=== PATIENT | male | born 1970 | race Caucasian/White ===

== ENCOUNTER → 2019-11-29 13:35 | Outpatient (BNVA) | payer OTHER, SELFPAY | PROVIDERS: Visit Provider Physician Assistant | DX: Z47.1 Aftercare following joint replacement surgery (principal); Z48.02 Encounter for removal of sutures; Z96.651 Presence of right artificial knee joint | CPT/HCPCS: 99024 ==

== ENCOUNTER → 2019-12-10 10:18 | Outpatient (BNVA) | payer OTHER, SELFPAY | PROVIDERS: PCP Internal Medicine; Referring Provider Internal Medicine; Visit Provider Physician Assistant | DX: T81.41XA Infection following a procedure, superficial incisional surgical site, initial encounter (principal); Z96.651 Presence of right artificial knee joint; Z96.641 Presence of right artificial hip joint ==

== ENCOUNTER → 2019-12-13 09:09 | Outpatient (BNVA) | payer OTHER, SELFPAY | PROVIDERS: PCP Internal Medicine; Referring Provider Internal Medicine; Visit Provider Physician Assistant | DX: Z96.651 Presence of right artificial knee joint (principal) | CPT/HCPCS: 11042 ==

== ENCOUNTER → 2019-12-20 08:15 | Outpatient (BNVA) | payer OTHER, SELFPAY | PROVIDERS: PCP Internal Medicine; Referring Provider Internal Medicine; Visit Provider Orthopaedic Surgery | DX: Z76.89 Persons encountering health services in other specified circumstances (principal) ==

== ENCOUNTER 2019-12-20 13:00 | Outpatient (RCR) | payer OTHER, SELFPAY | END 2020-01-15 16:30 | disposition home or self-care (01) | LOC: HO.WCC 13:00 | PROVIDERS: PCP Internal Medicine; Visit Provider Surgery | DX: T81.31XD Disruption of external operation (surgical) wound, not elsewhere classified, subsequent encounter (principal); Z96.651 Presence of right artificial knee joint; Z79.899 Other long term (current) drug therapy | CPT/HCPCS: 99212; 99213 ==

== ENCOUNTER → 2019-12-24 08:32 | Outpatient (BNVA) | payer OTHER, SELFPAY | PROVIDERS: PCP Internal Medicine; Visit Provider Orthopaedic Surgery | DX: Z76.89 Persons encountering health services in other specified circumstances (principal) ==

== ENCOUNTER → 2019-12-25 08:48 | Outpatient (BNVA) | payer OTHER, SELFPAY | PROVIDERS: PCP Internal Medicine; Referring Provider Internal Medicine; Visit Provider Internal Medicine Gastroenterology | DX: Z76.89 Persons encountering health services in other specified circumstances (principal) ==

== ENCOUNTER → 2019-12-27 08:48 | Outpatient (BNVA) | payer OTHER, SELFPAY | PROVIDERS: PCP Internal Medicine; Visit Provider Orthopaedic Surgery | DX: Z76.89 Persons encountering health services in other specified circumstances (principal) ==

== ENCOUNTER 2020-01-03 08:02 | Outpatient (REF) | payer OTHER, SELFPAY ==
--- NOTE | 2020-01-03 08:10 | US_ITS ---
EXAMINATION: US ABDOMEN COMPLETE CLINICAL INFORMATION: Right upper quadrant pain. COMPARISON: None. TECHNIQUE: Real-time imaging of the abdominal viscera. FINDINGS: PANCREAS: Tail obscured by bowel gas. Head and body normal ABDOMINAL AORTA: The proximal, mid, and distal segments are normal in caliber. INFERIOR VENA CAVA: Visualized portions are normal. LIVER: The liver is normal in size. The liver contour is normal. No focal hepatic lesion. There is no intrahepatic biliary duct dilatation seen. GALLBLADDER: Normal. The gallbladder is physiologically distended without evidence of stones, sludge, polyps, wall thickening or pericholecystic fluid. COMMON BILE DUCT: Normal in caliber measuring 0.4 cm in diameter. RIGHT KIDNEY: Normal. No hydronephrosis. No renal calculi or focal parenchymal lesions. The kidney measures 11.9 cm in maximum dimension. LEFT KIDNEY: No hydronephrosis. No renal calculi or focal parenchymal lesions. The kidney measures 14.2 cm in maximum dimension. SPLEEN: Normal. The spleen measures 9.9 cm in maximum dimension. FREE FLUID: None. US/US abdomen complete IMPRESSION: Normal exam
[2020-01-03 09:33] LABS: MANUAL DIFF FLAG NO
[2020-01-03 09:34] LABS: Basophils Percent Auto 0.5 % (0-2); Eosinophils Absolute Auto 0.4 X10*3/uL (0.0-0.4); Eosinophils Percent Auto 6.6 % (0-4); Hematocrit 40.7 % (42-52); Hemoglobin 13.6 g/dl (14.0-18.0); Imm Gran Abs Auto 0.01 X10*3/uL (0.00-0.03); Imm Gran Pct Auto 0.2 % (0.0-0.4); Lymphocytes Absolute Auto 2.3 X10*3/uL (1.2-4.9); Mean Corpuscular HGB Conc 33.4 g/dl (31.0-36.0); Mean Corpuscular Hemoglobin 31.6 pg (27.0-33.0); Mean Corpuscular Volume 94.7 fL (80-98); Mean Platelet Volume 9.4 fL (9.4-12.4); Monocytes Absolute Auto 0.6 X10*3/uL (0.1-1.2); Monocytes Percent Auto 10.6 % (2-11); Neutrophils Absolute Auto 2.6 X10*3/uL (2.0-8.3); Neutrophils Percent Auto 44.1 % (45-73); Platelet Count 276 X10*3/uL (160-400)
[2020-01-03 10:40] LABS: Alanine Aminotransferase 22 U/L (0-40); Albumin Level 4.6 g/dL (3.5-5.0); Alkaline Phosphatase 58 U/L (39-117); Anion Gap 13 (12-20); Aspartate Amino Transferase 18 U/L (5-37); Bilirubin Total 0.6 mg/dL (0.0-1.0); Blood Urea Nitrogen 6 mg/dL (9-16); Calcium 9.5 mg/dL (8.4-10.2); Carbon Dioxide 29 mmol/L (22-29); Chloride 101 mmol/L (96-108); Estimated Glomerular Filt Rate > 60; Glucose Random 101 mg/dL (60-115); Potassium 4.5 mmol/l (3.3-5.1); Sodium 138 mmol/L (135-145); Total Protein 7.4 g/dL (6.5-8.0)
== END 2020-01-03 08:03 | disposition home or self-care (01) ==
LOC: HO.US 08:02
PROVIDERS: PCP Internal Medicine; Visit Provider Internal Medicine Gastroenterology
DX: R10.11 Right upper quadrant pain (principal)
CPT/HCPCS: 36415; 76700; 80053; 85025

== ENCOUNTER → 2020-02-04 11:06 | Outpatient (BNVA) | payer OTHER, SELFPAY | PROVIDERS: PCP Internal Medicine; Visit Provider Orthopaedic Surgery | DX: Z76.89 Persons encountering health services in other specified circumstances (principal) ==

== ENCOUNTER → 2020-02-05 08:09 | Outpatient (BNVA) | payer OTHER, SELFPAY | PROVIDERS: PCP Internal Medicine; Referring Provider Internal Medicine; Visit Provider Internal Medicine Gastroenterology | DX: Z76.89 Persons encountering health services in other specified circumstances (principal) ==

== ENCOUNTER 2020-02-05 09:00 | Outpatient (RCR) | payer OTHER, SELFPAY ==
--- NOTE | 2020-01-01 11:10 | MHC.PT.EP ---
[facility] [place] Office [place] Office [place] Office [address] Sandra Marinelli [address] [phone] F: [phone] F: [phone] F: [phone] F: [phone] Physical Therapy Plan of Care Date of Evaluation: 01/01/20 Date of Surgery: 11/13/2019 Diagnosis: R TKA Assessment: 49 y/o male s/p R TKA 11/13/2019 after failed conservative management and previous trauma (borken femur, meniscal repairs). Following TKA, he had home PT 3x/week for 2 weeks which ended due to wound abcess of suture. He has been following with wound care and Dr. Tang 2x/week for wound management. He just finished Bactrim for the wound. He stopped most of his PT exercises while under wound care. Currently has pain and difficulty with walking < 1mile, ascending/descending stairs, kneeling, and sleeping. He is not able to drive yet. Examination shows decreased R knee AROM (0-8-108), decreased R LE strength, increased swelling R tibiofemoral joint, decreased HS/gastroc length, and impaired gait pattern. Recommend PT 2x/week for 4 weeks to address impairments, implement HEP, and optimize functional mobility. Frequency and Duration: The patient will be seen 2x/week for 4 weeks Short Term Goals: 2 weeks: 1. Initiate HEP 2. Demonstrate R HS length 10 degrees 3. Demonstrate R knee AROM 0-2-115 Last Scourer Goals: 3 weeks: 1. I with HEP and self management of sx 2. Pt will ascend/descend stairs in step through pattern with one rail 3. Demonstrate normal knee AROM Treatment Plan: Modalities to reduce pain, spasms and effusion. Manual therapy to restore motion and function. Therapeutic exercise to improve strength and flexibility. Neuromuscular re-education for posture and balance. Therapeutic activities to return to functional activities of daily living. Please sign and return to therapist. Thank you for your referral.
--- NOTE | 2020-01-10 09:38 | MHC.PT.PR ---
[facility] [place] Office [place] Office [place] Office [address] Sandra Marinelli [address] [phone] F: [phone] F: [phone] F: [phone] F: [phone] Physical Therapy Progress Note Diagnosis: R TKA Date of Surgery: 11/13/2019 Date of Evaluation: 01/01/20 Treatments to Date: 4 Cancellations to Date: 0 No Shows to Date: 0 Subjective: 8 weeks post-op. Reports nurse at wound care is happy with his progress and removed the dressing. He overdid it yesterday with walking and errands Pain Score and Location: 5 R knee Objective Measures: Knee AROM: 0-3-110 Assessment: Progressed quad strengthening today and cues to maintain knee extension with eccentric lowering. Knee extension ROM is improving however knee flexion has not significantly changed. His incision is now closed with small scabbing noted proximally. Will progress flexino ROM as tolerated. Frequency and Duration: The patient will be seen 2x/week for 4 weeks Treatment Plan: R TKA protocol, BE GENTLE WITH FLEXION ROM as pt has open wound superior incision Thank you once again for your referral.
--- NOTE | 2020-03-18 14:30 | MHC.PT.DC ---
[facility] [place] Office [place] Office [place] Office [address] Sandra Marinelli 140 [facility] [phone] F: [phone] F: [phone] F: [phone] F: [phone] Physical Therapy Discharge Report Diagnosis: R TKA Date of Surgery: 11/13/2019 Date of Evaluation: 01/01/20 Date of Discharge: 03/18/20 Treatments to Date: 7 Cancellations to Date: 2 No Shows to Date: 0 Discharge Status: Improved Function Discharge Summary: Pt I with HEP and d/c from PT. Knee AROM 0-118. Electronically signed by: Delmy Lyn PT Please sign and return to therapist. Thank you for your referral.
== END 2020-03-18 14:30 | disposition other institution (70) ==
LOC: HO.PT 09:00
PROVIDERS: Visit Provider Physician Assistant
DX: Z47.1 Aftercare following joint replacement surgery (principal); Z96.651 Presence of right artificial knee joint
CPT/HCPCS: 97110; 97161; 97530

== ENCOUNTER 2020-04-09 10:40 | Outpatient (REF) | payer OTHER, SELFPAY ==
--- NOTE | ~2020-04-09 | XR_ITS ---
EXAMINATION: XR LUMBOSACRAL SPINE CLINICAL INFORMATION: Left sciatica COMPARISON: Previous lumbar spine x-ray March 2010 TECHNIQUE: Three views of the lumbosacral spine. FINDINGS: There is mild anterior subluxation of L4 with respect L5. This is probably secondary to facet arthritis. Bone alignment is otherwise normal. No fracture or dislocation is seen. There is degenerative disc disease at L1-L2 , L2-L3 and L5-S1. There is lower lumbar spine facet arthritis. XR/XR lumbar spine 2-3V IMPRESSION: Degenerative changes.
== END 2020-04-09 10:41 | disposition home or self-care (01) ==
LOC: HO.XRAY 10:40
PROVIDERS: PCP Internal Medicine; Visit Provider Internal Medicine
DX: M54.32 Sciatica, left side (principal)
CPT/HCPCS: 72100

== ENCOUNTER 2020-04-09 11:01 | Day surgery (SDC) | payer OTHER, SELFPAY ==
[2020-04-03 15:26] VITALS: BMI 30.5
--- NOTE | 2020-04-08 09:39 | P.CONAN_ITS ---
Documented by User: Corrie Lea 04/08/20 09:41 HPI - Anesthesia Eval Consult details Narrative: 50yo M for Upper Endoscopy with Balloon Dilitation PMFSH Active Problems Active Problems: All Active Problems (Updated 04/03/20 @ 15:25 by Shani Henry) Abscess involving suture (Acute) Status post right knee replacement (Acute) RUQ abdominal pain (Acute) Dysphagia (Acute) Bloating symptom (Acute) Past Medical History Medical History ADHD (attention deficit hyperactivity disorder) GERD (gastroesophageal reflux disease) Hemorrhoids HTN (hypertension) Family History Family History Father Alive and well Mother Alive and well Surgical History Surgical History History of colonoscopy Hx of endoscopy Status post total right knee replacement Social History Social History Alcohol intake: current Alcohol intake frequency: a few times a week Alcohol type: beer, wine, hard liquor and other Smoking Status: Former smoker Use of substances other than those prescribed or required for medical reasons: No Substance Use Type: Marijuana Substance Use Frequency: Occasionally Have you been hit, kicked, punched, or otherwise hurt by someone within the past year? If so, by whom?: No Advance Directives: No Advance Directives Information Provided: No Advance Directives on File: No Meds Allergies Allergy/AdvReac Type Severity Reaction Status Date / Time No Known Allergies Allergy Verified 04/09/20 12:16 [No Known Allergies*] seasonal Allergy Unknown Unknown Uncoded 04/09/20 12:16 Home Medications Medication Instructions Recorded Confirmed Last Taken Type acetaminophen 325 mg tablet 650 mg PO Q6H PRN 11/21/19 04/03/20 Unknown History celecoxib 200 mg capsule 200 mg PO BID 11/21/19 04/09/20 04/09/20 07:00 History dextroamphetamine-amphetamine 10 1 tab PO DAILY PRN 11/21/19 04/03/20 Unknown History mg tablet lisinopril 20 mg tablet 20 mg PO DAILY 11/21/19 04/09/20 04/09/20 07:00 History sennosides 8.6 mg-docusate sodium 1 tab PO BEDTIME PRN 11/21/19 02/05/20 Unknown History 50 mg tablet omeprazole 1 cap PO BID 04/03/20 04/09/20 04/09/20 07:00 History Exam Exam Date and Time: April 08, 2020 0939 Height,Weight and Vital Signs: Height 5 ft 7 in Weight 88.451 kg Pertinent Lab Results Pertinent Lab Results: Laboratory Tests 01/03/20 01/03/20 08:53 08:53 WBC 6.0 Hgb 13.6 L Hct 40.7 L Plt Count 276 Sodium 138 Potassium 4.5 Chloride 101 Carbon Dioxide 29 BUN 6 L Creatinine 0.71 Assessment and Plan Assessment Anesthesia Assessment: Chart Reviewed Documented by User: Mary Kate Virgen 04/09/20 13:59 [facility] Past Medical History Medical History ADHD (attention deficit hyperactivity disorder) GERD (gastroesophageal reflux disease) Hemorrhoids HTN (hypertension) Family History Family History Father Alive and well Mother Alive and well Surgical History Surgical History History of colonoscopy Hx of endoscopy Status post total right knee replacement Social History Social History Alcohol intake: current Alcohol intake frequency: a few times a week Alcohol type: beer, wine, hard liquor and other Smoking Status: Former smoker Use of substances other than those prescribed or required for medical reasons: No Substance Use Type: Marijuana Substance Use Frequency: Occasionally Have you been hit, kicked, punched, or otherwise hurt by someone within the past year? If so, by whom?: No Advance Directives: No Advance Directives Information Provided: No Advance Directives on File: No Meds Allergies Allergy/AdvReac Type Severity Reaction Status Date / Time No Known Allergies Allergy Verified 04/09/20 12:16 [No Known Allergies*] seasonal Allergy Unknown Unknown Uncoded 04/09/20 12:16 Home Medications Medication Instructions Recorded Confirmed Last Taken Type acetaminophen 325 mg tablet 650 mg PO Q6H PRN 11/21/19 04/03/20 Unknown History celecoxib 200 mg capsule 200 mg PO BID 11/21/19 04/09/20 04/09/20 07:00 History dextroamphetamine-amphetamine 10 1 tab PO DAILY PRN 11/21/19 04/03/20 Unknown History mg tablet lisinopril 20 mg tablet 20 mg PO DAILY 11/21/19 04/09/20 04/09/20 07:00 History sennosides 8.6 mg-docusate sodium 1 tab PO BEDTIME PRN 11/21/19 02/05/20 Unknown History 50 mg tablet omeprazole 1 cap PO BID 04/03/20 04/09/20 04/09/20 07:00 History Exam Airway Mallampati Class: II TM Dist: >3cm Neck ROM: Full Heart: RRR Lungs: CTA
[2020-04-09 11:37] VITALS: BP 126/81; PULSE 83; RESP 18; TEMP 36.1; O2SAT 98
[2020-04-09] MEDS: Lactated Ringers 1,000 ML 100 ML IVCONT (12:05)
--- NOTE | 2020-04-09 12:10 | MHC.SHP ---
Pre-Procedural Eval Section B Chief Complaint: abdominal distension Details of Present Illness: dysphagia Relevant Family History (Specify if Yes): No Relevant Social History: Other (specify) (THC) Present Medications: see Short Stay Collaborative assessment Medical History: Significant History (ADHD (attention deficit hyperactivity disorder) GERD (gastroesophageal reflux disease) Hemorrhoids HTN (hypertension)) History of Previous Operations: Relevant previous surgery/procedure and date(s) (knee replacement) Allergies: Allergies Allergy/AdvReac Type Severity Reaction Status Date / Time No Known Allergies Allergy Verified 02/04/20 12:42 [No Known Allergies*] seasonal Allergy Unknown Unknown Uncoded 02/04/20 12:42 Review of Systems Sugical H&P ROS: Negative: Constitution, Cardiovascular, Respiratory, Neurological, Psychiatric, Hem-Onc, Allergic/Immunologic, Gastrointestinal, Genitourinary, Musculoskeletal, Integumentary, Endocrine and Eyes/Ears/Nose/Throat Exam Surgical H&P Exam: Normal: HEENT, Normal: Heart, Normal: Lungs, Normal: Extremities, Normal: Abdomen, Normal: Skin and Normal: Neurological Plan Diagnosis/Plan: Unchanged I have reviewed the history and physical and performed a pertinent physical examination on my patient. No changes have occurred unless specified.
--- NOTE | 2020-04-09 13:48 | PM.OP ---
Brief Operative Note Date of Service: 04/09/20 Pre-op diagnosis: dysphagia Post-op diagnosis: same Procedure: see op note Surgeon: Fabián Parrish MD Anesthesia: MAC Estimated blood loss (mL): 0 Condition: stable Disposition: PACU
--- NOTE | 2020-04-09 13:48 | W.PM.OPN ---
Operative Note Operative Note Date of Service: 04/09/20 Narrative: Procedure Description: EGD FLEXIBLE TRANSORAL UPPER GASTROINTESTINAL ENDOSCOPY UPPER ENDOSCOPY Consent: Indications for the procedure and potential complications of bleeding, perforation, reaction to medications and missed diagnosis were discussed with the patient and informed consent was obtained. Instrument: Olympus GIF H 190 J mid size upper endoscope Monitoring: Vital signs and clinical assessment, continuous EKG monitoring, Pulse oximetry, Carbon Dioxide monitoring and blood pressure monitoring were done throughout the procedure. Procedure: The patient was placed in the left lateral decubitis position and pre-procedure medications were administered and a bite block was placed. The endoscope was inserted into the mouth and advanced under direct vision to the third part of duodenum. A careful inspection was made as the upper endoscope was withdrawn including a retroflexed examination of the proximal stomach; Findings and interventions are described below. Findings: Larynx:normal Esophagus: GE junction at 40 cm, diaphragm hiatus at 40 cm, possible short segment barretts, bx taken, dilation with 15 then 17 mm bougie over a savary wire, bx taken from GEJ and random esophagus Stomach: Patchy gastric erythema. Biopsies were obtained. Grade 2 flap valve on retroflexed examination of the cardia. Duodenum: Normal bulb and descending duodenum, bx taken for Disaccharidase testing Intervention: Biopsies as noted above, dilation Impression/Findings: gastritis PLAN: confirm PPI hx if sx persist then consider changing PPI, possible referral for manometry to r/o esophageal dysmotility disorder
[2020-04-09 14:42] VITALS: BP 104/70; PULSE 88; RESP 16; TEMP 36.9
[2020-04-09 15:04] VITALS: BP 125/84; PULSE 77; RESP 16; TEMP 36.9; O2SAT 99
[2020-04-15 19:27] LABS: Lactase 20.7 (15.0-45.5); Maltase 235.6 (100.0-224.4); Palatinase 19.9 (5.0-26.3); Sucrase 73.1 (25.0-69.9)
== END 2020-04-09 15:50 | disposition home or self-care (01) ==
PROVIDERS: PCP Internal Medicine; Visit Provider Internal Medicine Gastroenterology
PROC: (CPT 43248; principal; 2020-04-09 14:10)
DX: K29.70 Gastritis, unspecified, without bleeding (principal); R13.10 Dysphagia, unspecified; K21.00 Gastro-esophageal reflux disease with esophagitis, without bleeding; I10 Essential (primary) hypertension; Z79.899 Other long term (current) drug therapy
CPT/HCPCS: 43248; 43239; 36415; 82657; 88300; 88305; 88342; C1769

== ENCOUNTER → 2020-04-21 12:49 | Outpatient (BNVA) | payer OTHER, SELFPAY | PROVIDERS: PCP Internal Medicine; Visit Provider Internal Medicine Gastroenterology ==

== ENCOUNTER 2020-05-29 14:05 | Outpatient (REF) | payer OTHER, SELFPAY ==
--- NOTE | ~2020-05-29 | XR_ITS ---
EXAMINATION:XR knee RT 2V, XR knee standing BI CLINICAL INFORMATION: Pain COMPARISON: October 2019 TECHNIQUE: Bilateral frontal standing, right lateral patella sunrise view. FINDINGS: BONES: No fracture or dislocation is present. JOINTS: There is total knee replacement prosthesis device, both femoral and tibial component of which is properly positioned maintaining normal alignment's. No radiologic evidence of device loosening. Patella properly positioned. SOFT TISSUE: There is soft tissue swelling prepatellar and small knee joint effusion. XR/XR knee standing BI IMPRESSION: Prepatellar soft tissue swelling and small right knee joint effusion. Status post right total knee replacement, the prosthesis in place properly positioned. Bone alignments maintained. No radiographic evidence of device failure.
--- NOTE | ~2020-05-29 | XR_ITS ---
EXAMINATION:XR knee RT 2V, XR knee standing BI CLINICAL INFORMATION: Pain COMPARISON: October 2019 TECHNIQUE: Bilateral frontal standing, right lateral patella sunrise view. FINDINGS: BONES: No fracture or dislocation is present. JOINTS: There is total knee replacement prosthesis device, both femoral and tibial component of which is properly positioned maintaining normal alignment's. No radiologic evidence of device loosening. Patella properly positioned. SOFT TISSUE: There is soft tissue swelling prepatellar and small knee joint effusion. XR/XR knee RT 2V IMPRESSION: Prepatellar soft tissue swelling and small right knee joint effusion. Status post right total knee replacement, the prosthesis in place properly positioned. Bone alignments maintained. No radiographic evidence of device failure.
== END 2020-05-29 14:06 | disposition home or self-care (01) ==
LOC: HO.HOSX 14:05
PROVIDERS: PCP Internal Medicine; Visit Provider Orthopaedic Surgery
DX: Z96.651 Presence of right artificial knee joint (principal); T84.84XA Pain due to internal orthopedic prosthetic devices, implants and grafts, initial encounter
CPT/HCPCS: 73560; 73565

== ENCOUNTER 2020-12-11 10:32 | Outpatient (REF) | payer OTHER, SELFPAY ==
[2020-12-11 10:53] LABS: MANUAL DIFF FLAG NO
[2020-12-11 11:53] LABS: Basophils Percent Auto 0.5 % (0-2); Eosinophils Absolute Auto 0.2 X10*3/uL (0.0-0.4); Eosinophils Percent Auto 2.9 % (0-4); Hematocrit 40.9 % (42-52); Imm Gran Abs Auto 0.02 X10*3/uL (0.00-0.03); Imm Gran Pct Auto 0.3 % (0.0-0.4); Lymphocytes Absolute Auto 1.8 X10*3/uL (1.2-4.9); Lymphocytes Percent Auto 29.4 % (20-40); Mean Corpuscular HGB Conc 34.2 g/dl (31.0-36.0); Mean Corpuscular Hemoglobin 31.6 pg (27.0-33.0); Mean Corpuscular Volume 92.3 fL (80-98); Mean Platelet Volume 10.1 fL (9.4-12.4); Monocytes Absolute Auto 0.7 X10*3/uL (0.1-1.2); Monocytes Percent Auto 11.6 % (2-11); Neutrophils Absolute Auto 3.4 X10*3/uL (2.0-8.3); Neutrophils Percent Auto 55.3 % (45-73); Platelet Count 239 X10*3/uL (160-400); Red Blood Count 4.43 X10*6/uL (4.60-5.80); Red Cell Distribution Width 12.1 % (11.0-16.0); White Blood Count 6.2 X10*3/uL (4.8-10.8)
[2020-12-11 12:13] LABS: Alanine Aminotransferase 25 U/L (0-40); Albumin Level 4.7 g/dL (3.5-5.0); Alkaline Phosphatase 57 U/L (39-117); Anion Gap 11 (12-20); Aspartate Amino Transferase 24 U/L (5-37); Bilirubin Direct 0.3 mg/dL (0.0-0.5); Bilirubin Total 0.9 mg/dL (0.0-1.0); Blood Urea Nitrogen 12 mg/dL (9-16); Carbon Dioxide 29 mmol/L (22-29); Chloride 104 mmol/L (96-108); Cholesterol 213 mg/dL; Estimated Glomerular Filt Rate > 60; Glucose Fasting 111 mg/dL (60-99); HDL Cholesterol 64 mg/dL; LDL Cholesterol Calculated 125 mg/dl; Potassium 4.7 mmol/L (3.3-5.1); Sodium 139 mmol/L (135-145); Total Protein 7.5 g/dL (6.5-8.0); Triglycerides 123 mg/dL
[2020-12-11 12:36] LABS: Prostate Specific Antigen 0.88 ng/mL (<0.05-4.0)
== END 2020-12-11 10:33 | disposition home or self-care (01) ==
LOC: HO.LAB 10:32
PROVIDERS: PCP Internal Medicine; Visit Provider Internal Medicine
DX: Z00.00 Encounter for general adult medical examination without abnormal findings (principal); E78.00 Pure hypercholesterolemia, unspecified; Z12.5 Encounter for screening for malignant neoplasm of prostate
CPT/HCPCS: 36415; 80051; 80061; 80076; 82565; 82947; 84153; 84520; 85025

== ENCOUNTER 2021-01-08 08:23 | Outpatient (REF) | payer OTHER, SELFPAY ==
--- NOTE | ~2021-01-08 | CT_ITS ---
EXAMINATION: CT HEAD WITHOUT CONTRAST CLINICAL INFORMATION: TIA. Cerebral ischemic attacks. COMPARISON: None TECHNIQUE: Contiguous axial imaging was performed from the skull base to vertex without intravenous administration of contrast. This CT examination was performed using dose optimization techniques as appropriate, variously including the following: *Automated exposure control *Adjustment of mA and/or kV according to patient size (this includes techniques or standardized protocols for targeted exams where dose is matched to indication/reason for exam; i.e. extremities or head) *Use of iterative reconstruction technique DLP: 729 mGy-cm FINDINGS: There is no evidence of acute intracranial hemorrhage or territorial infarction. No abnormal mass effect or midline shift is seen. Cook to white matter differentiation is well preserved. No extra-axial fluid collections are identified. The ventricles are normal in size. There is no abnormal attenuation within the brain parenchyma. The osseous structures and soft tissues are normal. The mastoid air cells and visualized portions of the paranasal sinuses are well aerated. CT/CT head/brain wo con IMPRESSION: No acute intracranial process seen.
== END 2021-01-08 08:24 | disposition home or self-care (01) ==
LOC: HO.CT 08:23
PROVIDERS: Visit Provider Internal Medicine
DX: G45.8 Other transient cerebral ischemic attacks and related syndromes (principal)
CPT/HCPCS: 70450

== ENCOUNTER → 2021-07-07 13:20 | Outpatient (BNVA) | payer OTHER, SELFPAY | PROVIDERS: PCP Internal Medicine; Referring Provider Internal Medicine; Visit Provider Surgery | DX: K42.9 Umbilical hernia without obstruction or gangrene (principal) ==

== ENCOUNTER 2021-07-22 07:01 | Day surgery (SDC) | payer OTHER, SELFPAY ==
[2021-07-15 17:39] VITALS: BMI 31.0
--- NOTE | 2021-07-21 09:24 | P.CONAN_ITS ---
Documented by User: Corrie Lea NP 07/21/21 09:25 HPI - Anesthesia Eval Consult details Narrative: 51yo M for Hernia Repair Umbilical with mesh PMFSH Active Problems Active Problems: All Active Problems (Updated 07/07/21 @ 17:18 by Arthur Gonzalez MD) Umbilical hernia (Acute) Abscess involving suture (Acute) Status post right knee replacement (Acute) RUQ abdominal pain (Acute) Dysphagia (Acute) Bloating symptom (Acute) Past Medical History Medical History ADHD (attention deficit hyperactivity disorder) Anxiety GERD (gastroesophageal reflux disease) Hemorrhoids HTN (hypertension) Family History Family History Father Alive and well Mother Alive and well Surgical History Surgical History History of colonoscopy Hx of endoscopy Status post total right knee replacement Social History Social History Household Members: Spouse Alcohol intake: current Alcohol intake frequency: a few times a week Alcohol type: beer Patient Tobacco Use Status: Never used Tobacco Use of substances other than those prescribed or required for medical reasons: Yes Substance Use Type: Marijuana Substance Use Frequency: Occasionally Are you DNR?: No Advance Directives: No Advance Directives Information Provided: Yes Meds Allergies Allergy/AdvReac Type Severity Reaction Status Date / Time seasonal Allergy Unknown Unknown Uncoded 07/22/21 07:22 Home Medications Medication Instructions Recorded Confirmed Last Taken Type acetaminophen 325 mg tablet 650 mg PO Q6H PRN 11/21/19 07/22/21 Unknown History dextroamphetamine-amphetamine 10 1 tab PO DAILY PRN 11/21/19 07/22/21 Unknown History mg tablet lisinopril 20 mg tablet 20 mg PO DAILY 11/21/19 07/22/21 07/22/21 06:00 History sennosides 8.6 mg-docusate sodium 1 tab PO BEDTIME PRN 11/21/19 07/07/21 Unknown History 50 mg tablet fluoxetine 20 mg capsule 1 cap PO DAILY 07/22/21 07/22/21 07/22/21 06:00 History Exam Exam Date and Time: July 21, [id number] Height,Weight and Vital Signs: Height 5 ft 7 in Weight 89.811 kg Pertinent Lab Results Pertinent Lab Results: Laboratory Tests 12/11/20 12/11/20 10:51 10:51 WBC 6.2 Hgb 14.0 Hct 40.9 L Plt Count 239 Sodium 139 Potassium 4.7 Chloride 104 Carbon Dioxide 29 BUN 12 D Creatinine 0.73 Assessment and Plan Assessment Anesthesia Assessment: Chart Reviewed Documented by User: Rhea Boggs MD 07/22/21 08:53 [facility] Past Medical History Medical History ADHD (attention deficit hyperactivity disorder) Anxiety GERD (gastroesophageal reflux disease) Hemorrhoids HTN (hypertension) Family History Family History Father Alive and well Mother Alive and well Surgical History Surgical History History of colonoscopy Hx of endoscopy Status post total right knee replacement History of Problems with Anesthesia: No Social History Social History Household Members: Spouse Alcohol intake: current Alcohol intake frequency: a few times a week Alcohol type: beer Patient Tobacco Use Status: Never used Tobacco Use of substances other than those prescribed or required for medical reasons: Yes Substance Use Type: Marijuana Substance Use Frequency: Occasionally Are you DNR?: No Advance Directives: No Advance Directives Information Provided: Yes Meds Allergies Allergy/AdvReac Type Severity Reaction Status Date / Time seasonal Allergy Unknown Unknown Uncoded 07/22/21 07:22 Home Medications Medication Instructions Recorded Confirmed Last Taken Type acetaminophen 325 mg tablet 650 mg PO Q6H PRN 11/21/19 07/22/21 Unknown History dextroamphetamine-amphetamine 10 1 tab PO DAILY PRN 11/21/19 07/22/21 Unknown History mg tablet lisinopril 20 mg tablet 20 mg PO DAILY 11/21/19 07/22/21 07/22/21 06:00 History sennosides 8.6 mg-docusate sodium 1 tab PO BEDTIME PRN 11/21/19 07/07/21 Unknown History 50 mg tablet fluoxetine 20 mg capsule 1 cap PO DAILY 07/22/21 07/22/21 07/22/21 06:00 History Exam Airway Mallampati Class: II TM Dist: >3cm Neck ROM: Full Partial: Upper Loose/Missing/Broken Teeth: Yes and Upper Heart: RRR Lungs: CTA Assessment and Plan Assessment Anesthesia Assessment: Anesthesia Plan Discussed Final Anesthetic Review History of Problems with Anesthesia: No NPO: Yes ASA Class: II Final Preanesthetic Review: Meds/Allgs Chart Reviewed, Consent Obtained/Reviewed and Anes Risks/Benef Reviewed Patient Risk: Low Procedure Risk: Low Anesthetic Plan Anesthetic Plan: GA Disposition: Standard PACU
[2021-07-22] VITALS (7 sets, daily range): BP systolic 137–174; BP diastolic 74–101; PULSE 69–81; RESP 15–18; TEMP 36.1–37.2; O2SAT 98–99
[2021-07-22] MEDS: Lactated Ringers 1,000 ML 100 ML IVCONT (07:44)
--- NOTE | 2021-07-22 08:38 | MHC.SHP ---
Pre-Procedural Eval Section A Date of Service: 07/22/21 The patient is an INPATIENT: No Changes since office visit: Yes Patient answered all questions; No Cold of Flu in the past 2 weeks, No New Medical Problems and No Changes in Medication The History & Physical has been completed within 30 days and I have reviewed it.: Yes Section B Chief Complaint: umbilical hernia Allergies: Allergies Allergy/AdvReac Type Severity Reaction Status Date / Time seasonal Allergy Unknown Unknown Uncoded 07/22/21 07:22 Plan Diagnosis/Plan: Unchanged I have reviewed the history and physical and performed a pertinent physical examination on my patient. No changes have occurred unless specified.
--- NOTE | 2021-07-22 09:49 | W.PM.OPN ---
Operative Note Operative Note Date of Service: 07/22/21 Narrative: Preoperative diagnosis: Umbilical hernia Postoperative diagnosis: Same Procedure: Repair of umbilical hernia with mesh Surgeon: Arthur Gonzalez MD Film Touch Up Inspector: No physician Anesthesia: General LMA Indications for procedure: 51-year-old male patient presenting with a painful umbilical hernia. The patient noted the hernia to increase in size with lifting and straining but reduces with light pressure. On examination patient has a small umbilical hernia which reduces with light pressure. Operative findings: 1.5 cm umbilical hernia containing preperitoneal fat Specimen: None Estimated blood loss: 2 mL Complications: None Procedure details: Patient was brought to the OR placed in a supine position. After administering general anesthesia the patient's abdomen was prepped with ChloraPrep and draped in a sterile fashion. A surgical time-out was called the consent confirmed. Patient received preoperative antibiotics and Venodyne boots were in place. Local anesthesia consisting of 0.25% Sensorcaine with whole trait around the umbilicus. A curvilinear incision was then made with a scalpel and the upper surface of the the umbilicus. This was then carried out through subcutaneous tissue down to the hernia sac. Umbilical skin was then excised off the fascia. A defect measuring approximately 1.5 cm was identified. This was freed up circumferentially and reduced into the preperitoneal space. A preperitoneal space was further defined using electrocautery and blunt dissection. The 4.3 cm round Ventralex mesh was then obtained. This was placed in the preperitoneal space 4 mL of Zenrelef was then infiltrated around the mesh. Fascia was then closed over the mesh including the mesh in the closure using [id number] 1 Tycron sutures. Umbilical skin was then fixed to the fascial tissue. Dermis was then closed using interrupted 3-0 Polysorb sutures. Skin was closed using a running subcuticular 4-0 Polysorb suture. Patient tolerated the procedure well. Sponge, instrument, and needle counts reported as correct. Patient was transferred to PACU in stable condition.
[2021-07-22] MEDS: fentaNYL citrate/PF 100 MCG/2 ML VIAL 50 MCG IVPUSH (10:04)
[2021-07-22] MEDS: oxyCODONE HCl Immed Release 5 MG TABLET PO (10:08)
[2021-07-22] MEDS: Acetaminophen 325 MG TABLET 650 MG PO (10:09)
== END 2021-07-22 10:56 | disposition home or self-care (01) ==
PROVIDERS: PCP Internal Medicine; Visit Provider Surgery
PROC: (CPT 49585; principal; 2021-07-22 08:40)
DX: K42.9 Umbilical hernia without obstruction or gangrene (principal); K21.9 Gastro-esophageal reflux disease without esophagitis; I10 Essential (primary) hypertension; F90.9 Attention-deficit hyperactivity disorder, unspecified type; Z79.899 Other long term (current) drug therapy; Z96.651 Presence of right artificial knee joint; F12.90 Cannabis use, unspecified, uncomplicated
CPT/HCPCS: 49585; C1781; C9088; J0690; J1100; J1885; J2250; J2405; J3010

== ENCOUNTER 2021-07-22 13:06 | Emergency (ER) | payer OTHER, SELFPAY ==
[2021-07-22 13:09] VITALS: BP 147/95; PULSE 92; RESP 18; TEMP 36.9; O2SAT 99; BMI 30.5
--- NOTE | 2021-07-22 14:29 | ED.GENADULT ---
HPI - General Adult General Chief complaint: Wound/Laceration Stated complaint: wound check Time Seen by Provider: 07/22/21 13:49 Related Data Home Medications Medication Instructions Recorded Confirmed acetaminophen 325 mg tablet 650 mg PO Q6H PRN Pain 11/21/19 07/22/21 dextroamphetamine-amphetamine 10 1 tab PO DAILY PRN attention 11/21/19 07/22/21 mg tablet deficit hyperactivity disorder lisinopril 20 mg tablet 20 mg PO DAILY 11/21/19 07/22/21 sennosides 8.6 mg-docusate sodium 1 tab PO BEDTIME PRN constipation 11/21/19 07/07/21 50 mg tablet fluoxetine 20 mg capsule 1 cap PO DAILY 07/22/21 07/22/21 Previous Rx's Medication Instructions Recorded celecoxib 200 mg capsule 200 mg PO BID #60 caps 05/29/20 omeprazole 40 mg capsule,delayed 40 mg PO BID #60 caps 07/16/20 release oxycodone 5 mg tablet 5 mg PO Q6H PRN pain (scale score 07/22/21 7-10) #20 tabs Allergies Allergy/AdvReac Type Severity Reaction Status Date / Time seasonal Allergy Unknown Unknown Uncoded 07/22/21 07:22 [facility] Past Medical History Medical History (Updated 07/29/21 @ 06:37 by Ac Raya MD) ADHD (attention deficit hyperactivity disorder) Anxiety GERD (gastroesophageal reflux disease) Hemorrhoids HTN (hypertension) Surgical History (Updated 07/28/21 @ 14:06 by Maxine Singh Bruce) History of colonoscopy Hx of endoscopy Hx of umbilical hernia repair (07/22/21) Status post total right knee replacement Family History Family History Father Alive and well Mother Alive and well Social History Social History Household Members: Spouse Alcohol intake: current Alcohol intake frequency: a few times a week Alcohol type: beer Patient Tobacco Use Status: Never used Tobacco Substance Use Type: Marijuana Advance Directives: No Advance Directives Information Provided: No Physical Exam ED Vital Signs: Vital Signs - 24 hr 07/22/21 13:09 Temperature 98.4 F Pulse Rate 92 Respiratory Rate 18 Blood Pressure 147/95 H Pulse Oximetry 99 BMI result Body Mass Index 30.5 Course Course Course Narrative: Patient was seen by his private surgeon and left prior to my evaluation. Discharge Plan Discharge Clinical Impression: Laceration Patient Disposition: Left Without Being Seen Interventions: LWBS Worksheet Last Done: 07/22/21 14:28 Discharge Date/Time: 07/22/21 14:29
== END 2021-07-22 14:29 | disposition left against medical advice (07) ==
PROVIDERS: Emergency Provider Emergency Medicine; PCP Internal Medicine
DX: T14.8XXA Other injury of unspecified body region, initial encounter (principal); I10 Essential (primary) hypertension; X58.XXXA Exposure to other specified factors, initial encounter; Y93.9 Activity, unspecified; Y92.9 Unspecified place or not applicable; Y99.9 Unspecified external cause status
CPT/HCPCS: 99281

== ENCOUNTER 2021-12-22 13:39 | Outpatient (REF) | payer OTHER, SELFPAY ==
--- NOTE | ~2021-12-22 | MR_ITS ---
EXAMINATION: MR LUMBAR SPINE WITHOUT CONTRAST CLINICAL INFORMATION: Bilateral leg pain and low back pain. COMPARISON: X-ray lumbar spine dated 04/09/2020. Lumbar spine MRI from 04/22/2010. TECHNIQUE: Multiplanar, multisequence imaging was obtained. Limited study with motion artifacts. FINDINGS: VERTEBRAL BODIES AND PARASPINAL STRUCTURES: There is severe disc space narrowing with moderate edematous endplate changes lateralized more so to the right side at the L1-L2 level, progressed since previous imaging. Reduced intradiscal signal noted at multiple levels from spondylosis. There is moderate disc space narrowing with minimal disc bulges at the lower thoracic levels. Mild posterior subluxation evident at the L2-L3 level with chronic degenerative endplate changes. Mild anterolisthesis noted at the L4-L5 level with mild edema in the left superior articular process. Minimal anterior subluxation also evident at the L5-S1 level. The paraspinal soft tissues are normal. Moderate degenerative changes of the left SI joint. CONUS MEDULLARIS AND CAUDA EQUINE: The distal cord, conus tip, and cauda equina nerve roots appear normal. SPINAL LEVELS: L1-L2: Severe disc space narrowing and advanced degenerative endplate changes with significant endplate edema. Mild facet arthropathy. Moderate central canal stenosis. Bulging disc and osseous spurring impinge upon the right L2 nerve root in the subarticular zone. Moderate to severe right foraminal narrowing with endplate spurring and bulging disc impressing upon the extraforaminal right L1 nerve root. L2-L3: Retrosubluxation and diffuse disc bulge with hypertrophic facet arthropathy resulting in mild central canal stenosis. Patent foramina. Chronic degenerative endplate changes. L3-L4: Right posterolateral disc protrusion compresses the exiting extraforaminal right L3 nerve root with moderate right foraminal encroachment. Moderate facet arthropathy and very mild narrowing of the central canal. Mild left foraminal narrowing as well. L4-L5: Anterolisthesis and diffuse disc bulge with exuberant facet arthropathy and a small central disc protrusion. Mild central canal stenosis. Moderate right foraminal narrowing. Facet spurring and bulging disc compress the exiting left L4 nerve root with severe left foraminal encroachment. L5-S1: Mild anterolisthesis and broad-based disc bulge with mild facet arthropathy. No central canal stenosis. Mild left foraminal narrowing. [id number] right foraminal encroachment. Small right subarticular zone disc extrusion which mildly impresses upon the right S1 nerve root. MR/MR lumbar spine wo con IMPRESSION: 1. Progressed severe degenerative disc disease at the L1-L2 level with significant endplate edema. Moderate central canal stenosis with bulging disc and osseous spurring impinging upon the right L2 nerve root. [id number] right foraminal narrowing with bulging disc and endplate spurring impressing upon the extraforaminal right L1 nerve root. 2. Right posterolateral disc protrusion at the L3-L4 level compressing the extraforaminal right L3 nerve root with moderate right foraminal encroachment. Moderate facet arthropathy and mild narrowing of the central canal. 3. Mild anterolisthesis and disc bulge at the L4-L5 level with exuberant facet arthropathy and a small central disc protrusion. Mild central canal stenosis. Moderate right foraminal narrowing. Facet spurring and bulging disc compresses the exiting left L4 nerve root with severe left foraminal encroachment. 4. Mild anterior subluxation and disc bulge at the L5-S1 level with a small right subarticular zone disc extrusion mildly impressing upon the right S1 nerve root.
== END 2021-12-22 13:40 | disposition home or self-care (01) ==
LOC: HO.MRI 13:39
PROVIDERS: PCP Internal Medicine; Visit Provider Internal Medicine
DX: M54.16 Radiculopathy, lumbar region (principal)
CPT/HCPCS: 72148

== ENCOUNTER 2022-04-30 06:24 | Emergency (ER) | payer OTHER, SELFPAY ==
[2022-04-30 06:35] VITALS: BP 139/89; PULSE 89; RESP 16; TEMP 36.6; O2SAT 94; BMI 30.5
[2022-04-30 07:04] VITALS: BP 120/84; PULSE 92; RESP 18; TEMP 36.7; O2SAT 97
--- NOTE | 2022-04-30 07:29 | ED_ITS ---
HPI - Back Pain/Injury General Chief Complaint: Back Pain/Injury Stated Complaint: Back pain Time Seen by Provider: 04/30/22 06:37 Source: patient Mode of arrival: ambulatory Limitations: no limitations History of Present Illness HPI Narrative: 52-year-old male with history of chronic back pain presents with acute on chronic back pain. Current symptoms are rated 9/10. The pain is mostly on the right side with radiation to the right lateral leg. The pain is sharp and achy. Prior treatment includes ibuprofen without a significant improvement. He has had an MRI within the last 4-5 months showing significant disc related disease. He is scheduled to see a neurosurgeon for possible surgical approach in the future. His symptoms he reports are being worse by position and movement. However, at rest he is much better. Denies any loss of bowel or bladder control. Denies any saddle paresthesias. Denies any focal weakness. Patient denies any urinary complaints such as frequency, urgency or dysuria. Related Data Home Medications Medication Instructions Recorded Confirmed acetaminophen 325 mg tablet 650 mg PO Q6H PRN Pain 11/21/19 08/27/21 dextroamphetamine-amphetamine 10 1 tab PO DAILY PRN attention 11/21/19 08/27/21 mg tablet deficit hyperactivity disorder lisinopril 20 mg tablet 20 mg PO DAILY 11/21/19 08/27/21 fluoxetine 20 mg capsule 1 cap PO DAILY 07/22/21 08/27/21 Previous Rx's Medication Instructions Recorded celecoxib 200 mg capsule 200 mg PO BID #60 caps 05/29/20 omeprazole 40 mg capsule,delayed 40 mg PO BID #60 caps 07/16/20 release celecoxib 200 mg capsule (Celebrex) 200 mg PO DAILY #10 caps 04/30/22 cyclobenzaprine 10 mg tablet 10 mg PO TID PRN muscle spasm #14 04/30/22 tabs gabapentin 300 mg capsule 300 mg PO TID #30 caps 04/30/22 methylprednisolone 4 mg tablets in 4 mg PO DAILY #21 ea 04/30/22 a dose pack (Medrol (Luis Armando)) oxycodone 5 mg tablet 5 mg PO Q8H PRN pain #10 tabs 04/30/22 Allergies Allergy/AdvReac Type Severity Reaction Status Date / Time seasonal Allergy Unknown Unknown Uncoded 08/27/21 14:14 Review of Systems Review of Systems: CONSTITUTIONAL: Denies weight loss, fever and chills. HEENT: Denies changes in vision and hearing. RESPIRATORY: Denies SOB and cough. CV: Denies palpitations no CP. GI: Denies abdominal pain, nausea, vomiting and diarrhea. : Denies dysuria and urinary frequency. MSK: Denies myalgia and joint pain. Positive back pain SKIN: Denies rash and pruritus. NEUROLOGICAL: Denies headache and syncope. PSYCHIATRIC: Denies recent changes in mood. Denies anxiety and depression. All other ROS are negative unless in HPI PMFSH Past Medical History Medical History ADHD (attention deficit hyperactivity disorder) Anxiety GERD (gastroesophageal reflux disease) Hemorrhoids HTN (hypertension) Surgical History History of colonoscopy Hx of endoscopy Hx of umbilical hernia repair (07/22/21) Status post total right knee replacement Family History Family History Father Alive and well Mother Alive and well Social History Social History Household Members: Spouse Alcohol intake: current Alcohol intake frequency: a few times a week Alcohol type: beer Patient Tobacco Use Status: Never used Tobacco Smoked in Last 30 Days: No Use of substances other than those prescribed or required for medical reasons: No Substance Use Type: Marijuana Advance Directives: No Advance Directives Information Provided: Yes Physical Exam Vital Signs: Vital Signs: Last Vital Signs Temp 97.9 F 04/30/22 08:36 Pulse 80 04/30/22 08:36 Resp 16 04/30/22 08:36 BP 120/74 04/30/22 08:36 Pulse Ox 98 04/30/22 08:36 O2 Del Method 04/30/22 08:36 BMI result Body Mass Index 30.5 GEN: Well developed, no acute distress, alert, oriented HEENT: Normocephalic, atraumatic, normal external ears, nose appears normal, no oropharyngeal edema or exudates Eyes: Normal to appearance Neck: Supple, no lymphadenopathy Respiratory: Talks in complete sentences, no respiratory distress, clear to auscultation bilaterally Cardiovascular: Regular rate and rhythm, no murmurs rubs or gallops Abdomen: Soft, nontender, nondistended, no guarding, no rebound Back: No CVA tenderness Extremities: No clubbing cyanosis or edema Neurologic: No focal neurologic deficits, cranial nerves 2-12 intact, strength is 5/5 bilaterally, gait normal Skin: No rash Back: right paraspinous tenderness, no midline tenderness or step off Course Course Course Narrative: 52-year-old male presents with low back pain and right-sided radiculopathy. I did review his imaging studies from December of last year. Scheduled for ne urosurgical evaluation. He denies any urinary symptoms. However, given the change in symptoms, will check urinalysis. There is no emergent indication for imaging studies at this time. There is no midline tenderness, fever, history of intravenous drug abuse to suggest epidural abscess. She denies any saddle paresthesias loss of bowel or bladder control to suggest acute cauda equina syndrome. There has been no new trauma to suggest compression fracture or other types of fractures. Will attempt to manage his pain moderate to a point where he is more comfortable. Will check urinalysis. Reevaluation(s) Reevaluation #1: Patient's pain is an 8/10. There is trace hematuria. Doubt this represents kidney stone given the nature of his symptoms and examination. Is scheduled to follow-up with Dr. Abreu. I discussed the results. Discussed discharge plan, had a take his medications and reasons to return to the emergency department Time: 08:44 Medications Administered Discontinued Medications Generic Name Dose Route Start Last Admin Trade Name Lawrenceq PRN Reason Stop Dose Admin Acetaminophen 975 mg 04/30/22 07:18 04/30/22 07:34 Acetaminophen 325 Mg Tablet PO 04/30/22 07:19 975 mg ONCE ONE Administration Cyclobenzaprine HCl 10 mg 04/30/22 07:22 04/30/22 07:34 Cyclobenzaprine Hcl 10 Mg Tablet PO 04/30/22 07:23 10 mg ONCE ONE Administration Dexamethasone 10 mg 04/30/22 07:18 04/30/22 07:35 Dexamethasone 2 Mg Tablet PO 04/30/22 07:19 10 mg ONCE ONE Administration Gabapentin 300 mg 04/30/22 07:18 04/30/22 07:34 Gabapentin 300 Mg Capsule PO 04/30/22 07:19 300 mg ONCE ONE Administration Oxycodone HCl 5 mg 04/30/22 07:18 04/30/22 07:33 Oxycodone Hcl Immed Release 5 Mg Tablet PO 04/30/22 07:19 5 mg ONCE ONE Administration Medical Decision Making Medical Decision Making [facility] Narrative: This patient presents with back pain most consistent with lumbar radiculopathy. Differential diagnoses includes lumbago versus musculoskeletal spasm / strain versus sciatica. No back pain red flags on history or physical. Presentation not consistent with malignancy (lack of history of malignancy, lack of B symptoms), fracture (no trauma, no bony tenderness to palpation), cauda equina (no bowel or urinary incontinence/retention, no saddle anesthesia, no distal weakness), AAA, viscus perforation , pulmonary embolism, renal colic, pyelonephritis (afebrile, no CVAT, no urinary symptoms). Given the clinical picture, no indication for imaging at this time. Plan: pain control, supportive care, reassess Differential Diagnosis Differential Diagnoses: The differential diagnosis associated with the presentation includes Lumbar radiculopathy Admission/Observation Consideration of admission/observation: Escalation of care including admission/observation considered Lab Data [facility] Lab Attestation statement: I reviewed the patient's lab results. Labs: Lab Results 04/30/22 Range/Units 07:25 Urine Color Yellow Urine Appearance Clear Urine pH 6.5 (5.0-9.0) Ur Specific Connelly 1.010 (1.005-1.025) Urine Protein Negative (Neg-Trace) mg/dL Urine Glucose (UA) Negative (Negative) mg/dL Urine Ketones Negative (Negative) mg/dL Urine Blood Trace H (Negative) Urine Nitrite Negative (Negative) Ur Leukocyte Esterase Negative (Negative) Urine RBC 0-2 (0-2) /HPF Urine WBC 0-5 (0-5) /HPF Ur Squamous Epith Cells 0-2 (0-2) /HPF Urine Bacteria None Seen (None Seen) Hyaline Casts 0-2 (0-2) /LPF External Record Review External record reviewed: Prior outpatient radiology (MRI Lumbar spine:IMPRESSION: 1. Progressed severe degenerative disc disease at the L1-L2 level with significant endplate edema. Moderate central canal stenosis with bulging disc and osseous spurring impinging upon the right L2 nerve root. [id number] right foraminal narrowing with bulging dis) Tests considered The following testing was considered but not selected: CT MRI lumbar back Prescription Management I considered prescription management with: Pain Medication Discharge Plan Discharge Clinical Impression: Lumbar radiculopathy Patient Disposition: Home, Self-Care Instructions: Acute Low Back Pain (ED), Lumbar Radiculopathy (ED) Additional Instructions: For your pain, this is the regimen I would recommend: Celebrex 200 mg daily Cyclobenzaprine 10 mg every 8 hours as needed for muscle spasm. This may cause drowsiness Gabapentin 300 mg 3 times a day. Additionally this may cause drowsiness Medrol Dosepak to be started tomorrow take as directed Tylenol 1000 mg every 6 hours as needed for pain Oxycodone 5 mg every 8 hours as needed for severe. This may cause drowsiness, constipation, has addictive potential Prescriptions: New celecoxib [Celebrex] 200 mg capsule 200 mg PO DAILY Qty: 10 0RF oxycodone 5 mg tablet 5 mg PO Q8H PRN (Reason: pain) Qty: 10 0RF Rx Instructions: Partial Fill upon patient request. gabapentin 300 mg capsule 300 mg PO TID Qty: 30 0RF methylprednisolone [Medrol (Luis Armando)] 4 mg tablets,dose pack 4 mg PO DAILY Qty: 21 0RF Rx Instructions: Take as directed cyclobenzaprine 10 mg tablet 10 mg PO TID PRN (Reason: muscle spasm) Qty: 14 0RF No Action omeprazole 40 mg capsule,delayed release(DR/EC) 40 mg PO BID Qty: 60 0RF fluoxetine 20 mg capsule 1 cap PO DAILY acetaminophen 325 mg tablet 650 mg PO Q6H PRN (Reason: Pain) lisinopril 20 mg tablet 20 mg PO DAILY dextroamphetamine-amphetamine 10 mg tablet 1 tab PO DAILY PRN (Reason: attention deficit hyperactivity disorder) celecoxib 200 mg capsule 200 mg PO BID Qty: 60 2RF Referrals: Luis Arellano MD [Primary Care Provider] - 5 days
[2022-04-30] MEDS: oxyCODONE HCl Immed Release 5 MG TABLET PO (07:33)
[2022-04-30] MEDS: Gabapentin 300 MG CAPSULE PO (07:34)
[2022-04-30] MEDS: Acetaminophen 325 MG TABLET 975 MG PO (07:34)
[2022-04-30] MEDS: Cyclobenzaprine HCl 10 MG TABLET PO (07:34)
[2022-04-30] MEDS: dexAMETHasone 2 MG TABLET 10 MG PO (07:35)
[2022-04-30 07:37] LABS: Appearance Urine Clear; Color Urine Yellow; Glucose Urine UA Negative (Negative); Leukocyte Esterase Urine Negative (Negative); Nitrite Urine Negative (Negative); PH 6.5 (5.0-9.0); UMIC TRIGGER UACC YES; Urine Blood Trace (Negative); Urine Ketones Negative (Negative); Urine Protein Negative (Neg-Trace)
[2022-04-30 07:39] LABS: Bacteria Urine None Seen (None Seen); Hyaline Casts Urine 0-2 /LPF (0-2); RBC Urine 0-2 /HPF (0-2); Squamous Epithelial Cell Urine 0-2 /HPF (0-2); WBC Urine 0-5 /HPF (0-5)
[2022-04-30 08:36] VITALS: BP 120/74; PULSE 80; RESP 16; TEMP 36.6; O2SAT 98
== END 2022-04-30 09:09 | disposition home or self-care (01) ==
PROVIDERS: Emergency Provider Emergency Medicine; PCP Internal Medicine
DX: M54.89 Other dorsalgia (principal); M54.16 Radiculopathy, lumbar region; K21.9 Gastro-esophageal reflux disease without esophagitis; I10 Essential (primary) hypertension
CPT/HCPCS: 81001; 99283; 99284; J8540

== ENCOUNTER 2022-05-04 14:32 | Outpatient (REF) | payer OTHER, SELFPAY ==
--- NOTE | ~2022-05-04 | XR_ITS ---
EXAMINATION: XR FOOT, RIGHT CLINICAL INFORMATION: Right foot. Swollen. Rule out fracture. COMPARISON: None available. TECHNIQUE: AP, lateral, and oblique views of the right foot. FINDINGS: There is no evidence of acute fracture or dislocation of the right foot. There is some joint space narrowing involving the first interphalangeal joint.. No radiopaque foreign body. XR/XR foot RT min 3V IMPRESSION: No significant bony abnormality of the right foot appreciated.
== END 2022-05-04 14:33 | disposition home or self-care (01) ==
LOC: HO.XRAY 14:32
PROVIDERS: PCP Internal Medicine; Visit Provider Internal Medicine
DX: R60.0 Localized edema (principal); Z91.81 History of falling
CPT/HCPCS: 73630

== ENCOUNTER 2022-06-19 15:02 | Emergency (ER) | payer OTHER, SELFPAY ==
--- NOTE | ~2022-06-19 | XR_ITS ---
EXAMINATION: XR chest 2V CLINICAL INFORMATION: Reason for Exam chest pain, weakness COMPARISON: No prior chest x-ray available in our system for comparison at the time of this dictation. TECHNIQUE: XR chest 2V Lungs and Linda: Both lungs are clear. Pleura: Normal. Costophrenic angles are sharp. No pneumothorax. Heart: The heart is normal in size. Mediastinum: The mediastinum is within normal limits.. Bones: Skeletal structures included are normal for patient's age. XR/XR chest 2V IMPRESSION: No radiographic evidence of acute cardiopulmonary disease.
--- NOTE | 2022-06-19 15:05 | ECG_ITS ---
Test Reason : ABNORMAL LABS Blood Pressure : / mmHG Vent. Rate : 090 BPM Atrial Rate : 090 BPM P-R Int : 158 ms QRS Dur : 080 ms QT Int : 372 ms P-R-T Axes : 039 -10 024 degrees QTc Int : 455 ms Normal sinus rhythm Minimal voltage criteria for LVH, may be normal variant ( R in aVL ) Borderline ECG When compared with ECG of 31-OCT-2019 15:23, No significant change was found Referred By: Nydia Ortiz Electronically Signed By:Jorge Brown
[2022-06-19 15:10] VITALS: BP 157/100; PULSE 95; RESP 20; TEMP 36.9; O2SAT 96; BMI 29.0
--- NOTE | 2022-06-19 15:11 | ED.GENADULT ---
HPI - General Adult General Chief complaint: Recheck/Abnormal Lab/Rx <EVERARDO Norton - Last Filed: 06/19/22 15:16> Stated complaint: high bp feels like passing out <EVERARDO Norton Last Filed: 06/19/22 15:16> Time Seen by Provider: 06/19/22 16:13 <EVERARDO Norton Last Filed: 06/19/22 15:16> Related Data Home medications: Home Medications Medication Instructions Recorded Confirmed acetaminophen 325 mg tablet 650 mg PO Q6H PRN Pain 11/21/19 08/27/21 dextroamphetamine-amphetamine 10 1 tab PO DAILY PRN attention 11/21/19 08/27/21 mg tablet deficit hyperactivity disorder lisinopril 20 mg tablet 20 mg PO DAILY 11/21/19 08/27/21 fluoxetine 20 mg capsule 1 cap PO DAILY 07/22/21 08/27/21 Previous Rx's Medication Instructions Recorded celecoxib 200 mg capsule 200 mg PO BID #60 caps 05/29/20 omeprazole 40 mg capsule,delayed 40 mg PO BID #60 caps 07/16/20 release celecoxib 200 mg capsule (Celebrex) 200 mg PO DAILY #10 caps 04/30/22 cyclobenzaprine 10 mg tablet 10 mg PO TID PRN muscle spasm #14 04/30/22 tabs gabapentin 300 mg capsule 300 mg PO TID #30 caps 04/30/22 methylprednisolone 4 mg tablets in 4 mg PO DAILY #21 ea 04/30/22 a dose pack (Medrol (Luis Armando)) oxycodone 5 mg tablet 5 mg PO Q8H PRN pain #10 tabs 04/30/22 <EVERARDO Norton Last Filed: 06/19/22 15:16> Allergies/adverse reactions: Allergies Allergy/AdvReac Type Severity Reaction Status Date / Time seasonal Allergy Unknown Unknown Uncoded 08/27/21 14:14 <EVERARDO Norton Last Filed: 06/19/22 15:16> Review of Systems Review of Systems: Constitutional : No Weight loss, No Fever, No Chills, No Night Sweats, No Fatigue, No Malaise ENT/Mouth : No Hearing loss, No Ear Pain, No Nasal Congestion, No Sinus Pain, No Hoarseness, No sore throat, No Rhinorrhea, No Swallowing Difficulty Eyes: No Eye Pain, No Swelling, No Redness, No Foreign Body, No Discharge, No Vision Changes Cardiovascular : No Chest Pain, No SOB, No Dyspnea on Exertion, No Orthopnea, No Edema, Palpitations Respiratory : No Cough, No Sputum, No Wheezing, No Smoke Exposure, No Dyspnea Gastrointestinal : No Nausea, No Vomiting, No Diarrhea, No Constipation, No abdominal Pain, No Hematochezia, No Melena Genitourinary : no irregular bleeding, No Dysuria, No Urinary Frequency, No Hematuria, No Urinary Incontinence, No Urgency, No Flank Pain, No Urinary Flow Changes, No Hesitancy Musculoskeletal : No joint pain, No Myalgias, No Joint Swelling Skin : No Skin Lesions, No rash Neuro : No Weakness, No Numbness, No Paresthesias, No Loss of Consciousness, No Dizziness, No Headache Psych : Anxiety/Panic, No Depression, No SI/HI/AH/VH, No Social Issues, <ADE Mcnally - Last Filed: 06/20/22 01:13> Yes all other systems are reviewed and are negative <ADE Mcnally - Last Filed: 06/20/22 01:13> PMF Past Medical History Medical History: Medical History ADHD (attention deficit hyperactivity disorder) Anxiety GERD (gastroesophageal reflux disease) Hemorrhoids HTN (hypertension) <EVERARDO Norton - Last Filed: 06/19/22 15:16> Surgical History: Surgical History History of colonoscopy Hx of endoscopy Hx of umbilical hernia repair (07/22/21) Status post total right knee replacement <EVERARDO Norton - Last Filed: 06/19/22 15:16> Family History Family History: Family History Father Alive and well Mother Alive and well <EVERARDO Norton - Last Filed: 06/19/22 15:16> Social History Social History: Social History Household Members: Spouse Alcohol intake: current Alcohol intake frequency: a few times a week Alcohol type: beer Patient Tobacco Use Status: Never used Tobacco Substance Use Type: Marijuana Advance Directives: Yes Advance Directives Information Provided: No Advance Directives on File: No <EVERARDO Norton - Last Filed: 06/19/22 15:16> Physical Exam ED Vital Signs: Vital Signs - 24 hr 06/19/22 15:10 06/19/22 15:55 06/19/22 16:15 Temperature 98.4 F Pulse Rate 95 86 83 Respiratory Rate 20 18 18 Blood Pressure 157/100 H 158/101 H 151/96 H Pulse Oximetry 96 100 99 Oxygen Delivery Method Room Air Room Air Room Air BMI result Body Mass Index 29.0 <EVERARDO Norton - Last Filed: 06/19/22 15:16> Vital Signs - 24 hr 06/19/22 15:10 06/19/22 15:55 06/19/22 16:15 Temperature 98.4 F Pulse Rate 95 86 83 Respiratory Rate 20 18 18 Blood Pressure 157/100 H 158/101 H 151/96 H Pulse Oximetry 96 100 99 Oxygen Delivery Method Room Air Room Air Room Air BMI result Body Mass Index 29.0 <LAZARO McnallyP-BC - Last Filed: 06/20/22 01:13> Const General: cooperative, no acute distress, well developed, alert and awake <ZORAN Mcnally-BC - Last Filed: 06/20/22 01:13> Nutritional Appearance: average body habitus <ZORAN Mcnally-BC - Last Filed: 06/20/22 01:13> Orientation/consciousness: patient oriented x3 <LAZARO McnallyP-BC - Last Filed: 06/20/22 01:13> Limitations: no limitations <ZORAN Mcnally-BC - Last Filed: 06/20/22 01:13> HENMT Head: Yes normal to inspection, Yes normocephalic and Yes atraumatic <ZORAN Mcnally-BC - Last Filed: 06/20/22 01:13> Neck Neck: Yes normal visual inspection, Yes full ROM, Yes trachea midline and Yes supple <ZORAN Mcnally-BC - Last Filed: 06/20/22 01:13> Resp Effort & Inspection: normal respiratory effort and able to speak in complete sentences <ZORAN Mcnally-BC - Last Filed: 06/20/22 01:13> Auscultation: clear to auscultation bilaterally <ADE McnallyBC - Last Filed: 06/20/22 01:13> Cardio Rate: regular rate <ZORAN Mcnally-BC - Last Filed: 06/20/22 01:13> Rhythm: regular rhythm <ZORAN Mcnally-BC - Last Filed: 06/20/22 01:13> Heart sounds: S1 normal heart sound present and S2 normal heart sound present <ZORAN Mcnally-BC - Last Filed: 06/20/22 01:13> GI Inspection: Yes normal to inspection and No distended <ZORAN Mcnally-BC - Last Filed: 06/20/22 01:13> Palpation (GI): Soft to palpation, not firm, nontender and no guarding <ZORAN Mcnally-BC - Last Filed: 06/20/22 01:13> Neuro General: patient oriented x3 <ZORAN Mcnally-BC - Last Filed: 06/20/22 01:13> Psych Appearance: grossly normal <NASIR Mcnally - Last Filed: 06/20/22 01:13> Mental Status: mental status grossly normal <ZORAN Mcnally-BC - Last Filed: 06/20/22 01:13> Speech and movement: Normal speech and movement present <ZORAN Mcnally-BC - Last Filed: 06/20/22 01:13> Affect: normal affect <ZORAN Mcnally-BC - Last Filed: 06/20/22 01:13> Attitude: cooperative <NASIR Mcnally - Last Filed: 06/20/22 01:13> Course Course Course Narrative: This is an RME: Additional HPI, ROS, PE not included below will be deferred to primary provider. [id number], with a hx of hypertension, with a complaint of ?high blood pressure, headache, chest pain, and weakness in BL arms for the last several days, worsening over the last few days. Denies any weakness, numbness or tingling in his legs. Two days ago while watching TV, the right side of his jaw dropped and thought he was having a stroke, states that these symptoms resolved after several hours. Pt presents with BP readings from today on piece of paper which were systolically 140-150s, and diastolically in 110s. Pt's BP today is 150/100. All other VSS. Pt stable to return to waiting room until treatment room becomes available. Plan: EKG, chest x-ray, labs, urine. <EVERARDO Norton - Last Filed: 06/19/22 15:16> Reevaluation(s) Reevaluation #1: All lab work reviewed and negative for any acute findings. Normal troponin, EKG and x-rays are both normal. Patient will be sent home to follow-up with his PCP as well as will send patient to see Cardiology. Patient also his GI provider for follow-up appointment. Patient was also encouraged to speak to his PCP about seeing a therapist. Patient states that he feels anxious after his son . However patient was encouraged to return to emergency department if he will have recurrence of symptoms or any other concerning symptoms <Letty Blair AGRICULTURE SCIENTIST-BC - Last Filed: 06/20/22 01:13> Medical Decision Making Medical Decision Making MDM Narrative: Triage note [id number], with a hx of hypertension, with a complaint of ?high blood pressure, headache, chest pain, and weakness in BL arms for the last several days, worsening over the last few days. Denies any weakness, numbness or tingling in his legs. Two days ago while watching TV, the right side of his jaw dropped and thought he was having a stroke, states that these symptoms resolved after several hours. Pt presents with BP readings from today on piece of paper which were systolically 140-150s, and diastolically in 110s. Pt's BP today is 150/100. All other VSS. Pt stable to return to waiting room until treatment room becomes available. Plan: EKG, chest x-ray, labs, urine. Patient initially seen in triage by PA. History of hypertension, ETOH and cocaine use. Patient reports that he drinks every day, used cocaine today. Patient reports that he last his son about a week ago was 23 years old. Patient is going to bury him next week. Patient states that he is very about this. Patient was seen by PCP last week and was placed on beta mahi labetalol 100 mg for increased heart rate, however patient states that he stopped because he had green diarrhea next day. Patient thought that that was from that medication. Patient sees GI for IBS. EKG, chest x-ray, labs reviewed patient admits to drinking alcohol today and his levels are 150. Patient also has urine positive for cocaine, admits to using cocaine today. Patient states that he does not use cocaine every day, however he states that he slipped today. Patient felt very anxious this morning palpitation and epigastric discomfort. <NASIR Mcnally - Last Filed: 06/20/22 01:13> Differential Diagnosis Differential Diagnoses: The differential diagnosis associated with the presentation includes <NASIR Mcnalyl - Last Filed: 06/20/22 01:13> Angina, GERD, gastritis, anxiety. <NASIR Mcnally - Last Filed: 06/20/22 01:13> Consult Healthcare Provider Management of the patient was discussed with: Primary Care Provider <NASIR Mcnally - Last Filed: 06/20/22 01:13> Lab Data MDM Lab Attestation statement: I reviewed the patient's lab results. <NASIR Mcnally - Last Filed: 06/20/22 01:13> Result Diagrams: 06/19/22 15:31 06/19/22 15:31 <EVERARDO Norton - Last Filed: 06/19/22 15:16> Labs: Lab Results 06/19/22 06/19/22 06/19/22 Range/Units 15:31 15:31 15:31 WBC 6.6 (4.8-10.8) X10*3/uL RBC 4.58 L (4.60-5.80) X10*6/uL Hgb 15.1 (14.0-18.0) g/dl Hct 42.2 (42.0-52.0) % MCV 92.1 (80.0-98.0) fL MCH 33.0 (27.0-33.0) pg MCHC 35.8 (31.0-36.0) g/dl RDW 12.1 (11.0-16.0) % Plt Count 257 (160-400) X10*3/uL MPV 9.2 L (9.4-12.4) fL Immature Gran % (Auto) 0.3 (0.0-0.4) % Neut % (Auto) 36.3 L (45-73) % Lymph % (Auto) 47.8 H (20-40) % [place] % (Auto) 12.1 H (2-11) % Eos % (Auto) 3.0 (0-4) % Baso % (Auto) 0.5 (0-2) % Lymph # (Auto) 3.2 (1.2-4.9) X10*3/uL [place] # (Auto) 0.8 (0.1-1.2) X10*3/uL Eos # (Auto) 0.2 (0.0-0.4) X10*3/uL Baso # (Auto) 0.0 (0.0-0.2) X10*3/uL Abs Immat Gran (auto) 0.02 (0.00-0.03) X10*3/uL Absolute Neuts (auto) 2.4 (2.0-8.3) x10*3/uL Absolute Nucleated RBC 0.000 (0.0-0.012) X10*3/uL Nucleated RBC % (auto) 0.0 (0.0-0.2) /100WBC PT 12.8 (10.0-13.1) SEC INR 1.1 (0.9-1.1) APTT 28.8 (26.0-36.4) SEC Sodium 138 (135-145) mmol/L Potassium 4.0 (3.3-5.1) mmol/L Chloride 104 (96-108) mmol/L Carbon Dioxide 26 (22-29) mmol/L Anion Gap 12 (12-20) BUN 10 (9-16) mg/dL Creatinine 0.73 (0.5-1.4) mg/dL Estim Creat Clear Calc 119.8 Estimated GFR > 60 Random Glucose 115 (60-115) mg/dL Calcium 9.3 (8.4-10.2) mg/dL Magnesium 2.0 (1.6-2.6) mg/dL Total Bilirubin 1.4 H (0.0-1.0) mg/dL Direct Bilirubin 0.3 (0.0-0.5) mg/dL AST 47 H (5-37) U/L ALT 34 (0-40) U/L Alkaline Phosphatase 61 (39-117) U/L Troponin I High Sens (<3.5-35.0) ng/L Total Protein 7.3 (6.5-8.0) g/dL Albumin 4.2 (3.5-5.0) g/dL Urine Color Urine Appearance Urine pH (5.0-9.0) Ur Specific [place] (1.005-1.025) Urine Protein (Neg-Trace) mg/dL Urine Glucose (UA) (Negative) mg/dL Urine Ketones (Negative) mg/dL Urine Blood (Negative) Urine Nitrite (Negative) Ur Leukocyte Esterase (Negative) Urine Opiates Screen (Not Detect) Urine Fentanyl Screen (Not Detect) Ur Barbiturates Screen (Not Detect) Ur Phencyclidine Scrn (Not Detect) Ur Amphetamines Screen (Not Detect) U Benzodiazepines Scrn (Not Detect) Urine Cocaine Screen (Not Detect) U Marijuana (THC) Screen (Not Detect) Ethyl Alcohol mg/dL 06/19/22 06/19/22 06/19/22 Range/Units 15:31 15:31 16:21 WBC (4.8-10.8) X10*3/uL RBC (4.60-5.80) X10*6/uL Hgb (14.0-18.0) g/dl Hct (42.0-52.0) % MCV (80.0-98.0) fL MCH (27.0-33.0) pg MCHC (31.0-36.0) g/dl RDW (11.0-16.0) % Plt Count (160-400) X10*3/uL MPV (9.4-12.4) fL Immature Gran % (Auto) (0.0-0.4) % Neut % (Auto) (45-73) % Lymph % (Auto) (20-40) % [place] % (Auto) (2-11) % Eos % (Auto) (0-4) % Baso % (Auto) (0-2) % Lymph # (Auto) (1.2-4.9) X10*3/uL [place] # (Auto) (0.1-1.2) X10*3/uL Eos # (Auto) (0.0-0.4) X10*3/uL Baso # (Auto) (0.0-0.2) X10*3/uL Abs Immat Gran (auto) (0.00-0.03) X10*3/uL Absolute Neuts (auto) (2.0-8.3) x10*3/uL Absolute Nucleated RBC (0.0-0.012) X10*3/uL Nucleated RBC % (auto) (0.0-0.2) /100WBC PT (10.0-13.1) SEC INR (0.9-1.1) APTT (26.0-36.4) SEC Sodium (135-145) mmol/L Potassium (3.3-5.1) mmol/L Chloride (96-108) mmol/L Carbon Dioxide (22-29) mmol/L Anion Gap (12-20) BUN (9-16) mg/dL Creatinine (0.5-1.4) mg/dL Estim Creat Clear Calc Estimated GFR Random Glucose (60-115) mg/dL Calcium (8.4-10.2) mg/dL Magnesium (1.6-2.6) mg/dL Total Bilirubin (0.0-1.0) mg/dL Direct Bilirubin (0.0-0.5) mg/dL AST (5-37) U/L ALT (0-40) U/L Alkaline Phosphatase (39-117) U/L Troponin I High Sens < 2.7 (<3.5-35.0) ng/L Total Protein (6.5-8.0) g/dL Albumin (3.5-5.0) g/dL Urine Color Yellow Urine Appearance Clear Urine pH 6.5 (5.0-9.0) Ur Specific [place] 1.015 (1.005-1.025) Urine Protein Negative (Neg-Trace) mg/dL Urine Glucose (UA) Negative (Negative) mg/dL Urine Ketones Negative (Negative) mg/dL Urine Blood Negative (Negative) Urine Nitrite Negative (Negative) Ur Leukocyte Esterase Negative (Negative) Urine Opiates Screen (Not Detect) Urine Fentanyl Screen (Not Detect) Ur Barbiturates Screen (Not Detect) Ur Phencyclidine Scrn (Not Detect) Ur Amphetamines Screen (Not Detect) U Benzodiazepines Scrn (Not Detect) Urine Cocaine Screen (Not Detect) U Marijuana (THC) Screen (Not Detect) Ethyl Alcohol 150 mg/dL 06/19/22 Range/Units 16:21 WBC (4.8-10.8) X10*3/uL RBC (4.60-5.80) X10*6/uL Hgb (14.0-18.0) g/dl Hct (42.0-52.0) % MCV (80.0-98.0) fL MCH (27.0-33.0) pg MCHC (31.0-36.0) g/dl RDW (11.0-16.0) % Plt Count (160-400) X10*3/uL MPV (9.4-12.4) fL Immature Gran % (Auto) (0.0-0.4) % Neut % (Auto) (45-73) % Lymph % (Auto) (20-40) % [place] % (Auto) (2-11) % Eos % (Auto) (0-4) % Baso % (Auto) (0-2) % Lymph # (Auto) (1.2-4.9) X10*3/uL [place] # (Auto) (0.1-1.2) X10*3/uL Eos # (Auto) (0.0-0.4) X10*3/uL Baso # (Auto) (0.0-0.2) X10*3/uL Abs Immat Gran (auto) (0.00-0.03) X10*3/uL Absolute Neuts (auto) (2.0-8.3) x10*3/uL Absolute Nucleated RBC (0.0-0.012) X10*3/uL Nucleated RBC % (auto) (0.0-0.2) /100WBC PT (10.0-13.1) SEC INR (0.9-1.1) APTT (26.0-36.4) SEC Sodium (135-145) mmol/L Potassium (3.3-5.1) mmol/L Chloride (96-108) mmol/L Carbon Dioxide (22-29) mmol/L Anion Gap (12-20) BUN (9-16) mg/dL Creatinine (0.5-1.4) mg/dL Estim Creat Clear Calc Estimated GFR Random Glucose (60-115) mg/dL Calcium (8.4-10.2) mg/dL Magnesium (1.6-2.6) mg/dL Total Bilirubin (0.0-1.0) mg/dL Direct Bilirubin (0.0-0.5) mg/dL AST (5-37) U/L ALT (0-40) U/L Alkaline Phosphatase (39-117) U/L Troponin I High Sens (<3.5-35.0) ng/L Total Protein (6.5-8.0) g/dL Albumin (3.5-5.0) g/dL Urine Color Urine Appearance Urine pH (5.0-9.0) Ur Specific [place] (1.005-1.025) Urine Protein (Neg-Trace) mg/dL Urine Glucose (UA) (Negative) mg/dL Urine Ketones (Negative) mg/dL Urine Blood (Negative) Urine Nitrite (Negative) Ur Leukocyte Esterase (Negative) Urine Opiates Screen Not Detected (Not Detect) Urine Fentanyl Screen Not Detected (Not Detect) Ur Barbiturates Screen Not Detected (Not Detect) Ur Phencyclidine Scrn Not Detected (Not Detect) Ur Amphetamines Screen Not Detected (Not Detect) U Benzodiazepines Scrn Not Detected (Not Detect) Urine Cocaine Screen POSITIVE H (Not Detect) U Marijuana (THC) Screen Not Detected (Not Detect) Ethyl Alcohol mg/dL <EVERARDO Norton - Last Filed: 06/19/22 15:16> Lab Results 06/19/22 06/19/22 06/19/22 Range/Units 15:31 15:31 15:31 WBC 6.6 (4.8-10.8) X10*3/uL RBC 4.58 L (4.60-5.80) X10*6/uL Hgb 15.1 (14.0-18.0) g/dl Hct 42.2 (42.0-52.0) % MCV 92.1 (80.0-98.0) fL MCH 33.0 (27.0-33.0) pg MCHC 35.8 (31.0-36.0) g/dl RDW 12.1 (11.0-16.0) % Plt Count 257 (160-400) X10*3/uL MPV 9.2 L (9.4-12.4) fL Immature Gran % (Auto) 0.3 (0.0-0.4) % Neut % (Auto) 36.3 L (45-73) % Lymph % (Auto) 47.8 H (20-40) % [place] % (Auto) 12.1 H (2-11) % Eos % (Auto) 3.0 (0-4) % Baso % (Auto) 0.5 (0-2) % Lymph # (Auto) 3.2 (1.2-4.9) X10*3/uL [place] # (Auto) 0.8 (0.1-1.2) X10*3/uL Eos # (Auto) 0.2 (0.0-0.4) X10*3/uL Baso # (Auto) 0.0 (0.0-0.2) X10*3/uL Abs Immat Gran (auto) 0.02 (0.00-0.03) X10*3/uL Absolute Neuts (auto) 2.4 (2.0-8.3) x10*3/uL Absolute Nucleated RBC 0.000 (0.0-0.012) X10*3/uL Nucleated RBC % (auto) 0.0 (0.0-0.2) /100WBC PT 12.8 (10.0-13.1) SEC INR 1.1 (0.9-1.1) APTT 28.8 (26.0-36.4) SEC Sodium 138 (135-145) mmol/L Potassium 4.0 (3.3-5.1) mmol/L Chloride 104 (96-108) mmol/L Carbon Dioxide 26 (22-29) mmol/L Anion Gap 12 (12-20) BUN 10 (9-16) mg/dL Creatinine 0.73 (0.5-1.4) mg/dL Estim Creat Clear Calc 119.8 Estimated GFR > 60 Random Glucose 115 (60-115) mg/dL Calcium 9.3 (8.4-10.2) mg/dL Magnesium 2.0 (1.6-2.6) mg/dL Total Bilirubin 1.4 H (0.0-1.0) mg/dL Direct Bilirubin 0.3 (0.0-0.5) mg/dL AST 47 H (5-37) U/L ALT 34 (0-40) U/L Alkaline Phosphatase 61 (39-117) U/L Troponin I High Sens (<3.5-35.0) ng/L Total Protein 7.3 (6.5-8.0) g/dL Albumin 4.2 (3.5-5.0) g/dL Urine Color Urine Appearance Urine pH (5.0-9.0) Ur Specific [place] (1.005-1.025) Urine Protein (Neg-Trace) mg/dL Urine Glucose (UA) (Negative) mg/dL Urine Ketones (Negative) mg/dL Urine Blood (Negative) Urine Nitrite (Negative) Ur Leukocyte Esterase (Negative) Urine Opiates Screen (Not Detect) Urine Fentanyl Screen (Not Detect) Ur Barbiturates Screen (Not Detect) Ur Phencyclidine Scrn (Not Detect) Ur Amphetamines Screen (Not Detect) U Benzodiazepines Scrn (Not Detect) Urine Cocaine Screen (Not Detect) U Marijuana (THC) Screen (Not Detect) Ethyl Alcohol mg/dL 06/19/22 06/19/22 06/19/22 Range/Units 15:31 15:31 16:21 WBC (4.8-10.8) X10*3/uL RBC (4.60-5.80) X10*6/uL Hgb (14.0-18.0) g/dl Hct (42.0-52.0) % MCV (80.0-98.0) fL MCH (27.0-33.0) pg MCHC (31.0-36.0) g/dl RDW (11.0-16.0) % Plt Count (160-400) X10*3/uL MPV (9.4-12.4) fL Immature Gran % (Auto) (0.0-0.4) % Neut % (Auto) (45-73) % Lymph % (Auto) (20-40) % [place] % (Auto) (2-11) % Eos % (Auto) (0-4) % Baso % (Auto) (0-2) % Lymph # (Auto) (1.2-4.9) X10*3/uL [place] # (Auto) (0.1-1.2) X10*3/uL Eos # (Auto) (0.0-0.4) X10*3/uL Baso # (Auto) (0.0-0.2) X10*3/uL Abs Immat Gran (auto) (0.00-0.03) X10*3/uL Absolute Neuts (auto) (2.0-8.3) x10*3/uL Absolute Nucleated RBC (0.0-0.012) X10*3/uL Nucleated RBC % (auto) (0.0-0.2) /100WBC PT (10.0-13.1) SEC INR (0.9-1.1) APTT (26.0-36.4) SEC Sodium (135-145) mmol/L Potassium (3.3-5.1) mmol/L Chloride (96-108) mmol/L Carbon Dioxide (22-29) mmol/L Anion Gap (12-20) BUN (9-16) mg/dL Creatinine (0.5-1.4) mg/dL Estim Creat Clear Calc Estimated GFR Random Glucose (60-115) mg/dL Calcium (8.4-10.2) mg/dL Magnesium (1.6-2.6) mg/dL Total Bilirubin (0.0-1.0) mg/dL Direct Bilirubin (0.0-0.5) mg/dL AST (5-37) U/L ALT (0-40) U/L Alkaline Phosphatase (39-117) U/L Troponin I High Sens < 2.7 (<3.5-35.0) ng/L Total Protein (6.5-8.0) g/dL Albumin (3.5-5.0) g/dL Urine Color Yellow Urine Appearance Clear Urine pH 6.5 (5.0-9.0) Ur Specific [place] 1.015 (1.005-1.025) Urine Protein Negative (Neg-Trace) mg/dL Urine Glucose (UA) Negative (Negative) mg/dL Urine Ketones Negative (Negative) mg/dL Urine Blood Negative (Negative) Urine Nitrite Negative (Negative) Ur Leukocyte Esterase Negative (Negative) Urine Opiates Screen (Not Detect) Urine Fentanyl Screen (Not Detect) Ur Barbiturates Screen (Not Detect) Ur Phencyclidine Scrn (Not Detect) Ur Amphetamines Screen (Not Detect) U Benzodiazepines Scrn (Not Detect) Urine Cocaine Screen (Not Detect) U Marijuana (THC) Screen (Not Detect) Ethyl Alcohol 150 mg/dL 06/19/22 Range/Units 16:21 WBC (4.8-10.8) X10*3/uL RBC (4.60-5.80) X10*6/uL Hgb (14.0-18.0) g/dl Hct (42.0-52.0) % MCV (80.0-98.0) fL MCH (27.0-33.0) pg MCHC (31.0-36.0) g/dl RDW (11.0-16.0) % Plt Count (160-400) X10*3/uL MPV (9.4-12.4) fL Immature Gran % (Auto) (0.0-0.4) % Neut % (Auto) (45-73) % Lymph % (Auto) (20-40) % [place] % (Auto) (2-11) % Eos % (Auto) (0-4) % Baso % (Auto) (0-2) % Lymph # (Auto) (1.2-4.9) X10*3/uL [place] # (Auto) (0.1-1.2) X10*3/uL Eos # (Auto) (0.0-0.4) X10*3/uL Baso # (Auto) (0.0-0.2) X10*3/uL Abs Immat Gran (auto) (0.00-0.03) X10*3/uL Absolute Neuts (auto) (2.0-8.3) x10*3/uL Absolute Nucleated RBC (0.0-0.012) X10*3/uL Nucleated RBC % (auto) (0.0-0.2) /100WBC PT (10.0-13.1) SEC INR (0.9-1.1) APTT (26.0-36.4) SEC Sodium (135-145) mmol/L Potassium (3.3-5.1) mmol/L Chloride (96-108) mmol/L Carbon Dioxide (22-29) mmol/L Anion Gap (12-20) BUN (9-16) mg/dL Creatinine (0.5-1.4) mg/dL Estim Creat Clear Calc Estimated GFR Random Glucose (60-115) mg/dL Calcium (8.4-10.2) mg/dL Magnesium (1.6-2.6) mg/dL Total Bilirubin (0.0-1.0) mg/dL Direct Bilirubin (0.0-0.5) mg/dL AST (5-37) U/L ALT (0-40) U/L Alkaline Phosphatase (39-117) U/L Troponin I High Sens (<3.5-35.0) ng/L Total Protein (6.5-8.0) g/dL Albumin (3.5-5.0) g/dL Urine Color Urine Appearance Urine pH (5.0-9.0) Ur Specific [place] (1.005-1.025) Urine Protein (Neg-Trace) mg/dL Urine Glucose (UA) (Negative) mg/dL Urine Ketones (Negative) mg/dL Urine Blood (Negative) Urine Nitrite (Negative) Ur Leukocyte Esterase (Negative) Urine Opiates Screen Not Detected (Not Detect) Urine Fentanyl Screen Not Detected (Not Detect) Ur Barbiturates Screen Not Detected (Not Detect) Ur Phencyclidine Scrn Not Detected (Not Detect) Ur Amphetamines Screen Not Detected (Not Detect) U Benzodiazepines Scrn Not Detected (Not Detect) Urine Cocaine Screen POSITIVE H (Not Detect) U Marijuana (THC) Screen Not Detected (Not Detect) Ethyl Alcohol mg/dL <NASIR Mcnally - Last Filed: 06/20/22 01:13> Independent Interpretation I performed an independent interpretation of an: EKG <NASIR Mcnally - Last Filed: 06/20/22 01:13> Radiology Impression Discussion of test interpretation with radiology: I have reviewed the radiologist's reading. <NASIR Mcnally - Last Filed: 06/20/22 01:13> Radiologist Impression: CLINICAL INFORMATION: Reason for Exam chest pain, weakness COMPARISON: No prior chest x-ray available in our system for comparison at the time of this dictation.? TECHNIQUE: XR chest 2V Lungs and Linda: Both lungs are clear. Pleura: Normal. Costophrenic angles are sharp. No pneumothorax. Heart: The heart is normal in size. Mediastinum: The mediastinum is within normal limits.. Bones: Skeletal structures included are normal for patient's age. XR/XR chest 2V IMPRESSION: No radiographic evidence of acute cardiopulmonary disease. <NASIR Mcnally - Last Filed: 06/20/22 01:13> Independent Historian Clinical information obtained from an independent historian. History obtained from or confirmed by: Friend <NASIR Mcnally - Last Filed: 06/20/22 01:13> External Record Review External record reviewed: Outpatient record and Outside ED record <NASIR Mcnally - Last Filed: 06/20/22 01:13> Discharge Plan Discharge Clinical Impression: Tachycardia, Chest pain <EVERARDO Norton - Last Filed: 06/19/22 15:16> Patient Disposition: Home, Self-Care <EVERARDO Norton - Last Filed: 06/19/22 15:16> Instructions: Chronic Hypertension (ED), Tachycardia (ED) <EVERARDO Norton - Last Filed: 06/19/22 15:16> Additional Instructions: You were seen here today for hypertension and high heart rate. Restart taking you labetalol as ordered by your primary care provider. Continue taking lisinopril. Follow-up with your primary care provider. I will be sending you to see Cardiology. Your blood work was negative for any acute findings. Stop drinking alcohol and using cocaine. Please return to emergency department if your symptoms will get worse or if you experience any additional concerning symptoms. Please follow-up with your GI specialist <EVERARDO Norton - Last Filed: 06/19/22 15:16> Prescriptions: No Action omeprazole 40 mg capsule,delayed release(DR/EC) 40 mg PO BID Qty: 60 0RF fluoxetine 20 mg capsule 1 cap PO DAILY celecoxib [Celebrex] 200 mg capsule 200 mg PO DAILY Qty: 10 0RF oxycodone 5 mg tablet 5 mg PO Q8H PRN (Reason: pain) Qty: 10 0RF Rx Instructions: Partial Fill upon patient request. gabapentin 300 mg capsule 300 mg PO TID Qty: 30 0RF methylprednisolone [Medrol (Luis Armando)] 4 mg tablets,dose pack 4 mg PO DAILY Qty: 21 0RF Rx Instructions: Take as directed cyclobenzaprine 10 mg tablet 10 mg PO TID PRN (Reason: muscle spasm) Qty: 14 0RF acetaminophen 325 mg tablet 650 mg PO Q6H PRN (Reason: Pain) lisinopril 20 mg tablet 20 mg PO DAILY dextroamphetamine-amphetamine 10 mg tablet 1 tab PO DAILY PRN (Reason: attention deficit hyperactivity disorder) celecoxib 200 mg capsule 200 mg PO BID Qty: 60 2RF <EVERARDO Norton - Last Filed: 06/19/22 15:16> Referrals: Jorge Brown MD [Physician] - (Tachycardia, hypertension, chest pain) Luis Arellano MD [Primary Care Provider] - <EVERARDO Norton - Last Filed: 06/19/22 15:16> Interventions: ED Discharge Assessment Last Done: 06/19/22 17:20 <EVERARDO Norton - Last Filed: 06/19/22 15:16> Discharge Date/Time: 06/19/22 17:20 <EVERARDO Norton - Last Filed: 06/19/22 15:16>
[2022-06-19 15:39] LABS: MANUAL DIFF FLAG NO
[2022-06-19 15:45] LABS: Basophils Percent Auto 0.5 % (0-2); Eosinophils Absolute Auto 0.2 X10*3/uL (0.0-0.4); Hematocrit 42.2 % (42.0-52.0); Hemoglobin 15.1 g/dl (14.0-18.0); Imm Gran Abs Auto 0.02 X10*3/uL (0.00-0.03); Imm Gran Pct Auto 0.3 % (0.0-0.4); Lymphocytes Absolute Auto 3.2 X10*3/uL (1.2-4.9); Lymphocytes Percent Auto 47.8 % (20-40); Mean Corpuscular HGB Conc 35.8 g/dl (31.0-36.0); Mean Corpuscular Volume 92.1 fL (80.0-98.0); Mean Platelet Volume 9.2 fL (9.4-12.4); Monocytes Absolute Auto 0.8 X10*3/uL (0.1-1.2); Monocytes Percent Auto 12.1 % (2-11); Neutrophils Absolute Auto 2.4 x10*3/uL (2.0-8.3); Neutrophils Percent Auto 36.3 % (45-73); Platelet Count 257 X10*3/uL (160-400); Red Blood Count 4.58 X10*6/uL (4.60-5.80); Red Cell Distribution Width 12.1 % (11.0-16.0); White Blood Count 6.6 X10*3/uL (4.8-10.8)
[2022-06-19 15:50] LABS: INTERNATIONAL NORM RATIO 1.1 (0.9-1.1); Prothrombin Time 12.8 SEC (10.0-13.1)
[2022-06-19 15:53] LABS: Partial Thromboplastin Time 28.8 SEC (26.0-36.4)
[2022-06-19 15:54] LABS: Ethanol 150 mg/dL
[2022-06-19 15:55] VITALS: BP 158/101; PULSE 86; RESP 18; O2SAT 100
[2022-06-19 15:56] LABS: Alanine Aminotransferase 34 U/L (0-40); Albumin Level 4.2 g/dL (3.5-5.0); Alkaline Phosphatase 61 U/L (39-117); Anion Gap 12 (12-20); Aspartate Amino Transferase 47 U/L (5-37); Bilirubin Direct 0.3 mg/dL (0.0-0.5); Bilirubin Total 1.4 mg/dL (0.0-1.0); Blood Urea Nitrogen 10 mg/dL (9-16); Calcium 9.3 mg/dL (8.4-10.2); Carbon Dioxide 26 mmol/L (22-29); Chloride 104 mmol/L (96-108); Creatinine Clr Calc Pharmacy 119.8; Estimated Glomerular Filt Rate > 60; Glucose Random 115 mg/dL (60-115); Sodium 138 mmol/L (135-145)
[2022-06-19 16:01] LABS: Total Protein 7.3 g/dL (6.5-8.0)
[2022-06-19 16:05] LABS: Troponin-I High Sensitivity < 2.7 ng/L (<3.5-35.0)
[2022-06-19 16:15] VITALS: BP 151/96; PULSE 83; RESP 18; O2SAT 99
[2022-06-19 16:28] LABS: Appearance Urine Clear; Color Urine Yellow; Glucose Urine UA Negative (Negative); Leukocyte Esterase Urine Negative (Negative); Nitrite Urine Negative (Negative); PH 6.5 (5.0-9.0); Specific Gravity - Urine 1.015 (1.005-1.025); Urine Blood Negative (Negative); Urine Ketones Negative (Negative); Urine Protein Negative (Neg-Trace)
[2022-06-19 16:37] LABS: Amphetamine Screen Urine Not Detected (Not Detect); Barbiturates, Urine Not Detected (Not Detect); Benzodiazepines Screen Urine Not Detected (Not Detect); Cannabinoid Screen Urine Not Detected (Not Detect); Cocaine Screen Urine POSITIVE (Not Detect); Fentanyl, urine Not Detected (Not Detect); Opiate Screen Urine Not Detected (Not Detect); Phencyclidine Screen Urine Not Detected (Not Detect)
== END 2022-06-19 17:20 | disposition home or self-care (01) ==
PROVIDERS: Physician Assistant Medical; Emergency Provider Internal Medicine; PCP Internal Medicine
DX: R07.9 Chest pain, unspecified (principal); R00.0 Tachycardia, unspecified; I10 Essential (primary) hypertension; Z79.899 Other long term (current) drug therapy
CPT/HCPCS: 36415; 71046; 80048; 80076; 80307; 81003; 82077; 83735; 84484; 85025; 85610; 85730; 93005; 99283; 99284

== ENCOUNTER 2022-07-05 19:20 | Inpatient (IN) | payer OTHER, SELFPAY ==
--- NOTE | ~2022-07-05 | CT_ITS ---
EXAMINATION: CT ABDOMEN AND PELVIS WITHOUT CONTRAST CLINICAL INFORMATION: Severe colitis COMPARISON: None available. TECHNIQUE: Multidetector volumetric imaging was performed from the superior aspect of the liver through the pubic symphysis. Sagittal and coronal reformatted images were obtained on the technologist's workstation. This CT examination was performed using dose optimization techniques as appropriate, variously including the following: *Automated exposure control *Adjustment of mA and/or kV according to patient size (this includes techniques or standardized protocols for targeted exams where dose is matched to indication/reason for exam; i.e. extremities or head) *Use of iterative reconstruction technique DLP: 604 mGy-cm FINDINGS: LUNG BASES: Coronary calcifications. Ascending aortic aneurysm measuring 4.2 cm. LIVER, GALLBLADDER, AND BILIARY TREE: The liver is normal in size, shape, and attenuation. No focal hepatic lesion or biliary ductal dilatation is present. The gallbladder is unremarkable with no evidence of radiopaque gallstones, gallbladder wall thickening, or obvious pericholecystic inflammatory changes. PANCREAS: Unremarkable. SPLEEN: Unremarkable. ADRENAL GLANDS: Unremarkable. KIDNEYS AND URETERS: The kidneys are normal in size, shape, and attenuation. No hydronephrosis, hydroureter, or calculi seen. No perinephric stranding. BLADDER: Unremarkable. GASTROINTESTINAL TRACT: Prominent pancolonic submucosal edema and accompanying pericolic fat stranding and edema reflective of a severe colitis. Stomach and small bowel unremarkable. Normal appendix. ABDOMINAL WALL: No significant hernia is appreciated. LYMPH NODES: Normal. VASCULAR: Aorta mildly atherosclerotic but normal caliber. PELVIC VISCERA: Unremarkable. OSSEOUS STRUCTURES: No acute or suspicious osseous abnormalities. CT/CT abdomen pelvis wo IV con IMPRESSION: * Severe pancolitis. * Ascending aortic aneurysm measuring 4.2 cm. * Coronary calcifications. .
--- NOTE | ~2022-07-05 | US_ITS ---
EXAMINATION: US SCROTUM CLINICAL INFORMATION: Pain. COMPARISON: None available. TECHNIQUE: A sonogram of the scrotum was performed assessing waters-scale appearance and color Doppler flow. Spectral Doppler analysis of the arterial and venous flow were performed in the testes bilaterally. FINDINGS: RIGHT: Right testicle measures 4.2 x 2.2 x 3.1 cm, volume 15 mL. No focal testicular parenchymal lesions are visualized. Spectral Doppler analysis of the arterial and venous flow is normal in the right testis. Right epididymal head is normal in size. There is an 8 mm simple cyst in the epididymal head. Small moderate hydrocele. No varicocele. Right epididymal Doppler flow is normal. LEFT: Left testicle measures 4.8 x 1.7 x 3.1 cm, volume 14 mL. No focal testicular parenchymal lesions are visualized. Spectral Doppler analysis of the arterial and venous flow is normal in the left testis. Left epididymal head is normal in size. Small hydrocele. No varicocele. Left epididymal Doppler flow is normal. US/US scrotum IMPRESSION: Bilateral hydroceles, larger on the right. Subcentimeter right epididymal cyst.
[2022-07-05 19:22] VITALS: BP 121/76; PULSE 127; RESP 18; TEMP 36.1; O2SAT 96; BMI 25.1
--- NOTE | 2022-07-05 19:22 | ED_ITS ---
HPI - Abdominal Pain General Chief Complaint: Abdominal Pain <Vandana Padilla NP - Last Filed: 07/05/22 19:26> Stated Complaint: Abdominal pain <Vandana Padilla NP - Last Filed: 07/05/22 19:26> Time Seen by Provider: 07/06/22 00:07 <Vandana Padilla NP - Last Filed: 07/05/22 19:26> Source: patient <Hebert Kenny MD - Last Filed: 07/06/22 06:08> Mode of arrival: ambulatory <Hebert Kenny MD - Last Filed: 07/06/22 06:08> Limitations: no limitations <Hebert Kenny MD - Last Filed: 07/06/22 06:08> History of Present Illness HPI narrative: Patient with chronic abdominal pain complaint of increased pain for last 4 days nausea vomiting and watery stool patient been having more than 10 times a day watery stool and the vomiting and able to hold down any fluids for last 4 days no recent use of antibiotics no fever but does have diaphoresis no chills complaining of diffuse abdominal pain no recent travel no recent seafood intake <Hebert Kenny MD - Last Filed: 07/06/22 06:08> Related Data Home Medications: Home Medications Medication Instructions Recorded Confirmed acetaminophen 325 mg tablet 650 mg PO Q6H PRN Pain 11/21/19 08/27/21 dextroamphetamine-amphetamine 10 1 tab PO DAILY PRN attention 11/21/19 08/27/21 mg tablet deficit hyperactivity disorder lisinopril 20 mg tablet 20 mg PO DAILY 11/21/19 08/27/21 fluoxetine 20 mg capsule 1 cap PO DAILY 07/22/21 08/27/21 Previous Rx's Medication Instructions Recorded celecoxib 200 mg capsule 200 mg PO BID #60 caps 05/29/20 omeprazole 40 mg capsule,delayed 40 mg PO BID #60 caps 07/16/20 release celecoxib 200 mg capsule (Celebrex) 200 mg PO DAILY #10 caps 04/30/22 cyclobenzaprine 10 mg tablet 10 mg PO TID PRN muscle spasm #14 04/30/22 tabs gabapentin 300 mg capsule 300 mg PO TID #30 caps 04/30/22 methylprednisolone 4 mg tablets in 4 mg PO DAILY #21 ea 04/30/22 a dose pack (Medrol (Luis Armando)) oxycodone 5 mg tablet 5 mg PO Q8H PRN pain #10 tabs 04/30/22 <Vandana Padilla NP - Last Filed: 07/05/22 19:26> Allergies/Adverse Reactions: Allergies Allergy/AdvReac Type Severity Reaction Status Date / Time seasonal Allergy Unknown Unknown Uncoded 08/27/21 14:14 <Vandana Padilla NP - Last Filed: 07/05/22 19:26> Review of Systems Review of Systems Yes all other systems are reviewed and are negative <Hebert Kenny MD - Last Filed: 07/06/22 06:08> [facility] Past Medical History Medical History: Medical History ADHD (attention deficit hyperactivity disorder) Anxiety GERD (gastroesophageal reflux disease) Hemorrhoids HTN (hypertension) <Vandana Padilla NP - Last Filed: 07/05/22 19:26> Surgical History: Surgical History History of colonoscopy Hx of endoscopy Hx of umbilical hernia repair (07/22/21) Status post total right knee replacement <Vandana Padilla NP - Last Filed: 07/05/22 19:26> Family History Family History: Family History Father Alive and well Mother Alive and well <Vandana Padilla NP - Last Filed: 07/05/22 19:26> Social History Social History: Social History Household Members: Friend(s) and None Household Members Other:: 2 Housing: House Do you presently have visiting nurse or other home services: No Alcohol intake: current Alcohol intake frequency: holidays/special occasions only Alcohol type: beer Patient Tobacco Use Status: Never used Tobacco Smoked in Last 30 Days: No Use of substances other than those prescribed or required for medical reasons: No Substance Use Type: Marijuana Currently Displaying Signs/Symptoms of Drug Intoxication Withdrawal: No Any prior treatment program specific to substance use: No Have you been hit, kicked, punched, or otherwise hurt by someone within the past year? If so, by whom?: No Do you feel safe in your current relationship?: No Current Relationship Is there a partner from a previous relationship who is making you feel unsafe now?: No Are you made to feel afraid or neglected: No Advance Directives: No Advance Directives Information Provided: No Do you have thoughts of harming others: None Do you have a plan to hurt others: No Plan Recently lost weight without trying: No Eating poorly because of decreased appetite: No Nutrition Risks: No Nutritional Risk Poor oral hygiene: No <Vandana Padilla NP - Last Filed: 07/05/22 19:26> Physical Exam ED Vital Signs: Vital Signs - 24 hr 07/05/22 19:22 07/05/22 22:31 07/05/22 23:39 Temperature 96.9 F 98.4 F 98.0 F Pulse Rate 127 H 106 H 110 H Respiratory Rate 18 18 16 Blood Pressure 121/76 124/81 108/74 Pulse Oximetry 96 98 98 Oxygen Delivery Method Room Air Room Air Room Air 07/06/22 01:53 Temperature 98.7 F Pulse Rate 93 Respiratory Rate 16 Blood Pressure 124/88 Pulse Oximetry 97 Oxygen Delivery Method Room Air BMI result Body Mass Index 25.1 <Vandana Padilla NP - Last Filed: 07/05/22 19:26> Vital Signs - 24 hr 07/05/22 19:22 07/05/22 22:31 07/05/22 23:39 Temperature 96.9 F 98.4 F 98.0 F Pulse Rate 127 H 106 H 110 H Respiratory Rate 18 18 16 Blood Pressure 121/76 124/81 108/74 Pulse Oximetry 96 98 98 Oxygen Delivery Method Room Air Room Air Room Air 07/06/22 01:53 Temperature 98.7 F Pulse Rate 93 Respiratory Rate 16 Blood Pressure 124/88 Pulse Oximetry 97 Oxygen Delivery Method Room Air BMI result Body Mass Index 25.1 <Hebert Kenny MD - Last Filed: 07/06/22 06:08> Appearance: Alert. Oriented X3. No acute distress. Eyes: No pallor or icterus ENT: Pharynx normal. Oral Mucosa moist Neck: Normal inspection. Neck supple. CVS: Normal heart rate and rhythm. Pulses normal. Respiratory: No respiratory distress. Equal air entry bilateral, no wheezing/rales/rhonchi Abdomen: Soft , diffuse abdominal tenderness no rebound tenderness or guarding, Bowel sounds are present, no mass palpable, no CVA tenderness Skin: Skin warm and dry. Normal skin color. Normal skin turgor. Extremities: No lower extremity edema. No calf tenderness Neuro: Oriented X 3. No motor deficit. <Hebert Kenny MD - Last Filed: 07/06/22 06:08> Course Course Course Narrative: This is a rapid medical exam. Defer additional HPI, ROS, PE to prior provider. 52 yo male HTN w/ abdominal cramping x 4 days, diarrhea, vomiting, tactile temps. Patient feels that his right testicle gets intermittently swollen. Will check labs, UA, COVID screen. VSS <Vandana Padilla NP - Last Filed: 07/05/22 19:26> Medical Decision Making Medical Decision Making [facility] Narrative: Patient with arambula colitis with vomiting and diarrhea etiology not very clear C diff negative will treat IV antibiotics admit for IV hydration <Hebert Kenny MD - Last Filed: 07/06/22 06:08> Consult Healthcare Provider Management of the patient was discussed with: Hospitalist <Hebert Kenny MD - Last Filed: 07/06/22 06:08> Lab Data [facility] Lab Attestation statement: I reviewed the patient's lab results. <Hebert Kenny MD - Last F iled: 07/06/22 06:08> Result Diagrams: 07/05/22 20:33 07/05/22 20:33 <Vandana Padilla NP - Last Filed: 07/05/22 19:26> Labs: Lab Results 07/05/22 07/05/22 07/05/22 Range/Units 20:33 20:33 20:33 WBC 17.3 H (4.8-10.8) X10*3/uL RBC 4.59 L (4.60-5.80) X10*6/uL Hgb 15.1 (14.0-18.0) g/dl Hct 42.6 (42.0-52.0) % MCV 92.8 (80.0-98.0) fL MCH 32.9 (27.0-33.0) pg MCHC 35.4 (31.0-36.0) g/dl RDW 12.9 (11.0-16.0) % Plt Count 314 (160-400) X10*3/uL MPV 9.0 L (9.4-12.4) fL Immature Gran % (Auto) 0.5 H (0.0-0.4) % Neut % (Auto) 70.1 (45-73) % Lymph % (Auto) 16.4 L (20-40) % Leake % (Auto) 12.4 H (2-11) % Eos % (Auto) 0.4 (0-4) % Baso % (Auto) 0.2 (0-2) % Lymph # (Auto) 2.8 (1.2-4.9) X10*3/uL [place]ake # (Auto) 2.1 H (0.1-1.2) X10*3/uL Eos # (Auto) 0.1 (0.0-0.4) X10*3/uL Baso # (Auto) 0.0 (0.0-0.2) X10*3/uL Abs Immat Gran (auto) 0.08 H (0.00-0.03) X10*3/uL Absolute Neuts (auto) 12.2 H (2.0-8.3) x10*3/uL Absolute Nucleated RBC 0.000 (0.0-0.012) X10*3/uL Nucleated RBC % (auto) 0.0 (0.0-0.2) /100WBC Sodium 133 L (135-145) mmol/L Potassium 3.1 L D (3.3-5.1) mmol/L Chloride 96 (96-108) mmol/L Carbon Dioxide 26 (22-29) mmol/L Anion Gap 14 (12-20) BUN 5 L (9-16) mg/dL Creatinine 0.76 (0.5-1.4) mg/dL Estim Creat Clear Calc 103.8 Estimated GFR > 60 Random Glucose 120 H (60-115) mg/dL Lactic Acid (0.5-2.0) mmol/L Calcium 9.1 (8.4-10.2) mg/dL Total Bilirubin 1.2 H (0.0-1.0) mg/dL Direct Bilirubin 0.3 (0.0-0.5) mg/dL AST 19 (5-37) U/L ALT 16 (0-40) U/L Alkaline Phosphatase 61 (39-117) U/L Total Protein 6.4 L (6.5-8.0) g/dL Albumin 3.9 (3.5-5.0) g/dL Lipase 45 (8-78) U/L Urine Color Urine Appearance Urine pH (5.0-9.0) Ur Specific [place] (1.005-1.025) Urine Protein (Neg-Trace) mg/dL Urine Glucose (UA) (Negative) mg/dL Urine Ketones (Negative) mg/dL Urine Blood (Negative) Urine Nitrite (Negative) Ur Leukocyte Esterase (Negative) COVID-19 ([facility]) Negative (Negative) COVID-19 Clin Com See Note 07/05/22 07/05/22 Range/Units 20:33 22:20 WBC (4.8-10.8) X10*3/uL RBC (4.60-5.80) X10*6/uL Hgb (14.0-18.0) g/dl Hct (42.0-52.0) % MCV (80.0-98.0) fL MCH (27.0-33.0) pg MCHC (31.0-36.0) g/dl RDW (11.0-16.0) % Plt Count (160-400) X10*3/uL MPV (9.4-12.4) fL Immature Gran % (Auto) (0.0-0.4) % Neut % (Auto) (45-73) % Lymph % (Auto) (20-40) % [place]ake % (Auto) (2-11) % Eos % (Auto) (0-4) % Baso % (Auto) (0-2) % Lymph # (Auto) (1.2-4.9) X10*3/uL [place] # (Auto) (0.1-1.2) X10*3/uL Eos # (Auto) (0.0-0.4) X10*3/uL Baso # (Auto) (0.0-0.2) X10*3/uL Abs Immat Gran (auto) (0.00-0.03) X10*3/uL Absolute Neuts (auto) (2.0-8.3) x10*3/uL Absolute Nucleated RBC (0.0-0.012) X10*3/uL Nucleated RBC % (auto) (0.0-0.2) /100WBC Sodium (135-145) mmol/L Potassium (3.3-5.1) mmol/L Chloride (96-108) mmol/L Carbon Dioxide (22-29) mmol/L Anion Gap (12-20) BUN (9-16) mg/dL Creatinine (0.5-1.4) mg/dL Estim Creat Clear Calc Estimated GFR Random Glucose (60-115) mg/dL Lactic Acid 1.4 (0.5-2.0) mmol/L Calcium (8.4-10.2) mg/dL Total Bilirubin (0.0-1.0) mg/dL Direct Bilirubin (0.0-0.5) mg/dL AST (5-37) U/L ALT (0-40) U/L Alkaline Phosphatase (39-117) U/L Total Protein (6.5-8.0) g/dL Albumin (3.5-5.0) g/dL Lipase (8-78) U/L Urine Color Yellow Urine Appearance Clear Urine pH 6.5 (5.0-9.0) Ur Specific [place] <= 1.005 (1.005-1.025) Urine Protein Negative (Neg-Trace) mg/dL Urine Glucose (UA) Negative (Negative) mg/dL Urine Ketones Negative (Negative) mg/dL Urine Blood Negative (Negative) Urine Nitrite Negative (Negative) Ur Leukocyte Esterase Negative (Negative) COVID-19 ([facility]) (Negative) COVID-19 Clin Com <Vandana Padilla, CURATORIAL ASSISTANT - Last Filed: 07/05/22 19:26> Lab Results 07/05/22 07/05/22 07/05/22 Range/Units 20:33 20:33 20:33 WBC 17.3 H (4.8-10.8) X10*3/uL RBC 4.59 L (4.60-5.80) X10*6/uL Hgb 15.1 (14.0-18.0) g/dl Hct 42.6 (42.0-52.0) % MCV 92.8 (80.0-98.0) fL MCH 32.9 (27.0-33.0) pg MCHC 35.4 (31.0-36.0) g/dl RDW 12.9 (11.0-16.0) % Plt Count 314 (160-400) X10*3/uL MPV 9.0 L (9.4-12.4) fL Immature Gran % (Auto) 0.5 H (0.0-0.4) % Neut % (Auto) 70.1 (45-73) % Lymph % (Auto) 16.4 L (20-40) % [place] % (Auto) 12.4 H (2-11) % Eos % (Auto) 0.4 (0-4) % Baso % (Auto) 0.2 (0-2) % Lymph # (Auto) 2.8 (1.2-4.9) X10*3/uL [place] # (Auto) 2.1 H (0.1-1.2) X10*3/uL Eos # (Auto) 0.1 (0.0-0.4) X10*3/uL Baso # (Auto) 0.0 (0.0-0.2) X10*3/uL Abs Immat Gran (auto) 0.08 H (0.00-0.03) X10*3/uL Absolute Neuts (auto) 12.2 H (2.0-8.3) x10*3/uL Absolute Nucleated RBC 0.000 (0.0-0.012) X10*3/uL Nucleated RBC % (auto) 0.0 (0.0-0.2) /100WBC Sodium 133 L (135-145) mmol/L Potassium 3.1 L D (3.3-5.1) mmol/L Chloride 96 (96-108) mmol/L Carbon Dioxide 26 (22-29) mmol/L Anion Gap 14 (12-20) BUN 5 L (9-16) mg/dL Creatinine 0.76 (0.5-1.4) mg/dL Estim Creat Clear Calc 103.8 Estimated GFR > 60 Random Glucose 120 H (60-115) mg/dL Lactic Acid (0.5-2.0) mmol/L Calcium 9.1 (8.4-10.2) mg/dL Total Bilirubin 1.2 H (0.0-1.0) mg/dL Direct Bilirubin 0.3 (0.0-0.5) mg/dL AST 19 (5-37) U/L ALT 16 (0-40) U/L Alkaline Phosphatase 61 (39-117) U/L Total Protein 6.4 L (6.5-8.0) g/dL Albumin 3.9 (3.5-5.0) g/dL Lipase 45 (8-78) U/L Urine Color Urine Appearance Urine pH (5.0-9.0) Ur Specific [place] (1.005-1.025) Urine Protein (Neg-Trace) mg/dL Urine Glucose (UA) (Negative) mg/dL Urine Ketones (Negative) mg/dL Urine Blood (Negative) Urine Nitrite (Negative) Ur Leukocyte Esterase (Negative) COVID-19 ([facility]) Negative (Negative) COVID-19 Clin Com See Note 07/05/22 07/05/22 Range/Units 20:33 22:20 WBC (4.8-10.8) X10*3/uL RBC (4.60-5.80) X10*6/uL Hgb (14.0-18.0) g/dl Hct (42.0-52.0) % MCV (80.0-98.0) fL MCH (27.0-33.0) pg MCHC (31.0-36.0) g/dl RDW (11.0-16.0) % Plt Count (160-400) X10*3/uL MPV (9.4-12.4) fL Immature Gran % (Auto) (0.0-0.4) % Neut % (Auto) (45-73) % Lymph % (Auto) (20-40) % [place] % (Auto) (2-11) % Eos % (Auto) (0-4) % Baso % (Auto) (0-2) % Lymph # (Auto) (1.2-4.9) X10*3/uL [place] # (Auto) (0.1-1.2) X10*3/uL Eos # (Auto) (0.0-0.4) X10*3/uL Baso # (Auto) (0.0-0.2) X10*3/uL Abs Immat Gran (auto) (0.00-0.03) X10*3/uL Absolute Neuts (auto) (2.0-8.3) x10*3/uL Absolute Nucleated RBC (0.0-0.012) X10*3/uL Nucleated RBC % (auto) (0.0-0.2) /100WBC Sodium (135-145) mmol/L Potassium (3.3-5.1) mmol/L Chloride (96-108) mmol/L Carbon Dioxide (22-29) mmol/L Anion Gap (12-20) BUN (9-16) mg/dL Creatinine (0.5-1.4) mg/dL Estim Creat Clear Calc Estimated GFR Random Glucose (60-115) mg/dL Lactic Acid 1.4 (0.5-2.0) mmol/L Calcium (8.4-10.2) mg/dL Total Bilirubin (0.0-1.0) mg/dL Direct Bilirubin (0.0-0.5) mg/dL AST (5-37) U/L ALT (0-40) U/L Alkaline Phosphatase (39-117) U/L Total Protein (6.5-8.0) g/dL Albumin (3.5-5.0) g/dL Lipase (8-78) U/L Urine Color Yellow Urine Appearance Clear Urine pH 6.5 (5.0-9.0) Ur Specific [place] <= 1.005 (1.005-1.025) Urine Protein Negative (Neg-Trace) mg/dL Urine Glucose (UA) Negative (Negative) mg/dL Urine Ketones Negative (Negative) mg/dL Urine Blood Negative (Negative) Urine Nitrite Negative (Negative) Ur Leukocyte Esterase Negative (Negative) COVID-19 ([facility]) (Negative) COVID-19 Clin Com <Hebert Kenny MD - Last Filed: 07/06/22 06:08> Medications Administered Generic Name Dose Route Start Last Admin Trade Name Freq PRN Reason Stop Dose Admin Hydromorphone HCl 0.5 mg 07/06/22 04:31 07/06/22 05:20 Hydromorphone Hcl 0.5 Mg/0.5 Ml Syringe IVPUSH 0.5 mg Q4H PRN Administration Pain, Severe (Pain Scale 7-10) Protocol Ceftriaxone Sodium 1 gm/ 50 mls @ 100 mls/hr 07/06/22 03:30 07/06/22 04:45 Sodium Chloride IV Infused DAILY REBECCA Infusion Sodium Chloride 3 ml 07/06/22 08:00 07/06/22 04:15 0.9 % Sodium Chloride Flush 3 Ml Syringe IVFLUSH 3 ml QSHIFT REBECCA Administration Discontinued Medications Generic Name Dose Route Start Last Admin Trade Name Freq PRN Reason Stop Dose Admin Hydromorphone HCl 1 mg 07/06/22 01:43 07/06/22 02:19 Hydromorphone Hcl 1 Mg/Ml Syringe IVPUSH 07/06/22 01:44 1 mg ONCE ONE Administration Protocol Sodium Chloride 1,000 mls @ 999 mls/hr 07/06/22 00:24 07/06/22 01:32 Ns IV 07/06/22 01:24 Infused .Q1H1M ONE Infusion Levofloxacin 500 mg in 100 mls @ 100 mls/hr 07/06/22 01:38 07/06/22 03:20 Levaquin IV 07/06/22 02:37 Infused ONCE ONE Infusion Metronidazole 500 mg in 100 mls @ 100 mls/hr 07/06/22 01:38 07/06/22 04:24 Flagyl IV 07/06/22 02:37 Infused ONCE ONE Infusion Sodium Chloride 1,000 mls @ 999 mls/hr 07/06/22 01:39 07/06/22 03:20 Ns IV 07/06/22 02:39 Infused .Q1H1M ONE Infusion Morphine Sulfate 4 mg 07/06/22 00:25 07/06/22 00:33 Morphine Sulfate 4 Mg/Ml Cartridge IVPUSH 07/06/22 00:26 4 mg ONCE ONE Administration Protocol Ondansetron HCl 4 mg 07/06/22 00:24 07/06/22 00:33 Ondansetron Hcl 4 Mg/2 Ml Vial IVPUSH 07/06/22 00:25 4 mg ONCE ONE Administration <Vandana Padilla NP - Last Filed: 07/05/22 19:26> Medications Administered Generic Name Dose Route Start Last Admin Trade Name Freq PRN Reason Stop Dose Admin Hydromorphone HCl 0.5 mg 07/06/22 04:31 07/06/22 05:20 Hydromorphone Hcl 0.5 Mg/0.5 Ml Syringe IVPUSH 0.5 mg Q4H PRN Administration Pain, Severe (Pain Scale 7-10) Protocol Ceftriaxone Sodium 1 gm/ 50 mls @ 100 mls/hr 07/06/22 03:30 07/06/22 04:45 Sodium Chloride IV Infused DAILY REBECCA Infusion Sodium Chloride 3 ml 07/06/22 08:00 07/06/22 04:15 0.9 % Sodium Chloride Flush 3 Ml Syringe IVFLUSH 3 ml QSHIFT REBECCA Administration Discontinued Medications Generic Name Dose Route Start Last Admin Trade Name Freq PRN Reason Stop Dose Admin Hydromorphone HCl 1 mg 07/06/22 01:43 07/06/22 02:19 Hydromorphone Hcl 1 Mg/Ml Syringe IVPUSH 07/06/22 01:44 1 mg ONCE ONE Administration Protocol Sodium Chloride 1,000 mls @ 999 mls/hr 07/06/22 00:24 07/06/22 01:32 Ns IV 07/06/22 01:24 Infused .Q1H1M ONE Infusion Levofloxacin 500 mg in 100 mls @ 100 mls/hr 07/06/22 01:38 07/06/22 03:20 Levaquin IV 07/06/22 02:37 Infused ONCE ONE Infusion Metronidazole 500 mg in 100 mls @ 100 mls/hr 07/06/22 01:38 07/06/22 04:24 Flagyl IV 07/06/22 02:37 Infused ONCE ONE Infusion Sodium Chloride 1,000 mls @ 999 mls/hr 07/06/22 01:39 07/06/22 03:20 Ns IV 07/06/22 02:39 Infused .Q1H1M ONE Infusion Morphine Sulfate 4 mg 07/06/22 00:25 07/06/22 00:33 Morphine Sulfate 4 Mg/Ml Cartridge IVPUSH 07/06/22 00:26 4 mg ONCE ONE Administration Protocol Ondansetron HCl 4 mg 07/06/22 00:24 07/06/22 00:33 Ondansetron Hcl 4 Mg/2 Ml Vial IVPUSH 07/06/22 00:25 4 mg ONCE ONE Administration <Hebert Kenny MD - Last Filed: 07/06/22 06:08> Discharge Plan Discharge Clinical Impression: Umbilical hernia <Vandana Padilla NP - Last Filed: 07/05/22 19:26> Patient Disposition: Admitted As Inpatient <Vandana Padilla NP - Last Filed: 07/05/22 19:26> Interventions: Admission Worksheet (ED) Last Done: 07/06/22 03:53 <Vandana Padilla NP - Last Filed: 07/05/22 19:26> Discharge Date/Time: 07/06/22 04:02 <Vandana Padilla NP - Last Filed: 07/05/22 19:26>
[2022-07-05 20:38] LABS: MANUAL DIFF FLAG NO
[2022-07-05 20:41] LABS: Basophils Percent Auto 0.2 % (0-2); Eosinophils Absolute Auto 0.1 X10*3/uL (0.0-0.4); Eosinophils Percent Auto 0.4 % (0-4); Hematocrit 42.6 % (42.0-52.0); Hemoglobin 15.1 g/dl (14.0-18.0); Imm Gran Abs Auto 0.08 X10*3/uL (0.00-0.03); Imm Gran Pct Auto 0.5 % (0.0-0.4); Lymphocytes Absolute Auto 2.8 X10*3/uL (1.2-4.9); Lymphocytes Percent Auto 16.4 % (20-40); Mean Corpuscular HGB Conc 35.4 g/dl (31.0-36.0); Mean Corpuscular Hemoglobin 32.9 pg (27.0-33.0); Mean Corpuscular Volume 92.8 fL (80.0-98.0); Monocytes Absolute Auto 2.1 X10*3/uL (0.1-1.2); Monocytes Percent Auto 12.4 % (2-11); Neutrophils Absolute Auto 12.2 x10*3/uL (2.0-8.3); Neutrophils Percent Auto 70.1 % (45-73); Platelet Count 314 X10*3/uL (160-400); Red Blood Count 4.59 X10*6/uL (4.60-5.80); Red Cell Distribution Width 12.9 % (11.0-16.0); SCAN SMEAR FLAG 1; White Blood Count 17.3 X10*3/uL (4.8-10.8)
[2022-07-05 20:44] LABS: Appearance Urine Clear; Color Urine Yellow; Glucose Urine UA Negative (Negative); Leukocyte Esterase Urine Negative (Negative); Nitrite Urine Negative (Negative); PH 6.5 (5.0-9.0); Specific Gravity - Urine <= 1.005 (1.005-1.025); Urine Blood Negative (Negative); Urine Ketones Negative (Negative); Urine Protein Negative (Neg-Trace)
[2022-07-05 20:51] LABS: COVID-19 Test Negative (Negative); IDNOW Serial# BCCEAD1C
[2022-07-05 21:03] LABS: Alanine Aminotransferase 16 U/L (0-40); Albumin Level 3.9 g/dL (3.5-5.0); Alkaline Phosphatase 61 U/L (39-117); Anion Gap 14 (12-20); Aspartate Amino Transferase 19 U/L (5-37); Bilirubin Direct 0.3 mg/dL (0.0-0.5); Bilirubin Total 1.2 mg/dL (0.0-1.0); Blood Urea Nitrogen 5 mg/dL (9-16); Calcium 9.1 mg/dL (8.4-10.2); Carbon Dioxide 26 mmol/L (22-29); Chloride 96 mmol/L (96-108); Creatinine Clr Calc Pharmacy 103.8; Estimated Glomerular Filt Rate > 60; Glucose Random 120 mg/dL (60-115); Lipase 45 U/L (8-78); Potassium 3.1 mmol/L (3.3-5.1); Sodium 133 mmol/L (135-145); Total Protein 6.4 g/dL (6.5-8.0)
[2022-07-05 22:31] VITALS: BP 124/81; PULSE 106; RESP 18; TEMP 36.9; O2SAT 98
[2022-07-05 22:35] LABS: Lactic Acid 1.4 mmol/L (0.5-2.0)
[2022-07-05 23:39] VITALS: BP 108/74; PULSE 110; RESP 16; TEMP 36.7; O2SAT 98
[2022-07-06] MEDS: ondansetron HCL 4 MG/2 ML VIAL IVPUSH (00:33)
[2022-07-06] MEDS: 0.9 % Sodium Chloride 1,000 ML 999 ML IV ×2 (00:33→02:19)
[2022-07-06] MEDS: Morphine Sulfate 4 MG/ML CARTRIDGE IVPUSH ×3 (00:33→14:37)
[2022-07-06 01:53] VITALS: BP 124/88; PULSE 93; RESP 16; TEMP 37.1; O2SAT 97
[2022-07-06] MEDS: levoFLOXacin/D5W 500 MG/100 ML PIGGYBACK 100 MG IV (02:19)
[2022-07-06] MEDS: HYDROmorphone HCl 1 MG/ML SYRINGE IVPUSH (02:19)
--- NOTE | 2022-07-06 02:42 | PM.IMHP ---
History of Present Illness Date of Service: 07/06/22 Chief Complaint: abd pain 52-year-old male with past medical history of GERD, hypertension, ADHD, anxiety and history of hemorrhoids presents to the hospital with complaints of abdominal pain. Patient reports his symptoms started a month ago, but worsened over the past few days, the pain is 8/10, generalized in the abdomen, nonradiating, constant, no relieving or exacerbating factors, reports nausea andvomiting,, poor oral intake, as well as multiple episodes of bile like bloody bowel movements. He is also complaining of urgency as well as right scrotum pain that is intermittent, he states that his scrotum sometimes swells up but then resolved spontaneously and he feels that is about to s swell up today. patient denies any fever, but feels that he gets chills, denies any chest pain, no shortness of breath, reports no urinary symptoms, including no frequency urgency or dysuria, no lower extremity edema, no weakness numbness or tingling. on Arrival to the ED patient tachycardic with a heart rate of 127, otherwise stable Labs are significant for WBC count of 17.3, sodium of 133, potassium of 3.0, total bili of 1.2, UA negative, C diff negative abdomen pelvic CT shows pancolitis with is sending aortic aneurysm of 4.2 cm scrotal ultrasound shows bilateral hydrocele, larger on the right as well as subcentimeter right epididymal cyst patient started on IV antibiotics, IV fluids and will be admitted for further management Review of Systems Review of Systems: Yes all other systems are reviewed and are negative [facility] Medical History ADHD (attention deficit hyperactivity disorder) Anxiety GERD (gastroesophageal reflux disease) Hemorrhoids HTN (hypertension) Family History Father Alive and well Mother Alive and well Surgical History History of colonoscopy Hx of endoscopy Hx of umbilical hernia repair (07/22/21) Status post total right knee replacement Social History Household Members: Friend(s) and None Household Members Other:: 2 Housing: House Do you presently have visiting nurse or other home services: No Alcohol intake: current Alcohol intake frequency: holidays/special occasions only Alcohol type: beer Patient Tobacco Use Status: Never used Tobacco Smoked in Last 30 Days: No Use of substances other than those prescribed or required for medical reasons: No Substance Use Type: Marijuana Currently Displaying Signs/Symptoms of Drug Intoxication Withdrawal: No Any prior treatment program specific to substance use: No Have you been hit, kicked, punched, or otherwise hurt by someone within the past year? If so, by whom?: No Do you feel safe in your current relationship?: No Current Relationship Is there a partner from a previous relationship who is making you feel unsafe now?: No Are you made to feel afraid or neglected: No Advance Directives: No Advance Directives Information Provided: No Do you have thoughts of harming others: None Do you have a plan to hurt others: No Plan Recently lost weight without trying: No Eating poorly because of decreased appetite: No Nutrition Risks: No Nutritional Risk Poor oral hygiene: No Meds Allergies Allergy/AdvReac Type Severity Reaction Status Date / Time seasonal Allergy Unknown Unknown Uncoded 08/27/21 14:14 Home Medications Medication Instructions Recorded Confirmed Last Taken Type acetaminophen 325 mg tablet 650 mg PO Q6H PRN Pain 11/21/19 08/27/21 Unknown History dextroamphetamine-amphetamine 10 1 tab PO DAILY PRN attention 11/21/19 08/27/21 Unknown History mg tablet deficit hyperactivity disorder lisinopril 20 mg tablet 20 mg PO DAILY 11/21/19 08/27/21 07/22/21 06:00 History fluoxetine 20 mg capsule 1 cap PO DAILY 07/22/21 08/27/21 07/22/21 06:00 History Physical Exam Vital Signs and Narrative: Vital Signs: Last Vital Signs Temp 98.7 F 07/06/22 01:53 Pulse 93 07/06/22 01:53 Resp 16 07/06/22 01:53 BP 124/88 07/06/22 01:53 Pulse Ox 97 07/06/22 01:53 O2 Del Method Room Air 07/06/22 01:53 BMI result Body Mass Index 25.1 Results Labs 07/05/22 20:33 07/05/22 20:33 Labs: Laboratory Results - last 24 hr 07/05/22 07/05/22 07/05/22 20:33 20:33 20:33 MCV 92.8 MCH 32.9 MCHC 35.4 RDW 12.9 Plt Count 314 MPV 9.0 L Immature Gran % (Auto) 0.5 H Neut % (Auto) 70.1 Lymph % (Auto) 16.4 L [place] % (Auto) 12.4 H Eos % (Auto) 0.4 Baso % (Auto) 0.2 Lymph # (Auto) 2.8 [place] # (Auto) 2.1 H Eos # (Auto) 0.1 Baso # (Auto) 0.0 Abs Immat Gran (auto) 0.08 H Absolute Neuts (auto) 12.2 H Absolute Nucleated RBC 0.000 Nucleated RBC % (auto) 0.0 Anion Gap 14 Estim Creat Clear Calc 103.8 Estimated GFR > 60 Random Glucose 120 H Lactic Acid Calcium 9.1 Total Bilirubin 1.2 H Direct Bilirubin 0.3 AST 19 ALT 16 Alkaline Phosphatase 61 Total Protein 6.4 L Albumin 3.9 Lipase 45 Urine Color Urine Appearance Urine pH Ur Specific [place] Urine Protein Urine Glucose (UA) Urine Ketones Urine Blood Urine Nitrite Ur Leukocyte Esterase COVID-19 ([facility]) Negative COVID-19 Clin Com See Note 07/05/22 07/05/22 20:33 22:20 MCV MCH MCHC RDW Plt Count MPV Immature Gran % (Auto) Neut % (Auto) Lymph % (Auto) [place] % (Auto) Eos % (Auto) Baso % (Auto) Lymph # (Auto) [place] # (Auto) Eos # (Auto) Baso # (Auto) Abs Immat Gran (auto) Absolute Neuts (auto) Absolute Nucleated RBC Nucleated RBC % (auto) Anion Gap Estim Creat Clear Calc Estimated GFR Random Glucose Lactic Acid 1.4 Calcium Total Bilirubin Direct Bilirubin AST ALT Alkaline Phosphatase Total Protein Albumin Lipase Urine Color Yellow Urine Appearance Clear Urine pH 6.5 Ur Specific [place] <= 1.005 Urine Protein Negative Urine Glucose (UA) Negative Urine Ketones Negative Urine Blood Negative Urine Nitrite Negative Ur Leukocyte Esterase Negative COVID-19 ([facility]) COVID-19 Clin Com Imaging Radiologist's Impressions: Impressions Abdomen/Pelvis CT 07/06/22 00:46 IMPRESSION: * Severe pancolitis. * Ascending aortic aneurysm measuring 4.2 cm. * Coronary calcifications. . Assessment and Plan (1) Acute colitis: Status: Acute (2) Hydrocele: Status: Acute (3) Epididymal cyst: Status: Acute (4) Hypokalemia: Status: Acute (5) Leukocytosis: Status: Acute Plan 52 male with a history of anxiety, GERD, ADHD presents to the hospital with complaints of abdominal pain found to have pancolitis # acute pancolitis - inflammatory versus infectious - given the bloody diarrhea, this is concerning for underlying inflammatory disease - denies history of inflammatory bowel disease - pending ESR and CRP, lactic acid normal, ischemic bowel less likely - started on broad-spectrum IV antibiotics, steroids, IV fluid - known to Dr. Parrish, will consult him for further evaluation - pain control # hydrocele worse on the right - unclear of chronicity - patient also has evidence of a epididymal cyst - will consult Urology # hypokalemia - repleted - follow potassium level # leukocytosis - likely secondary to acute colitis - started on IV antibiotics - follow CBC # anxiety - continue mood stabilizers # ADHD - continue Adderall # hypertension - stable - continue lisinopril DVT prophylaxis: Early ambulation/SCDs given pancolitis needing IV antibiotics, further evaluation by GI patient will require minimum 2 nights inpatient hospital stay for further management and monitoring Time Spent With Patient Time: Total time managing care of this patient today ____ minutes. Quality Stroke Does the patient have a stroke diagnosis?: No VTE Prior VTE?: No VTE Risk Level:: Medical - low VTE Device Contraindication: Treatment Not Indicated VTE Drug Contraindication: N/A - Med Ordered
--- NOTE | 2022-07-06 03:02 | PC.NURSE ---
Late entry: IV abx started, Flagyl late due to Levofloxacin running at this time. Pt states his pain has improved a slight bit with the administration of Dilaudid. Otherwise, pt is resting comfortably, respirations equal and unlabored, no apparent distress. Continue plan of care to admit to floor Report given to BRANDY James
[2022-07-06] MEDS: metroNIDAZOLE/NS 500 MG/100 ML PIGGYBACK 100 MG IV ×3 (03:24→20:30)
[2022-07-06 03:53] VITALS: BP 105/72; PULSE 103; RESP 18; TEMP 36.6; O2SAT 97
[2022-07-06 04:06] LABS: CDiff Gene PCR NEGATIVE (Negative)
[2022-07-06] MEDS: 0.9 % Sodium Chloride Flush 3 ML SYRINGE IVFLUSH ×2 (04:15→08:29)
[2022-07-06] MEDS: cefTRIAXone sodium 1 GM in 0.9 % Sodium Chloride 50 ML IV (04:15)
[2022-07-06 04:23] VITALS: BMI 31.0
[2022-07-06] MEDS: HYDROmorphone HCl 0.5 MG/0.5 ML SYRINGE IVPUSH ×3 (05:20→12:30)
[2022-07-06 06:54] LABS: Basophils Percent Auto 0.3 % (0-2); Eosinophils Absolute Auto 0.1 X10*3/uL (0.0-0.4); Eosinophils Percent Auto 1.2 % (0-4); Hematocrit 36.3 % (42.0-52.0); Hemoglobin 12.6 g/dl (14.0-18.0); Imm Gran Abs Auto 0.09 X10*3/uL (0.00-0.03); Imm Gran Pct Auto 0.8 % (0.0-0.4); Lymphocytes Absolute Auto 1.7 X10*3/uL (1.2-4.9); Lymphocytes Percent Auto 14.7 % (20-40); MANUAL DIFF FLAG SCAN; Mean Corpuscular HGB Conc 34.7 g/dl (31.0-36.0); Mean Corpuscular Hemoglobin 32.5 pg (27.0-33.0); Mean Corpuscular Volume 93.6 fL (80.0-98.0); Monocytes Absolute Auto 1.6 X10*3/uL (0.1-1.2); Monocytes Percent Auto 13.7 % (2-11); Neutrophils Absolute Auto 8.1 x10*3/uL (2.0-8.3); Neutrophils Percent Auto 69.3 % (45-73); Platelet Count 243 X10*3/uL (160-400); Red Blood Count 3.88 X10*6/uL (4.60-5.80); SCAN SMEAR FLAG 1; White Blood Count 11.7 X10*3/uL (4.8-10.8)
[2022-07-06 07:02] VITALS: BP 118/74; PULSE 82; RESP 20; TEMP 36.7; O2SAT 97
[2022-07-06 07:13] LABS: Anion Gap 10 (12-20); Blood Urea Nitrogen 5 mg/dL (9-16); C Reactive Protein 5.36 mg/dL (< or = 0.50); Calcium 8.2 mg/dL (8.4-10.2); Carbon Dioxide 26 mmol/L (22-29); Chloride 102 mmol/L (96-108); Creatinine Clr Calc Pharmacy 138.9; Estimated Glomerular Filt Rate > 60; Glucose Random 119 mg/dL (60-115); Potassium 3.1 mmol/L (3.3-5.1); Sodium 135 mmol/L (135-145)
[2022-07-06 07:25] LABS: SLIDE REVIEW VERIFIED
[2022-07-06 07:37] LABS: Erythrocyte Sedimentation Rate 12 MM/HR (0-15)
--- NOTE | 2022-07-06 07:42 | P.EN_ITS ---
Event Note Date of Service: 07/06/22 Event Note: Consult placed for ascending aortic aneurysm. Will need to follow-up with CT surgery at [facility] as outpatient Time Spent With Patient Time: Total time managing care of this patient today ____ minutes.
--- NOTE | 2022-07-06 08:25 | PHA.MEDREC ---
Pharmacy Consult ? Medication Reconciliation Pharmacy has completed the medication reconciliation. Spoke to patient and used claim history
[2022-07-06] MEDS: methylPREDNISolone Sod Succ 40 MG/ML VIAL 20 MG IVPUSH ×3 (08:28→21:46)
[2022-07-06] MEDS: Potassium Chloride/H20 10 MEQ/100 ML PIGGYBACK 100 MEQ IV ×4 (08:29→12:19)
--- NOTE | 2022-07-06 08:57 | HO.PM.IMPN ---
Subjective Subjective Date of Service: 07/06/22 Interval History: abd pain Physical Exam Vital Signs: Vital Signs: Last Vital Signs Temp 98.1 F 07/06/22 07:02 Pulse 82 07/06/22 07:02 Resp 20 07/06/22 07:02 BP 118/74 07/06/22 07:02 Pulse Ox 97 07/06/22 07:02 O2 Del Method Room Air 07/06/22 07:02 BMI result Body Mass Index 31.0 abd non distended, diffusely tender Objective Data Active Medications Acetaminophen (Acetaminophen 325 Mg Tablet) 650 mg PO Q6H PRN PRN Reason: Pain, Mild (Pain Scale 1-3) Fluoxetine HCl (Fluoxetine Hcl 20 Mg Capsule) 40 mg PO DAILY REBECCA Gabapentin (Gabapentin 300 Mg Capsule) 300 mg PO TID REBECCA Hydromorphone HCl (Hydromorphone Hcl 0.5 Mg/0.5 Ml Syringe) 0.5 mg IVPUSH Q3H PRN; Protocol PRN Reason: Pain, Severe (Pain Scale 7-10) Ceftriaxone Sodium 1 gm/ (Sodium Chloride) 50 mls @ 100 mls/hr IV DAILY [facility] Last Infusion: 07/06/22 04:45 Dose: 0 mls/hr Documented By: JELENA Metronidazole (Flagyl) 500 mg in 100 mls @ 100 mls/hr IV Q8H [facility] Potassium Chloride (Potassium Chloride/H20) 10 meq in 100 mls @ 100 mls/hr IV Q1H [facility] Stop: 07/06/22 10:29 Last Admin: 07/06/22 08:29 Dose: 100 mls/hr Documented By: SILVIA Lactated Ringer's (Lr) 1,000 mls @ 100 mls/hr IVCONT .Q10H [facility] Methylprednisolone Sodium Succinate (Methylprednisolone Sod Succ 40 Mg/Ml Vial) 20 mg IVPUSH Q8H [facility] Last Admin: 07/06/22 08:28 Dose: 20 mg Documented By: SILVIA Morphine Sulfate (Morphine Sulfate 4 Mg/Ml Cartridge) 4 mg IVPUSH Q4H PRN; Protocol PRN Reason: Pain, Severe (Pain Scale 7-10) Omeprazole (Omeprazole 40 Mg Capsule.Dr) 40 mg PO BID REBECCA Ondansetron HCl (Ondansetron Hcl 4 Mg/2 Ml Vial) 4 mg IVPUSH Q8H PRN PRN Reason: Nausea and Vomiting Pharmacy Consult (Consult Rx Perform Med Rec) 1 each MISCELLANE ONCE PRN PRN Reason: Consult order Sodium Chloride (0.9 % Sodium Chloride Flush 3 Ml Syringe) 3 ml IVFLUSH QSHIFT [facility] Last Admin: 07/06/22 08:29 Dose: 3 ml Documented By: SILVIA Labs 07/06/22 06:34 07/06/22 06:34 Labs: Laboratory Results - last 24 hr 07/05/22 07/05/22 07/05/22 20:33 20:33 20:33 MCV 92.8 MCH 32.9 MCHC 35.4 RDW 12.9 Plt Count 314 MPV 9.0 L Immature Gran % (Auto) 0.5 H Neut % (Auto) 70.1 Lymph % (Auto) 16.4 L [place] % (Auto) 12.4 H Eos % (Auto) 0.4 Baso % (Auto) 0.2 Lymph # (Auto) 2.8 [place] # (Auto) 2.1 H Eos # (Auto) 0.1 Baso # (Auto) 0.0 Abs Immat Gran (auto) 0.08 H Absolute Neuts (auto) 12.2 H Absolute Nucleated RBC 0.000 Nucleated RBC % (auto) 0.0 Smear Tech's Comments ESR Anion Gap 14 Estim Creat Clear Calc 103.8 Estimated GFR > 60 Random Glucose 120 H Lactic Acid Calcium 9.1 Total Bilirubin 1.2 H Direct Bilirubin 0.3 AST 19 ALT 16 Alkaline Phosphatase 61 C-Reactive Protein Total Protein 6.4 L Albumin 3.9 Lipase 45 Urine Color Urine Appearance Urine pH Ur Specific [place] Urine Protein Urine Glucose (UA) Urine Ketones Urine Blood Urine Nitrite Ur Leukocyte Esterase C. difficile Tox B Gene COVID-19 ([facility]) Negative COVID-19 Clin Com See Note 07/05/22 07/05/22 07/06/22 20:33 22:20 03:13 MCV MCH MCHC RDW Plt Count MPV Immature Gran % (Auto) Neut % (Auto) Lymph % (Auto) [place] % (Auto) Eos % (Auto) Baso % (Auto) Lymph # (Auto) [place] # (Auto) Eos # (Auto) Baso # (Auto) Abs Immat Gran (auto) Absolute Neuts (auto) Absolute Nucleated RBC Nucleated RBC % (auto) Smear Tech's Comments ESR Anion Gap Estim Creat Clear Calc Estimated GFR Random Glucose Lactic Acid 1.4 Calcium Total Bilirubin Direct Bilirubin AST ALT Alkaline Phosphatase C-Reactive Protein Total Protein Albumin Lipase Urine Color Yellow Urine Appearance Clear Urine pH 6.5 Ur Specific [place] <= 1.005 Urine Protein Negative Urine Glucose (UA) Negative Urine Ketones Negative Urine Blood Negative Urine Nitrite Negative Ur Leukocyte Esterase Negative C. difficile Tox B Gene NEGATIVE COVID-19 ([facility]) COVID-19 Clin Com 07/06/22 07/06/22 07/06/22 06:34 06:34 06:34 MCV 93.6 MCH 32.5 MCHC 34.7 RDW 13.0 Plt Count 243 MPV 9.0 L Immature Gran % (Auto) 0.8 H Neut % (Auto) 69.3 Lymph % (Auto) 14.7 L [place] % (Auto) 13.7 H Eos % (Auto) 1.2 Baso % (Auto) 0.3 Lymph # (Auto) 1.7 [place] # (Auto) 1.6 H Eos # (Auto) 0.1 Baso # (Auto) 0.0 Abs Immat Gran (auto) 0.09 H Absolute Neuts (auto) 8.1 Absolute Nucleated RBC 0.000 Nucleated RBC % (auto) 0.0 Smear Tech's Comments VERIFIED ESR 12 Anion Gap 10 L Estim Creat Clear Calc 138.9 Estimated GFR > 60 Random Glucose 119 H Lactic Acid Calcium 8.2 L D Total Bilirubin Direct Bilirubin AST ALT Alkaline Phosphatase C-Reactive Protein 5.36 H Total Protein Albumin Lipase Urine Color Urine Appearance Urine pH Ur Specific [place] Urine Protein Urine Glucose (UA) Urine Ketones Urine Blood Urine Nitrite Ur Leukocyte Esterase C. difficile Tox B Gene COVID-19 ([facility]) COVID-19 Clin Com Assessment and Plan (1) Leukocytosis: Status: Acute Plan 52M PMH of anxiety, GERD, ADHD presented to the hospital with complaints of abdominal pain found to have pancolitis persistent diarrhea due to pancolitis inflammatory versus infectious rocephin and flagyl started 07/06/22, steroids, IV fluid gi eval follow up stool pcr cdif negative hydrocele worse on the right unclear of chronicity patient also has? evidence of a epididymal cyst PUD ppi hypokalemia repleted follow potassium level anxiety fluoexitine ADHD holding Adderall hypertension low-normal bp, will hold lisinopril for now 4.2cm ascending aorta vascular appreciated, outpatient follow up at [facility] ?DVT prophylaxis:? lovenox full code reason for continued hospitalization:significant abd pain Time Spent With Patient Time: Total time managing care of this patient today ____ minutes. Quality Stroke Does the patient have a stroke diagnosis?: No VTE Prior VTE?: No VTE Risk Level:: Medical - low VTE Device Contraindication: Treatment Not Indicated VTE Drug Contraindication: N/A - Med Ordered
[2022-07-06] MEDS: Gabapentin 300 MG CAPSULE PO ×3 (09:57→20:28)
[2022-07-06] MEDS: FLUoxetine HCl 20 MG CAPSULE 40 MG PO (09:57)
[2022-07-06] MEDS: Enoxaparin Sodium 40 MG/0.4 ML SYRINGE SUBCUT (09:57)
--- NOTE | 2022-07-06 11:16 | P.CNGI_ITS ---
History of Present Illness Data of Consult Service Date: 07/06/22 Requesting physician: Lucas Self Primary Care Provider: Luis Arellano MD HPI Reason for consult: colitis 52-year-old male with past medical history of GERD, hypertension, ADHD, anxiety and history of hemorrhoids who i am seeing for assessment for colitis he presented initially with 8/10 generalized abdo pain, which was constant and non radiating with no relieving or exacerbating factors. Associated w/ nausea, poor appetite with loose bloody bowel motions. he denies any fever,? but feels that he gets chills, denies any chest pain, no shortness of breath, reports no urinary symptoms, including no frequency urgency or dysuria, no lower extremity edema, no weakness numbness or tingling. Denies sick contacts, recent abx or eating contaminated food/ He also noted right scrotal pain and swelling. LABS: WBC count of 17.3, sodium of 133, potassium of 3.0, total bili of 1.2, UA negative, C diff negative--u tox pos cocaine 06/19/22 Imaging: Abdomen pelvic CT: pancolitis, aortic aneurysm of 4.2 cm Scrotal ultrasound: bilateral hydrocele, larger on the right as well as subcentimeter right epididymal cyst Other data: EGD and colonoscopy done 2018--pos for H pylori and treated, erosive gasritis noted and moderate size hemorrhoids ? subsequent h pylori breath test was neg 08/2019 EGD with dialtion 03/2020- 15-17 mm bougie savary used, no tear, Bx with active esophagitis and moderate inflammation of GEj, changed PPi to lansoprazole 30 mg bid Review of Systems Review of Systems: Constitutional : + Chills ENT/Mouth : No sore throat, No Rhinorrhea Eyes: No Swelling, No Redness Cardiovascular : No Chest Pain, No SOB, No Edema Respiratory : No Cough, No Sputum, No Wheezing Gastrointestinal : see HPI Genitourinary : NO Dysuria, No Urinary Frequency, No Hematuria, No Urgency Musculoskeletal : No joint pain, No Myalgias, No Joint Swelling Skin : No Skin Lesions, No rash Neuro : No Weakness, No Numbness, No Dizziness, No Headache Psych : No Anxiety/Panic, No Depression Heme/Lymph: No Bruising, No Lymphadenopathy Endocrine : No Polyuria, No Polydipsia All other systems reviewed and are negative. [facility] Past Medical History Medical History ADHD (attention deficit hyperactivity disorder) Anxiety GERD (gastroesophageal reflux disease) Hemorrhoids HTN (hypertension) Family History Family History Father Alive and well Mother Alive and well Surgical History Surgical History History of colonoscopy Hx of endoscopy Hx of umbilical hernia repair (07/22/21) Status post total right knee replacement Social History Social History Household Members: Friend(s) and None Household Members Other:: 2 Housing: House Do you presently have visiting nurse or other home services: No Alcohol intake: current Alcohol intake frequency: holidays/special occasions only Alcohol type: beer Patient Tobacco Use Status: Never used Tobacco Smoked in Last 30 Days: No Use of substances other than those prescribed or required for medical reasons: No Substance Use Type: Marijuana Currently Displaying Signs/Symptoms of Drug Intoxication Withdrawal: No Any prior treatment program specific to substance use: No Have you been hit, kicked, punched, or otherwise hurt by someone within the past year? If so, by whom?: No Do you feel safe in your current relationship?: No Current Relationship Is there a partner from a previous relationship who is making you feel unsafe now?: No Are you made to feel afraid or neglected: No Advance Directives: No Advance Directives Information Provided: No Do you have thoughts of harming others: None Do you have a plan to hurt others: No Plan Recently lost weight without trying: No Eating poorly because of decreased appetite: No Nutrition Risks: No Nutritional Risk Poor oral hygiene: No service: No Meds Allergies Allergy/AdvReac Type Severity Reaction Status Date / Time seasonal Allergy Unknown Unknown Uncoded 08/27/21 14:14 Active Medications: Current Medications Acetaminophen (Acetaminophen 325 Mg Tablet) 650 mg PO Q6H PRN PRN Reason: Pain, Mild (Pain Scale 1-3) Enoxaparin Sodium (Enoxaparin Sodium 40 Mg/0.4 Ml Syringe) 40 mg SUBCUT Q24H [facility] Last Admin: 05/16/23 09:57 Dose: 40 mg Fluoxetine HCl (Fluoxetine Hcl 20 Mg Capsule) 40 mg PO DAILY [facility] Last Admin: 07/06/22 09:57 Dose: 40 mg Gabapentin (Gabapentin 300 Mg Capsule) 300 mg PO TID [facility] Last Admin: 07/06/22 09:57 Dose: 300 mg Hydromorphone HCl (Hydromorphone Hcl 0.5 Mg/0.5 Ml Syringe) 0.5 mg IVPUSH Q3H PRN; Protocol PRN Reason: Pain, Severe (Pain Scale 7-10) Ceftriaxone Sodium 1 gm/ (Sodium Chloride) 50 mls @ 100 mls/hr IV DAILY [facility] Last Infusion: 07/06/22 04:45 Dose: Infused Metronidazole (Flagyl) 500 mg in 100 mls @ 100 mls/hr IV Q8H [facility] Lactated Ringer's (Lr) 1,000 mls @ 100 mls/hr IVCONT .Q10H [facility] Methylprednisolone Sodium Succinate (Methylprednisolone Sod Succ 40 Mg/Ml Vial) 20 mg IVPUSH Q8H [facility] Last Admin: 07/06/22 08:28 Dose: 20 mg Morphine Sulfate (Morphine Sulfate 4 Mg/Ml Cartridge) 4 mg IVPUSH Q4H PRN; Protocol PRN Reason: Pain, Severe (Pain Scale 7-10) Last Admin: 07/06/22 10:21 Dose: 4 mg Omeprazole (Omeprazole 40 Mg Capsule.Dr) 40 mg PO BID@0630,1630 [facility] Ondansetron HCl (Ondansetron Hcl 4 Mg/2 Ml Vial) 4 mg IVPUSH Q8H PRN PRN Reason: Nausea and Vomiting Pharmacy Consult (Consult Rx Perform Med Rec) 1 each MISCELLANE ONCE PRN PRN Reason: Consult order Sodium Chloride (0.9 % Sodium Chloride Flush 3 Ml Syringe) 3 ml IVFLUSH QSHIFT [facility] Last Admin: 07/06/22 08:29 Dose: 3 ml Home Medications Medication Instructions Recorded Confirmed Last Taken Type acetaminophen 325 mg tablet 650 mg PO Q6H PRN Pain 11/21/19 07/06/22 07/04/22 History dextroamphetamine-amphetamine 10 1 tab PO DAILY PRN attention 11/21/19 07/06/22 07/04/22 History mg tablet deficit hyperactivity disorder lisinopril 20 mg tablet 20 mg PO DAILY 11/21/19 07/06/22 07/04/22 History fluoxetine 40 mg capsule 40 mg PO DAILY 07/06/22 07/06/22 07/04/22 History Physical Exam Vital Signs: Vital Signs: Last Vital Signs Temp 98.1 F 07/06/22 07:02 Pulse 82 07/06/22 07:02 Resp 20 07/06/22 07:02 BP 118/74 07/06/22 07:02 Pulse Ox 97 07/06/22 07:02 O2 Del Method Room Air 07/06/22 07:02 BMI result Body Mass Index 31.0 Results Labs 07/06/22 06:34 07/06/22 06:34 Labs: Short CBC 07/05/22 07/06/22 Range/Units 20:33 06:34 WBC 17.3 H 11.7 H (4.8-10.8) X10*3/uL Hgb 15.1 12.6 L (14.0-18.0) g/dl Hct 42.6 36.3 L (42.0-52.0) % Plt Count 314 243 (160-400) X10*3/uL BMP 07/05/22 07/06/22 20:33 06:34 Sodium 133 L 135 Potassium 3.1 L D 3.1 L Chloride 96 102 Carbon Dioxide 26 26 BUN 5 L 5 L Creatinine 0.76 0.65 Calcium 9.1 8.2 L D Liver Function 07/05/22 Range/Units 20:33 Total Bilirubin 1.2 H (0.0-1.0) mg/dL Direct Bilirubin 0.3 (0.0-0.5) mg/dL AST 19 (5-37) U/L ALT 16 (0-40) U/L Alkaline Phosphatase 61 (39-117) U/L Albumin 3.9 (3.5-5.0) g/dL Urine 07/05/22 Range/Units 20:33 Urine Color Yellow Urine Appearance Clear Urine pH 6.5 (5.0-9.0) Ur Specific [place] <= 1.005 (1.005-1.025) Urine Protein Negative (Neg-Trace) mg/dL Urine Glucose (UA) Negative (Negative) mg/dL Imaging CT scan - abdomen: Attestation: I personally reviewed and interpreted this imaging study as follows: My impression: pancolitis noted Assessment and Plan (1) Acute colitis: Status: Acute Plan 1/ Acute aramb[place] colitis, possibly due to cocaine use and ischemia, neg stool testing--less likely IBD, could still be infectious PLAN: 1/ cont with abx to prevent bacterial translocation, also anti inflammatory action 2/ stop steroids 3/ if ongoing sx then egd and colonoscopy , doppler scan of mesentry vessels 4/ avoid nsaids, ok to give PPi 5/ avoid hypotension and overly aggressive BP control Time Spent With Patient Time: Total time managing care of this patient today ____ minutes. Procedures Date of Service Date of Service: 07/06/22
--- NOTE | 2022-07-06 11:57 | P.CNUR_ITS ---
History of Present Illness Consult details Consult date: 07/06/22 Narrative: Luis is a 52 year old male admitted with complaint of abdominal pain. Urology call to evaluate due to scrotal swelling. I had a discussion with the patient he states he had pain in his right testicle that started about a week ago. He also complains of abdominal pain. He denies urinary symptoms. He states that since he has been started on antibiotics, his testicular pain is improved. On exam, there is no significant scrotal swelling no cellulitis. Left testis - normal, Right testis- tender to palpaton. Imaging: CTAP: KIDNEYS AND URETERS: The kidneys are normal in size, shape, and attenuation. No hydronephrosis, hydroureter, or calculi seen. No perinephric stranding. ?BLADDER: Unremarkable.? Scrotal US: Bilateral hydroceles, larger on the right. Subcentimeter right epididymal cyst. Review of Systems Review of Systems: 10 point ROS negative other than stated in HPI PENDING SALE TO [facility] Past Medical History Medical History ADHD (attention deficit hyperactivity disorder) Anxiety GERD (gastroesophageal reflux disease) Hemorrhoids HTN (hypertension) Family History Family History Father Alive and well Mother Alive and well Surgical History Surgical History History of colonoscopy Hx of endoscopy Hx of umbilical hernia repair (07/22/21) Status post total right knee replacement Social History Social History Household Members: Friend(s) and None Household Members Other:: 2 Housing: House Do you presently have visiting nurse or other home services: No Alcohol intake: current Alcohol intake frequency: holidays/special occasions only Alcohol type: beer Patient Tobacco Use Status: Never used Tobacco Smoked in Last 30 Days: No Use of substances other than those prescribed or required for medical reasons: No Substance Use Type: Marijuana Currently Displaying Signs/Symptoms of Drug Intoxication Withdrawal: No Any prior treatment program specific to substance use: No Have you been hit, kicked, punched, or otherwise hurt by someone within the past year? If so, by whom?: No Do you feel safe in your current relationship?: No Current Relationship Is there a partner from a previous relationship who is making you feel unsafe now?: No Are you made to feel afraid or neglected: No Advance Directives: No Advance Directives Information Provided: No Do you have thoughts of harming others: None Do you have a plan to hurt others: No Plan Recently lost weight without trying: No Eating poorly because of decreased appetite: No Nutrition Risks: No Nutritional Risk Poor oral hygiene: No service: No Meds Allergies Allergy/AdvReac Type Severity Reaction Status Date / Time seasonal Allergy Unknown Unknown Uncoded 08/27/21 14:14 Active Medications: Current Medications Acetaminophen (Acetaminophen 325 Mg Tablet) 650 mg PO Q6H PRN PRN Reason: Pain, Mild (Pain Scale 1-3) Enoxaparin Sodium (Enoxaparin Sodium 40 Mg/0.4 Ml Syringe) 40 mg SUBCUT Q24H [facility] Last Admin: 07/06/22 09:57 Dose: 40 mg Fluoxetine HCl (Fluoxetine Hcl 20 Mg Capsule) 40 mg PO DAILY [facility] Last Admin: 07/06/22 09:57 Dose: 40 mg Gabapentin (Gabapentin 300 Mg Capsule) 300 mg PO TID [facility] Last Admin: 07/06/22 09:57 Dose: 300 mg Hydromorphone HCl (Hydromorphone Hcl 0.5 Mg/0.5 Ml Syringe) 0.5 mg IVPUSH Q3H PRN; Protocol PRN Reason: Pain, Severe (Pain Scale 7-10) Ceftriaxone Sodium 1 gm/ (Sodium Chloride) 50 mls @ 100 mls/hr IV DAILY [facility] Last Infusion: 07/06/22 04:45 Dose: Infused Metronidazole (Flagyl) 500 mg in 100 mls @ 100 mls/hr IV Q8H [facility] Lactated Ringer's (Lr) 1,000 mls @ 100 mls/hr IVCONT .Q10H [facility] Methylprednisolone Sodium Succinate (Methylprednisolone Sod Succ 40 Mg/Ml Vial) 20 mg IVPUSH Q8H [facility] Last Admin: 07/06/22 08:28 Dose: 20 mg Morphine Sulfate (Morphine Sulfate 4 Mg/Ml Cartridge) 4 mg IVPUSH Q4H PRN; Protocol PRN Reason: Pain, Severe (Pain Scale 7-10) Last Admin: 07/06/22 10:21 Dose: 4 mg Omeprazole (Omeprazole 40 Mg Capsule.) 40 mg PO BID@0630,1630 [facility] Ondansetron HCl (Ondansetron Hcl 4 Mg/2 Ml Vial) 4 mg IVPUSH Q8H PRN PRN Reason: Nausea and Vomiting Pharmacy Consult (Consult Rx Perform Med Rec) 1 each MISCELLANE ONCE PRN PRN Reason: Consult order Sodium Chloride (0.9 % Sodium Chloride Flush 3 Ml Syringe) 3 ml IVFLUSH QSHIFT [facility] Last Admin: 07/06/22 08:29 Dose: 3 ml Home Medications Medication Instructions Recorded Confirmed Last Taken Type acetaminophen 325 mg tablet 650 mg PO Q6H PRN Pain 11/21/19 07/06/22 07/04/22 History dextroamphetamine-amphetamine 10 1 tab PO DAILY PRN attention 11/21/19 07/06/22 07/04/22 History mg tablet deficit hyperactivity disorder lisinopril 20 mg tablet 20 mg PO DAILY 11/21/19 07/06/22 07/04/22 History fluoxetine 40 mg capsule 40 mg PO DAILY 07/06/22 07/06/22 07/04/22 History Physical Exam Vital Signs: Vital Signs: Last Vital Signs Temp 98.1 F 07/06/22 07:02 Pulse 82 07/06/22 07:02 Resp 20 07/06/22 07:02 BP 118/74 07/06/22 07:02 Pulse Ox 97 07/06/22 07:02 O2 Del Method Room Air 07/06/22 07:02 BMI result Body Mass Index 31.0 Const: General: healthy appearing, no acute distress and well developed Orientation/consciousness: patient oriented x3 HEENT: Head: Yes normocephalic and Yes atraumatic Eyes: Conjunctivae: conjunctivae normal Neck: Neck: Yes normal visual inspection Chest: Chest palpation & inspection: normal inspection of the chest Resp: Effort & Inspection: normal respiratory effort Cardio: Rate: regular rate GI: Inspection: Yes normal to inspection Palpation (GI): Soft to palpation : Other: there is no significant scrotal swelling no cellulitis. Left testis - normal, Right testis- tender to palpaton. Penis: normal penis Skin: General skin exam: no rashes or lesions noted Neuro: General: patient oriented x3 Extrem: General: No pedal edema Psych: Appearance: grossly normal Affect: normal affect Results Labs 07/06/22 06:34 07/06/22 06:34 Labs: Abnormal lab results 07/05/22 07/05/22 07/06/22 Range/Units 20:33 20:33 06:34 WBC 17.3 H 11.7 H (4.8-10.8) X10*3/uL RBC 4.59 L 3.88 L (4.60-5.80) X10*6/uL Hgb 12.6 L (14.0-18.0) g/dl Hct 36.3 L (42.0-52.0) % MPV 9.0 L 9.0 L (9.4-12.4) fL Immature Gran % (Auto) 0.5 H 0.8 H (0.0-0.4) % Lymph % (Auto) 16.4 L 14.7 L (20-40) % [place] % (Auto) 12.4 H 13.7 H (2-11) % [place] # (Auto) 2.1 H 1.6 H (0.1-1.2) X10*3/uL Abs Immat Gran (auto) 0.08 H 0.09 H (0.00-0.03) X10*3/uL Absolute Neuts (auto) 12.2 H (2.0-8.3) x10*3/uL Sodium 133 L (135-145) mmol/L Potassium 3.1 L D (3.3-5.1) mmol/L Anion Gap (12-20) BUN 5 L (9-16) mg/dL Random Glucose 120 H (60-115) mg/dL Calcium (8.4-10.2) mg/dL Total Bilirubin 1.2 H (0.0-1.0) mg/dL C-Reactive Protein (< or = 0.50) mg/dL Total Protein 6.4 L (6.5-8.0) g/dL 07/06/22 Range/Units 06:34 WBC (4.8-10.8) X10*3/uL RBC (4.60-5.80) X10*6/uL Hgb (14.0-18.0) g/dl Hct (42.0-52.0) % MPV (9.4-12.4) fL Immature Gran % (Auto) (0.0-0.4) % Lymph % (Auto) (20-40) % [place] % (Auto) (2-11) % [place] # (Auto) (0.1-1.2) X10*3/uL Abs Immat Gran (auto) (0.00-0.03) X10*3/uL Absolute Neuts (auto) (2.0-8.3) x10*3/uL Sodium (135-145) mmol/L Potassium 3.1 L (3.3-5.1) mmol/L Anion Gap 10 L (12-20) BUN 5 L (9-16) mg/dL Random Glucose 119 H (60-115) mg/dL Calcium 8.2 L D (8.4-10.2) mg/dL Total Bilirubin (0.0-1.0) mg/dL C-Reactive Protein 5.36 H (< or = 0.50) mg/dL Total Protein (6.5-8.0) g/dL Short CBC 07/05/22 07/06/22 Range/Units 20:33 06:34 WBC 17.3 H 11.7 H (4.8-10.8) X10*3/uL Hgb 15.1 12.6 L (14.0-18.0) g/dl Hct 42.6 36.3 L (42.0-52.0) % Plt Count 314 243 (160-400) X10*3/uL BMP 07/05/22 07/06/22 20:33 06:34 Sodium 133 L 135 Potassium 3.1 L D 3.1 L Chloride 96 102 Carbon Dioxide 26 26 BUN 5 L 5 L Creatinine 0.76 0.65 Calcium 9.1 8.2 L D Liver Function 07/05/22 Range/Units 20:33 Total Bilirubin 1.2 H (0.0-1.0) mg/dL Direct Bilirubin 0.3 (0.0-0.5) mg/dL AST 19 (5-37) U/L ALT 16 (0-40) U/L Alkaline Phosphatase 61 (39-117) U/L Albumin 3.9 (3.5-5.0) g/dL Urine 07/05/22 Range/Units 20:33 Urine Color Yellow Urine Appearance Clear Urine pH 6.5 (5.0-9.0) Ur Specific [place] <= 1.005 (1.005-1.025) Urine Protein Negative (Neg-Trace) mg/dL Urine Glucose (UA) Negative (Negative) mg/dL Imaging Additional studies: Date of Service: 07/06/22 EXAMINATION: US SCROTUM CLINICAL INFORMATION: Pain. COMPARISON: None available. TECHNIQUE: A sonogram of the scrotum was performed assessing waters-scale appearance and color Doppler flow. Spectral Doppler analysis of the arterial and venous flow were performed in the testes bilaterally. FINDINGS: RIGHT: Right testicle measures 4.2 x 2.2 x 3.1 cm, volume 15 mL. No focal testicular parenchymal lesions are visualized. Spectral Doppler analysis of the arterial and venous flow is normal in the right testis. Right epididymal head is normal in size. There is an 8 mm simple cyst in the epididymal head. Small moderate hydrocele. No varicocele. Right epididymal Doppler flow is normal. LEFT: Left testicle measures 4.8 x 1.7 x 3.1 cm, volume 14 mL. No focal testicular parenchymal lesions are visualized. Spectral Doppler analysis of the arterial and venous flow is normal in the left testis. Left epididymal head is normal in size. Small hydrocele. No varicocele. Left epididymal Doppler flow is normal. IMPRESSION: Bilateral hydroceles, larger on the right. Subcentimeter right epididymal cyst. Date of Service: 07/06/22 EXAMINATION: CT ABDOMEN AND PELVIS WITHOUT CONTRAST? CLINICAL INFORMATION: Severe colitis? COMPARISON: None available. TECHNIQUE: Multidetector volumetric imaging was performed from the superior aspect of the liver through the pubic symphysis. Sagittal and coronal reformatted images were obtained on the technologist's workstation.? This CT examination was performed using dose optimization techniques as appropriate, variously including the following: *Automated exposure control *Adjustment of mA and/or kV according to patient size (this includes techniques or standardized protocols for targeted exams where dose is matched to indication/reason for exam; i.e. extremities or head) *Use of iterative reconstruction technique DLP: 604 mGy-cm FINDINGS: LUNG BASES: Coronary calcifications. Ascending aortic aneurysm measuring 4.2 cm.? LIVER, GALLBLADDER, AND BILIARY TREE: The liver is normal in size, shape, and attenuation. No focal hepatic lesion or biliary ductal dilatation is present. The gallbladder is unremarkable with no evidence of radiopaque gallstones, gallbladder wall thickening, or obvious pericholecystic inflammatory changes.? PANCREAS: Unremarkable.? SPLEEN: Unremarkable.? ADRENAL GLANDS: Unremarkable.? KIDNEYS AND URETERS: The kidneys are normal in size, shape, and attenuation. No hydronephrosis, hydroureter, or calculi seen. No perinephric stranding. ? BLADDER: Unremarkable.? GASTROINTESTINAL TRACT: Prominent pancolonic submucosal edema and accompanying pericolic fat stranding and edema reflective of a severe colitis. Stomach and small bowel unremarkable. Normal appendix. ABDOMINAL WALL: No significant hernia is appreciated.? LYMPH NODES: Normal. VASCULAR: Aorta mildly atherosclerotic but normal caliber. PELVIC VISCERA: Unremarkable.? OSSEOUS STRUCTURES: No acute or suspicious osseous abnormalities.? IMPRESSION: *? Severe pancolitis. *? Ascending aortic aneurysm measuring 4.2 cm. *? Coronary calcifications. ? Assessment and Plan (1) Testicular pain, right: Status: Acute (2) Orchitis: Status: Acute Plan Right testicular pain, scrotal us, not suggestive of infectious possess however the patient states clinical improvement after receiving antibiotics. Subclinical hydroceles-manage conservatively. Follow up with patient as outpatient Time Spent With Patient Time: Total time managing care of this patient today ____ minutes. Procedures Date of Service Date of Service: 07/07/22
[2022-07-06 12:44] LABS: Adenovirus F 40/41 Not Detected (Not Detect.); Astrovirus Not Detected (Not Detect.); Campylobacter Not Detected (Not Detect.); Cryptosporidium Not Detected (Not Detect.); Cyclospora cayetanensis Not Detected (Not Detect.); E. coli EAEC Not Detected (Not Detect.); E. coli EPEC Not Detected (Not Detect.); E. coli ETEC Not Detected (Not Detect.); E. coli STEC Not Detected (Not Detect.); Entamoeba histolytica Not Detected (Not Detect.); Giardia lamblia Not Detected (Not Detect.); Norovirus GI/GII Not Detected (Not Detect.); Plesiomonas shigelloides Not Detected (Not Detect.); Rotavirus A Not Detected (Not Detect.); Salmonella Not Detected (Not Detect.); Sapovirus Not Detected (Not Detect.); Shigella sp./EIEC Not Detected (Not Detect.); Vibrio Not Detected (Not Detect.); Vibrio Cholerae Not Detected (Not Detect.); Yersinia enterocolitica Not Detected (Not Detect.)
--- NOTE | 2022-07-06 12:50 | MHC.CM.PN ---
pt lives with parents is independent has own transportaion is kem lamar dc plan home no servceis
[2022-07-06] MEDS: Lactated Ringers 1,000 ML 100 ML IVCONT ×2 (13:32→23:53)
[2022-07-06 15:15] VITALS: BP 142/82; PULSE 86; RESP 20; TEMP 36.1; O2SAT 96
[2022-07-06] MEDS: Omeprazole 40 MG CAPSULE.DR PO (15:51)
[2022-07-06] MEDS: HYDROmorphone HCl 0.5 MG/0.5 ML SYRINGE 1 MG IVPUSH ×3 (16:07→23:39)
[2022-07-06] MEDS: Acetaminophen 325 MG TABLET 650 MG PO (17:29)
[2022-07-06 19:14] VITALS: BP 139/95; PULSE 92; RESP 20; TEMP 36; O2SAT 97
[2022-07-07 03:37] VITALS: BP 124/82; PULSE 81; RESP 14; TEMP 36; O2SAT 97
[2022-07-07] MEDS: methylPREDNISolone Sod Succ 40 MG/ML VIAL 20 MG IVPUSH (05:50)
[2022-07-07] MEDS: metroNIDAZOLE/NS 500 MG/100 ML PIGGYBACK 100 MG IV ×3 (05:50→21:36)
[2022-07-07] MEDS: Omeprazole 40 MG CAPSULE.DR PO ×2 (05:50→17:15)
[2022-07-07] MEDS: HYDROmorphone HCl 0.5 MG/0.5 ML SYRINGE 1 MG IVPUSH ×5 (06:09→21:37)
[2022-07-07 06:38] LABS: Hematocrit 34.1 % (42.0-52.0); Mean Corpuscular HGB Conc 35.2 g/dl (31.0-36.0); Mean Corpuscular Hemoglobin 33.4 pg (27.0-33.0); Mean Platelet Volume 9.4 fL (9.4-12.4); Platelet Count 270 X10*3/uL (160-400); Red Blood Count 3.59 X10*6/uL (4.60-5.80); White Blood Count 12.4 X10*3/uL (4.8-10.8)
[2022-07-07 06:53] LABS: Anion Gap 9 (12-20); Blood Urea Nitrogen 4 mg/dL (9-16); Calcium 8.8 mg/dL (8.4-10.2); Carbon Dioxide 29 mmol/L (22-29); Chloride 105 mmol/L (96-108); Creatinine Clr Calc Pharmacy 150.5; Estimated Glomerular Filt Rate > 60; Glucose Fasting 152 mg/dL (60-99); Potassium 3.6 mmol/L (3.3-5.1); Sodium 139 mmol/L (135-145)
[2022-07-07 06:55] VITALS: BP 141/89; PULSE 78; RESP 18; TEMP 36.6; O2SAT 99
[2022-07-07] MEDS: Enoxaparin Sodium 40 MG/0.4 ML SYRINGE SUBCUT (08:56)
[2022-07-07] MEDS: Gabapentin 300 MG CAPSULE PO ×3 (08:56→21:37)
[2022-07-07] MEDS: FLUoxetine HCl 20 MG CAPSULE 40 MG PO (08:56)
[2022-07-07] MEDS: 0.9 % Sodium Chloride Flush 3 ML SYRINGE IVFLUSH (08:57)
[2022-07-07] MEDS: cefTRIAXone sodium 1 GM in 0.9 % Sodium Chloride 50 ML IV (10:16)
--- NOTE | 2022-07-07 12:09 | MHC.CM.PN ---
per rounds pt not ready for dc plan remains home
--- NOTE | 2022-07-07 13:16 | HO.PM.IMPN ---
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 scrtum no overnight events Review of Systems Review of Systems: Yes all other systems are reviewed and are negative Physical Exam Vital Signs: Vital Signs: Last Vital Signs Temp 98 F 07/07/22 06:55 Pulse 78 07/07/22 06:55 Resp 18 07/07/22 06:55 BP 141/89 H 07/07/22 06:55 Pulse Ox 99 07/07/22 06:55 O2 Del Method Room Air 07/07/22 06:55 BMI result Body Mass Index 31.0 Const: Other: Constitutional : Awake, interactive, not in distress Neck : Normal inspection, Supple Cardiovascular : RRR, no JVP, no lower extremity edema Respiratory : good bilateral air entry, no crackles, wheezes or rhonchi Gastrointestinal: soft, lax, Normal bowel sounds, generalized tenderness with palpation, no surgical signs Skin : Warm, Dry Uro: scrotal mild discomfort Neurological : Alert & oriented x3, No focal deficit Objective Data Active Medications Acetaminophen (Acetaminophen 325 Mg Tablet) 650 mg PO Q6H PRN PRN Reason: Pain, Mild (Pain Scale 1-3) Last Admin: 07/06/22 17:29 Dose: 650 mg Documented By: LUCAS Enoxaparin Sodium (Enoxaparin Sodium 40 Mg/0.4 Ml Syringe) 40 mg SUBCUT Q24H [facility] Last Admin: 07/07/22 08:56 Dose: 40 mg Documented By: SILVIA Fluoxetine HCl (Fluoxetine Hcl 20 Mg Capsule) 40 mg PO DAILY [facility] Last Admin: 07/07/22 08:56 Dose: 40 mg Documented By: SILVIA Gabapentin (Gabapentin 300 Mg Capsule) 300 mg PO TID [facility] Last Admin: 07/07/22 08:56 Dose: 300 mg Documented By: SILVIA Hydromorphone HCl (Hydromorphone Hcl 0.5 Mg/0.5 Ml Syringe) 1 mg IVPUSH Q3H PRN; Protocol PRN Reason: Pain, Severe (Pain Scale 7-10) Last Admin: 07/07/22 12:04 Dose: 1 mg Documented By: SILVIA Ceftriaxone Sodium 1 gm/ (Sodium Chloride) 50 mls @ 100 mls/hr IV DAILY [facility] Last Infusion: 07/07/22 11:11 Dose: 0 mls/hr Documented By: SILVIA Metronidazole (Flagyl) 500 mg in 100 mls @ 100 mls/hr IV Q8H [facility] Last Infusion: 07/07/22 07:17 Dose: 0 mls/hr Documented By: SILVIA Lactated Ringer's (Lr) 1,000 mls @ 100 mls/hr IVCONT .Q10H [facility] Last Infusion: 07/07/22 06:28 Dose: 0 mls/hr Documented By: PATRICIA Morphine Sulfate (Morphine Sulfate 4 Mg/Ml Cartridge) 4 mg IVPUSH Q4H PRN; Protocol PRN Reason: Pain, Severe (Pain Scale 7-10) Last Admin: 07/06/22 14:37 Dose: 4 mg Documented By: SILVIA Omeprazole (Omeprazole 40 Mg Capsule.Dr) 40 mg PO BID@0630,1630 [facility] Last Admin: 07/07/22 05:50 Dose: 40 mg Documented By: PATRICIA Ondansetron HCl (Ondansetron Hcl 4 Mg/2 Ml Vial) 4 mg IVPUSH Q8H PRN PRN Reason: Nausea and Vomiting Pharmacy Consult (Consult Rx Perform Med Rec) 1 each MISCELLANE ONCE PRN PRN Reason: Consult order Sodium Chloride (0.9 % Sodium Chloride Flush 3 Ml Syringe) 3 ml IVFLUSH QSHIFT [facility] Last Admin: 07/07/22 08:57 Dose: 3 ml Documented By: SILVIA Labs 07/07/22 05:55 07/07/22 05:55 Labs: Laboratory Results - last 24 hr 07/07/22 07/07/22 05:55 05:55 MCV 95.0 MCH 33.4 H MCHC 35.2 RDW 13.0 Plt Count 270 MPV 9.4 Absolute Nucleated RBC 0.000 Nucleated RBC % (auto) 0.0 Anion Gap 9 L Estim Creat Clear Calc 150.5 Estimated GFR > 60 Fasting Glucose 152 H Calcium 8.8 D Microbiology Microbiology Results: Microbiology 07/05/22 22:20 Blood Culture - Preliminary Blood - Venous No growth after 24 hours. 07/05/22 22:20 Blood Culture - Preliminary Blood - Venous No growth after 24 hours. Assessment and Plan (1) Testicular pain, right: Status: Acute (2) Acute colitis: Status: Acute Plan 52M PMH of anxiety, GERD, ADHD presented to the hospital with complaints of abdominal pain found to have pancolitis persistent diarrhea due to pancolitis inflammatory versus infectious rocephin and flagyl started 07/06/22 GI input, possibly ischemic from cocaine use/infection, recommended to DC steroids and continue Abx IV fluid stool pcr and cdif negative hydrocele worse on the right Urology input appreciated, OP follow up, no evidence of infection, conservative therapy PUD ppi hypokalemia repleted follow potassium level anxiety fluoexitine ADHD holding Adderall hypertension low-normal bp, will hold lisinopril for now 4.2cm ascending aorta vascular appreciated, [place] [facility] [place]DVT prophylaxis:? lovenox full code reason for continued hospitalization:significant abd pain Time Spent With Patient Time: Total time managing care of this patient today ____ minutes. Quality Stroke Does the patient have a stroke diagnosis?: No VTE Prior VTE?: No VTE Risk Level:: Medical - low VTE Device Contraindication: Treatment Not Indicated VTE Drug Contraindication: N/A - Med Ordered
[2022-07-07] MEDS: Lactated Ringers 1,000 ML 100 ML IVCONT (14:25)
[2022-07-07 15:36] VITALS: BP 160/85; PULSE 83; RESP 20; TEMP 37.1; O2SAT 97
[2022-07-07 19:05] VITALS: BP 159/83; PULSE 78; RESP 20; TEMP 36.2; O2SAT 96
[2022-07-08] VITALS (9 sets, daily range): BP systolic 123–153; BP diastolic 79–98; PULSE 66–83; RESP 16–20; TEMP 36.1–37.1; O2SAT 92–99
[2022-07-08] MEDS: Morphine Sulfate 4 MG/ML CARTRIDGE IVPUSH (00:40)
[2022-07-08] MEDS: Lactated Ringers 1,000 ML 100 ML IVCONT ×2 (02:05→16:03)
[2022-07-08] MEDS: HYDROmorphone HCl 0.5 MG/0.5 ML SYRINGE 1 MG IVPUSH ×2 (02:41→06:15)
[2022-07-08] MEDS: metroNIDAZOLE/NS 500 MG/100 ML PIGGYBACK 100 MG IV ×3 (06:02→20:44)
[2022-07-08] MEDS: Gabapentin 300 MG CAPSULE PO ×3 (10:12→20:44)
[2022-07-08] MEDS: lisinopriL 20 MG TABLET PO (10:12)
[2022-07-08] MEDS: Amphetamine Mixed Salts 10 MG TABLET PO (10:12)
[2022-07-08] MEDS: FLUoxetine HCl 20 MG CAPSULE 40 MG PO (10:12)
[2022-07-08] MEDS: cefTRIAXone sodium 1 GM in 0.9 % Sodium Chloride 50 ML IV (10:13)
[2022-07-08] MEDS: HYDROmorphone HCl 0.5 MG/0.5 ML SYRINGE IVPUSH ×5 (10:13→23:48)
--- NOTE | 2022-07-08 11:44 | HO.PM.IMPN ---
Subjective Subjective Date of Service: 07/08/22 Interval History: Seen and evaluated PEnding Endoscopy and Sigmoidoscopy today abdomen warp scouring vat tender but better less pain in scrtum no overnight events Review of Systems Review of Systems: Yes all other systems are reviewed and are negative Physical Exam Vital Signs: Vital Signs: Last Vital Signs Temp 97.8 F 07/08/22 11:00 Pulse 71 07/08/22 11:00 Resp 18 07/08/22 11:00 BP 153/93 H 07/08/22 11:00 Pulse Ox 99 07/08/22 11:00 O2 Del Method Room Air 07/08/22 11:00 BMI result Body Mass Index 31.0 Const: Other: Constitutional : Awake, interactive, not in distress Neck : Normal inspection, Supple Cardiovascular : RRR, no JVP, no lower extremity edema Respiratory : good bilateral air entry, no crackles, wheezes or rhonchi Gastrointestinal: soft, lax, Normal bowel sounds, generalized tenderness with palpation, no surgical signs Skin : Warm, Dry Uro: scrotal mild discomfort Neurological : Alert & oriented x3, No focal deficit Objective Data Active Medications Acetaminophen (Acetaminophen 325 Mg Tablet) 650 mg PO Q6H PRN PRN Reason: Pain, Mild (Pain Scale 1-3) Last Admin: 07/06/22 17:29 Dose: 650 mg Documented By: LUCAS Amphetamine/Dextroamphetamine (Amphetamine Mixed Salts 10 Mg Tablet) 10 mg PO DAILY PRN PRN Reason: attention deficit hyperactivity disorder Last Admin: 07/08/22 10:12 Dose: 10 mg Documented By: BISI Enoxaparin Sodium (Enoxaparin Sodium 40 Mg/0.4 Ml Syringe) 40 mg SUBCUT Q24H [facility] Last Admin: 07/08/22 10:24 Dose: Not Given Documented By: BISI Non-Admin Reason: preop Fluoxetine HCl (Fluoxetine Hcl 20 Mg Capsule) 40 mg PO DAILY [facility] Last Admin: 07/08/22 10:12 Dose: 40 mg Documented By: BISI Gabapentin (Gabapentin 300 Mg Capsule) 300 mg PO TID [facility] Last Admin: 07/08/22 10:12 Dose: 300 mg Documented By: BISI Hydromorphone HCl (Hydromorphone Hcl 0.5 Mg/0.5 Ml Syringe) 0.5 mg IVPUSH Q3H PRN; Protocol PRN Reason: Pain, Severe (Pain Scale 7-10) Last Admin: 07/08/22 10:13 Dose: 0.5 mg Documented By: BISI Ceftriaxone Sodium 1 gm/ (Sodium Chloride) 50 mls @ 100 mls/hr IV DAILY [facility] Last Infusion: 07/08/22 10:54 Dose: 0 mls/hr Documented By: BISI Metronidazole (Flagyl) 500 mg in 100 mls @ 100 mls/hr IV Q8H [facility] Last Infusion: 07/08/22 07:21 Dose: 0 mls/hr Documented By: BISI Lactated Ringer's (Lr) 1,000 mls @ 100 mls/hr IVCONT .Q10H [facility] Last Admin: 07/08/22 10:52 Dose: Not Given Documented By: BISI Non-Admin Reason: IV Running Lisinopril (Lisinopril 20 Mg Tablet) 20 mg PO DAILY [facility]; Protocol Last Admin: 07/08/22 10:12 Dose: 20 mg Documented By: BISI Omeprazole (Omeprazole 40 Mg Capsule.Dr) 40 mg PO BID@0630,1630 [facility] Last Admin: 07/08/22 06:01 Dose: Not Given Documented By: NALLELY Non-Admin Reason: NPO Ondansetron HCl (Ondansetron Hcl 4 Mg/2 Ml Vial) 4 mg IVPUSH Q8H PRN PRN Reason: Nausea and Vomiting Ondansetron HCl (Ondansetron Hcl 4 Mg/2 Ml Vial) 4 mg IVPUSH ONCE PRN PRN Reason: Nausea and Vomiting Pharmacy Consult (Consult Rx Perform Med Rec) 1 each MISCELLANE ONCE PRN PRN Reason: Consult order Sodium Chloride (0.9 % Sodium Chloride Flush 3 Ml Syringe) 3 ml IVFLUSH QSHIFT [facility] Last Admin: 07/08/22 07:35 Dose: Not Given Documented By: BISI Non-Admin Reason: IV Running Labs 07/07/22 05:55 07/07/22 05:55 Microbiology Microbiology Results: Microbiology 07/05/22 22:20 Blood Culture - Preliminary Blood - Venous No growth after 48 hours. 07/05/22 22:20 Blood Culture - Preliminary Blood - Venous No growth after 48 hours. Assessment and Plan (1) Testicular pain, right: Status: Acute (2) Acute colitis: Status: Acute Plan 52M PMH of anxiety, GERD, ADHD presented to the hospital with complaints of abdominal pain found to have pancolitis persistent diarrhea due to pancolitis inflammatory versus infectious rocephin and flagyl started 07/06/22 GI input, possibly ischemic from cocaine use/infection, continue Abx, to do Endoscopy and sigmoidoscopy IV fluid stool pcr and cdif negative hydrocele worse on the right Urology input appreciated, OP follow up, no evidence of infection, conservative therapy PUD ppi hypokalemia repleted follow potassium level anxiety fluoexitine ADHD holding Adderall hypertension low-normal bp, will hold lisinopril for now 4.2cm ascending aorta vascular appreciated, outpatient follow up at [facility] [place] ?DVT prophylaxis:? lovenox full code reason for continued hospitalization:significant abd pain Time Spent With Patient Time: Total time managing care of this patient today ____ minutes. Quality Stroke Does the patient have a stroke diagnosis?: No VTE Prior VTE?: No VTE Risk Level:: Medical - low VTE Device Contraindication: Treatment Not Indicated VTE Drug Contraindication: N/A - Med Ordered
--- NOTE | 2022-07-08 13:39 | MHC.CM.PN ---
EMR REVIEWED AND PER MD ROUNDS, PT IS NOT MEDICALLY CLEARED FOR DC (SIGNIFICANT ABD PAIN, PENDING SIGMOIDOSCOPY AND ENDOSCOPY TODAY)CM WILL CONTINUE TO FOLLOW FOR DC NEEDS/PLAN
--- NOTE | 2022-07-08 17:42 | P.CONAN_ITS ---
[facility] Active Problems Active Problems: All Active Problems (Updated 07/07/22 @ 09:28 by Kristen Hernandez MD) Orchitis (Acute) Testicular pain, right (Acute) Leukocytosis (Acute) Hypokalemia (Acute) Epididymal cyst (Acute) Hydrocele (Acute) Acute colitis (Acute) Abscess involving suture (Acute) Status post right knee replacement (Acute) RUQ abdominal pain (Acute) Dysphagia (Acute) Bloating symptom (Acute) Umbilical hernia (Acute) Past Medical History Medical History ADHD (attention deficit hyperactivity disorder) Anxiety GERD (gastroesophageal reflux disease) Hemorrhoids HTN (hypertension) Family History Family History Father Alive and well Mother Alive and well Family history of problems with anesthesia: No Surgical History Surgical History History of colonoscopy Hx of endoscopy Hx of umbilical hernia repair (07/22/21) Status post total right knee replacement History of Problems with Anesthesia: No Social History Social History Household Members: Friend(s) and None Household Members Other:: 2 Housing: House Do you presently have visiting nurse or other home services: No Alcohol intake: current Alcohol intake frequency: holidays/special occasions only Alcohol type: beer Patient Tobacco Use Status: Never used Tobacco Smoked in Last 30 Days: No Use of substances other than those prescribed or required for medical reasons: No Substance Use Type: Marijuana Currently Displaying Signs/Symptoms of Drug Intoxication Withdrawal: No Any prior treatment program specific to substance use: No Have you been hit, kicked, punched, or otherwise hurt by someone within the past year? If so, by whom?: No Do you feel safe in your current relationship?: No Current Relationship Is there a partner from a previous relationship who is making you feel unsafe now?: No Are you made to feel afraid or neglected: No Advance Directives: No Advance Directives Information Provided: No Do you have thoughts of harming others: None Do you have a plan to hurt others: No Plan Recently lost weight without trying: No Eating poorly because of decreased appetite: No Nutrition Risks: No Nutritional Risk Poor oral hygiene: No service: No Meds Allergies Allergy/AdvReac Type Severity Reaction Status Date / Time seasonal Allergy Unknown Unknown Uncoded 08/27/21 14:14 Active Medications: Current Medications Acetaminophen (Acetaminophen 325 Mg Tablet) 650 mg PO Q6H PRN PRN Reason: Pain, Mild (Pain Scale 1-3) Last Admin: 07/06/22 17:29 Dose: 650 mg Amphetamine/Dextroamphetamine (Amphetamine Mixed Salts 10 Mg Tablet) 10 mg PO DAILY PRN PRN Reason: attention deficit hyperactivity disorder Last Admin: 07/08/22 10:12 Dose: 10 mg Enoxaparin Sodium (Enoxaparin Sodium 40 Mg/0.4 Ml Syringe) 40 mg SUBCUT Q24H [facility] Last Admin: 07/08/22 10:24 Dose: Not Given Fluoxetine HCl (Fluoxetine Hcl 20 Mg Capsule) 40 mg PO DAILY [facility] Last Admin: 07/08/22 10:12 Dose: 40 mg Gabapentin (Gabapentin 300 Mg Capsule) 300 mg PO TID [facility] Last Admin: 07/08/22 16:03 Dose: 300 mg Hydromorphone HCl (Hydromorphone Hcl 0.5 Mg/0.5 Ml Syringe) 0.5 mg IVPUSH Q3H PRN; Protocol PRN Reason: Pain, Severe (Pain Scale 7-10) Last Admin: 07/08/22 16:30 Dose: 0.5 mg Ceftriaxone Sodium 1 gm/ (Sodium Chloride) 50 mls @ 100 mls/hr IV DAILY [facility] Last Infusion: 07/08/22 10:54 Dose: Infused Metronidazole (Flagyl) 500 mg in 100 mls @ 100 mls/hr IV Q8H [facility] Last Infusion: 07/08/22 13:30 Dose: Infused Lactated Ringer's (Lr) 1,000 mls @ 100 mls/hr IVCONT .Q10H [facility] Last Admin: 07/08/22 16:03 Dose: 100 mls/hr Lisinopril (Lisinopril 20 Mg Tablet) 20 mg PO DAILY [facility]; Protocol Last Admin: 07/08/22 10:12 Dose: 20 mg Omeprazole (Omeprazole 40 Mg Capsule.Dr) 40 mg PO BID@0630,1630 [facility] Last Admin: 07/08/22 16:03 Dose: Not Given Ondansetron HCl (Ondansetron Hcl 4 Mg/2 Ml Vial) 4 mg IVPUSH Q8H PRN PRN Reason: Nausea and Vomiting Ondansetron HCl (Ondansetron Hcl 4 Mg/2 Ml Vial) 4 mg IVPUSH ONCE PRN PRN Reason: Nausea and Vomiting Pharmacy Consult (Consult Rx Perform Med Rec) 1 each MISCELLANE ONCE PRN PRN Reason: Consult order Sodium Chloride (0.9 % Sodium Chloride Flush 3 Ml Syringe) 3 ml IVFLUSH [facility] Last Admin: 07/08/22 16:03 Dose: Not Given Home Medications Medication Instructions Recorded Confirmed Last Taken Type acetaminophen 325 mg tablet 650 mg PO Q6H PRN Pain 11/21/19 07/06/22 07/04/22 History dextroamphetamine-amphetamine 10 1 tab PO DAILY PRN attention 11/21/19 07/06/22 07/04/22 History mg tablet deficit hyperactivity disorder lisinopril 20 mg tablet 20 mg PO DAILY 11/21/19 07/06/22 07/04/22 History fluoxetine 40 mg capsule 40 mg PO DAILY 07/06/22 07/06/22 07/04/22 History Exam Exam Date and Time: July 08, 2022 174 Height,Weight and Vital Signs: Height 5 ft 7 in Weight 89.9 kg Last Vital Signs Temp 97.8 F 07/08/22 11:56 Pulse 83 07/08/22 11:56 Resp 16 07/08/22 11:56 BP 135/89 07/08/22 11:56 Pulse Ox 97 07/08/22 11:56 O2 Del Method Room Air 07/08/22 11:56 Pertinent Lab Results Pertinent Lab Results: Laboratory Tests 07/05/22 07/05/22 07/05/22 20:33 20:33 20:33 WBC 17.3 H RBC 4.59 L Hgb 15.1 Hct 42.6 MCV 92.8 MCH 32.9 MCHC 35.4 RDW 12.9 Plt Count 314 MPV 9.0 L Immature Gran % (Auto) 0.5 H Neut % (Auto) 70.1 Lymph % (Auto) 16.4 L [place] % (Auto) 12.4 H Eos % (Auto) 0.4 Baso % (Auto) 0.2 Lymph # (Auto) 2.8 [place] # (Auto) 2.1 H Eos # (Auto) 0.1 Baso # (Auto) 0.0 Abs Immat Gran (auto) 0.08 H Absolute Neuts (auto) 12.2 H Absolute Nucleated RBC 0.000 Nucleated RBC % (auto) 0.0 Smear Tech's Comments ESR Sodium 133 L Potassium 3.1 L D Chloride 96 Carbon Dioxide 26 Anion Gap 14 BUN 5 L Creatinine 0.76 Estim Creat Clear Calc 103.8 Estimated GFR > 60 Random Glucose 120 H Fasting Glucose Lactic Acid Calcium 9.1 Total Bilirubin 1.2 H Direct Bilirubin 0.3 AST 19 ALT 16 Alkaline Phosphatase 61 C-Reactive Protein Total Protein 6.4 L Albumin 3.9 Lipase 45 Urine Color Urine Appearance Urine pH Ur Specific [place] Urine Protein Urine Glucose (UA) Urine Ketones Urine Blood Urine Nitrite Ur Leukocyte Esterase Stl C. cayetanensis PCR Stool Rotavirus A PCR Stl Adenov F 40/ PCR Stool Astrovirus (PCR) Stool Campylobacter PCR Stool Cryptosporidium PCR Stl Sh Tox Pr E STEC PCR Stool E coli O157 PCR Stl Enterotoxigenic E PCR Stool EPEC (PCR) Stool EAEC (PCR) Stl E. histolytica PCR Stool Giardia Lamblia PCR Stl P. shigelloides PCR Stool Salmonella PCR Stool Sapovirus (PCR) Stl Shigella/EIEC PCR St Y.enterocolitica PCR Stool Vibrio (PCR) Stl Vibrio cholerae PCR Stl Norovirus GI/GII PCR C. difficile Tox B Gene COVID-19 ([facility]) Negative COVID-19 Clin Com See Note 07/05/22 07/05/22 07/06/22 20:33 22:20 03:13 WBC RBC Hgb Hct MCV MCH MCHC RDW Plt Count MPV Immature Gran % (Auto) Neut % (Auto) Lymph % (Auto) [place] % (Auto) Eos % (Auto) Baso % (Auto) Lymph # (Auto) [place] # (Auto) Eos # (Auto) Baso # (Auto) Abs Immat Gran (auto) Absolute Neuts (auto) Absolute Nucleated RBC Nucleated RBC % (auto) Smear Tech's Comments ESR Sodium Potassium Chloride Carbon Dioxide Anion Gap BUN Creatinine Estim Creat Clear Calc Estimated GFR Random Glucose Fasting Glucose Lactic Acid 1.4 Calcium Total Bilirubin Direct Bilirubin AST ALT Alkaline Phosphatase C-Reactive Protein Total Protein Albumin Lipase Urine Color Yellow Urine Appearance Clear Urine pH 6.5 Ur Specific [place] <= 1.005 Urine Protein Negative Urine Glucose (UA) Negative Urine Ketones Negative Urine Blood Negative Urine Nitrite Negative Ur Leukocyte Esterase Negative Stl C. cayetanensis PCR Stool Rotavirus A PCR Stl Adenov F PCR Stool Astrovirus (PCR) Stool Campylobacter PCR Stool Cryptosporidium PCR Stl Sh Tox Pr E STEC PCR Stool E coli O157 PCR Stl Enterotoxigenic E PCR Stool EPEC (PCR) Stool EAEC (PCR) Stl E. histolytica PCR Stool Giardia Lamblia PCR Stl P. shigelloides PCR Stool Salmonella PCR Stool Sapovirus (PCR) Stl Shigella/EIEC PCR St Y.enterocolitica PCR Stool Vibrio (PCR) Stl Vibrio cholerae PCR Stl Norovirus GI/GII PCR C. difficile Tox B Gene NEGATIVE COVID-19 ([facility]) COVID-19 Clin [facility] 07/06/22 07/06/22 07/06/22 06:34 06:34 06:34 WBC 11.7 H RBC 3.88 L Hgb 12.6 L Hct 36.3 L MCV 93.6 MCH 32.5 MCHC 34.7 RDW 13.0 Plt Count 243 MPV 9.0 L Immature Gran % (Auto) 0.8 H Neut % (Auto) 69.3 Lymph % (Auto) 14.7 L [place] % (Auto) 13.7 H Eos % (Auto) 1.2 Baso % (Auto) 0.3 Lymph # (Auto) 1.7 [place] # (Auto) 1.6 H Eos # (Auto) 0.1 Baso # (Auto) 0.0 Abs Immat Gran (auto) 0.09 H Absolute Neuts (auto) 8.1 Absolute Nucleated RBC 0.000 Nucleated RBC % (auto) 0.0 Smear Tech's Comments VERIFIED ESR 12 Sodium 135 Potassium 3.1 L Chloride 102 Carbon Dioxide 26 Anion Gap 10 L BUN 5 L Creatinine 0.65 Estim Creat Clear Calc 138.9 Estimated GFR > 60 Random Glucose 119 H Fasting Glucose Lactic Acid Calcium 8.2 L D Total Bilirubin Direct Bilirubin AST ALT Alkaline Phosphatase C-Reactive Protein 5.36 H Total Protein Albumin Lipase Urine Color Urine Appearance Urine pH Ur Specific [place] Urine Protein Urine Glucose (UA) Urine Ketones Urine Blood Urine Nitrite Ur Leukocyte Esterase Stl C. cayetanensis PCR Stool Rotavirus A PCR Stl Adenov F PCR Stool Astrovirus (PCR) Stool Campylobacter PCR Stool Cryptosporidium PCR Stl Sh Tox Pr E STEC PCR Stool E coli O157 PCR Stl Enterotoxigenic E PCR Stool EPEC (PCR) Stool EAEC (PCR) Stl E. histolytica PCR Stool Giardia Lamblia PCR Stl P. shigelloides PCR Stool Salmonella PCR Stool Sapovirus (PCR) Stl Shigella/EIEC PCR St Y.enterocolitica PCR Stool Vibrio (PCR) Stl Vibrio cholerae PCR Stl Norovirus GI/GII PCR C. difficile Tox B Gene COVID-19 ([facility]) COVID-19 Clin Com 07/06/22 07/07/22 07/07/22 09:55 05:55 05:55 WBC 12.4 H RBC 3.59 L Hgb 12.0 L Hct 34.1 L MCV 95.0 MCH 33.4 H MCHC 35.2 RDW 13.0 Plt Count 270 MPV 9.4 Immature Gran % (Auto) Neut % (Auto) Lymph % (Auto) [place] % (Auto) Eos % (Auto) Baso % (Auto) Lymph # (Auto) [place] # (Auto) Eos # (Auto) Baso # (Auto) Abs Immat Gran (auto) Absolute Neuts (auto) Absolute Nucleated RBC 0.000 Nucleated RBC % (auto) 0.0 Smear Tech's Comments ESR Sodium 139 Potassium 3.6 Chloride 105 Carbon Dioxide 29 Anion Gap 9 L BUN 4 L Creatinine 0.60 Estim Creat Clear Calc 150.5 Estimated GFR > 60 Random Glucose Fasting Glucose 152 H Lactic Acid Calcium 8.8 D Total Bilirubin Direct Bilirubin AST ALT Alkaline Phosphatase C-Reactive Protein Total Protein Albumin Lipase Urine Color Urine Appearance Urine pH Ur Specific [place] Urine Protein Urine Glucose (UA) Urine Ketones Urine Blood Urine Nitrite Ur Leukocyte Esterase Stl C. cayetanensis PCR Not Detected Stool Rotavirus A PCR Not Detected Stl Adenov F 40/41 PCR Not Detected Stool Astrovirus (PCR) Not Detected Stool Campylobacter PCR Not Detected Stool Cryptosporidium PCR Not Detected Stl Sh Tox Pr E STEC PCR Not Detected Stool E coli O157 PCR Not applicable Stl Enterotoxigenic E PCR Not Detected Stool EPEC (PCR) Not Detected Stool EAEC (PCR) Not Detected Stl E. histolytica PCR Not Detected Stool Giardia Lamblia PCR Not Detected Stl P. shigelloides PCR Not Detected Stool Salmonella PCR Not Detected Stool Sapovirus (PCR) Not Detected Stl Shigella/EIEC PCR Not Detected St Y.enterocolitica PCR Not Detected Stool Vibrio (PCR) Not Detected Stl Vibrio cholerae PCR Not Detected Stl Norovirus GI/GII PCR Not Detected C. difficile Tox B Gene COVID-19 ([facility]) COVID-19 Clin Com Airway Mallampati Class: II TM Dist: >3cm Neck ROM: Full Partial: Upper Assessment and Plan Assessment Anesthesia Assessment: Anesthesia Plan Discussed and Chart Reviewed Final Anesthetic Review Family History of Problems with Anesthesia: No History of Problems with Anesthesia: No NPO: Yes ASA Class: II and Emergency Final Preanesthetic Review: No Changes in Pt Med Stat, Meds/Allgs Chart Reviewed, Consent Obtained/Reviewed and Anes Risks/Benef Reviewed Patient Risk: Low Procedure Risk: Low Anesthetic Plan Anesthetic Plan: MAC: Disposition: Standard PACU
--- NOTE | 2022-07-08 18:13 | MHC.SHP ---
Pre-Procedural Eval Section A Date of Service: 07/08/22 The patient is an INPATIENT: Yes The History & Physical has been completed within 30 days and I have reviewed it.: Yes Section B Chief Complaint: Pancolitis Allergies: Allergies Allergy/AdvReac Type Severity Reaction Status Date / Time seasonal Allergy Unknown Unknown Uncoded 08/27/21 14:14 Plan I have reviewed the history and physical and performed a pertinent physical examination on my patient. No changes have occurred unless specified. Time Spent With Patient Time: Total time managing care of this patient today ____ minutes.
--- NOTE | 2022-07-08 18:13 | W.PM.OPN ---
Operative Note Operative Note Date of Service: 07/08/22 Narrative: Procedure Description: EGD Indication: abdominal pain and colitis Anesthesia: MAC FLEXIBLE TRANSORAL UPPER GASTROINTESTINAL ENDOSCOPY UPPER ENDOSCOPY Consent: Indications for the procedure and potential complications of bleeding, perforation, reaction to medications and missed diagnosis were discussed with the patient and informed consent was obtained. Instrument: Olympus GIF H 190 J mid size upper endoscope Monitoring: Vital signs and clinical assessment, continuous EKG monitoring, Pulse oximetry, Carbon Dioxide monitoring and blood pressure monitoring were done throughout the procedure. Procedure: The patient was placed in the left lateral decubitis position and pre-procedure medications were administered and a bite block was placed. The endoscope was inserted into the mouth and advanced under direct vision to the third part of duodenum. A careful inspection was made as the upper endoscope was withdrawn including a retroflexed examination of the proximal stomach; Findings and interventions are described below. Findings: Larynx:normal Esophagus: GE junction at 38 cm, diaphragm hiatus at 38 cm, no varices or esophagitis. Random bx taken Stomach: Patchy gastric erythema. Biopsies were obtained. Grade 2 flap valve on retroflexed examination of the cardia. Duodenum: Normal bulb and descending duodenum, bx taken Intervention: Biopsies as noted above Sigmoidoscopy Instrument: pediatric colonoscope Colonoscopy Monitoring: Vital signs and clinical assessment, continuous EKG monitoring, Pulse oximetry, Carbon Dioxide monitoring and blood pressure monitoring were done throughout the procedure. Procedure: The patient was placed in the left lateral decubitis position and pre-procedure medications were administered. After a digital rectal examination of the ano-rectum, the video colonoscope was inserted into the rectum and advanced through the colon to the transverse colon. The scope was slowly withdrawn in a retrograde panoramic fashion and the colon mucosa was carefully examined including a retroflexed view of the rectum. Findings and interventions are described below. Procedure Difficulty: easy Findings: Descending Colon: patchy erythema and edema, bx taken Sigmoid Colon: patchy erythema and edema, bx taken Rectum: small internal hemorrhoids seen on forward view, edema and erythema, bx taken Anorectum - normal Colon preparation: fair Impression and Post Procedure Diagnosis: resolving colitis Plan: complete ABx course, things seem to be improving can try low dose PPi fi ongoing upper GI sx Above findings were reviewed with the patient and relevant handouts were provided if indicated.
[2022-07-08] MEDS: 0.9 % Sodium Chloride Flush 3 ML SYRINGE IVFLUSH (20:45)
[2022-07-09 04:00] VITALS: BP 130/84; PULSE 74; RESP 16; TEMP 36.2; O2SAT 98
[2022-07-09] MEDS: metroNIDAZOLE/NS 500 MG/100 ML PIGGYBACK 100 MG IV ×3 (04:28→20:29)
[2022-07-09] MEDS: Lactated Ringers 1,000 ML 100 ML IVCONT ×2 (04:32→13:38)
[2022-07-09] MEDS: Omeprazole 40 MG CAPSULE.DR PO ×2 (05:34→15:30)
[2022-07-09 07:11] VITALS: BP 135/92; PULSE 78; RESP 18; TEMP 36.3; O2SAT 100
[2022-07-09] MEDS: Gabapentin 300 MG CAPSULE PO ×3 (08:41→20:28)
[2022-07-09] MEDS: lisinopriL 20 MG TABLET PO (08:41)
[2022-07-09] MEDS: cefTRIAXone sodium 1 GM in 0.9 % Sodium Chloride 50 ML IV (08:41)
[2022-07-09] MEDS: FLUoxetine HCl 20 MG CAPSULE 40 MG PO (08:41)
[2022-07-09] MEDS: Enoxaparin Sodium 40 MG/0.4 ML SYRINGE SUBCUT (08:42)
[2022-07-09] MEDS: HYDROmorphone HCl 0.5 MG/0.5 ML SYRINGE IVPUSH ×4 (08:43→20:28)
[2022-07-09] MEDS: 0.9 % Sodium Chloride Flush 3 ML SYRINGE IVFLUSH ×2 (08:43→20:29)
--- NOTE | 2022-07-09 09:15 | HO.POSTANES ---
Post Anesthesia Evaluation Post Anesthesia Evaluation Vital Signs: Vital Signs Temp Pulse Resp BP Pulse Ox O2 Del Method 07/09/22 07:11 97.4 F 78 18 135/92 H 100 Room Air 07/09/22 04:00 97.2 F 74 16 130/84 98 Room Air Anesthesia: Monitored Mental Status: Awake Pain Control: Satisfactory Nausea/Vomiting: None Hydration: Adequate Anesthesia-Related Issues: No Anes. Related Issues
--- NOTE | 2022-07-09 11:49 | P.PNIM_ITS ---
Subjective Subjective Date of Service: 07/09/22 Interval History: Seen and evaluated Had Endoscopy and Sigmoidoscopy with findings suggestive of resolving colitis abdomen standpipe tender but better overall unable to tolerate regular diet less pain in scrtum no overnight events Review of Systems Review of Systems: Yes all other systems are reviewed and are negative Physical Exam Vital Signs: Vital Signs: Last Vital Signs Temp 97.4 F 07/09/22 07:11 Pulse 78 07/09/22 07:11 Resp 18 07/09/22 07:11 BP 135/92 H 07/09/22 07:11 Pulse Ox 100 07/09/22 07:11 O2 Del Method Room Air 07/09/22 07:11 BMI result Body Mass Index 31.0 Const: Other: Constitutional : Awake, interactive, not in distress Neck : Normal inspection, Supple Cardiovascular : RRR, no JVP, no lower extremity edema Respiratory : good bilateral air entry, no crackles, wheezes or rhonchi Gastrointestinal: soft, lax, Normal bowel sounds, generalized tenderness with palpation, no surgical signs Skin : Warm, Dry Uro: scrotal mild discomfort Neurological : Alert & oriented x3, No focal deficit Objective Data Active Medications Acetaminophen (Acetaminophen 325 Mg Tablet) 650 mg PO Q6H PRN PRN Reason: Pain, Mild (Pain Scale 1-3) Last Admin: 07/06/22 17:29 Dose: 650 mg Documented By: LUCAS Amphetamine/Dextroamphetamine (Amphetamine Mixed Salts 10 Mg Tablet) 10 mg PO DAILY PRN PRN Reason: attention deficit hyperactivity disorder Last Admin: 07/08/22 10:12 Dose: 10 mg Documented By: BISI Enoxaparin Sodium (Enoxaparin Sodium 40 Mg/0.4 Ml Syringe) 40 mg SUBCUT Q24H [facility] Last Admin: 07/09/22 08:42 Dose: 40 mg Documented By: HELGA Fluoxetine HCl (Fluoxetine Hcl 20 Mg Capsule) 40 mg PO DAILY [facility] Last Admin: 07/09/22 08:41 Dose: 40 mg Documented By: HELGA Gabapentin (Gabapentin 300 Mg Capsule) 300 mg PO TID [facility] Last Admin: 07/09/22 08:41 Dose: 300 mg Documented By: HELGA Hydromorphone HCl (Hydromorphone Hcl 0.5 Mg/0.5 Ml Syringe) 0.5 mg IVPUSH Q3H PRN; Protocol PRN Reason: Pain, Severe (Pain Scale 7-10) Last Admin: 07/09/22 08:43 Dose: 0.5 mg Documented By: HELGA Ceftriaxone Sodium 1 gm/ (Sodium Chloride) 50 mls @ 100 mls/hr IV DAILY [facility] Last Infusion: 07/09/22 10:14 Dose: 0 mls/hr Documented By: HELGA Metronidazole (Flagyl) 500 mg in 100 mls @ 100 mls/hr IV Q8H [facility] Last Infusion: 07/09/22 05:33 Dose: 0 mls/hr Documented By: AFIA Lactated Ringer's (Lr) 1,000 mls @ 100 mls/hr IVCONT .Q10H [facility] Last Admin: 07/09/22 04:32 Dose: 100 mls/hr Documented By: AFIA Lisinopril (Lisinopril 20 Mg Tablet) 20 mg PO DAILY [facility]; Protocol Last Admin: 07/09/22 08:41 Dose: 20 mg Documented By: HELGA Omeprazole (Omeprazole 40 Mg Capsule.Dr) 40 mg PO BID@0630,1630 [facility] Last Admin: 07/09/22 05:34 Dose: 40 mg Documented By: AFIA Ondansetron HCl (Ondansetron Hcl 4 Mg/2 Ml Vial) 4 mg IVPUSH Q8H PRN PRN Reason: Nausea and Vomiting Ondansetron HCl (Ondansetron Hcl 4 Mg/2 Ml Vial) 4 mg IVPUSH ONCE PRN PRN Reason: Nausea and Vomiting Pharmacy Consult (Consult Rx Perform Med Rec) 1 each MISCELLANE ONCE PRN PRN Reason: Consult order Sodium Chloride (0.9 % Sodium Chloride Flush 3 Ml Syringe) 3 ml IVFLUSH QSHIFT [facility] Last Admin: 07/09/22 08:43 Dose: 3 ml Documented By: HELGA Labs 07/07/22 05:55 07/07/22 05:55 Assessment and Plan (1) Acute colitis: Status: Acute Plan 52M PMH of anxiety, GERD, ADHD presented to the hospital with complaints of abdominal pain found to have pancolitis persistent diarrhea due to pancolitis inflammatory versus infectious rocephin and flagyl started 07/06/22 GI input, continue Abx and PPI Endoscopy and sigmoidoscopy showed resolving colitis IV fluid advance diet as tolerated, down to full liquids today Zofran for nasuea hydrocele worse on the right Urology input appreciated, OP follow up, no evidence of infection, conservative therapy PUD ppi hypokalemia repleted follow potassium level anxiety fluoexitine ADHD holding Adderall hypertension low-normal bp, will hold lisinopril for now 4.2cm ascending aorta vascular appreciated, [place] [facility] [place]T prophylaxis:? lovenox full code reason for continued hospitalization:significant abd pain Time Spent With Patient Time: Total time managing care of this patient today ____ minutes. Quality Stroke Does the patient have a stroke diagnosis?: No VTE Prior VTE?: No VTE Risk Level:: Medical - low VTE Device Contraindication: Treatment Not Indicated VTE Drug Contraindication: N/A - Med Ordered
[2022-07-09 15:02] VITALS: BP 121/86; PULSE 86; RESP 18; TEMP 37.2; O2SAT 99
[2022-07-09] MEDS: Acetaminophen 325 MG TABLET 650 MG PO (16:21)
[2022-07-09 19:40] VITALS: BP 133/89; PULSE 84; RESP 16; TEMP 36.4; O2SAT 98
[2022-07-09 21:55] VITALS: RESP 18
[2022-07-10] MEDS: HYDROmorphone HCl 0.5 MG/0.5 ML SYRINGE IVPUSH ×4 (00:20→11:37)
[2022-07-10] MEDS: Lactated Ringers 1,000 ML 100 ML IVCONT (00:26)
[2022-07-10 01:39] VITALS: RESP 18
[2022-07-10 03:13] VITALS: BP 122/85; PULSE 88; RESP 16; TEMP 36.4; O2SAT 96
[2022-07-10] MEDS: metroNIDAZOLE/NS 500 MG/100 ML PIGGYBACK 100 MG IV (04:48)
[2022-07-10] MEDS: Omeprazole 40 MG CAPSULE.DR PO (05:52)
[2022-07-10 07:56] VITALS: BP 137/94; PULSE 77; RESP 16; TEMP 36.6; O2SAT 98
[2022-07-10] MEDS: FLUoxetine HCl 20 MG CAPSULE 40 MG PO (08:05)
[2022-07-10] MEDS: lisinopriL 20 MG TABLET PO (08:05)
[2022-07-10] MEDS: cefTRIAXone sodium 1 GM in 0.9 % Sodium Chloride 50 ML IV (08:05)
[2022-07-10] MEDS: Gabapentin 300 MG CAPSULE PO (08:05)
[2022-07-10] MEDS: Enoxaparin Sodium 40 MG/0.4 ML SYRINGE SUBCUT (08:06)
[2022-07-10] MEDS: 0.9 % Sodium Chloride Flush 3 ML SYRINGE IVFLUSH (08:06)
--- NOTE | 2022-07-10 11:35 | P.DS_ITS ---
DS: Providers Provider Date of Service: 07/10/22 Date of admission: 07/06/22 02:40 Primary care physician: Luis Arellano MD Consults: 07/06/22 02:38 Consult to Gastroenterology Routine Consulting Provider: Fabián Parrish Reason for consultation: pancolitis, known to you. requested you Has provider been notified: No 07/06/22 06:23 Consult to Urology Routine Consulting Provider: Rogelio Waldrop Reason for consultation: scrotal swelleing/hydrocele, pain Has provider been notified: No 07/06/22 07:00 Consult to Vascular Surgery Routine Consulting Provider: [facility] [place] V[facility] Services Reason for consultation: Ascending Aortic aneurysm on CT Has provider been notified: No DS: Diagnosis Discharge Diagnosis (1) Acute colitis: Status: Acute (2) Testicular pain, right: Status: Acute (3) Hypokalemia: Status: Acute DS: Summary Hospital Course Hospital Course: Admission note HPI ?52-year-old male with past medical history of GERD, hypertension, ADHD, anxiety and history of hemorrhoids presents to the hospital with complaints of abdominal pain.? Patient reports his symptoms started a month ago, but worsened over the past few days, the pain is 8/10, generalized in the abdomen, nonradiating, constant, no relieving or exacerbating factors, reports nausea? andvomiting,, poor oral intake, as well as multiple episodes of? bile like bloody bowel movements.? He is also complaining of urgency as well as right scrotum pain that is intermittent, he states that his scrotum sometimes swells up but then resolved spontaneously and he feels that is about to s swell up today. patient denies any fever,? but feels that he gets chills, denies any chest pain, no shortness of breath, reports no urinary symptoms, including no frequency urgency or dysuria, no lower extremity edema, no weakness numbness or tingling. on Arrival to the ED? patient tachycardic with a heart rate of 127, otherwise stable. Labs are significant for WBC count of 17.3, sodium of 133, potassium of 3.0, total bili of 1.2, UA negative, C diff negative. ?abdomen pelvic CT shows pancolitis with is sending aortic aneurysm of 4.2 cmscrotal ultrasound shows bilateral hydrocele, larger on the right as well as subcentimeter right epididymal cyst Hospital course Patient admitted for evaluation of persistent diarrhea and abdominal pain. CT scan was concerning for pancolitis believed to be inflammatory versus infectious and possible ischemic from cocaine abuse. treated with rocephin and flagyl during hospital stay as he was evaluated by GI who did Endoscopy and sigmoidoscopy showed resolving colitis. diet advanced as tolerated with good tolerance. Zofran for nausea. reported enlarged scrotum with heaviness. found to have hydrocele worse on the right. evaluated by Urology input appreciated, OP follow up, no evidence of infection, conservative therapy hypokalemia on admission. replete with resolution. Continue antibiotics as prescribed advance diet as tolerated at home Follow with dr Barnes from Urology as outpatient after calling for an appointment. Time Spent with Patient Time attestation: Total time managing care of this patient today ____ minutes. Discharge coordination time: Greater than 30 minutes Quality: Safe Use of Opioids Does Pt have an Active Cancer Diagnosis on the Problem List?: No Quality: Stroke Does the patient have a stroke diagnosis?: No Physical Exam Vital Signs: Vital Signs: Last Vital Signs Temp 97.9 F 07/10/22 07:56 Pulse 77 07/10/22 07:56 Resp 16 07/10/22 07:56 BP 137/94 H 07/10/22 07:56 Pulse Ox 98 07/10/22 07:56 O2 Del Method Room Air 07/10/22 07:56 BMI result Body Mass Index 31.0 Const: Other: Constitutional : Awake, interactive, not in distress Neck : Normal inspection, Supple Cardiovascular : RRR, no JVP, no lower extremity edema Respiratory : good bilateral air entry, no crackles, wheezes or rhonchi Gastrointestinal: soft, lax, Normal bowel sounds, minimal tenderness with palpation, no surgical signs Skin : Warm, Dry Uro: scrotal mild discomfort Neurological : Alert & oriented x3, No focal deficit DS: Data Data Completed and Pending Pending studies at discharge: Pending at discharge 07/08/22 17:57 Surgical [PTH] Routine Labs on day of discharge: Preliminary micro results at discharge 07/05/22 22:20 Blood Culture - Preliminary Blood - Venous No growth after 48 hours. 07/05/22 22:20 Blood Culture - Preliminary Blood - Venous No growth after [address] scan - abdomen: Radiologist's impression: ITS Impressions Abdomen/Pelvis CT 07/06/22 00:46 IMPRESSION: * Severe pancolitis. * Ascending aortic aneurysm measuring 4.2 cm. * Coronary calcifications. . Scrotum Ultrasound 07/06/22 05:10 IMPRESSION: Bilateral hydroceles, larger on the right. Subcentimeter right epididymal cyst. Discharge Plan Discharge Anticipated Discharge Date/Time: 07/10/22 11:28 Patient Disposition: Home, Self-Care Discharge Diagnosis: Acute colitis Hydrocele Referrals: Luis Arellano MD [Primary Care Provider] - 1 Week Discharge Medications: New ondansetron 4 mg tablet,disintegrating 4 mg PO Q8H PRN (Reason: nausea and vomiting) Qty: 14 0RF cefuroxime axetil 500 mg tablet 500 mg PO BID Qty: 10 0RF metronidazole 500 mg tablet 500 mg PO Q8H Qty: 15 0RF oxycodone 5 mg tablet 5 mg PO Q6H PRN (Reason: pain (scale score 7-10)) Qty: 14 0RF Rx Instructions: Partial Fill upon patient request. Continued omeprazole 40 mg capsule,delayed release(DR/EC) 40 mg PO BID Qty: 60 0RF gabapentin 300 mg capsule 300 mg PO TID Qty: 30 0RF fluoxetine 40 mg capsule 40 mg PO DAILY acetaminophen 325 mg tablet 650 mg PO Q6H PRN (Reason: Pain) lisinopril 20 mg tablet 20 mg PO DAILY dextroamphetamine-amphetamine 10 mg tablet 1 tab PO DAILY PRN (Reason: attention deficit hyperactivity disorder) celecoxib 200 mg capsule 200 mg PO BID Qty: 60 2RF Discharge Orders: Discharge Order (Routine); Ordered 07/10/22 Ordered By: Kelly Michele Diet: Advance to usual diet Activity on Discharge: As tolerated Stand Alone Forms: Patient Portal Discharge page Care Plan Goals: Read below Health Concerns: Read below Plan of Treatment: Read below Assessment: You were admitted to the hospital for evaluation of abdominal pain and right testicular pain. Abdominal images were consistent with inflammation of colon. you were evaluated by equipment records supervisor who did upper and lower endoscopies showing findings of colitis treated with IV fluids and antibiotics with good response. You were seen by urologist who recommended outpatient follow up for evaluation of collected fluids in scrotum area. Continue antibiotics as prescribed advance diet as tolerated at home Follow with dr Barnes from Urology as outpatient after calling for an appointment.
--- NOTE | 2022-07-10 12:21 | MHC.CM.PN ---
D/C order for home, self care. CM acknowledge.
== END 2022-07-10 12:26 | disposition home or self-care (01) | DRG 249 ==
LOC: HO.ED 07-06 00:07 → HO.EDOVER 07-06 02:44 → HO.S3 07-06 03:35
PROVIDERS: Internal Medicine; Internal Medicine Gastroenterology; Nurse Practitioner Family; Admitting Provider Internal Medicine; Emergency Provider Internal Medicine; PCP Internal Medicine; Visit Provider Student in an Organized Health Care Education/Training Program
PROC: 0DJ08ZZ Inspection of Upper Intestinal Tract, Via Natural or Artificial Opening Endoscopic (ICD-10-PCS; CPT 43235; principal; 2022-07-08 14:30)
PROC: 0DJD8ZZ Inspection of Lower Intestinal Tract, Via Natural or Artificial Opening Endoscopic (ICD-10-PCS; CPT 45330; 2022-07-08 14:30)
DX: K52.9 Noninfective gastroenteritis and colitis, unspecified (principal); I71.21 Aneurysm of the ascending aorta, without rupture; E87.6 Hypokalemia; F90.9 Attention-deficit hyperactivity disorder, unspecified type; F41.9 Anxiety disorder, unspecified; K64.8 Other hemorrhoids; N50.3 Cyst of epididymis; N43.3 Hydrocele, unspecified; Z20.822 Contact with and (suspected) exposure to COVID-19; Z79.899 Other long term (current) drug therapy
CPT/HCPCS: 36415; 74176; 76870; 80048; 80076; 81003; 83605; 83690; 85025; 85027; 85652; 86140; 87040; 87493; 87507; 87635; 88305; 88342; 99285; J0696; J1170; J1650; J1956; J2270; J2405; J2920

== ENCOUNTER 2022-08-23 08:30 | Outpatient (REF) | payer SELFPAY | END 2022-08-23 08:31 | disposition home or self-care (01) | LOC: HO.LAB 08:30 | PROVIDERS: PCP Internal Medicine; Visit Provider Urology | DX: N43.3 Hydrocele, unspecified (principal); N50.819 Testicular pain, unspecified; N50.3 Cyst of epididymis; Z12.5 Encounter for screening for malignant neoplasm of prostate; Z79.899 Other long term (current) drug therapy | CPT/HCPCS: 88112; 99212 ==

== ENCOUNTER 2022-09-23 08:34 | Outpatient (REF) | payer OTHER, SELFPAY ==
--- NOTE | ~2022-09-23 | US_ITS ---
EXAMINATION: US SCROTUM CLINICAL INFORMATION: Cyst of epididymis. COMPARISON: Scrotal ultrasound dated 07/06/2022. TECHNIQUE: A sonogram of the scrotum was performed assessing waters-scale appearance and color Doppler flow. Spectral Doppler analysis of the arterial and venous flow were performed in the testes bilaterally. FINDINGS: RIGHT: Right testicle measures 4.3 x 2.3 x 3.4 cm, volume 17.6 mL. No focal testicular parenchymal lesions are visualized. Spectral Doppler analysis of the arterial and venous flow is normal in the right testis. Multiple epididymal cysts, largest measures 8 mm. Epididymal appendix again seen. No right hydrocele or varicocele is seen. Right epididymal Doppler flow is normal. LEFT: Left testicle measures 3.7 x 2.0 x 3.1 cm, volume 12.0 mL. No focal testicular parenchymal lesions are visualized. Spectral Doppler analysis of the arterial and venous flow is normal in the left testis. Multiple epididymal cysts, largest measures 2.6 x 1.6 x 1.8 cm. No left hydrocele or varicocele is seen. Left epididymal Doppler flow is normal. US/US scrotum IMPRESSION: Epididymal cysts. Unremarkable testes.
[2022-09-23 09:47] LABS: PSA,Total (Free>4and<10) 0.38 ng/mL (0.00-4.00)
== END 2022-09-23 08:35 | disposition home or self-care (01) ==
LOC: HO.US 08:34
PROVIDERS: PCP Internal Medicine; Visit Provider Urology
DX: N50.819 Testicular pain, unspecified (principal); N50.3 Cyst of epididymis; Z12.5 Encounter for screening for malignant neoplasm of prostate
CPT/HCPCS: 36415; 76870; 84153

== ENCOUNTER 2022-10-11 08:43 | Outpatient (AMB) | payer OTHER, SELFPAY ==
--- NOTE | 2022-10-11 02:10 | MHC.OFFVIS ---
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: cysto Intake Note: Patient presents today for a CYSTOSCOPY Procedure: Meds: None Allergies to Antibiotic: No Known Allergies Blood Thinner: None Urinalysis test cleared for Cysto Disposible Uro-G Cystoscope Cannula: Lot: [id number] Exp: 06/30/2024 Television Audio Engineer Required: No Accompanied by: Self / Same As Patient Allergies seasonal Allergy (Unknown, Uncoded 08/23/22 08:56) Unknown HPI HPI Comments History of Present Illness Details Luis is a 52-year-old male who presents today to the office for a follow up on Cystoscopy procedure. 10/11/2022? He was last seen by me on 08/23/2022 for right testicular pain. Urine was sent for cytology, and was advised to consider Cystoscopy in future. PSA blood work and scrotum US was ordered at that time. Advised the patient to take Tylenol PRN and use heating pad for testicular pain management, and was advised to follow-up with Dr Waldrop in 14 weeks for second opinion on testicular pain. I reviewed the CAT scan of the abdomen/pelvis results from 07/06/22 revealed Kidneys: normal in size, shape and attenuation. No hydronephrosis, hydroureter or calculi. Bladder: unremarkable. I reviewed the scrotum US results from 09/23/2022 revealed epididymal cysts. Unremarkable testes. I reviewed the PSA results from 09/23/2022 revealed 0.38. Cystoscopy findings revealed within normal limits, no suspicious bladder lesions, prostate was not obstructive. Discussed urine cytology - negative for malignant cells Review of chart: Last visit: 08/23/22-- Luis is a 52-year-old male who was evaluated as inpatient on 07/06/22, consult was due to US findings of bilateral hydrocele. On evaluation the patient, complained of abdominal pain and pain in the right testicles. At the time of examination, there was no significant scrotal swelling or cellulitis. The patient was admitted to the hospital service and treated for colitis. he was evaluated by GI who did endoscopy and sigmoidoscopy showing resolving colitis, he was treated with IV antibiotics. Etiology included inflammatory versus infection and possible ischemic from cocaine use. (In regard to the imaging ascending aortic aneurysm measuring 4.2 cm, the patient was seen by the vascular surgeon during 07/06/22 admission.) The patient states having intermittent testicular pain and swelling which resolves after 1-1.5 days. States there is significant improvement in the pain after his last visit at the hospital. The patient states occasional incomplete bladder emptying. Denies burning with urination. The patient is a former smoker and smoked for 4 years. CAT scan?07/06/22--Kidneys: normal in size, shape and attenuation. No hydronephrosis, hydroureter or calculi. Bladder: unremarkable. Scrotal US?07/06/22--Scrotal US-- Bilateral hydrocele, larger on the right and sub-centimeter right epididymal cyst. PSA?12/11/22--0.88 Evaluation today?UA: blood: 1+, leukocytes: negative. On exam-- prostate- smooth, 1+. Both testicles palpated, non-tender. No significant clinical hydrocele appreciated. I have discussed microscopic hematuria may be due to but not limited to kidney stones, BPH, cystitis, urinary tract malignancy. I have discussed work up to include evaluation of the urinary tract which may include further imaging, urine testing, and cystoscopy. Plan: Epididymal cyst appears to be etiology of the patient states that at time there is swelling that resolves. It may be due to the collapsing of the cyst. Urine sent for cytology, consider cystoscopy in the future. Discussed to take Tylenol PRN and use heating pad for testicular pain management. PSA blood work was ordered.?Scrotum US was ordered.? Follow-up with Dr Waldrop in 14 weeks for second opinion on testicular pain. 10/11/2022: Evaluation today?UA? Leukocytes: negative; blood: trace 10Ery/uL 10/12/2031: Plan: Follow up in one year with PSA prior. [facility] Medical History ADHD (attention deficit hyperactivity disorder) Anxiety Epididymal cyst GERD (gastroesophageal reflux disease) Hemorrhoids HTN (hypertension) Hydrocele Testicular pain, right Umbilical hernia Surgical History History of colonoscopy Hx of endoscopy Hx of umbilical hernia repair (07/22/21) Status post total right knee replacement Family History Father Alive and well Mother Alive and well Social History Household Members: Friend(s) and None Household Members Other:: 2 Housing: House Do you presently have visiting nurse or other home services: No Alcohol intake: current Alcohol intake frequency: holidays/special occasions only Alcohol type: beer Patient Tobacco Use Status: Never used Tobacco Substance Use Type: Marijuana service: No Review of Systems Const All systems reviewed & are unremarkable except as noted in HPI and below Reports no additional complaints Eyes Reports no additional complaints ENT Reports no additional complaints Card Denies dyspnea Resp Denies cough and Denies dyspnea GI Reports no additional complaints Musc Reports no additional complaints Skin/Breast Denies rash and Denies unusual bruising Neuro Reports no additional complaints Psych Reports no additional complaints Endo Reports no additional complaints Lei/Lymph Reports no additional complaints Aller/Immun Reports no additional complaints Office Procedures Cystoscopy Consent Discussed risk and benefit or proposed procedure with the patient. Information consent for procedure given to the patient. Discussed technical aspects, risks, benefits and alternatives in full. Addressed all of the patient's questions and concerns regarding the procedure. The patient demonstrated knowledge and understanding. They wish to proceed with this procedure. Preparation The patient was prepped in the usual manner. A pencil inspector was present and in the room. Genitalia was prepped with betadine solution in a sterile manner. Lidocaine Jelly 2% was placed into the urethra and 16Fr flexible Olympus cystoscope was inserted into the meatus after adequate lubrication. Procedure Time out per protocol performed. Bladder Inspection Bladder Inspection: The bladder was inspected in its entirety with utilization retroflexion displaying: Tumor(s): none visualized Trabeculation: Mild Mucosal Erthema: N/A Orifices: normal shape and position Urethra: normal Cystoscopy findings: prostatic urethra non obstructive, bulbous urethra WNL, no suspicious bladder lesions visualized [id number] DISPOSABLE SCOPE URO-G FLEXIBLE SCOPE Procedure code (CPT) selection complete Office Meds lidocaine HCl Performing Provider: Kristen Hernandez MD Documented (not given) by: Kristen Hernandez MD on 10/11/22 10:22 Dose Route Admin Location Lot Number Expiration Date NDC X Ray Equipment Tester 10 mL intra-urethral nitrofurantoin monohyd/m-cryst 100 mg Performing Provider: Kristen Hernandez MD Documented (not given) by: Kristen Hernandez MD on 10/11/22 10:22 Dose Route Admin Location Lot Number Expiration Date NDC X Ray Equipment Tester 100 mg PO naproxen Performing Provider: Kristen Hernandez MD Documented (not given) by: Kristen Hernandez MD on 10/11/22 10:22 Dose Route Admin Location Lot Number Expiration Date NDC X Ray Equipment Tester 500 mg PO Results AMB Urinalysis, Automated UA Leukoctes 0 Beau/uL Last Edit by Kaye Escobar Bruce on 10/11/22 09:46 UA Nitrite Negative Last Edit by Kaye Escobar [facility] on 10/11/22 09:46 UA Urobilinogen 2.0 mg/dL Last Edit by Kaye Escobar [facility] [place] on 10/11/22 09:46 UA Protein 15 mg/dL Last Edit by Kaye sEcobar [facility] on 10/11/22 09:46 UA pH 5.5 Last Edit by Kaye Escobar [facility] [place] on 10/11/22 09:46 UA Blood 10 Eagle/uL Last Edit by Kaye Escobar [facility] [place] on 10/11/22 09:46 UA Specific Blodgett 1.030 Last Edit by Kaye Escobar [facility] on 10/11/22 09:46 UA Ketone Negative Last Edit by Kaye Escobar [facility] [place] on 10/11/22 09:46 UA Bilirubin 0 mg/dL Last Edit by Kaye Escobar [facility] [place] on 10/11/22 09:46 UA Glucose 0 mg/dL Last Edit by Kaye Escobar [facility] [place] on 10/11/22 09:46 Results Reviewed Results Reviewed: Laboratory Last Values Urine pH (Auto) 5.5 10/11/22 09:44 Specific Blodgett (Auto) 1.030 10/11/22 09:44 Urine Protein (Auto) 15 mg/dL 10/11/22 09:44 Glucose (UA)(Auto) 0 mg/dL 10/11/22 09:44 Urine Ketones (Auto) Negative 10/11/22 09:44 Urine Blood (Auto) 10 Eagle/uL 10/11/22 09:44 Urine Nitrite (Auto) Negative 10/11/22 09:44 Urine Bilirubin (Auto) 0 mg/dL 10/11/22 09:44 Urine Urobilinogen (Auto) 2.0 mg/dL 10/11/22 09:44 Leukocyte Esterase (Auto) 0 Beau/uL 10/11/22 09:44 Date of Service: 09/23/22 EXAMINATION: US SCROTUM CLINICAL INFORMATION: Cyst of epididymis. COMPARISON: Scrotal ultrasound dated 07/06/2022. FINDINGS: RIGHT: Right testicle measures 4.3 x 2.3 x 3.4 cm, volume 17.6 mL. No focal testicular parenchymal lesions are visualized. Spectral Doppler analysis of the arterial and venous flow is normal in the right testis. Multiple epididymal cysts, largest measures 8 mm. Epididymal appendix again seen. No right hydrocele or varicocele is seen. Right epididymal Doppler flow is normal. LEFT: Left testicle measures 3.7 x 2.0 x 3.1 cm, volume 12.0 mL. No focal testicular parenchymal lesions are visualized. Spectral Doppler analysis of the arterial and venous flow is normal in the left testis. Multiple epididymal cysts, largest measures 2.6 x 1.6 x 1.8 cm. No left hydrocele or varicocele is seen. Left epididymal Doppler flow is normal. IMPRESSION: Epididymal cysts. Unremarkable testes. Assessment & Plan Assessment & Plan (1) Testicular pain: Code(s): N50.819 - Testicular pain, unspecified Plan: Follow up in one year with PSA prior. (2) Epididymal cyst: Code(s): N50.3 - Cyst of epididymis (3) Screening PSA (prostate specific antigen): Code(s): Z12.5 - Encounter for screening for malignant neoplasm of prostate (4) Microscopic hematuria: Code(s): R31.29 - Other microscopic hematuria Orders: Orders AMB Cystoscopy Today R31.29 - Other microscopic hematuria AMB Urinalysis Automated Today Z13.9 - Encounter for screening, unspecified Medications: New naproxen 500 mg PO ONCE 1 tab 0RF R31.29 - Other microscopic hematuria nitrofurantoin monohyd/m-cryst 100 mg 100 mg PO ONCE 1 cap 0RF R31.29 - Other microscopic hematuria lidocaine HCl 2% 10 mL intra-urethral ONCE 10 mL 0RF R31.29 - Other microscopic hematuria Discontinued cefuroxime axetil Discontinued Reason: Patient Completed Course 500 mg PO BID 10 tabs 0RF Patient Instructions: The patient had an opportunity to ask questions regarding treatment plan. All questions were answered. Imaging, Laboratory studies and physical exam results were discussed and reviewed in detail. No major barriers to understanding were identified. The patient expressed understanding and agreement with the above treatment plan.? ? ? The patient is aware they should contact our office by phone for worsening of their current condition or the appearance of new symptoms. Compliance is encouraged with any medications and followup testing that is ordered.? ? ? It is a privilege to be allowed the opportunity to participate in the urologic care of your patient. If you have any questions or concerns regarding treatment for the above conditions please do not hesitate to contact me. The office telephone contact is [phone].? ? ? This note is constructed in part using voice recognition software. While every effort has been made to ensure accuracy freight adjuster errors may have been included.? ? ? Yours sincerely,? ? ? Kristen Hernandez MD? ? Coding Level of Care Code Procedure Only Diagnoses Testicular pain N50.819 Epididymal cyst N50.3 Screening PSA (prostate specific antigen) Z12.5 Microscopic hematuria R31.29 CPT Codes Cystoscopy - CPT: [id number] ([id number]) Cystoscopy - CPT: DISPOSABLE SCOPE URO-G FLEXIBLE SCOPE ([id number])
== END 2022-10-11 11:11 | disposition home or self-care (01) ==
PROVIDERS: PCP Internal Medicine; Visit Provider Urology
DX: N50.819 Testicular pain, unspecified (principal); N50.3 Cyst of epididymis; Z12.5 Encounter for screening for malignant neoplasm of prostate; R31.29 Other microscopic hematuria; Z13.9 Encounter for screening, unspecified
CPT/HCPCS: 52000

== ENCOUNTER → 2022-10-11 08:43 | Outpatient (BNVA) | payer OTHER, SELFPAY | PROVIDERS: PCP Internal Medicine; Visit Provider Urology | DX: R31.29 Other microscopic hematuria (principal); N50.3 Cyst of epididymis; N50.819 Testicular pain, unspecified | CPT/HCPCS: 52000; 81003; C1747 ==

== ENCOUNTER 2022-10-22 09:59 | Outpatient (AMB) | payer OTHER, MEDICAID, SELFPAY ==
--- NOTE | 2022-10-22 10:11 | MHC.OFFVIS ---
Intake Vital Signs 10/22/22 10:21 Height 5 ft 7 in Weight 240 lb 4 oz BMI 37.6 BP 144/93 H Blood Pressure Location Lt brachial Position Sitting Respiration 18 Pulse 72 Pulse Source Pulse Oximeter Pulse Oximetry (%) 97 Oxygen Delivery Method Room Air Intake Visit Reasons: Pain in lumbar spine area Allergies seasonal Allergy (Unknown, Uncoded 08/23/22 08:56) Unknown HPI HPI Comments History of Present Illness Details Luis is a very pleasant 52 year old male who presents to the office today for evaluation and management of his chronic lower back pain. Patient reports he has been suffering with this pain for many years. He describes the pain across lower back with radiation laterally down both legs to the toes. He states the pain is constant with intermittent shooting, sharp pains. He had MRI 12/2021 that was reviewed with patient today. Dr Abreu, neurosurgery at [facility], evaluated patient several months ago and offered surgery but patient is not ready to commit. He is looking for alternatives that can provide some relief. Patient was referred here to discuss interventional pain management. Patient states he was prescribed oxycodone from pcp but has recently stopped taking them. Since stopping his pain has worsened. Pain today is reported as 10/10 with average over the last month of 10/10. Endorses sharp, shooting pain down both legs to the toes and frequent burning, numbness, tingling pain down both legs. Patient denies red flag symptoms including loss of bowel, bladder or saddle anesthesia. He completed physical therapy approx 8 months ago and continues with HEP. PT provided no relief from the pain. He is currently taking motrin daily without improvement in pain. He has not tried acupuncture, chiropractor, massage or interventional management. He has follow up with PCP in a few weeks and hopes to discuss restarting opioids for his pain as this helped him with lower back and other pain complaints in the past. In terms of muscle damage condition is described as aching, hot, burning, stabbing, sharp, shooting and throbbing. Pain is negatively impacting his enjoyment of life, general activity, work, sleep and walking. [facility] Medical History ADHD (attention deficit hyperactivity disorder) Anxiety Epididymal cyst GERD (gastroesophageal reflux disease) Hemorrhoids HTN (hypertension) Hydrocele Testicular pain, right Umbilical hernia Surgical History History of colonoscopy Hx of endoscopy Hx of umbilical hernia repair (07/22/21) Status post total right knee replacement Family History Father Alive and well Mother Alive and well Social History Household Members: Friend(s) and None Household Members Other:: 2 Housing: House Do you presently have visiting nurse or other home services: No Alcohol intake: current Alcohol intake frequency: holidays/special occasions only Alcohol type: beer Patient Tobacco Use Status: Never used Tobacco Substance Use Type: Marijuana service: No Review of Systems Const All systems reviewed & are unremarkable except as noted in HPI and below Physical Exam General: awake, alert, oriented. Answers questions appropriately. Fully engaged in examination. Skin: warm, dry, intact HEENT: Normocephalic. Hearing intact. Cardiac: External chest normal in appearance. Respiratory: No cough, audible wheezing or stridor. Abdomen: without gross distension. Neurological: Oriented to person, place, time and situation. Thought process intact. No gait abnormalities appreciated. Psychiatric: Appropriate mood and affect. Good judgment and insight. Back/Spine/Pelvis Other: Lumbar exam: Able to stand on bilateral tiptoes and bilateral heels. Able to transition from sit to stand unassisted. Ambulates with bilaterally normal heel strike and toe off Visual inspection without gross abnormality Tender to palpation over lumbar paraspinal muscles ROM extension to 10 degrees. flexion to 60 degrees Strength: 5/5 BLE Sensation: intact and symmetric BLE DTR: intact and symmetric Straight leg raises with and without dorsiflexion positive bilaterally Facet loading positive bilaterally ROSINA positive bilaterally Results Reviewed Results Reviewed: 12/22/2021 EXAMINATION: MR LUMBAR SPINE WITHOUT CONTRAST CLINICAL INFORMATION: Bilateral leg pain and low back pain. COMPARISON: X-ray lumbar spine dated 04/09/2020. Lumbar spine MRI from 04/22/2010. TECHNIQUE: Multiplanar, multisequence imaging was obtained. Limited study with motion artifacts. FINDINGS: VERTEBRAL BODIES AND PARASPINAL STRUCTURES: There is severe disc space narrowing with moderate edematous endplate changes lateralized more so to the right side at the L1-L2 level, progressed since previous imaging. Reduced intradiscal signal noted at multiple levels from spondylosis. There is moderate disc space narrowing with minimal disc bulges at the lower thoracic levels. Mild posterior subluxation evident at the L2-L3 level with chronic degenerative endplate changes. Mild anterolisthesis noted at the L4-L5 level with mild edema in the left superior articular process. Minimal anterior subluxation also evident at the L5-S1 level. The paraspinal soft tissues are normal. Moderate degenerative changes of the left SI joint. CONUS MEDULLARIS AND CAUDA EQUINE: The distal cord, conus tip, and cauda equina nerve roots appear normal. SPINAL LEVELS: L1-L2: Severe disc space narrowing and advanced degenerative endplate changes with significant endplate edema. Mild facet arthropathy. Moderate central canal stenosis. Bulging disc and osseous spurring impinge upon the right L2 nerve root in the subarticular zone. Moderate to severe right foraminal narrowing with endplate spurring and bulging disc impressing upon the extraforaminal right L1 nerve root. L2-L3: Retrosubluxation and diffuse disc bulge with hypertrophic facet arthropathy resulting in mild central canal stenosis. Patent foramina. Chronic degenerative endplate changes. L3-L4: Right posterolateral disc protrusion compresses the exiting extraforaminal right L3 nerve root with moderate right foraminal encroachment. Moderate facet arthropathy and very mild narrowing of the central canal. Mild left foraminal narrowing as well. L4-L5: Anterolisthesis and diffuse disc bulge with exuberant facet arthropathy and a small central disc protrusion. Mild central canal stenosis. Moderate right foraminal narrowing. Facet spurring and bulging disc compress the exiting left L4 nerve root with severe left foraminal encroachment. L5-S1: Mild anterolisthesis and broad-based disc bulge with mild facet arthropathy. No central canal stenosis. Mild left foraminal narrowing. [id number] right foraminal encroachment. Small right subarticular zone disc extrusion which mildly impresses upon the right S1 nerve root. MR/MR lumbar spine wo con IMPRESSION: 1. Progressed severe degenerative disc disease at the L1-L2 level with significant endplate edema. Moderate central canal stenosis with bulging disc and osseous spurring impinging upon the right L2 nerve root. [id number] right foraminal narrowing with bulging disc and endplate spurring impressing upon the extraforaminal right L1 nerve root. 2. Right posterolateral disc protrusion at the L3-L4 level compressing the extraforaminal right L3 nerve root with moderate right foraminal encroachment. Moderate facet arthropathy and mild narrowing of the central canal. 3. Mild anterolisthesis and disc bulge at the L4-L5 level with exuberant facet arthropathy and a small central disc protrusion. Mild central canal stenosis. Moderate right foraminal narrowing. Facet spurring and bulging disc compresses the exiting left L4 nerve root with severe left foraminal encroachment. 4. Mild anterior subluxation and disc bulge at the L5-S1 level with a small right subarticular zone disc extrusion mildly impressing upon the right S1 nerve root. Assessment & Plan Assessment & Plan (1) Degenerative disc disease, lumbar: Code(s): M51.36 - Other intervertebral disc degeneration, lumbar region (2) Facet arthritis of lumbar region: Code(s): M47.816 - Spondylosis without myelopathy or radiculopathy, lumbar region (3) Lumbar radiculopathy: Code(s): M54.16 - Radiculopathy, lumbar region (4) Lumbar spondylosis: Code(s): M47.816 - Spondylosis without myelopathy or radiculopathy, lumbar region Plan Luis is a very pleasant 52 year old male who presents to the office today for evaluation and management of his chronic lower back pain. History, physical exam and provocative testing consistent with lumbar radiculopathy and lumbar facet arthropathy. On physical exam patient reports the radicular pain is more severe than the arthropathic pain. Discussed options for treatment including diagnostic interventional testing, epidural steroid injections, peripheral nerve stimulation with Sprint, RFA and more permanent neuromodulation. The risks, consequences, alternatives, and benefits of various treatment options were discussed with the patient in great detail, including conservative management, injections and procedures. Offered patient diagnostic lumbar MBBs for facet arthropathy vs TFESI for lumbar radiculopathy. Patient would like to first treat lumbar radiculopathy, will schedule for Fluoroscopy guided bilateral L4-5 TFESI with local anesthetic. Justification for interventional therapy: ? Patient with average pain > 6/10 ? Patient has exhausted conservative therapy, physical therapy, NSAIDs All questions and concerns have been answered and patient agrees with the plan. Follow up after injections and sooner if needed. Coding Level of Care Code New Pt Level 4 (03783) Diagnoses Degenerative disc disease, lumbar M51.36 Facet arthritis of lumbar region M47.816 Lumbar radiculopathy M54.16 Lumbar spondylosis M47.816
[2022-10-22 10:21] VITALS: BP 144/93; PULSE 72; RESP 18; O2SAT 97; BMI 37.6
== END 2022-10-22 10:39 | disposition home or self-care (01) ==
PROVIDERS: PCP Internal Medicine; Visit Provider Registered Nurse Emergency
DX: M51.36 Other intervertebral disc degeneration, lumbar region (principal); M47.816 Spondylosis without myelopathy or radiculopathy, lumbar region; M54.16 Radiculopathy, lumbar region
CPT/HCPCS: 99204

== ENCOUNTER → 2022-10-22 09:59 | Outpatient (BNVA) | payer OTHER, SELFPAY | PROVIDERS: PCP Internal Medicine; Visit Provider Registered Nurse Emergency ==

== ENCOUNTER 2022-11-23 05:58 | Outpatient (REF) | payer OTHER, SELFPAY ==
--- NOTE | ~2022-11-23 | FL_ITS ---
EXAMINATION: XR FLUOROSCOPY WITH IMAGES CLINICAL INFORMATION: Radiculopathy, lumbar region. COMPARISON: None available. TECHNIQUE: Fluoroscopy Supervised By: Dr. Tej Márquez. Fluoroscopy Time: 0.6 minutes. Cumulative Dose: 20.0 mGy. DAP: 0.349 Gycm2. Images: 2. FINDINGS: Image demonstrates needle placement and contrast injection adjacent to the bilateral L4 vertebrae FL/FL guidance in treatment room IMPRESSION: Fluoroscopy guidance for pain management procedure
== END 2022-11-23 05:59 | disposition home or self-care (01) ==
LOC: CF 05:58
PROVIDERS: Visit Provider Anesthesiology
DX: M51.36 Other intervertebral disc degeneration, lumbar region (principal); M47.26 Other spondylosis with radiculopathy, lumbar region
CPT/HCPCS: 64483; J3301

== ENCOUNTER 2022-11-23 07:12 | Outpatient (AMB) | payer OTHER, MEDICAID, SELFPAY ==
[2022-11-23 07:27] VITALS: BP 140/84; PULSE 78; RESP 16; O2SAT 97; BMI 37.6
--- NOTE | 2022-11-23 07:27 | MHC.OFFVIS ---
Intake Vital Signs 11/23/22 07:27 11/23/22 09:38 Height 5 ft 7 in 5 ft 7 in Weight 240 lb 240 lb BMI 37.6 37.6 BP 140/84 H 146/82 H Blood Pressure Location Lt brachial Lt brachial Position Sitting Sitting Respiration 16 16 Pulse 78 63 Pulse Source Pulse Oximeter Pulse Oximeter Pulse Oximetry (%) 97 99 Oxygen Delivery Method Room Air Room Air Comment Pre-Op post-op Intake Visit Reasons: BILAT L4-L5 TFESI/LOCAL Allergies seasonal Allergy (Unknown, Uncoded 08/23/22 08:56) Unknown PFSH Medical History ADHD (attention deficit hyperactivity disorder) Anxiety Epididymal cyst GERD (gastroesophageal reflux disease) Hemorrhoids HTN (hypertension) Hydrocele Testicular pain, right Umbilical hernia Surgical History History of colonoscopy Hx of endoscopy Hx of umbilical hernia repair (07/22/21) Status post total right knee replacement Family History Father Alive and well Mother Alive and well Social History Household Members: Friend(s) and None Household Members Other:: 2 Housing: House Do you presently have visiting nurse or other home services: No Alcohol intake: current Alcohol intake frequency: holidays/special occasions only Alcohol type: beer Patient Tobacco Use Status: Never used Tobacco Substance Use Type: Marijuana service: No Physical Exam Vital Signs: Last Vital Signs Pulse 63 11/23/22 09:38 Resp 16 11/23/22 09:38 BP 146/82 H 11/23/22 09:38 Pulse Ox 99 11/23/22 09:38 Oxygen Delivery Method Room Air 11/23/22 09:38 BMI result Body Mass Index 37.6 Results Reviewed Results Reviewed: 11/23/22 08:22 Triamcinolone Acetonide [Kenalog-40] 40 mg .ROUTE .STK-MED ONE 12/22/2021 EXAMINATION: MR LUMBAR SPINE WITHOUT CONTRAST CLINICAL INFORMATION: Bilateral leg pain and low back pain. COMPARISON: X-ray lumbar spine dated 04/09/2020. Lumbar spine MRI from 04/22/2010. TECHNIQUE: Multiplanar, multisequence imaging was obtained. Limited study with motion artifacts. FINDINGS: VERTEBRAL BODIES AND PARASPINAL STRUCTURES: There is severe disc space narrowing with moderate edematous endplate changes lateralized more so to the right side at the L1-L2 level, progressed since previous imaging. Reduced intradiscal signal noted at multiple levels from spondylosis. There is moderate disc space narrowing with minimal disc bulges at the lower thoracic levels. Mild posterior subluxation evident at the L2-L3 level with chronic degenerative endplate changes. Mild anterolisthesis noted at the L4-L5 level with mild edema in the left superior articular process. Minimal anterior subluxation also evident at the L5-S1 level. The paraspinal soft tissues are normal. Moderate degenerative changes of the left SI joint. CONUS MEDULLARIS AND CAUDA EQUINE: The distal cord, conus tip, and cauda equina nerve roots appear normal. SPINAL LEVELS: L1-L2: Severe disc space narrowing and advanced degenerative endplate changes with significant endplate edema. Mild facet arthropathy. Moderate central canal stenosis. Bulging disc and osseous spurring impinge upon the right L2 nerve root in the subarticular zone. Moderate to severe right foraminal narrowing with endplate spurring and bulging disc impressing upon the extraforaminal right L1 nerve root. L2-L3: Retrosubluxation and diffuse disc bulge with hypertrophic facet arthropathy resulting in mild central canal stenosis. Patent foramina. Chronic degenerative endplate changes. L3-L4: Right posterolateral disc protrusion compresses the exiting extraforaminal right L3 nerve root with moderate right foraminal encroachment. Moderate facet arthropathy and very mild narrowing of the central canal. Mild left foraminal narrowing as well. L4-L5: Anterolisthesis and diffuse disc bulge with exuberant facet arthropathy and a small central disc protrusion. Mild central canal stenosis. Moderate right foraminal narrowing. Facet spurring and bulging disc compress the exiting left L4 nerve root with severe left foraminal encroachment. L5-S1: Mild anterolisthesis and broad-based disc bulge with mild facet arthropathy. No central canal stenosis. Mild left foraminal narrowing. Nnxy-zy-pyusdwrk right foraminal encroachment. Small right subarticular zone disc extrusion which mildly impresses upon the right S1 nerve root. MR/MR lumbar spine wo con IMPRESSION: 1. Progressed severe degenerative disc disease at the L1-L2 level with significant endplate edema. Moderate central canal stenosis with bulging disc and osseous spurring impinging upon the right L2 nerve root. [id number]-oz-cohiyg right foraminal narrowing with bulging disc and endplate spurring impressing upon the extraforaminal right L1 nerve root. 2. Right posterolateral disc protrusion at the L3-L4 level compressing the extraforaminal right L3 nerve root with moderate right foraminal encroachment. Moderate facet arthropathy and mild narrowing of the central canal. 3. Mild anterolisthesis and disc bulge at the L4-L5 level with exuberant facet arthropathy and a small central disc protrusion. Mild central canal stenosis. Moderate right foraminal narrowing. Facet spurring and bulging disc compresses the exiting left L4 nerve root with severe left foraminal encroachment. 4. Mild anterior subluxation and disc bulge at the L5-S1 level with a small right subarticular zone disc extrusion mildly impressing upon the right S1 nerve root. Assessment & Plan Assessment & Plan (1) Degenerative disc disease, lumbar: Code(s): M51.36 - Other intervertebral disc degeneration, lumbar region Plan: Transforaminal epidural steroid injection bilateral L4-5. Informed consent was thoroughly explained to the patient before the procedure.? The patient came to the operating room.? He was positioned prone on operating table with a pillow under his abdomen.? Time-out was performed delineating correct site and side of the procedure, nature of the injection, name and date of of the patient. The lower back of the patient was prepped with ChloraPrep and draped with sterile utility towels.? C-arm was brought over the operating field and sq picture of L4 vertebra was demonstrated on the screen.? The right side was chosen as the side of the injection.? Tilting machine ipsilateral to the right at the level of L4 1st the most prominent picture of the right superior articular process of L5 was obtained on the screen. Lateral border of the right superior articular process of L5 projection to the skin was injected with small amount of lidocaine 1% 3-4 cc to anesthetize the skin.? After that 5 in 22 gauge Quincke point needle was inserted through the skin wheal and was advanced to were the L4-5 foramina on anterior posterior and oblique views intermittently.? When tip of the needle gently contacted the bone the needle was deviated laterally and immediately after medially to advance to foramina. At this moment patient started to experience paresthesia going down the right lower extremity. The needle was withdrawn and oblique view was obtained again. The point of interests was changed to 3 mm below the projection of the lowest point of pedicle on the oblique view on the right. It was injected with lidocaine 2% to 3 mL and after that 22 gauge 5 in needle was inserted through the skin and started to advance to were the foramina on intermittent anterior posterior and oblique views. Advancement of the needle went without paresthesia. With the needle tip appeared in the projection of the spinal column on anterior posterior sq view injection of the contrast was performed demonstrating right epidural spread of the contrast. Injection of the lidocaine 1% 3 cc mixed with Kenalog 40 mg was performed at this point. After that attention was switched to the left side. The infra pedicular approach was chosen again on the left side. This time again advancement of the needle went without paresthesia, when needle tip entered silhouette of spinal column on sq AP view injection of the contrast was performed demonstrating epidural and perineural spread of the contrast.? After that injection of the treatment medicine 3 cc of lidocaine 1% mixed with Kenalog 40 mg was injected into the foramina.? Injection of the contrast and injection of the treatment medicine was observed live on the screen.? No intrathecal and no intravascular spread of the contrast was noted. Upon completion of the procedure sterile Band-Aids were applied. Patient tolerated procedure well he was taken outside of the operating room where he recovered uneventfully.? He went home without immediate complications. (2) Facet arthritis of lumbar region: Code(s): M47.816 - Spondylosis without myelopathy or radiculopathy, lumbar region (3) Lumbar radiculopathy: Code(s): M54.16 - Radiculopathy, lumbar region (4) Lumbar spondylosis: Code(s): M47.816 - Spondylosis without myelopathy or radiculopathy, lumbar region Prince Smith is a very pleasant 52 year old male who presents to the office today for evaluation and management of his chronic lower back pain. History, physical exam and provocative testing consistent with lumbar radiculopathy and lumbar facet arthropathy. On physical exam patient reports the radicular pain is more severe than the arthropathic pain. Discussed options for treatment including diagnostic interventional testing, epidural steroid injections, peripheral nerve stimulation with Sprint, RFA and more permanent neuromodulation. The risks, consequences, alternatives, and benefits of various treatment options were discussed with the patient in great detail, including conservative management, injections and procedures. Offered patient diagnostic lumbar MBBs for facet arthropathy vs TFESI for lumbar radiculopathy. Patient would like to first treat lumbar radiculopathy, will schedule for Fluoroscopy guided bilateral L4-5 TFESI with local anesthetic. Justification for interventional therapy: ? Patient with average pain > 6/10 ? Patient has exhausted conservative therapy, physical therapy, NSAIDs All questions and concerns have been answered and patient agrees with the plan. Follow up after injections and sooner if needed. Orders: Orders FL guidance in treatment room 11/23/22 M54.16 - Radiculopathy, lumbar region Coding Level of Care Code Procedure Only Diagnoses Degenerative disc disease, lumbar M51.36 Facet arthritis of lumbar region M47.816 Lumbar radiculopathy M54.16 Lumbar spondylosis M47.816
[2022-11-23 09:38] VITALS: BP 146/82; PULSE 63; RESP 16; O2SAT 99; BMI 37.6
== END 2022-11-23 09:09 | disposition home or self-care (01) ==
LOC: HO.PMCPRC 07:12
PROVIDERS: PCP Internal Medicine; Visit Provider Anesthesiology
DX: M54.16 Radiculopathy, lumbar region (principal); M51.36 Other intervertebral disc degeneration, lumbar region; M47.816 Spondylosis without myelopathy or radiculopathy, lumbar region
CPT/HCPCS: 64483

== ENCOUNTER 2022-12-17 08:42 | Outpatient (AMB) | payer OTHER, MEDICAID, SELFPAY ==
--- NOTE | 2022-12-17 08:43 | MHC.OFFVIS ---
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: follow up Acute colitis Intake Note: Luis presents as a video call follow up for acute colitis. CC: He is concerned that the infection is coming back. He has been having loose stools like liquid - for months now. He has a severe stomach pain and he said this is all that happened the last time. Allergies seasonal Allergy (Unknown, Uncoded 12/17/22 08:43) Unknown HPI follow up Acute colitis HPI Details 52-year-old male with past medical history of GERD, hypertension, ADHD, anxiety and history of hemorrhoids who i am calling for f/u RECAP: I saw him a in patient 06/2022 He presented initially with 8/10 generalized abdo pain, which was constant and non radiating with no relieving or exacerbating factors. Associated w/ nausea, poor appetite with loose bloody bowel motions. Denies sick contacts, recent abx or eating contaminated food/ He also noted right scrotal pain and swelling. LABS: WBC count of 17.3, sodium of 133, potassium of 3.0, total bili of 1.2, UA negative, C diff negative--u tox pos cocaine 06/19/22 Imaging: Abdomen pelvic CT: pancolitis, aortic aneurysm of 4.2 cm Scrotal ultrasound: bilateral hydrocele, larger on the right as well as subcentimeter right epididymal cyst Other data: EGD and colonoscopy done 2018--pos for H pylori and treated, erosive gasritis noted and moderate size hemorrhoids ? subsequent h pylori breath test was neg 08/2019 EGD with dialtion 03/2020- 15-17 mm bougie savary used, no tear, Bx with active esophagitis and moderate inflammation of GEj, changed PPi to lansoprazole 30 mg bid He had an inpatient EGD/sigmoidoscopy which revealed resolving colitis and some congestion of the stomach INTERIM; he has not had regular bowel movements for last few months he has post prandial diarrhea bloating no blood in stool he has had been having nausea appetite is good weight is stable son several months ago, exam: good color talking well A/P; 1/ post prandial diarrhea, nausea, recurrence of prior sx ? IBD PLAN: 1/ Cte 2/ stool and labs as below as well as IgG, IgM levels to r/o cvid [facility] Medical History Testicular pain, right Epididymal cyst Hydrocele Anxiety Umbilical hernia ADHD (attention deficit hyperactivity disorder) HTN (hypertension) GERD (gastroesophageal reflux disease) Hemorrhoids Surgical History Hx of umbilical hernia repair (07/22/21) Hx of endoscopy History of colonoscopy Status post total right knee replacement Family History Father Alive and well Mother Alive and well Social History Household Members: Friend(s) and None Household Members Other:: 2 Housing: House Do you presently have visiting nurse or other home services: No Alcohol intake: current Alcohol intake frequency: holidays/special occasions only Alcohol type: beer Patient Tobacco Use Status: Never used Tobacco Substance Use Type: Marijuana service: No Assessment & Plan Assessment & Plan (1) Diarrhea: Code(s): R19.7 - Diarrhea, unspecified Orders: Orders Complete Blood Count Auto Diff Today R19.7 - Diarrhea, unspecified Lactoferrin, Fecal, Quant. Today K51.50 - Left sided colitis without complications, R19.7 - Diarrhea, unspecified GI Panel Today R19.7 - Diarrhea, unspecified Immunoglobulins,IgG IgA IgM Today R19.7 - Diarrhea, unspecified C Reactive Protein Today R19.7 - Diarrhea, unspecified Comprehensive Met. Panel Today K75.81 - Nonalcoholic steatohepatitis (CARSON), R19.7 - Diarrhea, unspecified CDiff Gene PCR Today R19.7 - Diarrhea, unspecified Vitamin B12 and Folate Today R19.7 - Diarrhea, unspecified Erythrocyte Sedimentation Rate Today R19.7 - Diarrhea, unspecified CT enterography Today R10.33 - Periumbilical pain Immunoglobulin E Today R19.7 - Diarrhea, unspecified Telehealth Telehealth Location of provider rendering services: practice address Location of patient: address on file Patient Identification confirmed using: Name, : Yes Telehealth method: video Patient verbally consented to treatment: Yes Patient verbally consented to billing insurance company: Yes Patient informed of any privacy concerns related to visit: Yes Minutes spent on Phone/Video with Pt.: 9 Coding Level of Care Code Tele Est Pt Level 4 (78908) Diagnoses Diarrhea R19.7
== END 2022-12-17 09:59 | disposition home or self-care (01) ==
LOC: HO.HGI 08:42
PROVIDERS: PCP Internal Medicine; Visit Provider Internal Medicine Gastroenterology
DX: R19.7 Diarrhea, unspecified (principal)
CPT/HCPCS: 99214

== ENCOUNTER → 2022-12-17 08:42 | Outpatient (BNVA) | payer OTHER, SELFPAY | PROVIDERS: PCP Internal Medicine; Visit Provider Internal Medicine Gastroenterology ==

== ENCOUNTER 2022-12-18 09:59 | Outpatient (REF) | payer OTHER, SELFPAY ==
[2022-12-18 10:24] LABS: MANUAL DIFF FLAG NO
[2022-12-18 10:38] LABS: Basophils Percent Auto 0.3 % (0-2); Eosinophils Absolute Auto 0.2 X10*3/uL (0.0-0.4); Eosinophils Percent Auto 2.7 % (0-4); Hematocrit 42.8 % (42.0-52.0); Hemoglobin 14.8 g/dl (14.0-18.0); Imm Gran Abs Auto 0.02 X10*3/uL (0.00-0.03); Imm Gran Pct Auto 0.3 % (0.0-0.4); Lymphocytes Absolute Auto 2.7 X10*3/uL (1.2-4.9); Lymphocytes Percent Auto 42.4 % (20-40); Mean Corpuscular HGB Conc 34.6 g/dl (31.0-36.0); Mean Corpuscular Hemoglobin 32.4 pg (27.0-33.0); Mean Corpuscular Volume 93.7 fL (80.0-98.0); Mean Platelet Volume 9.5 fL (9.4-12.4); Monocytes Absolute Auto 0.7 X10*3/uL (0.1-1.2); Monocytes Percent Auto 11.3 % (2-11); Neutrophils Absolute Auto 2.7 x10*3/uL (2.0-8.3); Platelet Count 253 X10*3/uL (160-400); Red Blood Count 4.57 X10*6/uL (4.60-5.80); Red Cell Distribution Width 12.6 % (11.0-16.0); White Blood Count 6.4 X10*3/uL (4.8-10.8)
[2022-12-18 10:55] LABS: Alanine Aminotransferase 34 U/L (0-40); Albumin Level 4.4 g/dL (3.5-5.0); Alkaline Phosphatase 52 U/L (39-117); Anion Gap 13 (12-20); Aspartate Amino Transferase 20 U/L (5-37); Bilirubin Total 1.1 mg/dL (0.0-1.0); Blood Urea Nitrogen 15 mg/dL (9-16); C Reactive Protein < 0.10 mg/dL (< or = 0.50); Calcium 9.9 mg/dL (8.4-10.2); Carbon Dioxide 25 mmol/L (22-29); Chloride 102 mmol/L (96-108); Estimated Glomerular Filt Rate > 60; Glucose Random 110 mg/dL (60-115); Potassium 3.8 mmol/L (3.3-5.1); Sodium 136 mmol/L (135-145); Total Protein 7.8 g/dL (6.5-8.0)
[2022-12-18 11:20] LABS: Erythrocyte Sedimentation Rate 5 MM/HR (0-15)
[2022-12-18 11:30] LABS: Folate 7.6 ng/mL (> or = 4.0); Vitamin B12 277 pg/mL (200-900)
[2022-12-18 12:16] LABS: PSA,Total (Free>4and<10) 0.41 ng/mL (0.00-4.00)
[2022-12-20 15:44] LABS: IgA 309 mg/dL (47-310); IgG 1184 mg/dL (600-1640); IgM 105 mg/dL (50-300)
[2022-12-20 19:27] LABS: Immunoglobulin E 18 kU/L (<OR=114)
== END 2022-12-18 10:00 | disposition home or self-care (01) ==
LOC: HO.LAB 09:59
PROVIDERS: Urology; PCP Internal Medicine; Visit Provider Internal Medicine Gastroenterology
DX: Z12.5 Encounter for screening for malignant neoplasm of prostate (principal); R19.7 Diarrhea, unspecified; K75.81 Nonalcoholic steatohepatitis (NASH)
CPT/HCPCS: 36415; 80053; 82607; 82746; 82784; 82785; 84153; 85025; 85652; 86140

== ENCOUNTER 2022-12-20 15:31 | Outpatient (REF) | payer OTHER, SELFPAY ==
[2022-12-20 17:45] LABS: CDiff Gene PCR NEGATIVE (Negative)
[2022-12-21 12:12] LABS: Adenovirus F 40/41 Not Detected (Not Detect.); Astrovirus Not Detected (Not Detect.); Campylobacter Not Detected (Not Detect.); Cryptosporidium Not Detected (Not Detect.); Cyclospora cayetanensis Not Detected (Not Detect.); E. coli EAEC Not Detected (Not Detect.); E. coli EPEC Not Detected (Not Detect.); E. coli ETEC Not Detected (Not Detect.); E. coli STEC Not Detected (Not Detect.); Entamoeba histolytica Not Detected (Not Detect.); Giardia lamblia Not Detected (Not Detect.); Norovirus GI/GII Not Detected (Not Detect.); Plesiomonas shigelloides Not Detected (Not Detect.); Rotavirus A Not Detected (Not Detect.); Salmonella Not Detected (Not Detect.); Sapovirus Not Detected (Not Detect.); Shigella sp./EIEC Not Detected (Not Detect.); Vibrio Not Detected (Not Detect.); Vibrio Cholerae Not Detected (Not Detect.); Yersinia enterocolitica Not Detected (Not Detect.)
[2022-12-25 14:33] LABS: Lactoferrin, Fecal, Quant. <6.25 mcg/mL (<7.25)
== END 2022-12-20 15:32 | disposition home or self-care (01) ==
LOC: HO.LNP 15:31
PROVIDERS: Visit Provider Internal Medicine Gastroenterology
DX: R19.7 Diarrhea, unspecified (principal); K51.50 Left sided colitis without complications
CPT/HCPCS: 83631; 87493; 87507

== ENCOUNTER → 2022-12-28 15:40 | Outpatient (BNV) | payer OTHER, MEDICAID, SELFPAY | PROVIDERS: PCP Internal Medicine; Visit Provider Internal Medicine Medical Oncology | DX: Z15.01 Genetic susceptibility to malignant neoplasm of breast (principal); Z15.89 Genetic susceptibility to other disease | CPT/HCPCS: 99204 ==

== ENCOUNTER 2023-01-12 12:44 | Outpatient (REF) | payer OTHER, SELFPAY ==
--- NOTE | ~2023-01-12 | MM_ITS ---
EXAMINATION: MM SCREENING DIGITAL BREAST TOMOSYNTHESIS, BILATERAL CLINICAL INFORMATION: Screening. Asymptomatic. This patient has a PALB 2 mutation placing him at increased risk for breast cancer. COMPARISON: Mammography: This study is compared with prior exams dating back to TECHNIQUE: Digital breast tomosynthesis is performed in both the craniocaudal and mediolateral oblique views along with computer-aided detection (CAD). Synthesized 2D images are generated from the tomosynthesis. FINDINGS: There are scattered areas of fibroglandular density (ACR BI-RADS breast composition Category b). There are no significant masses, abnormal calcifications, or other abnormalities. MM/MM tomosynthesis screening BI IMPRESSION: No mammographic evidence of malignancy. ASSESSMENT: BI-RADS BI-RADS 1 - Negative RECOMMENDATION: Routine annual mammography screening. 1 year F/U This examination should not preclude the clinical evaluation of a suspicious palpable abnormality. This patient's information was entered into a reminder system with a target due date for their next mammogram.
== END 2023-01-12 12:45 | disposition home or self-care (01) ==
LOC: HO.MAMMO 12:44
PROVIDERS: PCP Internal Medicine; Visit Provider Internal Medicine Medical Oncology
DX: Z12.31 Encounter for screening mammogram for malignant neoplasm of breast (principal); Z15.01 Genetic susceptibility to malignant neoplasm of breast
CPT/HCPCS: 77063; 77067

== ENCOUNTER → 2023-01-12 13:15 | Outpatient (BNV) | payer OTHER, SELFPAY | PROVIDERS: PCP Internal Medicine; Visit Provider Radiology Diagnostic Radiology | DX: Z12.31 Encounter for screening mammogram for malignant neoplasm of breast (principal) | CPT/HCPCS: 77063; 77067 ==

== ENCOUNTER 2023-01-18 15:18 | Outpatient (AMB) | payer OTHER, MEDICAID, SELFPAY ==
[2023-01-18 15:25] VITALS: BP 146/84; PULSE 96; RESP 18; O2SAT 96; BMI 32.9
--- NOTE | 2023-01-18 15:25 | A.OFFVIS_ITS ---
Intake Vital Signs 01/18/23 15:25 Height 5 ft 7 in Weight 210 lb 4 oz BMI 32.9 BP 146/84 H Blood Pressure Location Lt brachial Position Sitting Respiration 18 Pulse 96 Pulse Source Pulse Oximeter Pulse Oximetry (%) 96 Oxygen Delivery Method Room Air Intake Visit Reasons: BILAT L4-L5 TFESI 11/23/22 Allergies seasonal Allergy (Unknown, Uncoded 12/17/22 08:43) Unknown HPI HPI Comments History of Present Illness Details Patient presents back to the office today for follow-up 2 months status post bilateral L4 L 5 transforaminal epidural steroid injection. Patient reports minimal relief after the injection. Though today he states that the pain down his leg is no longer the most severe pain. He states the midline lumbar pain is the most bothersome. He is also complaining of right hip pain that is worse with walking. After last visit patient was restarted on his oxycodone from his PCP. He states that this helps with the pain and allows him to be more active and productive. Prior: Luis is a very pleasant 52 year old male who presents to the office today for evaluation and management of his chronic lower back pain. Patient reports he has been suffering with this pain for many years. He describes the pain across lower back with radiation laterally down both legs to the toes. He states the pain is constant with intermittent shooting, sharp pains. He had MRI 12/2021 that was reviewed with patient today. Dr Abreu, neurosurgery at [facility], evaluated patient several months ago and offered surgery but patient is not ready to commit. He is looking for alternatives that can provide some relief. Patient was referred here to discuss interventional pain management. Patient states he was prescribed oxycodone from pcp but has recently stopped taking them. Since stopping his pain has worsened. Pain today is reported as 10/10 with average over the last month of 10/10. Endorses sharp, shooting pain down both legs to the toes and frequent burning, numbness, tingling pain down both legs. Patient denies red flag symptoms including loss of bowel, bladder or saddle anesthesia. He completed physical therapy approx 8 months ago and continues with HEP. PT provided no relief from the pain. He is currently taking motrin daily without improvement in pain. He has not tried acupuncture, chiropractor, massage or interventional management. He has follow up with PCP in a few weeks and hopes to discuss restarting opioids for his pain as this helped him with lower back and other pain complaints in the past. In terms of muscle damage condition is described as aching, hot, burning, stabbing, sharp, shooting and throbbing. Pain is negatively impacting his enjoyment of life, general activity, work, sleep and walking. FORMERLY [facility], [facility] Medical History Testicular pain, right Epididymal cyst Hydrocele Anxiety Umbilical hernia ADHD (attention deficit hyperactivity disorder) HTN (hypertension) GERD (gastroesophageal reflux disease) Hemorrhoids Surgical History Hx of umbilical hernia repair (07/22/21) Hx of endoscopy History of colonoscopy Status post total right knee replacement Family History Father Alive and well Mother Alive and well Social History Household Members: Friend(s) and None Household Members Other:: 2 Housing: House Do you presently have visiting nurse or other home services: No Alcohol intake: current Alcohol intake frequency: holidays/special occasions only Alcohol type: beer Patient Tobacco Use Status: Never used Tobacco Substance Use Type: Marijuana service: No Review of Systems Const All systems reviewed & are unremarkable except as noted in HPI and below Physical Exam Vital Signs: Last Vital Signs Pulse 96 01/18/23 15:25 Resp 18 01/18/23 15:25 BP 146/84 H 01/18/23 15:25 Pulse Ox 96 01/18/23 15:25 Oxygen Delivery Method Room Air 01/18/23 15:25 BMI result Body Mass Index 32.9 General: awake, alert, oriented. Answers questions appropriately. Fully engaged in examination. Skin: warm, dry, intact HEENT: Normocephalic. Hearing intact. Cardiac: External chest normal in appearance. Respiratory: No cough, audible wheezing or stridor. Abdomen: without gross distension. Neurological: Oriented to person, place, time and situation. Thought process intact. No gait abnormalities appreciated. Psychiatric: Appropriate mood and affect. Good judgment and insight. Back/Spine/Pelvis Other: Lumbar exam: Able to stand on bilateral tiptoes and bilateral heels. Able to transition from sit to stand unassisted. Ambulates with bilaterally normal heel strike and toe off Visual inspection without gross abnormality Tender to palpation over lumbar paraspinal muscles Straight leg raises with and without dorsiflexion positive bilaterally Facet loading positive bilaterally ROSINA positive bilaterally Extrem Right lower extremity: hip/thigh (pain with I/E rotation of right hip) Results Reviewed Results Reviewed: 12/22/2021 EXAMINATION: MR LUMBAR SPINE WITHOUT CONTRAST CLINICAL INFORMATION: Bilateral leg pain and low back pain. COMPARISON: X-ray lumbar spine dated 04/09/2020. Lumbar spine MRI from 04/22/2010. TECHNIQUE: Multiplanar, multisequence imaging was obtained. Limited study with motion artifacts. FINDINGS: VERTEBRAL BODIES AND PARASPINAL STRUCTURES: There is severe disc space narrowing with moderate edematous endplate changes lateralized more so to the right side at the L1-L2 level, progressed since previous imaging. Reduced intradiscal signal noted at multiple levels from spondylosis. There is moderate disc space narrowing with minimal disc bulges at the lower thoracic levels. Mild posterior subluxation evident at the L2-L3 level with chronic degenerative endplate changes. Mild anterolisthesis noted at the L4-L5 level with mild edema in the left superior articular process. Minimal anterior subluxation also evident at the L5-S1 level. The paraspinal soft tissues are normal. Moderate degenerative changes of the left SI joint. CONUS MEDULLARIS AND CAUDA EQUINE: The distal cord, conus tip, and cauda equina nerve roots appear normal. SPINAL LEVELS: L1-L2: Severe disc space narrowing and advanced degenerative endplate changes with significant endplate edema. Mild facet arthropathy. Moderate central canal stenosis. Bulging disc and osseous spurring impinge upon the right L2 nerve root in the subarticular zone. Moderate to severe right foraminal narrowing with endplate spurring and bulging disc impressing upon the extraforaminal right L1 nerve root. L2-L3: Retrosubluxation and diffuse disc bulge with hypertrophic facet arthropathy resulting in mild central canal stenosis. Patent foramina. Chronic degenerative endplate changes. L3-L4: Right posterolateral disc protrusion compresses the exiting extraforaminal right L3 nerve root with moderate right foraminal encroachment. Moderate facet arthropathy and very mild narrowing of the central canal. Mild left foraminal narrowing as well. L4-L5: Anterolisthesis and diffuse disc bulge with exuberant facet arthropathy and a small central disc protrusion. Mild central canal stenosis. Moderate right foraminal narrowing. Facet spurring and bulging disc compress the exiting left L4 nerve root with severe left foraminal encroachment. L5-S1: Mild anterolisthesis and broad-based disc bulge with mild facet arthropathy. No central canal stenosis. Mild left foraminal narrowing. [id number] right foraminal encroachment. Small right subarticular zone disc extrusion which mildly impresses upon the right S1 nerve root. MR/MR lumbar spine wo con IMPRESSION: 1. Progressed severe degenerative disc disease at the L1-L2 level with significant endplate edema. Moderate central canal stenosis with bulging disc and osseous spurring impinging upon the right L2 nerve root. [id number] right foraminal narrowing with bulging disc and endplate spurring impressing upon the extraforaminal right L1 nerve root. 2. Right posterolateral disc protrusion at the L3-L4 level compressing the extraforaminal right L3 nerve root with moderate right foraminal encroachment. Moderate facet arthropathy and mild narrowing of the central canal. 3. Mild anterolisthesis and disc bulge at the L4-L5 level with exuberant facet arthropathy and a small central disc protrusion. Mild central canal stenosis. Moderate right foraminal narrowing. Facet spurring and bulging disc compresses the exiting left L4 nerve root with severe left foraminal encroachment. 4. Mild anterior subluxation and disc bulge at the L5-S1 level with a small right subarticular zone disc extrusion mildly impressing upon the right S1 nerve root. Assessment & Plan Assessment & Plan (1) Degenerative disc disease, lumbar: Code(s): M51.36 - Other intervertebral disc degeneration, lumbar region (2) Facet arthritis of lumbar region: Code(s): M47.816 - Spondylosis without myelopathy or radiculopathy, lumbar region (3) Lumbar radiculopathy: Code(s): M54.16 - Radiculopathy, lumbar region (4) Lumbar spondylosis: Code(s): M47.816 - Spondylosis without myelopathy or radiculopathy, lumbar region Prince Smith is a very pleasant 52 year old male who presents to the office today for follow-up 2 months status post bilateral L4-L5 transforaminal epidural steroid injection. Patient reports today that his facet arthropathy is more bothersome than the radicular pain. Discussed options for treatment including diagnostic interventional testing, epidural steroid injections, peripheral nerve stimulation with Sprint, RFA and more permanent neuromodulation. The risks, consequences, alternatives, and benefits of various treatment options were discussed with the patient in great detail, including conservative management, injections and procedures. Will schedule for fluoroscopy guided diagnostic L3-L4 the are L5 MBBs with local anesthetic Justification for interventional therapy: ? Patient with average pain > 6/10 ? Patient has exhausted conservative therapy, physical therapy, NSAIDs Xray right hip ordered for evaluation of right hip pain. All questions and concerns have been answered and patient agrees with the plan. Follow up after injections and sooner if needed. Coding Level of Care Code Est Pt Level 3 (85115) Diagnoses Degenerative disc disease, lumbar M51.36 Facet arthritis of lumbar region M47.816 Lumbar radiculopathy M54.16 Lumbar spondylosis M47.816
== END 2023-01-18 15:57 | disposition home or self-care (01) ==
PROVIDERS: PCP Internal Medicine; Visit Provider Registered Nurse Emergency
DX: M51.36 Other intervertebral disc degeneration, lumbar region (principal); M47.816 Spondylosis without myelopathy or radiculopathy, lumbar region; M54.16 Radiculopathy, lumbar region
CPT/HCPCS: 99213

== ENCOUNTER → 2023-01-18 15:18 | Outpatient (BNVA) | payer OTHER, SELFPAY | PROVIDERS: PCP Internal Medicine; Visit Provider Registered Nurse Emergency ==

== ENCOUNTER 2023-01-27 15:03 | Outpatient (REF) | payer OTHER, SELFPAY ==
--- NOTE | ~2023-01-27 | XR_ITS ---
EXAMINATION: XR HIP, RIGHT CLINICAL INFORMATION: Right hip pain COMPARISON: Right hip x-ray on 07/04/2014 TECHNIQUE: Two views of the right hip. FINDINGS: BONES: Bony structures are intact. There is no focal bone destruction or periosteal reaction seen. JOINTS: Alignment of hip joint is normal. SOFT TISSUE: Soft tissue is normal. No radiopaque foreign body or abnormal air collection is seen. XR/XR hip RT min 2V IMPRESSION: Unchanged Normal x-ray of right hip. No fracture or dislocation or signs of avascular necrosis are seen.
--- NOTE | ~2023-01-27 | CT_ITS ---
EXAMINATION: CT ENTEROGRAPHY ABDOMEN AND PELVIS WITH CONTRAST CLINICAL INFORMATION: Periumbilical abdominal pain COMPARISON: CT scan of abdomen and pelvis on 07/06/2022 TECHNIQUE: Study performed with oral VoLumen (1350 mL) and 480 mL of water to distend the abdomen. The patient was injected with 85 mL Omnipaque 350 intravenous contrast which was administered without adverse effect. Coronal and sagittal reformatted images were obtained at the technologist's workstation. This CT examination was performed using dose optimization techniques as appropriate, variously including the following: *Automated exposure control *Adjustment of mA and/or kV according to patient size (this includes techniques or standardized protocols for targeted exams where dose is matched to indication/reason for exam; i.e. extremities or head) *Use of iterative reconstruction technique DLP: 586 mGy-cm FINDINGS: GASTROINTESTINAL FINDINGS: Stomach: Well-distended and normal in appearance. Small intestine: Satisfactorily distended and normal in appearance. Large intestine: Well-distended and normal in appearance. No perirectal changes demonstrated. The appendix cannot be identified. LUNG BASES: Bilateral lung bases are clear. LIVER: No focal lesion is seen in the liver. GALLBLADDER AND BILIARY TREE: Gallbladder appears unremarkable without calcified stones. Common bile duct is not dilated. SPLEEN: The spleen is normal in size without focal lesion. PANCREAS: The pancreas appears unremarkable. ADRENAL GLANDS: Adrenal glands are normal in size without focal lesion bilaterally. KIDNEYS: Bilateral kidneys are normal in size without focal lesion. RETROPERITONEUM: No abnormally enlarged retroperitoneal lymph nodes, mass or hematoma could be seen. BLOOD VESSELS: Abdominal aorta is normal in size and smoothly patent. ABDOMINAL WALL: Abdominal subcutaneous tissue and muscle are intact. No evidence of ventral hernia. PERITONEUM: There was no ascites. There were no abdominal peritoneal inflammatory changes seen. No free peritoneal air was seen. No abnormally enlarged mesenteric lymph nodes are found. BONES: Advanced L1-L2 degenerative lumbar disc disease and extensive sclerotic vertebral endplate changes are seen. There is mild L1-L2 levoscoliosis. No fracture or dislocation. No focal bone lesion diagnostic of metastatic disease could be seen in the lumbar region. EXAMINATION: CT pelvis. TECHNIQUE: Multiple axial images were obtained from iliac crest to the inferior pubic rami following the administration of 85 mL of Omnipaque 300. Coronal and sagittal images were reconstructed from axial image data. Dose reduction technique: One or more of the following individual dose optimization techniques were used including: Automated exposure control, mA and/or kV were adjusted according to patient size or iterative reconstruction. FINDINGS: URINARY BLADDER: Urinary bladder fills normally with urine. GENITAL ORGANS: Seminal vesicles are unremarkable. Prostate gland is normal. LYMPH NODES: No abnormally enlarged iliac or inguinal lymph nodes are seen. PERITONEUM: No inflammatory changes, ascites or free peritoneal air are found in the pelvis. BONES: No fracture or dislocation. No focal bone lesion diagnostic of metastatic disease could be seen in the pelvis. CT/CT enterography IMPRESSION: 1. Interval resolution of pancolitis. No intestinal or colonic obstruction or inflammatory changes could be seen. 2. Unchanged Advanced degenerative disc disease at L1-L2. 3. No evidence of inflammatory changes, ascites or free peritoneal air.
[2023-01-27 16:00] LABS: Alanine Aminotransferase 39 U/L (0-40); Albumin Level 4.7 g/dL (3.5-5.0); Alkaline Phosphatase 58 U/L (39-117); Anion Gap 11 (12-20); Aspartate Amino Transferase 29 U/L (5-37); Bilirubin Total 0.8 mg/dL (0.0-1.0); Blood Urea Nitrogen 14 mg/dL (9-16); Calcium 10.3 mg/dL (8.4-10.2); Carbon Dioxide 29 mmol/L (22-29); Chloride 104 mmol/L (96-108); Estimated Glomerular Filt Rate > 60; Glucose Random 87 mg/dL (60-115); Sodium 140 mmol/L (135-145); Total Protein 8.3 g/dL (6.5-8.0)
[2023-01-27] MEDS: Sorbitol/Mannit/Xanth Imaging 500 ML LIQUID 1500 ML PO (17:22)
[2023-01-27] MEDS: iohexoL 350 MG/ML 100 ML INFUS..BTL 85 ML IV (17:22)
== END 2023-01-27 15:04 | disposition home or self-care (01) ==
LOC: HO.CT 15:03
PROVIDERS: PCP Internal Medicine; Visit Provider Internal Medicine Gastroenterology
DX: K75.81 Nonalcoholic steatohepatitis (NASH) (principal); R10.33 Periumbilical pain; M25.551 Pain in right hip
CPT/HCPCS: 36415; 73502; 74177; 80053; Q9967

== ENCOUNTER 2023-02-08 05:17 | Outpatient (REF) | payer OTHER, SELFPAY | END 2023-02-08 05:18 | disposition home or self-care (01) | LOC: CF 05:17 | PROVIDERS: Visit Provider Anesthesiology | DX: Z13.89 Encounter for screening for other disorder (principal) | CPT/HCPCS: J2795; Q9967 ==

== ENCOUNTER 2023-02-11 13:19 | Outpatient (AMB) | payer OTHER, MEDICAID, SELFPAY ==
--- NOTE | 2023-02-11 13:24 | MHC.OFFVIS ---
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: discuss surgery Intake Note: Patient is Present for Telephone Follow Up Urology Med: None Antibiotic Allergy: None Blood Thinner: None Allergies seasonal Allergy (Unknown, Uncoded 12/17/22 08:43) Unknown HPI HPI Comments History of Present Illness Details Luis is a pleasant male. He is a patient of Dr. Arellano. He seen for the following urologic conditions - right epididymal cyst - microscopic hematuria Completed workup for microscopic hematuria Discussion today regarding epididymal cyst removal Risks and benefits discussed He would like to proceed [facility] Medical History Testicular pain, right Epididymal cyst Hydrocele Anxiety Umbilical hernia ADHD (attention deficit hyperactivity disorder) HTN (hypertension) GERD (gastroesophageal reflux disease) Hemorrhoids Surgical History Hx of umbilical hernia repair (07/22/21) Hx of endoscopy History of colonoscopy Status post total right knee replacement Family History Father Alive and well Mother Alive and well Social History Household Members: Friend(s) and None Household Members Other:: 2 Housing: House Do you presently have visiting nurse or other home services: No Alcohol intake: current Alcohol intake frequency: holidays/special occasions only Alcohol type: beer Patient Tobacco Use Status: Never used Tobacco Substance Use Type: Marijuana service: No Review of Systems Const Denies chills and Denies fever(s) Card Reports no additional complaints and Denies syncope Resp Denies cough GI Denies abdominal pain and Denies heartburn Reports as per HPI and Denies change in libido Neuro Denies syncope Psych Denies change in libido Endo Denies change in libido Physical Exam Const General: cooperative, healthy appearing, comfortable and no acute distress Orientation/consciousness: patient oriented x3 HEENT Face and sinus: Yes normal facial exam Mouth: moist mucous membranes Neck Neck: Yes normal visual inspection, Yes full ROM and Yes trachea midline Chest Chest palpation & inspection: normal inspection of the chest Resp Effort & Inspection: normal respiratory effort, able to speak in complete sentences and no respiratory distress GI Inspection: Yes normal to inspection Back/Spine/Pelvis Cervical Spine: normal cervical lordosis Thoracic/Lumbar Spine: thoracic and lumbar spine normal to inspection Skin General skin exam: no rashes or lesions noted Neuro General: patient oriented x3, gait normal, tone normal and moves all extremities Extrem General: Yes normal to inspection and Yes capillary refill normal Assessment & Plan Assessment & Plan (1) Epididymal cyst: Code(s): N50.3 - Cyst of epididymis (2) Testicular pain: Code(s): N50.819 - Testicular pain, unspecified Plan Risks, benefits and alternatives to therapy were discussed. These include but are not limited to infection, bleeding, damage to local organs and tissues, need for further interventions. Anesthetic risks regarding cardiac arrhythmia, blood clots, and potential mortality were discussed. The patient understands the typical recovery time and the outpatient nature of the procedure. After consideration of these risks the patient gives full informed consent and they wish to move ahead with the procedure. Right epididymal cyst removal Patient Instructions: Imaging studies, laboratory and physical exam results were discussed and reviewed in detail. No major barriers to patient understanding were identified. An opportunity to ask questions regarding the treatment plan was provided. All questions were answered. The patient expressed understanding and agreement with the above treatment plan. The patient is aware they should contact our office by phone for worsening of their current condition or the appearance of new urologic symptoms. Compliance is encouraged with any medications and followup testing that is ordered. It is a privilege to participate in the urologic care of your patient. If you have any questions or concerns regarding treatment for the above conditions, or other urologic issues, please do not hesitate to contact me. The office telephone contact is [phone]. This note is constructed using voice recognition software. While every effort has been made to ensure accuracy catapult and arresting gear officer errors may have been included. Yours sincerely, Dr Rogelio Waldrop MD, [facility] - Urology Providers of Expert, Compassionate Care for the Genitourinary System Telehealth Telehealth Location of provider rendering services: practice address Location of patient: address on file Patient Identification confirmed using: Name, : Yes Telehealth method: voice only Patient verbally consented to treatment: Yes Patient verbally consented to billing insurance company: Yes Patient informed of any privacy concerns related to visit: Yes Coding Level of Care Code Est Pt Level 4 (56256) Diagnoses Epididymal cyst N50.3 Testicular pain N50.819
== END 2023-02-11 13:50 | disposition home or self-care (01) ==
LOC: HO.HUSH 13:19
PROVIDERS: PCP Internal Medicine; Visit Provider Urology
DX: N50.3 Cyst of epididymis (principal); N50.819 Testicular pain, unspecified
CPT/HCPCS: 99214

== ENCOUNTER → 2023-02-11 13:19 | Outpatient (BNVA) | payer OTHER, SELFPAY | PROVIDERS: PCP Internal Medicine; Visit Provider Urology ==

== ENCOUNTER 2023-02-22 06:06 | Outpatient (REF) | payer OTHER, SELFPAY | END 2023-02-22 06:07 | disposition home or self-care (01) | LOC: CF 06:06 | PROVIDERS: Visit Provider Anesthesiology | DX: Z13.89 Encounter for screening for other disorder (principal) | CPT/HCPCS: J2795; Q9967 ==

== ENCOUNTER → 2023-03-30 09:43 | Outpatient (BNVA) | payer OTHER, SELFPAY | PROVIDERS: PCP Internal Medicine; Visit Provider Urology ==

== ENCOUNTER 2023-04-18 11:33 | Day surgery (SDC) | payer OTHER, SELFPAY ==
--- NOTE | 2023-04-15 09:40 | HO.ANESPROP2 ---
Documented by User: Corrie Lea NP 04/15/23 09:41 HPI - Anesthesia Eval Consult details Narrative: 53yo M for Right Epididymectomy PMFSH Active Problems Active Problems: All Active Problems (Updated 01/18/23 @ 15:58 by Jaclyn Childers, OPTICIAN APPRENTICE, ADA ACCOMMODATION CONSULTANT) Right hip pain (Acute) Monoallelic mutation of PALB2 gene (Acute) Diarrhea (Acute) Lumbar spondylosis (Acute) Facet arthritis of lumbar region (Acute) Degenerative disc disease, lumbar (Acute) Encounter for screening for malignant neoplasm of prostate (Acute) Microscopic hematuria (Acute) Bilateral hydrocele (Acute) Epididymal cyst (Acute) Testicular pain (Acute) Abscess involving suture (Acute) Status post right knee replacement (Acute) RUQ abdominal pain (Acute) Dysphagia (Acute) Bloating symptom (Acute) Past Medical History Medical History Testicular pain, right Epididymal cyst Hydrocele Anxiety Umbilical hernia ADHD (attention deficit hyperactivity disorder) HTN (hypertension) GERD (gastroesophageal reflux disease) Hemorrhoids Family History Family History Father Alive and well Mother Alive and well Family history of problems with anesthesia: No Surgical History Surgical History Hx of umbilical hernia repair (07/22/21) Hx of endoscopy History of colonoscopy Status post total right knee replacement History of Problems with Anesthesia: No Social History Social History Household Members: Friend(s) and None Household Members Other:: 2 Housing: House Do you presently have visiting nurse or other home services: No Alcohol intake: current Alcohol intake frequency: holidays/special occasions only Alcohol type: beer Patient Tobacco Use Status: Former Tobacco user Use of substances other than those prescribed or required for medical reasons: Yes Substance Use Type: Marijuana Are you DNR?: No Advance Directives: No Advance Directives Information Provided: Yes service: No Meds Allergies Allergy/AdvReac Type Severity Reaction Status Date / Time seasonal Allergy Unknown Unknown Uncoded 12/17/22 08:43 Home Medications Medication Instructions Recorded Confirmed Last Taken Type acetaminophen 325 mg tablet 650 mg PO Q6H PRN Pain 11/21/19 12/28/22 07/04/22 History fluoxetine 40 mg capsule 40 mg PO DAILY 07/06/22 04/14/23 04/18/23 History losartan 50 mg tablet 50 mg PO DAILY 12/17/22 04/14/23 Unknown History omeprazole 20 mg capsule,delayed 20 mg PO BID 12/17/22 04/14/23 Unknown History release dextroamphetamine-amphetamine 5 mg 1 tab PO DAILY 04/14/23 04/14/23 04/18/23 History tablet metoprolol succinate 100 mg 100 mg PO DAILY 04/18/23 04/18/23 04/18/23 History tablet,extended release 24 hr Exam Height,Weight and Vital Signs: Height 5 ft 7 in Pertinent Lab Results Pertinent Lab Results: Laboratory Tests 12/18/22 01/27/23 10:22 15:10 WBC 6.4 Hgb 14.8 D Hct 42.8 D Plt Count 253 Sodium 140 Potassium 4.0 Chloride 104 Carbon Dioxide 29 BUN 14 Creatinine 0.80 Assessment and Plan Assessment Anesthesia Assessment: Chart Reviewed Final Anesthetic Review Family History of Problems with Anesthesia: No History of Problems with Anesthesia: No Documented by User: Jaylon Suarez MD 04/18/23 15:43 [facility] Past Medical History Medical History Testicular pain, right Epididymal cyst Hydrocele Anxiety Umbilical hernia ADHD (attention deficit hyperactivity disorder) HTN (hypertension) GERD (gastroesophageal reflux disease) Hemorrhoids Family History Family History Father Alive and well Mother Alive and well Surgical History Surgical History Hx of umbilical hernia repair (07/22/21) Hx of endoscopy History of colonoscopy Status post total right knee replacement Social History Social History Household Members: Friend(s) and None Household Members Other:: 2 Housing: House Do you presently have visiting nurse or other home services: No Alcohol intake: current Alcohol intake frequency: holidays/special occasions only Alcohol type: beer Patient Tobacco Use Status: Former Tobacco user Use of substances other than those prescribed or required for medical reasons: Yes Substance Use Type: Marijuana Are you DNR?: No Advance Directives: No Advance Directives Information Provided: Yes service: No Meds Allergies Allergy/AdvReac Type Severity Reaction Status Date / Time seasonal Allergy Unknown Unknown Uncoded 12/17/22 08:43 Home Medications Medication Instructions Recorded Confirmed Last Taken Type acetaminophen 325 mg tablet 650 mg PO Q6H PRN Pain 11/21/19 12/28/22 07/04/22 History fluoxetine 40 mg capsule 40 mg PO DAILY 07/06/22 04/14/23 04/18/23 History losartan 50 mg tablet 50 mg PO DAILY 12/17/22 04/14/23 Unknown History omeprazole 20 mg capsule,delayed 20 mg PO BID 12/17/22 04/14/23 Unknown History release dextroamphetamine-amphetamine 5 mg 1 tab PO DAILY 04/14/23 04/14/23 04/18/23 History tablet metoprolol succinate 100 mg 100 mg PO DAILY 04/18/23 04/18/23 04/18/23 History tablet,extended release 24 hr Exam Airway Mallampati Class: I TM Dist: >3cm Neck ROM: Full Partial: Upper Loose/Missing/Broken Teeth: Yes and Upper Heart: ok Lungs: ok Assessment and Plan Assessment Anesthesia Assessment: Anesthesia Plan Discussed Final Anesthetic Review NPO: Yes ASA Class: II Final Preanesthetic Review: No Changes in Pt Med Stat, Meds/Allgs Chart Reviewed, Consent Obtained/Reviewed and Anes Risks/Benef Reviewed Patient Risk: Intermediate Procedure Risk: Low Anesthetic Plan Anesthetic Plan: GA and Agree w/ Assess. and Plan Disposition: Standard PACU
[2023-04-18 13:19] VITALS: BMI 31.4
[2023-04-18 13:34] VITALS: BP 148/105; PULSE 90; RESP 16; TEMP 37; O2SAT 98
[2023-04-18] MEDS: Lactated Ringers 1,000 ML 100 ML IVCONT (13:42)
--- NOTE | 2023-04-18 15:54 | PC.NURSE ---
dr. sage verified that order and consent match due to it is the same procedure just worded differently.
--- NOTE | 2023-04-18 15:55 | P.HPSUR_ITS ---
Pre-Procedural Eval Section A - 24 Hr Update-Section A only Date of Service: 04/18/23 The patient is an INPATIENT: No Changes since office visit: No Cold of Flu in the past 2 weeks, No New Medical Problems, No Changes in Medication and No Patient answered all questions The patient has been examined within 24 hours of the surgical procedure. The History & Physical has been completed within 30 days and I have reviewed it.: No Section B - Complete if H&P > 30 days Chief Complaint: Cyst of epididymis Details of Present Illness: Right epididymal cyst Relevant Family History (Specify if Yes): No Relevant Social History: None Present Medications: see Short Stay Collaborative assessment Medical History: No relevant PMH History of Previous Operations: Relevant previous surgery/procedure and date(s) Allergies: Allergies Allergy/AdvReac Type Severity Reaction Status Date / Time seasonal Allergy Unknown Unknown Uncoded 12/17/22 08:43 Review of Systems Sugical H&P ROS: Negative: Constitution, Cardiovascular, Respiratory, Neurological, Psychiatric, Hem-Onc, Allergic/Immunologic, Gastrointestinal, Genitourinary, Musculoskeletal, Integumentary, Endocrine and Eyes /Ears/Nose/Throat Exam Surgical H&P Exam: Normal: HEENT, Normal: Heart, Normal: Lungs, Normal: Extremities, Normal: Abdomen, Normal: Skin and Normal: Neurological Plan Diagnosis/Plan: Unchanged (Right epididymal cyst removal) I have reviewed the history and physical and performed a pertinent physical examination on my patient. No changes have occurred unless specified. Time Spent With Patient Time: Total time managing care of this patient today ____ minutes.
[2023-04-18 16:39] VITALS: BP 122/96; PULSE 88; RESP 16; TEMP 36.2; O2SAT 99
[2023-04-18 16:40] VITALS: BP 144/98; PULSE 99; RESP 16; O2SAT 98
[2023-04-18 16:45] VITALS: BP 146/94; PULSE 100; RESP 16; O2SAT 100
[2023-04-18 16:50] VITALS: BP 151/97; PULSE 99; RESP 16; O2SAT 100
[2023-04-18] MEDS: oxyCODONE HCl Immed Release 5 MG TABLET PO (17:03)
[2023-04-18 17:05] VITALS: BP 154/99; PULSE 88; RESP 18; TEMP 36.5; O2SAT 99
--- NOTE | 2023-04-25 18:10 | W.PM.OPN ---
Operative Note Operative Note Date of Service: 04/18/23 Narrative: PreOperative Diagnosis: Left epididymal cyst Post Operative Diagnosis: Left epididymal cyst Procedure: Left epididymal cyst removal Surgeon: Dr Rogelio Waldrop Anesthesia: General Indications for procedure: Persistent pain and ultrasound showing with epididymal cyst Procedure: After informed consent was verified the patient was brought to the operating room and placed in a supine position. Anesthesia was administered per protocol. The patient was prepped and draped in a sterile fashion. Safety pause time-out was performed. Antibiotics being given. A small horizontal incision was made in the scrotum after application of subcutaneous lidocaine. Dissection onto the tunica was performed. The tunica appeared to be adhered to the side of the testicle. We were able to open a space the superior aspect of the testicle. We delivered the testicle and appeared to previously had trauma with scarring towards the tunica. The epididymis was seen and there was a cyst within the epididymal head. Using cautery with a pinpoint tip we are able to dissect the cyst away from the epididymal material. This was removed. The exposed epididymal head was sutured onto the testicle using a 3-0 Vicryl. The testicle was then placed back into the scrotum. The tunica layer was closed with 3-0 Vicryl. The skin edges were then reapproximated using interrupted 4-0 chromic. He tolerated the procedure well. Was extubated in operating room. Transferred in stable condition to the recovery area. Pathology: Epididymal cyst Drains:
== END 2023-04-18 17:07 | disposition home or self-care (01) ==
PROVIDERS: PCP Internal Medicine; Visit Provider Urology
PROC: (CPT 54830; principal; 2023-04-18 13:50)
DX: N50.3 Cyst of epididymis (principal); Q55.29 Other congenital malformations of testis and scrotum; I10 Essential (primary) hypertension; F41.9 Anxiety disorder, unspecified; Z79.899 Other long term (current) drug therapy; Z87.891 Personal history of nicotine dependence
CPT/HCPCS: 54830; 88304; J0131; J0665; J0690; J1100; J1885; J2250; J2405; J2704; J3010

== ENCOUNTER → 2023-04-18 11:33 | Outpatient (BNV) | payer OTHER, SELFPAY | PROVIDERS: PCP Internal Medicine; Visit Provider Urology | DX: N50.3 Cyst of epididymis (principal) | CPT/HCPCS: 54840 ==

== ENCOUNTER 2023-12-09 06:58 | Outpatient (REF) | payer OTHER, BC, SELFPAY ==
--- NOTE | ~2023-12-09 | XR_ITS ---
EXAMINATION: XR HIP, RIGHT CLINICAL INFORMATION: Right hip pain COMPARISON: Right hip radiograph 01/27/2023 TECHNIQUE: Two views of the right hip. FINDINGS: No displaced acute fractures. The right hip is adequately aligned. Similar mild joint space narrowing. No acute soft tissue abnormality. No abnormal soft tissue calcifications. XR/XR hip RT min 2V IMPRESSION: No acute fracture or dislocation. Electronically signed by: Addison Shea MD 12/09/2023 10:32 AM EDT
[2023-12-09 07:29] LABS: MANUAL DIFF FLAG NO
[2023-12-09 07:47] LABS: Basophils Percent Auto 0.3 % (0-2); Eosinophils Absolute Auto 0.2 X10*3/uL (0.0-0.4); Eosinophils Percent Auto 2.6 % (0-4); Hematocrit 39.7 % (42.0-52.0); Hemoglobin 13.8 g/dl (14.0-18.0); Imm Gran Abs Auto 0.02 X10*3/uL (0.00-0.03); Imm Gran Pct Auto 0.3 % (0.0-0.4); Lymphocytes Absolute Auto 3.4 X10*3/uL (1.2-4.9); Lymphocytes Percent Auto 55.2 % (20-40); Mean Corpuscular HGB Conc 34.8 g/dl (31.0-36.0); Mean Corpuscular Hemoglobin 33.6 pg (27.0-33.0); Mean Corpuscular Volume 96.6 fL (80.0-98.0); Mean Platelet Volume 9.2 fL (9.4-12.4); Monocytes Absolute Auto 0.8 X10*3/uL (0.1-1.2); Monocytes Percent Auto 13.3 % (2-11); Neutrophils Absolute Auto 1.7 x10*3/uL (2.0-8.3); Neutrophils Percent Auto 28.3 % (45-73); Platelet Count 244 X10*3/uL (160-400); Red Blood Count 4.11 X10*6/uL (4.60-5.80); Red Cell Distribution Width 13.4 % (11.0-16.0); White Blood Count 6.1 X10*3/uL (4.8-10.8)
[2023-12-09 08:23] LABS: Alanine Aminotransferase 51 U/L (0-40); Albumin Level 4.2 g/dL (3.5-5.0); Alkaline Phosphatase 60 U/L (39-117); Anion Gap 12 (12-20); Aspartate Amino Transferase 34 U/L (5-37); Bilirubin Total 0.3 mg/dL (0.0-1.0); Blood Urea Nitrogen 8 mg/dL (9-16); Calcium 9.1 mg/dL (8.4-10.2); Carbon Dioxide 27 mmol/L (22-29); Chloride 103 mmol/L (96-108); Cholesterol 203 mg/dL (<200); Estimated Glomerular Filt Rate > 60; Glucose Fasting 111 mg/dL (60-99); HDL Cholesterol 50 mg/dL (>40); Sodium 138 mmol/L (135-145); Total Protein 7.3 g/dL (6.5-8.0); Triglycerides 404 mg/dL (<150)
[2023-12-09 08:53] LABS: Folate 4.5 ng/mL (> or = 4.0); Prostate Specific Antigen 0.54 ng/mL (<0.05-4.0); Vitamin B12 1095 pg/mL (200-900)
== END 2023-12-09 06:59 | disposition home or self-care (01) ==
LOC: HO.LAB 06:58
PROVIDERS: PCP Internal Medicine; Visit Provider Internal Medicine
DX: Z00.00 Encounter for general adult medical examination without abnormal findings (principal); R53.83 Other fatigue; D64.9 Anemia, unspecified; E78.5 Hyperlipidemia, unspecified
CPT/HCPCS: 36415; 73502; 80053; 80061; 82607; 82746; 84153; 85025

== ENCOUNTER 2024-02-20 11:12 | Outpatient (AMB) | payer BC, SELFPAY ==
--- NOTE | 2024-02-20 11:34 | MHC.OFFVIS ---
Intake Visit Reasons: Consult for external hemorrhoids Intake Note: This patient presents for external hemorrhoid assessment. Pt c/o; reports no complaints at this time. Device Processing Engineer Required: No Accompanied by: Self / Same As Patient Allergies seasonal Allergy (Unknown, Uncoded 02/20/24 11:47) Unknown Medication List - Last Reconciled 02/20/24 by Zack Sullivan MD acetaminophen 650 mg PO Q6H PRN celecoxib 200 mg PO BID cyanocobalamin (vitamin B-12) 1,000 mcg PO DAILY dextroamphetamine-amphetamine 5 mg 1 tab PO DAILY fluoxetine 40 mg PO DAILY losartan 50 mg PO DAILY metoprolol succinate ER 100 mg PO DAILY omeprazole 20 mg PO BID oxycodone-acetaminophen 5-325 mg 1 tab PO Q4H PRN 7 days oxycodone-acetaminophen 5-325 mg 1 tab PO Q4H PRN 7 days HPI HPI Consult for external hemorrhoids: Details: 54-year-old male referred for hemorrhoid issues. He says that he has hemorrhoids for many years now. However, for the past year, he has been noticing worsening of symptoms. He says that he has more bleeding now. He describes frequent episodes of swelling and pain. He says that he is thinking of proceeding with hemorrhoidectomy in view of his worsening symptoms He describes occasional constipation He had a colonoscopy in 2018 and was noted to have colitis at that time. [facility] Medical History (Updated 02/20/24 @ 12:09 by Zack Sullivan MD) Bleeding hemorrhoids Testicular pain, right Epididymal cyst Hydrocele Anxiety Umbilical hernia ADHD (attention deficit hyperactivity disorder) HTN (hypertension) GERD (gastroesophageal reflux disease) Hemorrhoids Surgical History Hx of umbilical hernia repair (07/22/21) Hx of endoscopy History of colonoscopy Status post total right knee replacement Family History Father Alive and well Mother Alive and well Social History Household Members: Friend(s) and None Household Members Other:: 2 Housing: House Do you presently have visiting nurse or other home services: No Alcohol intake: current Alcohol intake frequency: holidays/special occasions only Alcohol type: beer Patient Tobacco Use Status: Former Tobacco user Substance Use Type: Marijuana service: No Review of Systems Const Denies chills and Denies fever(s) Card Denies chest pain, Denies dyspnea and Denies dyspnea on exertion Resp Denies cough, Denies dyspnea and Denies dyspnea on exertion GI Reports hematochezia and Denies change in bowel habits Denies hematuria and Denies difficulty urinating Musc Denies back pain and Denies limited range of motion Neuro Denies focal weakness and Denies convulsions Psych Denies depression and Denies mood swings Physical Exam Const General: comfortable and no acute distress Orientation/consciousness: patient oriented x3 Neck Neck: Yes no lymphadenopathy Resp Auscultation: clear to auscultation bilaterally Cardio Rhythm: regular rhythm GI Other: Rectal exam shows an external hemorrhoidal column on the left moderate size Palpation (GI): Soft to palpation, nontender and no guarding Neuro General: patient oriented x3 Office Procedures Anoscopy He was in odell-knife position. The anoscope was gently inserted. A full examination of the anal canal was done. He did have a large internal external hemorrhoidal column on the left. This seems to bleed easily. There were no other obvious lesions. There was no fissure or ulceration. There was no induration on digital exam [id number] Assessment & Plan Assessment & Plan (1) Bleeding hemorrhoids: Code(s): K64.9 - Unspecified hemorrhoids Category: Medical Plan: He has internal and external hemorrhoids and a bulky column appears to be on the left side seen on anoscopy. He describes worsening problems with pain, bleeding and swelling. He wants to proceed with hemorrhoidectomy in view of this I had a long discussion with him about the technique of exam under anesthesia and hemorrhoidectomy. I explained the risks including but not limited to bleeding, infections, postop pain, as well as the benefits and alternatives. I reviewed with him what to expect postoperatively He says he understands and wants to proceed in view of his worsening discomfort and inconvenience with his symptoms. Coding Level of Care Code New Pt Level 3 (03395) Diagnoses Bleeding hemorrhoids K64.9 CPT Codes Details - CPT: [id number] ([id number])
== END 2024-02-20 11:55 | disposition home or self-care (01) ==
PROVIDERS: PCP Internal Medicine; Visit Provider Surgery
DX: K64.9 Unspecified hemorrhoids (principal)
CPT/HCPCS: 46600; 99203

== ENCOUNTER → 2024-02-20 11:12 | Outpatient (BNVA) | payer BC, SELFPAY | PROVIDERS: PCP Internal Medicine; Visit Provider Surgery | DX: K64.9 Unspecified hemorrhoids (principal) | CPT/HCPCS: 46600 ==

== ENCOUNTER 2024-03-04 17:34 | Emergency (ER) | payer BC, SELFPAY ==
--- NOTE | ~2024-03-04 | CT_ITS ---
CLINICAL HISTORY: abdominal pain, tenderness severe diarrhea CT Abdomen and Pelvis W Contrast COMPARISON: CR/SR - XR HIP RT MIN 2V - 12/09/23 07:[address]/SR - CT ABDOMEN PELVIS WO IV CON - 07/06/22 00:26 EDT FINDINGS: Diffusely hypodense liver consistent with hepatic steatosis. Hepatomegaly. Normal spleen. Normal kidneys. Normal adrenal glands. Normal pancreas. No visible cholelithiasis. No biliary dilation. No evidence of bowel obstruction or colitis. Normal appendix. Poorly distended bladder with mild diffuse wall thickening. No ascites. No pneumoperitoneum. No lymphadenopathy. No acute fracture. Degenerative changes in the spine. No abdominal aortic aneurysm. IMPRESSION: Bladder wall thickening, which could be due to underdistention or cystitis. Nonemergent/incidental findings above. This document has been electronically signed by: Dallin Tovar MD on 03/04/2024 23:55:54
[2024-03-04 17:44] VITALS: BP 125/92; PULSE 121; RESP 20; TEMP 36.7; O2SAT 98; BMI 29.2
--- NOTE | 2024-03-04 17:44 | ED_ITS ---
HPI - General Adult General Chief complaint: Abdominal Pain Stated complaint: pyloric infection? Time Seen by Provider: 03/04/24 22:18 History of Present Illness ED Provider: Landon VAZQUEZ narrative: The patient is a 54-year-old male with a history of colitis. He also has problems with ulcers and has had H pylori in the past. He also has problems with hemorrhoids. The patient says that for the last 2 weeks he has had frequent uncomfortable diarrhea. He describes his loose stools as orally and foul-smelling. He has rectal discomfort that he attributes to hemorrhoids and in fact he is scheduled to have a procedure with Dr. Nate cloud. He also has abdominal discomfort that is periumbilical and epigastric. He has not had any definite fever. He has had nausea and occasional vomiting. Related Data Home Medications ?Medication ?Instructions ?Recorded ?Confirmed acetaminophen 325 mg tablet 650 mg PO Q6H PRN Pain 11/21/19 02/20/24 fluoxetine 40 mg capsule 40 mg PO DAILY 07/06/22 02/20/24 losartan 50 mg tablet 50 mg PO DAILY 12/17/22 02/20/24 omeprazole 20 mg capsule,delayed 20 mg PO BID 12/17/22 02/20/24 release dextroamphetamine-amphetamine 5 mg 1 tab PO DAILY 04/14/23 02/20/24 tablet metoprolol succinate 100 mg 100 mg PO DAILY 04/18/23 02/20/24 tablet,extended release 24 hr Previous Rx's ?Medication ?Instructions ?Recorded celecoxib 200 mg capsule 200 mg PO BID #60 caps 05/29/20 oxycodone-acetaminophen 5 mg-325 1 tab PO Q4H PRN pain (scale score 04/18/23 mg tablet 4-6) 7 days #14 tabs oxycodone-acetaminophen 5 mg-325 1 tab PO Q4H PRN pain (scale score 04/18/23 mg tablet 4-6) 7 days #14 tabs cyanocobalamin (vitamin B-12) 1,000 mcg PO DAILY #90 tabs 09/20/23 1,000 mcg sublingual tablet sucralfate 1 gram tablet 1 g PO BID PRN Epigastric pain #60 03/05/24 tabs Allergies Allergy/AdvReac Type Severity Reaction Status Date / Time seasonal Allergy Unknown Unknown Uncoded 03/04/24 17:46 Review of Systems 2 Review of Systems: Yes all other systems are reviewed and are negative [facility] Past Medical History Medical History (Updated 03/05/24 @ 02:23 by Blane Navarrete MD) Bleeding hemorrhoids Testicular pain, right Epididymal cyst Hydrocele Anxiety Umbilical hernia ADHD (attention deficit hyperactivity disorder) HTN (hypertension) GERD (gastroesophageal reflux disease) Hemorrhoids Surgical History Hx of umbilical hernia repair (07/22/21) Hx of endoscopy History of colonoscopy Status post total right knee replacement Family History Family History Father Alive and well Mother Alive and well Social History Social History Household Members: Friend(s) and None Household Members Other:: 2 Housing: House Do you presently have visiting nurse or other home services: No Alcohol intake: current Alcohol intake frequency: holidays/special occasions only Alcohol type: beer Patient Tobacco Use Status: Former Tobacco user Substance Use Type: Marijuana service: No Physical Exam ED Vital Signs: Vital Signs - 24 hr 03/04/24 17:44 03/04/24 22:45 03/04/24 23:31 Temperature 98.1 F 97.7 F Pulse Rate 121 H 99 91 Respiratory Rate 20 20 18 Blood Pressure 125/92 H 146/105 H 132/82 Pulse Oximetry 98 98 100 Oxygen Delivery Method Room Air Room Air Room Air 03/05/24 02:34 Temperature 97.7 F Pulse Rate 91 Respiratory Rate 18 Blood Pressure 132/82 Pulse Oximetry 100 Oxygen Delivery Method Room Air BMI result Body Mass Index 29.2 Const Other: The patient is awake and alert. He is well-groomed. He appears mildly uncomfortable but not acutely ill otherwise. HENMT Other: Face is symmetrical. Mucous membranes moist. Eyes General: appearance normal, both eyes and all related structures Conjunctivae: conjunctivae normal Sclerae: sclerae normal EOM: EOMs intact bilaterally Neck Neck: Yes full ROM Resp Effort & Inspection: normal respiratory effort Auscultation: clear to auscultation bilaterally Cardio Rate: regular rate Rhythm: regular rhythm Heart sounds: S1 normal heart sound present and S2 normal heart sound present GI Other: There is diffuse mid abdominal and epigastric tenderness without focal rebound or guarding. Skin General skin exam: no rashes or lesions noted Neuro Other: The patient is awake and alert with a normal mental status. Cranial nerves are intact. He moves his extremities normally. Gait is normal. Extrem Other: No peripheral edema Course Course Course Narrative: This is an RME performed by Jaz Cox CNP: Additional HPI, ROS, PE not included below will be deferred to primary provider. Patient is a 54-year-old male who presents emergency department for evaluation of diffuse abdominal pain, nausea, vomiting, diarrhea, admits to a history of H pylori infection he feels as though this has returned though his symptoms are feeling much worse. Reports symptom onset a couple of weeks ago but has progressively worsening. Denies fevers or chills. Denies known sick contacts. Plan: Serum labs, urinalysis, viral serologies Reevaluation(s) Reevaluation #1: Received call from lab that insufficient quantity of stool was obtained to run stool sample, order cancelled. Placed call to patient for follow up, no answer, left voicemail for patient to call the ED. Time: 10:51 Medications Administered Discontinued Medications Generic Name Dose Route Start Last Admin Trade Name Lawrenceq PRN Reason Stop Dose Admin Diphenhydramine HCl 25 mg 03/04/24 22:34 03/04/24 23:26 Diphenhydramine Hcl 50 Mg/Ml Vial IVPUSH 03/04/24 22:35 25 mg ONCE ONE Administration Sodium Chloride 1,000 mls @ 999 mls/hr 03/04/24 22:45 03/05/24 00:23 Ns IV 03/04/24 23:45 Infused .Q1H1M REBECCA Infusion Sodium Chloride 1,000 mls @ 999 mls/hr 03/04/24 23:45 03/05/24 01:41 Ns IV 03/05/24 00:45 Infused .Q1H1M REBECCA Infusion Acetaminophen 1,000 mg in 100 mls @ 400 mls/hr 03/05/24 00:25 03/05/24 01:40 Ofirmev IV 03/05/24 00:39 Infused ONCE ONE Infusion Iohexol 85 ml 03/04/24 23:15 03/04/24 23:16 Iohexol 350 Mg/Ml 100 Ml Infus..Btl IV 03/04/24 23:16 85 ml ONCE ONE Administration Ketorolac Tromethamine 10 mg 03/04/24 22:34 03/04/24 23:26 Ketorolac Tromethamine 15 Mg/Ml Vial IVPUSH 03/04/24 22:35 10 mg ONCE ONE Administration Metoclopramide HCl 10 mg 03/04/24 22:34 03/04/24 23:26 Metoclopramide Hcl 10 Mg/2 Ml Vial IVPUSH 03/04/24 22:35 10 mg ONCE ONE Administration Sucralfate 2 gm 03/05/24 01:29 03/05/24 01:41 Sucralfate Oral Suspension 1 Gm/10 Ml Oral.Susp PO 03/05/24 01:30 2 gm ONCE ONE Administration Medical Decision Making Medical Decision Making [facility] Narrative: The patient is a 54-year-old male who complains of 2 weeks of diarrhea and abdominal pain. He does not seem to have a surgical abdomen. Workup in the emergency room includes a CBC with a white count of 7.6 with a lymphocytosis. Differential shows 42% neutrophils and 47% lymphocytes. Basic metabolic panel shows a slightly low carbon dioxide of 18. Anion gap is normal at 14. BUN and creatinine are normal. LFTs show mildly elevated transaminases with an AST of 66 and an ALT of 44. Bilirubin normal. Alk phos normal. Lipase normal. Urinalysis shows no ketones. a CT of the abdomen and pelvis shows no definite acute findings. There was a question of bladder wall thickening which is probably due to under distention Rather than cystitis. Based on the patient's benign lab work and unremarkable CT of the abdomen the patient was treated symptomatically with fluids and pain medications. The patient was also given a dose of sucralfate as I had some concern that perhaps the patient's pain was from gastritis. He is already on omeprazole 40 mg b.i.d.. Since the patient felt somewhat better and since he had an essentially negative workup I did not feel that there was an indication for hospitalization. He will be given a prescription for sucralfate. He should follow up with his PCP and his fuse assembler as well as given appoint with Dr. Sullivan regarding his hemorrhoids. I had ordered a stool panel and C diff test. I had been told that the sample had been sent to the lab for the stool panel but that there was insufficient stool for the C diff assay. However it appears that the stool panel sample is not being run. Lab Data 03/04/24 17:59 03/04/24 17:59 Labs: Lab Results 03/04/24 03/04/24 Range/Units 17:59 22:55 WBC 7.6 (4.8-10.8) X10*3/uL RBC 4.53 L (4.60-5.80) X10*6/uL Hgb 14.5 (14.0-18.0) g/dl Hct 40.9 L (42.0-52.0) % MCV 90.3 (80.0-98.0) fL MCH 32.1 (27.0-33.0) pg MCHC 35.5 (31.0-36.0) g/dl RDW 12.1 (11.0-16.0) % Plt Count 221 (160-400) X10*3/uL MPV 9.0 L (9.4-12.4) fL Immature Gran % (Auto) 0.1 (0.0-0.4) % Neut % (Auto) 42.3 L (45-73) % Lymph % (Auto) 47.0 H (20-40) % [place] % (Auto) 8.4 (2-11) % Eos % (Auto) 1.8 (0-4) % Baso % (Auto) 0.4 (0-2) % Lymph # (Auto) 3.6 (1.2-4.9) X10*3/uL [place] # (Auto) 0.6 (0.1-1.2) X10*3/uL Eos # (Auto) 0.1 (0.0-0.4) X10*3/uL Baso # (Auto) 0.0 (0.0-0.2) X10*3/uL Abs Immat Gran (auto) 0.01 (0.00-0.03) X10*3/uL Absolute Neuts (auto) 3.2 (2.0-8.3) x10*3/uL Absolute Nucleated RBC 0.000 (0.0-0.012) X10*3/uL Nucleated RBC % (auto) 0.0 (0.0-0.2) /100WBC Sodium 133 L (135-145) mmol/L Potassium 3.8 (3.3-5.1) mmol/L Chloride 105 (96-108) mmol/L Carbon Dioxide 18 L (22-29) mmol/L Anion Gap 14 (12-20) BUN 11 (9-16) mg/dL Creatinine 0.88 (0.5-1.4) mg/dL Estim Creat Clear Calc 97.4 Estimated GFR > 60 Random Glucose 100 (60-115) mg/dL Calcium 8.5 D (8.4-10.2) mg/dL Magnesium 1.9 (1.6-2.6) mg/dL Total Bilirubin 1.0 (0.0-1.0) mg/dL AST 66 H (5-37) U/L ALT 44 H (0-40) U/L Alkaline Phosphatase 66 (39-117) U/L C-Reactive Protein < 0.04 (< or = 0.50) mg/dL Total Protein 7.7 (6.5-8.0) g/dL Albumin 3.8 (3.5-5.0) g/dL Lipase 41 (8-78) U/L Urine Color Yellow Urine Appearance Clear Urine pH 5.5 (5.0-9.0) Ur Specific [place] <= 1.005 (1.005-1.025) Urine Protein Negative (Neg-Trace) mg/dL Urine Glucose (UA) Negative (Negative) mg/dL Urine Ketones Negative (Negative) mg/dL Urine Blood Small (1+) H (Negative) Urine Nitrite Negative (Negative) Ur Leukocyte Esterase Negative (Negative) Urine RBC 0-2 (0-2) /HPF Urine WBC 0-5 (0-5) /HPF Ur Squamous Epith Cells 0-2 (0-2) /HPF Urine Bacteria None Seen (None Seen) Hyaline Casts 0-2 (0-2) /LPF Stl C. cayetanensis PCR Cancelled Stool Rotavirus A PCR Cancelled Stl Adenov F 40/41 PCR Cancelled Stool Astrovirus (PCR) Cancelled Stool Campylobacter PCR Cancelled Stool Cryptosporidium PCR Cancelled Stl Sh Tox Pr E STEC PCR Cancelled Stool E coli O157 PCR Cancelled Stl Enterotoxigenic E PCR Cancelled Stool EPEC (PCR) Cancelled Stool EAEC (PCR) Cancelled Stl E. histolytica PCR Cancelled Stool Giardia Lamblia PCR Cancelled Stl P. shigelloides PCR Cancelled Stool Salmonella PCR Cancelled Stool Sapovirus (PCR) Cancelled Stl Shigella/EIEC PCR Cancelled St Y.enterocolitica PCR Cancelled Stool Vibrio (PCR) Cancelled Stl Vibrio cholerae PCR Cancelled Stl Norovirus GI/GII PCR Cancelled Urine Opiates Screen Not Detected (Not Detect) Ur Buprenorphine Scrn Not Detected (Not Detect) ng/mL Ur Oxycodone Screen Not Detected (Not Detect) ng/mL Urine Methadone Screen Not Detected (Not Detect) ng/mL Urine Fentanyl Screen Not Detected (Not Detect) Ur Barbiturates Screen Not Detected (Not Detect) Ur Phencyclidine Scrn Not Detected (Not Detect) Ur Amphetamines Screen Not Detected (Not Detect) U Benzodiazepines Scrn Not Detected (Not Detect) Urine Cocaine Screen POSITIVE H (Not Detect) U Marijuana (THC) Screen Not Detected (Not Detect) Influenza Type A (PCR) NEGATIVE (Negative) Influenza Type B (PCR) NEGATIVE (Negative) RSV RNA Qual (PCR) NEGATIVE (Negative) SARS-CoV-2 RNA (RT-PCR) NEGATIVE (Negative) Discharge Plan Discharge Clinical Impression: Abdominal pain Patient Disposition: Home, Self-Care Additional Instructions: Your testing in the emergency room today has been quite reassuring. There are no concerning findings on your CT scan or your blood testing. A stool panel was sent which will check for a variety of viruses and other possible issues but this will take a few days to come back. Part of your discomfort may be related to gastritis. Continue your omeprazole. In addition you may use sucralfate as needed if you find it helpful. Please continue your other medications. Please follow up with your fuse assembler and your regular doctor. Keep your appointment with Dr. Sullivan as well. Return to the emergency room if worse. Prescriptions: New sucralfate 1 gram tablet 1 g PO BID PRN (Reason: Epigastric pain) Qty: 60 0RF No Action cyanocobalamin (vitamin B-12) 1,000 mcg tablet, sublingual 1,000 mcg PO DAILY Qty: 90 1RF dextroamphetamine-amphetamine 5 mg tablet 1 tab PO DAILY metoprolol succinate 100 mg tablet extended release 24 hr 100 mg PO DAILY oxycodone-acetaminophen 5-325 mg tablet 1 tab PO Q4H PRN (Reason: pain (scale score 4-6)) 7 Days Qty: 14 0RF Rx Instructions: Partial Fill upon patient request. oxycodone-acetaminophen 5-325 mg tablet 1 tab PO Q4H PRN (Reason: pain (scale score 4-6)) 7 Days Qty: 14 0RF Rx Instructions: Partial Fill upon patient request. fluoxetine 40 mg capsule 40 mg PO DAILY acetaminophen 325 mg tablet 650 mg PO Q6H PRN (Reason: Pain) celecoxib 200 mg capsule 200 mg PO BID Qty: 60 2RF omeprazole 20 mg capsule,delayed release(DR/EC) 20 mg PO BID losartan 50 mg tablet 50 mg PO DAILY Referrals: Fabián Parrish MD [Physician] - (Abdominal pains, diarrhea) Luis Arellano MD [Primary Care Provider] - (Abdominal pains, diarrhea) Interventions: ED Discharge Assessment Last Done: 03/05/24 02:34 Discharge Date/Time: 03/05/24 02:35 Print Language: Brazilian
[2024-03-04 18:06] LABS: MANUAL DIFF FLAG NO
[2024-03-04 18:37] LABS: Alanine Aminotransferase 44 U/L (0-40); Albumin Level 3.8 g/dL (3.5-5.0); Alkaline Phosphatase 66 U/L (39-117); Anion Gap 14 (12-20); Aspartate Amino Transferase 66 U/L (5-37); Blood Urea Nitrogen 11 mg/dL (9-16); Calcium 8.5 mg/dL (8.4-10.2); Carbon Dioxide 18 mmol/L (22-29); Chloride 105 mmol/L (96-108); Creatinine Clr Calc Pharmacy 97.4; Estimated Glomerular Filt Rate > 60; Glucose Random 100 mg/dL (60-115); Lipase 41 U/L (8-78); Magnesium 1.9 mg/dL (1.6-2.6); Potassium 3.8 mmol/L (3.3-5.1); Sodium 133 mmol/L (135-145); Total Protein 7.7 g/dL (6.5-8.0)
[2024-03-04 18:55] LABS: Influenza A PCR NEGATIVE (Negative); Influenza B PCR NEGATIVE (Negative); Resp Syncy Virus RNA Qual PCR NEGATIVE (Negative); SARS COV2 PCR INHOUSE NEGATIVE (Negative)
[2024-03-04 18:57] LABS: Basophils Percent Auto 0.4 % (0-2); Eosinophils Absolute Auto 0.1 X10*3/uL (0.0-0.4); Eosinophils Percent Auto 1.8 % (0-4); Hematocrit 40.9 % (42.0-52.0); Imm Gran Abs Auto 0.01 X10*3/uL (0.00-0.03); Imm Gran Pct Auto 0.1 % (0.0-0.4); Lymphocytes Absolute Auto 3.6 X10*3/uL (1.2-4.9); Mean Corpuscular Volume 90.3 fL (80.0-98.0); Monocytes Absolute Auto 0.6 X10*3/uL (0.1-1.2); Monocytes Percent Auto 8.4 % (2-11); Neutrophils Absolute Auto 3.2 x10*3/uL (2.0-8.3); Neutrophils Percent Auto 42.3 % (45-73); Platelet Count 221 X10*3/uL (160-400); Red Blood Count 4.53 X10*6/uL (4.60-5.80); Red Cell Distribution Width 12.1 % (11.0-16.0); SCAN SMEAR FLAG 1; White Blood Count 7.6 X10*3/uL (4.8-10.8)
[2024-03-04 19:01] LABS: Hemoglobin 14.5 g/dl (14.0-18.0); Mean Corpuscular Hemoglobin 32.1 pg (27.0-33.0)
[2024-03-04 19:02] LABS: Mean Corpuscular HGB Conc 35.5 g/dl (31.0-36.0)
[2024-03-04 22:45] VITALS: BP 146/105; PULSE 99; RESP 20; TEMP 36.5; O2SAT 98
[2024-03-04 22:50] LABS: C Reactive Protein < 0.04 mg/dL (< or = 0.50)
[2024-03-04 23:11] LABS: Appearance Urine Clear; Color Urine Yellow; Glucose Urine UA Negative (Negative); Leukocyte Esterase Urine Negative (Negative); Nitrite Urine Negative (Negative); PH 5.5 (5.0-9.0); Specific Gravity - Urine <= 1.005 (1.005-1.025); UMIC TRIGGER UACC YES; Urine Blood Small (1+) (Negative); Urine Ketones Negative (Negative); Urine Protein Negative (Neg-Trace)
[2024-03-04] MEDS: iohexoL 350 MG/ML 100 ML INFUS..BTL 85 ML IV (23:16)
[2024-03-04 23:21] LABS: Bacteria Urine None Seen (None Seen); Hyaline Casts Urine 0-2 /LPF (0-2); RBC Urine 0-2 /HPF (0-2); Squamous Epithelial Cell Urine 0-2 /HPF (0-2); WBC Urine 0-5 /HPF (0-5)
[2024-03-04] MEDS: Metoclopramide HCl 10 MG/2 ML VIAL IVPUSH (23:26)
[2024-03-04] MEDS: Ketorolac Tromethamine 15 MG/ML VIAL 10 MG IVPUSH (23:26)
[2024-03-04] MEDS: diphenhydrAMINE HCL 50 MG/ML VIAL 25 MG IVPUSH (23:26)
[2024-03-04] MEDS: 0.9 % Sodium Chloride 1,000 ML 999 ML IV (23:28)
[2024-03-04 23:31] VITALS: BP 132/82; PULSE 91; RESP 18; O2SAT 100
[2024-03-05] MEDS: 0.9 % Sodium Chloride 1,000 ML 999 ML IV (00:21)
[2024-03-05] MEDS: Acetaminophen 1,000 MG/100 ML PIGGYBACK 400 MG IV (00:56)
[2024-03-05] MEDS: Sucralfate Oral Suspension 1 GM/10 ML ORAL.SUSP 2 GM PO (01:41)
[2024-03-05 02:34] VITALS: BP 132/82; PULSE 91; RESP 18; TEMP 36.5; O2SAT 100
[2024-03-05 03:19] LABS: Amphetamine Screen Urine Not Detected (Not Detect); Barbiturates, Urine Not Detected (Not Detect); Benzodiazepines Screen Urine Not Detected (Not Detect); Buprenorphine Scr Not Detected (Not Detect); Cannabinoid Screen Urine Not Detected (Not Detect); Cocaine Screen Urine POSITIVE (Not Detect); Fentanyl, urine Not Detected (Not Detect); Methadone Screen, Urine Not Detected (Not Detect); Opiate Screen Urine Not Detected (Not Detect); Oxycodone Screen Urine Not Detected (Not Detect); Phencyclidine Screen Urine Not Detected (Not Detect)
== END 2024-03-05 02:35 | disposition home or self-care (01) ==
PROVIDERS: Nurse Practitioner Family; Emergency Provider Emergency Medicine; PCP Internal Medicine
DX: R10.2 Pelvic and perineal pain (principal); R19.7 Diarrhea, unspecified; K62.89 Other specified diseases of anus and rectum; R10.13 Epigastric pain; R11.2 Nausea with vomiting, unspecified; Z79.899 Other long term (current) drug therapy; Z51.81 Encounter for therapeutic drug level monitoring; Z03.818 Encounter for observation for suspected exposure to other biological agents ruled out
CPT/HCPCS: 0241U; 74177; 80053; 80307; 81001; 83690; 83735; 85025; 86140; 87507; 96361; 96365; 96366; 96374; 96375; 99284; J0131; J1200; J1885; J2765; Q9967

== ENCOUNTER → 2024-03-04 22:37 | Outpatient (BNV) | payer BC, SELFPAY | PROVIDERS: Emergency Provider Emergency Medicine; PCP Internal Medicine; Visit Provider Radiology Diagnostic Radiology | DX: R19.7 Diarrhea, unspecified (principal); R10.9 Unspecified abdominal pain | CPT/HCPCS: 74177 ==

== ENCOUNTER 2024-03-27 10:12 | Day surgery (SDC) | payer BC, SELFPAY ==
[2024-03-23 16:28] VITALS: BMI 29.8
--- NOTE | 2024-03-26 11:44 | P.CONAN_ITS ---
Documented by User: Corrie Lea NP 03/26/24 11:46 HPI - Anesthesia Eval Consult details Narrative: 54yo M for EUA, Hemorrhoidectomy +cocaine 02/2024 [facility] Active Problems Active Problems: All Active Problems Right hip pain (Acute) Monoallelic mutation of PALB2 gene (Acute) Diarrhea (Acute) Lumbar spondylosis (Acute) Facet arthritis of lumbar region (Acute) Degenerative disc disease, lumbar (Acute) Encounter for screening for malignant neoplasm of prostate (Acute) Microscopic hematuria (Acute) Bilateral hydrocele (Acute) Testicular pain (Acute) Bloating symptom (Acute) Dysphagia (Acute) RUQ abdominal pain (Acute) Status post right knee replacement (Acute) Abscess involving suture (Acute) Bleeding hemorrhoids (Acute) Epididymal cyst (Acute) Past Medical History Medical History Sinus infection Bleeding hemorrhoids Testicular pain, right Epididymal cyst Hydrocele Anxiety Umbilical hernia ADHD (attention deficit hyperactivity disorder) HTN (hypertension) GERD (gastroesophageal reflux disease) Hemorrhoids Family History Family History Father Alive and well Mother Alive and well Family history of problems with anesthesia: No Surgical History Surgical History History of epididymectomy (04/18/23) Hx of umbilical hernia repair (07/22/21) Hx of endoscopy (06/2022) History of colonoscopy Status post total right knee replacement History of Problems with Anesthesia: No Social History Social History Household Members: None Housing: House Are you a primary respiratory care assistant to a significant other at home: No Do you presently have visiting nurse or other home services: No Alcohol intake: current Alcohol intake frequency: holidays/special occasions only Alcohol type: beer Comment: counts correct Substance Use Type: Marijuana Substance Use Type Other:: urine +cocaine 03/04/2024 Have you been hit, kicked, punched, or otherwise hurt by someone within the past year? If so, by whom?: No Are you DNR?: No Advance Directives: No Advance Directives Information Provided: Yes Advance Directives on File: No Recently lost weight without trying: No Nutrition Risks: No Nutritional Risk service: No Meds Allergies Allergy/AdvReac Type Severity Reaction Status Date / Time seasonal Allergy Mild Sneezing Uncoded 03/27/24 10:34 Home Medications ?Medication ?Instructions ?Recorded ?Confirmed ?Last Taken ?Type acetaminophen 325 mg tablet 650 mg PO Q6H PRN Pain 11/21/19 03/27/24 07/04/22 History fluoxetine 40 mg capsule 40 mg PO DAILY 07/06/22 03/27/24 03/27/24 History omeprazole 20 mg capsule,delayed 20 mg PO BID 12/17/22 03/27/24 03/27/24 History release dextroamphetamine-amphetamine 5 mg 1 tab PO DAILY 04/14/23 03/27/24 04/18/23 History tablet losartan 100 mg tablet 100 mg PO DAILY 03/23/24 03/27/24 03/27/24 History Exam Height,Weight and Vital Signs: Height 5 ft 7 in Weight 86.183 kg Pertinent Lab Results Pertinent Lab Results: Laboratory Tests 03/04/24 17:59 WBC 7.6 Hgb 14.5 Hct 40.9 L Plt Count 221 Sodium 133 L Potassium 3.8 Chloride 105 Carbon Dioxide 18 L BUN 11 Creatinine 0.88 Assessment and Plan Assessment Anesthesia Assessment: Chart Reviewed Final Anesthetic Review Family History of Problems with Anesthesia: No History of Problems with Anesthesia: No Documented by User: Mario Ken MD 03/27/24 14:17 [facility] Past Medical History Medical History Sinus infection Bleeding hemorrhoids Testicular pain, right Epididymal cyst Hydrocele Anxiety Umbilical hernia ADHD (attention deficit hyperactivity disorder) HTN (hypertension) GERD (gastroesophageal reflux disease) Hemorrhoids Family History Family History Father Alive and well Mother Alive and well Surgical History Surgical History History of epididymectomy (04/18/23) Hx of umbilical hernia repair (07/22/21) Hx of endoscopy (06/2022) History of colonoscopy Status post total right knee replacement Social History Social History Household Members: None Housing: House Are you a primary respiratory care assistant to a significant other at home: No Do you presently have visiting nurse or other home services: No Alcohol intake: current Alcohol intake frequency: holidays/special occasions only Alcohol type: beer Comment: counts correct Substance Use Type: Marijuana Substance Use Type Other:: urine +cocaine 03/04/2024 Have you been hit, kicked, punched, or otherwise hurt by someone within the past year? If so, by whom?: No Are you DNR?: No Advance Directives: No Advance Directives Information Provided: Yes Advance Directives on File: No Recently lost weight without trying: No Nutrition Risks: No Nutritional Risk service: No Meds Allergies Allergy/AdvReac Type Severity Reaction Status Date / Time seasonal Allergy Mild Sneezing Uncoded 03/27/24 10:34 Home Medications ?Medication ?Instructions ?Recorded ?Confirmed ?Last Taken ?Type acetaminophen 325 mg tablet 650 mg PO Q6H PRN Pain 11/21/19 03/27/24 07/04/22 History fluoxetine 40 mg capsule 40 mg PO DAILY 07/06/22 03/27/24 03/27/24 History omeprazole 20 mg capsule,delayed 20 mg PO BID 12/17/22 03/27/24 03/27/24 History release dextroamphetamine-amphetamine 5 mg 1 tab PO DAILY 04/14/23 03/27/24 04/18/23 History tablet losartan 100 mg tablet 100 mg PO DAILY 03/23/24 03/27/24 03/27/24 History Exam Airway Mallampati Class: II TM Dist: >3cm Neck ROM: Full Partial: Upper Loose/Missing/Broken Teeth: Yes Assessment and Plan Assessment Anesthesia Assessment: Anesthesia Plan Discussed Final Anesthetic Review NPO: Yes ASA Class: III Final Preanesthetic Review: No Changes in Pt Med Stat, Meds/Allgs Chart Reviewed, Consent Obtained/Reviewed and Anes Risks/Benef Reviewed Patient Risk: Intermediate Procedure Risk: Low Anesthetic Plan Anesthetic Plan: GA Disposition: Standard PACU
[2024-03-27] VITALS (23 sets, daily range): BP systolic 151–195; BP diastolic 86–127; PULSE 70–103; RESP 14–20; TEMP 36.2–36.8; O2SAT 98–100; BMI 29.9
[2024-03-27 10:45] LABS: Amphetamine Screen Urine Not Detected (Not Detect); Barbiturates, Urine Not Detected (Not Detect); Benzodiazepines Screen Urine Not Detected (Not Detect); Buprenorphine Scr Not Detected (Not Detect); Cannabinoid Screen Urine POSITIVE (Not Detect); Cocaine Screen Urine Not Detected (Not Detect); Fentanyl, urine Not Detected (Not Detect); Methadone Screen, Urine Not Detected (Not Detect); Opiate Screen Urine Not Detected (Not Detect); Oxycodone Screen Urine Not Detected (Not Detect); Phencyclidine Screen Urine Not Detected (Not Detect)
--- OUTSIDE RECORDS SUMMARY | 2024-03-27 10:55 | XMS_ITS | Clinical Summary ---
[facility] Address [address] [place] [address] Care Team Providers Care Television News Anchor Name Role Phone Unavailable Primary Care Provider Unavailabl e Social History Tobacco Use Types Packs/Day Years Used Date Smoking Tobacco: Never Assessed Sex and Gender Information Value Date Recorded Sex Assigned at Not on file Gender Identity Not on file Sexual Orientation Not on file Plan of Treatment Health Maintenance Due Date Last Done Comments DTaP,Tdap,and Td Vaccines (1 - Tdap) 01/20/1987 Hepatitis B Vaccines (1 of 3 - 19+ 3-dose series) 01/20/1987 Zoster Vaccines (1 of 2) 01/20/2018 COVID-19 Vaccine (2023-2 5 season) 2023 Influenza Vaccine (#1) 2023 HIB Vaccines Aged Out No longer eligi ble based on patient's age to complete this topic HPV Vaccines Aged Out No longer eligi ble based on patient's age to complete this topic Hepatitis A Vaccines Aged Out No long er eligible based on patient's age to complete this topic IPV Vaccines Aged Out No longer eligi ble based on patient's age to complete this topic MMR Vaccines Aged Out No longer eligi ble based on patient's age to complete this topic Meningococcal ACWY Vaccine Aged Out N o longer eligible based on patient's age to complete this topic Pneumococcal Vaccine: Pediat rics (0 to 5 Years) and At-Risk Patients (6 to 64 Years) Aged Out No longer eligible b ased on patient's age to complete this topic RSV Immunization Patients Un mery 20 months Aged Out No longer eligible b ased on patient's age to complete this topic Varicella Vaccines Aged Out No longer eligible based on patient's age to complete this topic
--- NOTE | 2024-03-27 12:08 | MHC.SHP ---
Pre-Procedural Eval Section A - 24 Hr Update-Section A only Date of Service: 03/27/24 Section B - Complete if H&P > 30 days Chief Complaint: Unspecified hemorrhoids Details of Present Illness: Has had bleeding hemorrhoids with large external hemorrhoids Relevant Social History: None Present Medications: see Short Stay Collaborative assessment Medical History: Significant History (Chronic back pain) History of Previous Operations: No relevant previous surgery Allergies: Allergies Allergy/AdvReac Type Severity Reaction Status Date / Time seasonal Allergy Mild Sneezing Uncoded 03/27/24 10:34 Review of Systems Sugical H&P ROS: Negative: Constitution, Cardiovascular and Respiratory Exam Surgical H&P Exam: Normal: Heart, Normal: Lungs and Normal: Extremities and Significant Findings: Abdomen (External hemorrhoids in the) Plan Diagnosis/Plan: Unchanged I have reviewed the history and physical and performed a pertinent physical examination on my patient. No changes have occurred unless specified. Time Spent With Patient Time: Total time managing care of this patient today ____ minutes.
[2024-03-27] MEDS: Lactated Ringers 1,000 ML 100 ML IVCONT (12:12)
--- NOTE | 2024-03-27 12:13 | PC.NURSE ---
BP elevated in preop. Multiple readings taken. See vital signs. BP med taken today at home with a small sip of water. Patient asymptomatic. States Its never this high . Dr. Ken made aware and at bedside. Patient resting for 20 mins, BP retaken and improved, MAP improved. Dr. Ken made aware or readings. Okay to proceed with procedure. Patients lung sounds on right size wheezy throughout. Left side clear throughout. Recent sinus infection per patient, finished PO antibiotics 3 days ago. SaO2 WNL, afebrile. Dr. Ken at bedside to assess. No new orders at this time. Okay to proceed with procedure.
--- NOTE | 2024-03-27 13:49 | W.PM.OPN ---
Operative Note Operative Note Date of Service: 03/27/24 Narrative: Preop diagnosis: Bleeding hemorrhoids, internal external Postop diagnosis: The same Procedure: Exam under anesthesia hemorrhoidectomy Surgeon: Zack Sullivan MD Insole Reinforcer: EVERARDO Dacosta student The patient is a 54-year-old male who has had chronic complaints of bleeding and pain with this hemorrhoids. He was seen in the office was noted to have internal and external hemorrhoids, he wanted to proceed with hemorrhoidectomy. He understood the technique of the planned procedure as well as the risks, benefits, and alternatives He was brought to the operating room and placed in prone odell-knife position under general anesthesia via laryngeal mask airway. Buttocks were retracted with wide tape laterally. The perianal area was prepped and draped in the usual sterile fashion. A surgical time-out was done. The patient received Cefotan 2 g IV preoperatively. I infiltrated the perianal area with lidocaine 1%. Examination of the anal orifice revealed a moderate-sized external hemorrhoids on both the left and right side. I inserted the Mami Baer retractor. I examined the anal canal circumferentially. There were no lesions or any fissure. There was no induration. There was have mixed internal and external hemorrhoidal columns on both the left and right side. I applied a Ayon grasper on the hemorrhoidal column on the left to retract this out in the field. I made a mjrfhi-kb-mgsnn stitch at the pedicle past the dentate line with a chromic 3-0. I made an incision around this hemorrhoidal column to the perianal skin with a blade 15.. I excised this hemorrhoidal column along this incision above the plane of the sphincters with scissors. I then closed the incision with a running chromic 3-0 stitch, making sure with we are able to achieve hemostasis. I repeated the procedure on the hemorrhoidal column on the right side. Again I made a zbqshv-cl-vmaix stitch at the pedicle. I made an incision around this to the perianal skin and excise this above the plane of the sphincters. I closed the incision with a running chromic 3-0 stitch Once hemostasis was confirmed, I infiltrated the perianal area with Marcaine 0.5% for postop analgesia. The procedure was then completed The patient tolerated the procedure well. There were no immediate complications. Initial and final counts of sponges and instruments were correct. Estimated blood loss about 25 cc The patient was extubated without difficulty and transferred to the recovery room with stable vital signs.
[2024-03-27] MEDS: Acetaminophen 1,000 MG/100 ML PIGGYBACK 400 MG IV (14:07)
[2024-03-27] MEDS: oxyCODONE HCl Immed Release 5 MG TABLET PO (14:07)
[2024-03-27] MEDS: HYDROmorphone HCl 0.5 MG/0.5 ML SYRINGE 0.25 MG IVPUSH ×4 (14:10→14:30)
[2024-03-27] MEDS: fentaNYL citrate/PF 100 MCG/2 ML VIAL 50 MCG IVPUSH ×4 (15:20→15:35)
[2024-03-27] MEDS: hydrALAZINE HCl 20 MG/ML VIAL 10 MG IVPUSH (15:59)
== END 2024-03-27 16:19 | disposition home or self-care (01) ==
PROVIDERS: Nurse Practitioner; PCP Internal Medicine; Visit Provider Surgery
PROC: (CPT 46260; principal; 2024-03-27 12:40)
DX: K64.8 Other hemorrhoids (principal); K64.4 Residual hemorrhoidal skin tags; K21.9 Gastro-esophageal reflux disease without esophagitis; J32.9 Chronic sinusitis, unspecified; J30.2 Other seasonal allergic rhinitis; I10 Essential (primary) hypertension; N50.811 Right testicular pain; F41.9 Anxiety disorder, unspecified; F12.90 Cannabis use, unspecified, uncomplicated; F14.90 Cocaine use, unspecified, uncomplicated; Z79.899 Other long term (current) drug therapy; Z96.651 Presence of right artificial knee joint; Z98.890 Other specified postprocedural states; Z87.891 Personal history of nicotine dependence
CPT/HCPCS: 46260; 80307; 88304; 88341; 88342; J0131; J0360; J1100; J1171; J1885; J2003; J2250; J2405; J2704; J2795; J3010

== ENCOUNTER → 2024-03-27 10:12 | Outpatient (BNV) | payer BC, SELFPAY | PROVIDERS: PCP Internal Medicine; Visit Provider Surgery | DX: K64.8 Other hemorrhoids (principal) | CPT/HCPCS: 46260 ==

== ENCOUNTER 2024-04-04 08:37 | Outpatient (AMB) | payer BC, SELFPAY ==
--- NOTE | 2024-04-04 08:42 | A.OFFVIS_ITS ---
Intake Visit Reasons: s/p EUA Hemorrhoidectomy Intake Note: This patient presents for post-op assessment status post EUA, hemorrhoidectomy. Pt c/o; no concerns. Radiology Resident Required: No Accompanied by: Self / Same As Patient Allergies seasonal Allergy (Mild, Uncoded 04/04/24 08:42) Sneezing HPI HPI s/p EUA Hemorrhoidectomy: Details: He underwent hemorrhoidectomy x2 columns last March 16, 2024. He tolerated the procedure well. He says he still has pain but this has been steadily improving. [facility] Medical History Sinus infection Bleeding hemorrhoids Testicular pain, right Epididymal cyst Hydrocele Anxiety Umbilical hernia ADHD (attention deficit hyperactivity disorder) HTN (hypertension) GERD (gastroesophageal reflux disease) Hemorrhoids Surgical History History of hemorrhoidectomy (~03/27/24) History of epididymectomy (04/18/23) Hx of umbilical hernia repair (07/22/21) Hx of endoscopy (06/2022) History of colonoscopy Status post total right knee replacement Family History Father Alive and well Mother Alive and well Social History Household Members: None Housing: House Are you a primary child care cook to a significant other at home: No Do you presently have visiting nurse or other home services: No 75 years or older and lives alone: No Alcohol intake: current Alcohol intake frequency: holidays/special occasions only Alcohol type: beer Comment: counts correct Substance Use Type: Marijuana service: No Review of Systems Const Denies chills and Denies fever(s) Physical Exam Const General: comfortable and no acute distress GI Other: Rectal exam shows the hemorrhoidectomy sites to be healing, no evidence of infection Assessment & Plan Assessment & Plan (1) Bleeding hemorrhoids: Code(s): K64.9 - Unspecified hemorrhoids Category: Medical Plan: Status post hemorrhoidectomy. He is doing well. 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 This is a low-grade lesion but I told him I would recommend doing an anoscopy every 6 months for the next 1- 2 years here in the office . He understands the plan. He does admit to anal receptive intercourse. I advised him on the benefits of protected sex especially in the light of his AIN 1. Coding Level of Care Code Global (27640) Diagnoses Bleeding hemorrhoids K64.9
--- OUTSIDE RECORDS SUMMARY | 2024-04-04 09:28 | XMS_ITS | Clinical Summary ---
Author Organization [facility] Address [address] [place] [address] Care Team Providers Care Deputy Coroner Investigator Name Role Phone Unavailable Primary Care Provider Unavailabl e Social History Tobacco Use Types Packs/Day Years Used Date Smoking Tobacco: Never Assessed Sex and Gender Information Value Date Recorded Sex Assigned at Not on file Legal Sex Male 9:47 AM EST Gender Identity Not on file Sexual Orientation Not on file Plan of Treatment Health Maintenance Due Date Last Done Comments DTaP,Tdap,and Td Vaccines (1 - Tdap) 01/20/1987 Hepatitis B Vaccines (1 of 3 - 19+ 3-dose series) 01/20/1987 Pneumococcal Vaccine: 50+ Ye ars (1 of 1 - PCV) 01/20/2018 Zoster Vaccines (1 of 2) 01/20/2018 COVID-19 Vaccine ( - 2023-2 5 season) 2023 Influenza Vaccine (#1) 2023 [...] patient's age to complete this topic Meningococcal B Vacine Aged Out No lo nger eligible based on patient's age to complete [...]
== END 2024-04-04 08:57 | disposition home or self-care (01) ==
PROVIDERS: PCP Internal Medicine; Visit Provider Surgery
DX: K64.9 Unspecified hemorrhoids (principal)
CPT/HCPCS: 99024

== ENCOUNTER 2024-04-17 16:48 | Outpatient (REF) | payer BC, SELFPAY ==
--- NOTE | ~2024-04-17 | XR_ITS ---
CLINICAL HISTORY: RT HIP PAIN 2 view, pelvis and right hip Comparison: CR/SR - XR HIP RT MIN 2V - 12/09/23 07:27 EDT Findings: The bones are intact. No femoral head osteonecrosis. No lytic or blastic lesion. Stable moderate narrowing of the acetabulofemoral joint. The soft tissues are unremarkable. IMPRESSION: No acute findings. This document has been electronically signed by: Margarita Corona DO on 04/17/2024 18:07:05
--- OUTSIDE RECORDS SUMMARY | 2024-04-17 19:54 | XMS_ITS | Clinical Summary ---
Author Organization [facility] Address [address] [place] [address] Care Team Providers Care Steward/Stewardess Bath Name Role Phone Unavailable Primary Care Provider [...]
== END 2024-04-17 16:49 | disposition home or self-care (01) ==
LOC: HO.XRAY 16:48
PROVIDERS: PCP Internal Medicine; Visit Provider Internal Medicine
DX: M25.551 Pain in right hip (principal)
CPT/HCPCS: 73502

== ENCOUNTER → 2024-04-17 16:53 | Outpatient (BNV) | payer BC, SELFPAY | PROVIDERS: PCP Internal Medicine; Visit Provider Radiology Diagnostic Radiology | DX: M25.551 Pain in right hip (principal) | CPT/HCPCS: 73502 ==

== ENCOUNTER 2024-09-11 14:18 | Outpatient (AMB) | payer BC, SELFPAY ==
--- NOTE | 2024-09-11 14:30 | A.OFFPC_ITS ---
Vital Signs 09/11/24 14:35 Height 5 ft 6.93 in Weight 191 lb BMI 30.0 BP 167/106 H Respiration 16 Pulse 92 Pulse Source Pulse Oximeter Temp 98.0 F Temp Source Temporal Artery Scan Pulse Oximetry (%) 99 Oxygen Delivery Method Room Air Intake Visit Reasons: establish care Climatologist Required: No Accompanied by: Self / Same As Patient Allergies seasonal Allergy (Mild, Uncoded 09/11/24 15:02) Sneezing Medication List - Last Reconciled 09/11/24 by Eva Grace PA-C cephalexin 500 mg PO QID cyanocobalamin (vitamin B-12) 1,000 mcg PO DAILY dextroamphetamine-amphetamine 10 mg 1 tab PO DAILY fexofenadine (Allergy Relief (fexofenadine)) mg PO fluoxetine 40 mg PO DAILY fluoxetine 20 mg PO DAILY losartan 100 mg PO DAILY omeprazole 20 mg PO BID oxycodone 5 mg PO Q4H PRN sucralfate 1 g PO BID PRN Tobacco use date assessed: 09/11/24 Dental Screening Dental Screen Date: 09/11/24 Did you have a dental visit in the last 12 months?: Yes Did you have a dental problem in the last 6 months where you did not have access to dental care?: No Was dental information given to patient?: Patient has dentist HPI establish care HPI Details The patient is a 54-year-old male presenting for a new patient appointment with concerns about chronic back pain, suspected gallbladder issues, and management of ADHD and bipolar disorder. The patient reports chronic back pain due to four ruptured discs and a cracked coccyx, which has been progressively worsening. He has experienced numbness in his leg, making it difficult to walk more than three blocks without stopping. The pain has been severe enough to require time off work, and he is considering back surgery with a neurosurgeon, Dr. Abreu, at [facility]. He has had previous MRIs, with the last one conducted almost a year ago, revealing the extent of the spinal damage. The patient is apprehensive about the surgery due to the potential four-month recovery period and financial concerns. The patient suspects gallbladder disease, reporting right-sided abdominal pain, white stool, and pain radiating to his shoulder. These symptoms began approximately two weeks ago. He is currently on cefalexin for a thumb infection, which he believes may be alleviating some of the abdominal pain. He attempted to seek emergency care but left after a long wait. An abdominal ultrasound has been ordered to further investigate the gallbladder issue. The patient has a history of ADHD and has been on Adderall since age 11. He is currently under review for his medication regimen due to changes in prescribing practices at his medical center. Additionally, he has bipolar disorder and has been on Prozac for five years, with recent adjustments to his dosage due to mood swings. He has a history of hypertension, which he has not managed well recently due to a lapse in medication adherence. He also has gastroesophageal reflux disease (GERD) and a history of gastric ulcers, which have been managed with omeprazole. 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 and is trying to resume therapy at a hospital - Insurance: Switched from [facility] to [facility] Medical History (Updated 09/11/24 @ 16:59 by Eva Grace PA-C) Obesity with body mass index (BMI) of 30.0 to 39.9 Bipolar disorder, unspecified Establishing care with new doctor, encounter for Central stenosis of spinal canal Protrusion of intervertebral disc of lumbosacral region Bulging lumbar disc Degenerative disc disease, lumbar Chronic back pain Sinus infection Bleeding hemorrhoids Testicular pain, right Epididymal cyst Hydrocele Anxiety Umbilical hernia ADHD (attention deficit hyperactivity disorder) HTN (hypertension) GERD (gastroesophageal reflux disease) Hemorrhoids Surgical History History of hemorrhoidectomy (~03/27/24) History of epididymectomy (04/18/23) Hx of umbilical hernia repair (07/22/21) Hx of endoscopy (06/2022) History of colonoscopy Status post total right knee replacement Family History Father Alive and well Mother Alive and well Social History Household Members: None Housing: Apartment Are you a primary career technology teacher to a significant other at home: No Do you presently have visiting nurse or other home services: No 75 years or older and lives alone: No Alcohol intake: current Alcohol intake frequency: a few times a week Alcohol type: beer Patient Tobacco Use Status: Former Tobacco user Substance Use Type: Marijuana service: No Current occupational status: employed Cognitive needs: No Hearing needs: No Vision needs: Yes (reading glasses/Rx glasses) Questionnaire AUDIT C Alcohol Use Questionnaire (AUDIT-C) 1. How often do you have a drink containing alcohol?: 2-3 times a week 2. How many drinks containing alcohol do you have on a typical day when you are drinking?: 1 or 2 3. How often do you have six or more drinks on one occasion?: Never Total Score: 3 Score Reviewed/Action Taken: No Review of Systems Const Details: - Musculoskeletal: Reports chronic back pain, numbness in leg, difficulty walking - Gastrointestinal: Reports right-sided abdominal pain, white stool, pain radiating to shoulder - Neurological: Reports pain in the back of the head - Psychiatric: Reports mood swings, depression due to bereavement Physical exam (Primary Care) Vital Signs: Last Vital Signs Temp 98.0 F 09/11/24 14:35 Pulse 92 09/11/24 14:35 Resp 16 09/11/24 14:35 BP 167/106 H 09/11/24 14:35 Pulse Ox 99 09/11/24 14:35 Oxygen Delivery Method Room Air 09/11/24 14:35 Care Plan Goal for BP management: <140/90 patient to monitor blood pressure and keep blood pressure diary and return in 1 month with blood pressure diary BMI result Body Mass Index 30.0 BMI Assessment/Plan discussion: High BMI High, discussed plan: lifestyle, weight reduction, dietary, physical activity and alcohol moderation Tobacco/Smoking Status: Tobacco use Status Tobacco use date assessed 09/11/24 09/11/24 14:32 Patient Tobacco Use Status Former Tobacco user 09/11/24 14:47 PHQ-9: PHQ-9 Score PHQ-9: Total score 0 09/11/24 14:32 Thrive Assessment: Date of Thrive Assessment Date Thrive assessed 09/11/24 14:47 Const Other: Appearance: Alert. Oriented X3. No acute distress. Head: Normal external exam. Normocephalic. Atraumatic. Eyes: Pupils are equal, round, and reactive to light. Extraocular movements intact. Conjunctiva and sclera normal. Eyelids normal. Ears: External auditory canal normal. Tympanic membranes normal. Throat: Pharynx normal. Uvula midline. Moist mucous membranes. Neck: Normal inspection. Neck supple. Full range of motion. No adenopathy. Thyroid Normal. No meningeal signs. No neck mass noted. Cardiovascular: Normal heart rate and rhythm. Heart sound normal. No murmurs noted. Pulses normal throughout. Respiratory: No respiratory distress. Painless inspiration. Breath sounds normal. No wheezes/rales/rhonchi noted. Chest nontender. No accessory muscle usage noted or decreased air movement noted. Abdomen: Soft and mild tenderness to the right upper quadrant. No distention noted. No organomegaly noted. Back: No costovertebral angle tenderness. Normal range of motion noted at this time. Reports chronic pain and numbness in the back and leg. Skin: Skin warm and dry. Normal skin color. Normal skin turgor. No rashes/lesions/lacerations noted. Extremities: No lower extremity edema. Extremities exhibit normal range of motion. Patient reports chronic numbness in lower extremities. Neuro: Oriented X 3. Normal steady gait. No focal deficits are noted. Moving all extremities. Coding Level of Care Code New Pt Level 5 (17431) Complex EM visit Add On G2211 Diagnoses Establishing care with new doctor, encounter for Z76.89 Abdominal pain R10.9 Chronic back pain M54.9; G89.29 ADHD (attention deficit hyperactivity disorder) F90.9 Bipolar disorder, unspecified F31.9 HTN (hypertension) I10 GERD (gastroesophageal reflux disease) K21.9 Obesity with body mass index (BMI) of 30.0 to 39.9 E66.9 Time Spent (min) 45 Assessment & Plan Assessment & Plan (1) Establishing care with new doctor, encounter for: Code(s): Z76.89 - Persons encountering health services in other specified circumstances Category: Medical (2) Abdominal pain: Code(s): R10.9 - Unspecified abdominal pain Category: Medical Plan: An abdominal ultrasound has been ordered to investigate the suspected gallbladder disease. The patient is advised to seek emergency care if symptoms worsen. Current antibiotic treatment for a thumb infection may be providing some relief of abdominal symptoms. (3) Chronic back pain: Code(s): M54.9 - Dorsalgia, unspecified; G89.29 - Other chronic pain Category: Medical Plan: The patient will undergo an MRI to assess the current state of the spinal damage. He is considering surgery with Dr. Abreu, a neurosurgeon, and is concerned about the recovery period and financial implications. Pain management strategies, including medication adjustments, are being considered. At this time we will reduce his oxycodone 5 mg from 4 times a day to twice a day. We wi ll add Celebrex b.i.d. to the patient's pain management treatment. And he is agreeable to going to pain management for new interventions. Condition is chronic and stable will continue to monitor. (4) ADHD (attention deficit hyperactivity disorder): Code(s): F90.9 - Attention-deficit hyperactivity disorder, unspecified type Category: Medical Plan: The patient's ADHD medication regimen is under review due to changes in prescribing practices. A referral to a psychiatrist, Shani Travis, has been made to evaluate the appropriateness of continuing Adderall. (5) Bipolar disorder, unspecified: Code(s): F31.9 - Bipolar disorder, unspecified Category: Medical Plan: The patient's Prozac dosage has been adjusted to address mood swings. He is advised to continue monitoring his symptoms and report any significant changes. (6) HTN (hypertension): Code(s): I10 - Essential (primary) hypertension Category: Medical Plan: The patient is advised to monitor his blood pressure at home and bring readings to the next appointment. He has been reminded to adhere to his medication regimen to manage his hypertension effectively. (7) GERD (gastroesophageal reflux disease): Code(s): K21.9 - Gastro-esophageal reflux disease without esophagitis Category: Medical Plan: The patient is advised to continue taking omeprazole for GERD management. He is also considering trying meloxicam for inflammation, which may help alleviate some symptoms. (8) Obesity with body mass index (BMI) of 30.0 to 39.9: Code(s): E66.9 - Obesity, unspecified Category: Medical Plan: patient to improve diet and exercise regimen. Condition is chronic and stable will continue to monitor. Plan Plan Patient was informed and verbally consented to the use of an ambient scribe for clinic note documentation during this visit. 1. Chronic Back Pain With Ruptured Discs And Cracked Coccyx The patient will undergo an MRI to assess the current state of the spinal damage. He is considering surgery with Dr. Abreu, a neurosurgeon, and is concerned about the recovery period and financial implications. Pain management strategies, including medication adjustments, are being considered. At this time we will reduce his oxycodone 5 mg from 4 times a day to twice a day. We will add Celebrex b.i.d. to the patient's pain management treatment. And he is agreeable to going to pain management for new interventions. Condition is chronic and stable will continue to monitor. 2. Suspected Gallbladder Disease An abdominal ultrasound has been ordered to investigate the suspected gallbladder disease. The patient is advised to seek emergency care if symptoms worsen. Current antibiotic treatment for a thumb infection may be providing some relief of abdominal symptoms. 3. Adhd The patient's ADHD medication regimen is under review due to changes in prescribing practices. A referral to a psychiatrist, Shani Travis, has been made to evaluate the appropriateness of continuing Adderall. 4. Bipolar Disorder The patient's Prozac dosage has been adjusted to address mood swings. He is advised to continue monitoring his symptoms and report any significant changes. 5. Hypertension The patient is advised to monitor his blood pressure at home and bring readings to the next appointment. He has been reminded to adhere to his medication regimen to manage his hypertension effectively. 6. Gastroesophageal Reflux Disease (Gerd) The patient is advised to continue taking omeprazole for GERD management. He is also considering trying meloxicam for inflammation, which may help alleviate some symptoms. During the visit, I discussed the patient's chronic back pain and the potential need for surgery with Dr. Abreu. We reviewed the plan to obtain an MRI and discussed the implications of surgery, including recovery time and financial concerns. For the suspected gallbladder disease, I ordered an abdominal ultrasound and advised the patient to seek emergency care if symptoms worsen. We also reviewed his ADHD and bipolar disorder management, with referrals made to psychiatry for further evaluation. I emphasized the importance of monitoring his blood pressure and adhering to his medication regimen for hypertension. We discussed continuing omeprazole for GERD and considering meloxicam for inflammation. Orders: Orders MR lumbar spine wo con Today M47.816 - Spondylosis without myelopathy or radiculopathy, lumbar region, M51.36 - Other intervertebral disc degeneration, lumbar region Complete Blood Count Auto Diff Today Z00.00 - Encounter for general adult medical examination without abnormal findings Comprehensive [place]. Panel Fast Today Z00.00 - Encounter for general adult medical examination without abnormal findings Vitamin B12 and Folate Today Z00.00 - Encounter for general adult medical examination without abnormal findings Lipase Today R10.11 - Right upper quadrant pain Amylase Today R10.9 - Unspecified abdominal pain C Reactive Protein Today Z00.00 - Encounter for general adult medical examination without abnormal findings Lipid Panel Today Z00.00 - Encounter for general adult medical examination without abnormal findings Hemoglobin A1c Today Z00.00 - Encounter for general adult medical examination without abnormal findings TSH reflex Free T4 Today Z00.00 - Encounter for general adult medical examination without abnormal findings Magnesium Today Z00.00 - Encounter for general adult medical examination without abnormal findings Liver Panel Today Z00.00 - Encounter for general adult medical examination without abnormal findings Vitamin D 25-OH Total Today Z00.00 - Encounter for general adult medical examination without abnormal findings PSA,Total (Free>4and<10) Today Z00.00 - Encounter for general adult medical examination without abnormal findings US abdomen complete Today R10.9 - Unspecified abdominal pain Referrals 2 Pain Management Referral G89.29 - Other chronic pain, M47.816 - Spondylosis without myelopathy or radiculopathy, lumbar region, M48.00 - Spinal stenosis, site unspecified, M51.27 - Other intervertebral disc displacement, lumbosacral region, M51.36 - Other intervertebral disc degeneration, lumbar region, M51.369 - Other intervertebral disc degeneration, lumbar region without mention of lumbar back pain or lower extremity pain, M54.9 - Dorsalgia, unspecified Psychiatry Outpatient Consultation Service F90.9 - Attention-deficit hyperactivity disorder, unspecified type Medications: New celecoxib (Celebrex) 100 mg PO BID 60 caps 3RF fluoxetine 60 mg PO DAILY 90 tabs 3RF dextroamphetamine-amphetamine 10 mg 1 tab PO DAILY 30 tabs 0RF Changed From oxycodone Partial Fill upon patient request. 5 mg PO Q4H PRN 60 tabs 0RF pain To oxycodone Partial Fill upon patient request. 5 mg PO Q6H PRN 60 tabs 0RF pain Refilled oxycodone Partial Fill upon patient request. 5 mg PO Q4H PRN 60 tabs 0RF pain Patient Instructions: - Monitor blood pressure at home and bring readings to the next appointment. - Continue taking prescribed medications, including omeprazole for GERD. - Seek emergency care if abdominal pain worsens. - Attend scheduled appointments with referred specialists, including psychiatry.
[2024-09-11 14:35] VITALS: BP 167/106; PULSE 92; RESP 16; TEMP 36.7; O2SAT 99
--- OUTSIDE RECORDS SUMMARY | 2024-09-11 15:31 | XMS_ITS | Clinical Summary ---
[facility] Address [address] [place] [address] Care Team Providers Care Fixer Boarding Room Name Role Phone Unavailable Primary Care Provider [...] Vaccine ( - 2023-2 5 season) 2023 Depression Screening 02/22/2024 Influenza Vaccine (#1) 2024 HIB Vaccines Aged Out No longer eligi [...] age to complete this topic Meningococcal B Vaccine Aged Out No l onger eligible based on patient's age to complete this topic RSV Immunization Patients Un mery 20 months Aged Out No longer eligible b ased on patient's age to complete this topic Varicella Vaccines Aged Out No longer eligible based on patient's age to complete this topic
== END 2024-09-11 15:27 | disposition home or self-care (01) ==
LOC: HO.HMCSH 14:18
PROVIDERS: PCP Internal Medicine; Visit Provider Physician Assistant Medical
DX: M54.9 Dorsalgia, unspecified (principal); F31.9 Bipolar disorder, unspecified; E66.9 Obesity, unspecified; Z68.30 Body mass index [BMI] 30.0-30.9, adult; R10.9 Unspecified abdominal pain; G89.29 Other chronic pain; F90.9 Attention-deficit hyperactivity disorder, unspecified type; I10 Essential (primary) hypertension; K21.9 Gastro-esophageal reflux disease without esophagitis

== ENCOUNTER 2024-10-25 01:12 | Inpatient (IN) | payer BC, SELFPAY ==
[2024-10-25] VITALS (12 sets, daily range): BP systolic 120–138; BP diastolic 75–90; PULSE 88–112; RESP 16–22; TEMP 36.1–41.6; O2SAT 94–99; BMI 28.4; BMI 29.0
--- NOTE | ~2024-10-25 | US_ITS ---
EXAMINATION: US SCROTUM CLINICAL INFORMATION: Left scrotal cyst or hydrocele. COMPARISON: 09/23/2022. TECHNIQUE: A sonogram of the scrotum was performed assessing waters-scale appearance and color Doppler flow. Spectral Doppler analysis of the arterial and venous flow were performed in the testes bilaterally. FINDINGS: RIGHT: Right testicle measures 4.6 x 2.2 x 2.8 cm, volume 15.4 mL. No focal testicular parenchymal lesions are visualized. Spectral Doppler analysis of the arterial and venous flow is normal in the right testis. Right epididymal head is normal in size. No right hydrocele or varicocele is seen. Right epididymal Doppler flow is normal. LEFT: Left testicle measures 4.4 x 3.0 x 3.0 cm, volume 21 mL. No focal testicular parenchymal lesions are visualized. Spectral Doppler analysis of the arterial and venous flow is normal in the left testis. Left epididymal head demonstrates a cyst measuring 2.9 x 1.8 x 3.0 cm. Left epididymis otherwise normal. No left hydrocele or varicocele is seen. Left epididymal Doppler flow is normal. US/US scrotum IMPRESSION: 1. Normal testicles bilaterally. 2. There is a left epididymal head cyst measuring 2.9 x 1.8 x 3.0 cm. 3. There is no significant hydrocele or varicocele. Electronically signed by: Herson Palumbo MD 10/25/2024 10:47 AM EDT
--- NOTE | ~2024-10-25 | US_ITS ---
CLINICAL HISTORY: check for abscess in L groin upper leg Ultrasound soft tissues left groin Comparison: 10/25/2024 Findings: There are multiple lymph nodes within the left groin measuring up to 1.9 x 2.0 x 3.3 cm in size. Adjacent soft tissues are unremarkable. There is no fluid collection. There is no inguinal hernia. Impression: 1. Mild lymphadenopathy within the left groin, likely inflammatory. This document has been electronically signed by: Rosa Fatima MD on 10/27/2024 14:18:06
--- NOTE | ~2024-10-25 | CT_ITS ---
CLINICAL HISTORY: left groin perineal nec. fascitis CT abdomen and pelvis with contrast Comparison: CT/SR - CT ABDOMEN PELVIS W IV CON - 03/04/24 23:08 EST Findings: No consolidation or effusion. The gallbladder and solid organs are within normal limits. No hydronephrosis or hydroureter. No bowel obstruction, pneumoperitoneum, or pneumatosis. Pelvic contents unremarkable. No bladder wall thickening. The bladder is moderate to severely distended with fluid. 3.8 cm low-attenuation structure identified over the anterior aspect of the left hemiscrotum, possibly consistent with a cyst or hydrocele. There is fat stranding at the left groin soft tissues without identification of a discrete fluid collection in this region. No soft tissue gas appreciated. The fat stranding extends into the left inguinal crease/medial left thigh proximally. Normal appendix. No acute fracture visualized. There is minimal grade 1 anterolisthesis of L4 on L5. IMPRESSION: 1. Fat stranding/edema identified at the left groin soft tissues with extension into the left inguinal crease/medial left thigh proximally, possibly consistent with cellulitis in the appropriate clinical setting. No soft tissue gas or organized fluid collection identified in these regions. 2. Nonspecific 3.8 cm low-attenuation structure identified of the anterior aspect of the left hemiscrotum, possibly consistent with a cyst or hydrocele. This document has been electronically signed by: Paul Rhdoes MD on 10/25/2024 04:06:33
--- OUTSIDE RECORDS SUMMARY | 2024-10-25 01:59 | XMS_ITS | Clinical Summary ---
[facility] Address [address] [place] [address] Care Team Providers Care Maker Up Folding Name Role Phone Unavailable Primary Care Provider [...]
[2024-10-25] MEDS: SODIUM CHLORIDE 2544.66 ML IV (02:16)
[2024-10-25 02:21] LABS: Hematocrit 39.5 % (42.0-52.0); Hemoglobin 14.2 g/dl (14.0-18.0); Mean Corpuscular HGB Conc 35.9 g/dl (31.0-36.0); Mean Corpuscular Hemoglobin 32.1 pg (27.0-33.0); Mean Corpuscular Volume 89.4 fL (80.0-98.0); NRBC Abs Auto 0.000 X10*3/uL (0.0-0.012); NRBC Pct Auto 0.0 /100WBC (0.0-0.2); Platelet Count 256 X10*3/uL (160-400); Red Blood Count 4.42 X10*6/uL (4.60-5.80); White Blood Count 14.1 X10*3/uL (4.8-10.8)
[2024-10-25 02:36] LABS: Alanine Aminotransferase 33 U/L (0-40); Albumin Level 4.4 g/dL (3.5-5.0); Alkaline Phosphatase 51 U/L (39-117); Anion Gap 14 (12-20); Aspartate Amino Transferase 36 U/L (5-37); Blood Urea Nitrogen 22 mg/dL (9-16); Calcium 9.0 mg/dL (8.4-10.2); Carbon Dioxide 21 mmol/L (22-29); Chloride 99 mmol/L (96-108); Creatinine Clr Calc Pharmacy 121.4; Estimated Glomerular Filt Rate > 60; Magnesium 1.9 mg/dL (1.6-2.6); Potassium 3.8 mmol/L (3.3-5.1); Sodium 130 mmol/L (135-145); Total Protein 7.3 g/dL (6.5-8.0)
--- NOTE | 2024-10-25 02:51 | PC.NURSE ---
pt changed over into hospital gown, placed on youth nutritional monitor, pt medicated and fluids hung per APR. Pt resting in stretcher, no apparent distress or increased WOB noted at this time
[2024-10-25 02:53] LABS: Neutrophils Percent Manual 67 % (45-73)
[2024-10-25 02:55] LABS: Eosinophils Absolute Manual 0.1 X10*3/uL (0.0-0.4); Eosinophils Percent Manual 1 % (0-4); Lymphocytes Absolute Manual 0.7 X10*3/uL (1.2-4.9); Lymphocytes Percent Manual 5 % (20-40); Monocytes Absolute Manual 2.0 X10*3/uL (0.1-1.2); Monocytes Percent Manual 14 % (2-11); Neutrophils Absolute Manual 11.3 X10*3/uL (2.0-8.3); RBC Morphology NORMAL; Toxic Vacuolation PRESENT
[2024-10-25 02:59] LABS: Band Neutrophils Percent 13 % (3-5)
[2024-10-25 03:01] LABS: COVID-19 Test Negative (Negative); IDNOW Serial# 6674DD1D
[2024-10-25] MEDS: iohexoL 350 MG/ML 100 ML INFUS..BTL 85 ML IV (03:08)
--- NOTE | 2024-10-25 04:20 | ED.GENADULT ---
HPI - General Adult General Chief complaint: Extremity Injury, Lower Stated complaint: Groin pain , Time Seen by Provider: 10/25/24 01:35 Source: patient Limitations: no limitations History of Present Illness ED Provider: Hermila áSnchez PA-C HPI narrative: 54-year-old male with a history of hypertension, bipolar disorder, ADHD, GERD, chronic back pain, who presents with painful rash to in her left groin times 2-3 days. The area is tender, swollen, erythematous. The redness spans from a left groin to inner thigh adjacent to the perineum. Extremely tender to palpation. Associated fever. Denies recent cough or cold symptoms, dysuria, abdominal pain, nausea vomiting diarrhea. Related Data Home Medications ?Medication ?Instructions ?Recorded ?Confirmed omeprazole 20 mg capsule,delayed 20 mg PO BID 12/17/22 09/11/24 release losartan 100 mg tablet 100 mg PO DAILY 03/23/24 09/11/24 cephalexin 500 mg capsule 500 mg PO QID 09/11/24 09/11/24 fexofenadine 180 mg tablet mg PO 09/11/24 09/11/24 (Allergy Relief (fexofenadine)) Previous Rx's ?Medication ?Instructions ?Recorded cyanocobalamin (vitamin B-12) 1,000 mcg PO DAILY #90 tabs 09/20/23 1,000 mcg sublingual tablet sucralfate 1 gram tablet 1 g PO BID PRN Epigastric pain #60 03/05/24 tabs celecoxib 100 mg capsule (Celebrex) 100 mg PO BID #60 caps 09/11/24 dextroamphetamine-amphetamine 10 1 tab PO DAILY #30 tabs 09/11/24 mg tablet fluoxetine 20 mg capsule 20 mg PO DAILY #90 caps 09/12/24 fluoxetine 40 mg capsule 40 mg PO DAILY #90 caps 09/12/24 oxycodone 5 mg tablet 5 mg PO Q6H PRN pain #60 tabs 09/13/24 Allergies Allergy/AdvReac Type Severity Reaction Status Date / Time seasonal Allergy Mild Sneezing Uncoded 10/25/24 01:53 Review of Systems Review of Systems: Yes all other systems are reviewed and are negative Constitutional: Constitutional: Reports chills, Denies fatigue and Reports fever(s) Cardiovascular: Cardiovascular: Denies chest pain and Denies dyspnea Respiratory: Respiratory: Denies cough and Denies dyspnea Gastrointestinal: Gastrointestinal: Denies abdominal pain, Denies diarrhea, Denies nausea and Denies vomiting Genitourinary: Genitourinary: Denies dysuria and Denies scrotal swelling Integumentary/Breasts: Skin/Breast: Reports erythema, Reports skin pain and Reports skin swelling Endocrine: Endocrine: Denies fatigue [facility] Past Medical History Attestation statement: The following information was validated with the patient. Medical History (Updated 10/25/24 @ 04:58 by EVERARDO Rodriguez) Obesity with body mass index (BMI) of 30.0 to 39.9 Bipolar disorder, unspecified Establishing care with new doctor, encounter for Central stenosis of spinal canal Protrusion of intervertebral disc of lumbosacral region Bulging lumbar disc Degenerative disc disease, lumbar Chronic back pain Sinus infection Bleeding hemorrhoids Testicular pain, right Epididymal cyst Hydrocele Anxiety Umbilical hernia ADHD (attention deficit hyperactivity disorder) HTN (hypertension) GERD (gastroesophageal reflux disease) Hemorrhoids Surgical History (Updated 10/12/24 @ 14:37 by Shena Rodriguez) History of hemorrhoidectomy (~03/27/24) History of epididymectomy (04/18/23) Hx of umbilical hernia repair (07/22/21) Hx of endoscopy (06/2022) History of colonoscopy (~01/11/19) Status post total right knee replacement Family History Family History Father Alive and well Mother Alive and well Social History Social History Household Members: None Housing: Apartment Are you a primary care process manager to a significant other at home: No Do you presently have visiting nurse or other home services: No Alcohol intake: current Alcohol intake frequency: 3 or more drinks per day Alcohol type: beer Patient Tobacco Use Status: Former Tobacco user Smoked in Last 30 Days: No Use of substances other than those prescribed or required for medical reasons: No Substance Use Type: Marijuana Advance Directives: No service: No Current occupational status: employed Cognitive needs: No Hearing needs: No Vision needs: Yes (reading glasses/Rx glasses) Physical Exam ED Vital Signs: Vital Signs - 24 hr 10/25/24 01:36 10/25/24 02:38 10/25/24 02:48 Temperature 107 F H 101.4 F H Pulse Rate 97 Respiratory Rate 20 Blood Pressure 126/90 H Pulse Oximetry 99 Oxygen Delivery Method Room Air 10/25/24 04:00 10/25/24 04:20 10/25/24 04:59 Temperature 100.4 F Pulse Rate 88 101 H Respiratory Rate 22 H 19 17 Blood Pressure 120/88 128/78 Pulse Oximetry 98 Oxygen Delivery Method Room Air BMI result Body Mass Index 28.4 Const Other: Alert, restless, Orientation/consciousness: patient oriented x3 Resp Effort & Inspection: normal respiratory effort Cardio Other: Normal peripheral perfusion GI Other: Soft nondistended nontender no guarding Other: Erythema that spans left groin/ inguinal region to left inner thigh adjacent to the perineum, does not include the scrotum, is warm, extremely tender to palpation, I am not appreciating crepitus Skin Other: Warm dry no rash Neuro General: patient oriented x3, gait normal, no focal motor deficits and CN's II-XI intact bilaterally Psych Other: Cooperative, Course Reevaluation(s) Reevaluation #1: At 2:03 on October 25, a sepsis focused exam was performed, the patient has a rectal temp of 100.7, he is tachycardic, in addition to screening labs we will be collecting blood cultures, lactic acid, giving weight based IV fluid therapy and starting empiric ceftriaxone Time: 02:03 Medications Administered Discontinued Medications Generic Name Dose Route Start Last Admin Trade Name Freq PRN Reason Stop Dose Admin Ceftriaxone Sodium 2 gm 10/25/24 02:03 10/25/24 02:12 Ceftriaxone Sodium 2 Gm Vial IVPUSH 10/25/24 02:04 2 gm ONCE ONE Administration Acetaminophen 1,000 mg in 100 mls @ 400 mls/hr 10/25/24 01:51 10/25/24 02:32 Ofirmev IV 10/25/24 02:05 Infused ONCE ONE Infusion Sodium Chloride 2,544.66 mls @ 2,544.66 mls/hr 10/25/24 02:03 10/25/24 04:18 Ns 30 ml/kg infuse over 1 hr (2544.66 ml) 10/25/24 03:02 Infused IV Infusion .Q1H STA Clindamycin Phosphate 600 mg in 50 mls @ 100 mls/hr 10/25/24 04:21 10/25/24 05:20 Cleocin IV 10/25/24 04:50 Infused ONCE ONE Infusion Iohexol 85 ml 10/25/24 03:07 10/25/24 03:08 Iohexol 350 Mg/Ml 100 Ml Infus..Btl IV 10/25/24 03:08 85 ml ONCE ONE Administration Ketorolac Tromethamine 15 mg 10/25/24 04:50 10/25/24 04:59 Ketorolac Tromethamine 15 Mg/Ml Vial IVPUSH 10/25/24 04:51 15 mg ONCE ONE Administration Morphine Sulfate 4 mg 10/25/24 04:50 10/25/24 04:59 Morphine Sulfate 4 Mg/Ml Cartridge IVPUSH 10/25/24 04:51 4 mg ONCE ONE Administration Protocol Medical Decision Making Medical Decision Making MDM Narrative: 54-year-old male with a history of hypertension, bipolar disorder, ADHD, GERD, chronic back pain, who presents with painful rash to in her left groin times 2-3 days. The area is tender, swollen, erythematous. The redness spans from a left groin to inner thigh adjacent to the perineum. Extremely tender to palpation. Associated fever. Denies recent cough or cold symptoms, dysuria, abdominal pain, nausea vomiting diarrhea. Problem: Psychiatric illness History: Per patient I have considered the following differential diagnoses: Cellulitis, necrotizing fasciitis, Marita gangrene, sepsis Plan: Patient meets sepsis criteria, my biggest concerns for neck fascia, we will be obtaining a CT scan. In addition to screening labs blood cultures and lactic obtained. Giving weight based IV fluid, Tylenol, starting empiric ceftriaxone. We will check for other sources, urinalysis and COVID swab. I have independently reviewed the following tests: Labs: Leukocytosis 14.1, left shift noted with bandemia of 13, not anemic, ESR 17, CRP 7.99, lactic 1.4, ethanol less than 10, U tox positive for amphetamine and cocaine, urinalysis pending, COVID negative CT abd pelvis: Findings: No consolidation or effusion. The gallbladder and solid organs are within normal limits. No hydronephrosis or hydroureter. No bowel obstruction, pneumoperitoneum, or pneumatosis. Pelvic contents unremarkable. No bladder wall thickening. The bladder is moderate to severely distended with fluid. 3.8 cm low-attenuation structure identified over the anterior aspect of the left hemiscrotum, possibly consistent with a cyst or hydrocele. There is fat stranding at the left groin soft tissues without identification of a discrete fluid collection in this region. No soft tissue gas appreciated. The fat stranding extends into the left inguinal crease/medial left thigh proximally. Normal appendix. No acute fracture visualized. There is minimal grade 1 anterolisthesis of L4 on L5. IMPRESSION: 1. Fat stranding/edema identified at the left groin soft tissues with extension into the left inguinal crease/medial left thigh proximally, possibly consistent with cellulitis in the appropriate clinical setting. No soft tissue gas or organized fluid collection identified in these regions. 2. Nonspecific 3.8 cm low-attenuation structure identified of the anterior aspect of the left hemiscrotum, possibly consistent with a cyst or hydrocele. Differential Diagnosis Differential Diagnoses: The differential diagnosis associated with the presentation includes See medical decision-making Admission/Observation Consideration of admission/observation: Escalation of care including admission/observation considered Requires hospital admission Consult Healthcare Provider Management of the patient was discussed with: Hospitalist Lab Data MDM Lab Attestation statement: I reviewed the patient's lab results. 10/25/24 02:08 10/25/24 02:08 Labs: Lab Results 10/25/24 10/25/24 10/25/24 Range/Units 02:08 03:36 04:27 WBC 14.1 H (4.8-10.8) X10*3/uL RBC 4.42 L (4.60-5.80) X10*6/uL Hgb 14.2 (14.0-18.0) g/dl Hct 39.5 L (42.0-52.0) % MCV 89.4 (80.0-98.0) fL MCH 32.1 (27.0-33.0) pg MCHC 35.9 (31.0-36.0) g/dl RDW 11.8 (11.0-16.0) % Plt Count 256 (160-400) X10*3/uL MPV 9.3 L (9.4-12.4) fL Immature Gran % (Auto) Cancelled Neut % (Auto) Cancelled Lymph % (Auto) Cancelled [place] % (Auto) Cancelled Eos % (Auto) Cancelled Baso % (Auto) Cancelled Lymph # (Auto) Cancelled [place] # (Auto) Cancelled Eos # (Auto) Cancelled Baso # (Auto) Cancelled Abs Immat Gran (auto) Cancelled Absolute Neuts (auto) Cancelled Absolute Nucleated RBC 0.000 (0.0-0.012) X10*3/uL Nucleated RBC % (auto) 0.0 (0.0-0.2) /100WBC Neutrophils % (Manual) 67 (45-73) % Band Neutrophils % 13 H (3-5) % Lymphocytes % (Manual) 5 L (20-40) % Monocytes % (Manual) 14 H (2-11) % Eosinophils % (Manual) 1 (0-4) % Abs Neuts (Manual) 11.3 H (2.0-8.3) X10*3/uL Lymphocytes # (Manual) 0.7 L (1.2-4.9) X10*3/uL Monocytes # (Manual) 2.0 H (0.1-1.2) X10*3/uL Eosinophils # (Manual) 0.1 (0.0-0.4) X10*3/uL Toxic Vacuolation PRESENT Platelet Estimate NORMAL (NORMAL) Plt Morphology Comment NORMAL RBC Morphology NORMAL ESR 17 H (0-15) MM/HR Sodium 130 L (135-145) mmol/L Potassium 3.8 (3.3-5.1) mmol/L Chloride 99 (96-108) mmol/L Carbon Dioxide 21 L (22-29) mmol/L Anion Gap 14 (12-20) BUN 22 H (9-16) mg/dL Creatinine 0.72 (0.5-1.4) mg/dL Estim Creat Clear Calc 121.4 Estimated GFR > 60 Random Glucose 94 (60-115) mg/dL Lactic Acid 1.4 (0.5-2.0) mmol/L Calcium 9.0 (8.4-10.2) mg/dL Magnesium 1.9 (1.6-2.6) mg/dL Total Bilirubin 2.3 H (0.0-1.0) mg/dL AST 36 (5-37) U/L ALT 33 (0-40) U/L Alkaline Phosphatase 51 (39-117) U/L C-Reactive Protein 7.99 H (< or = 0.50) mg/dL Total Protein 7.3 (6.5-8.0) g/dL Albumin 4.4 (3.5-5.0) g/dL Urine Color Urine Appearance Urine pH (5.0-9.0) Ur Specific [place] (1.005-1.025) Urine Protein (Neg-Trace) mg/dL Urine Glucose (UA) (Negative) mg/dL Urine Ketones (Negative) mg/dL Urine Blood (Negative) Urine Nitrite (Negative) Ur Leukocyte Esterase (Negative) Urine RBC (0-2) /HPF Urine WBC (0-5) /HPF Ur Squamous Epith Cells (0-2) /HPF Urine Bacteria (None Seen) Hyaline Casts (0-2) /LPF Urine Opiates Screen Not Detected (Not Detect) Ur Buprenorphine Scrn Not Detected (Not Detect) ng/mL Ur Oxycodone Screen Not Detected (Not Detect) ng/mL Urine Methadone Screen Not Detected (Not Detect) ng/mL Urine Fentanyl Screen Not Detected (Not Detect) Ur Barbiturates Screen Not Detected (Not Detect) Ur Phencyclidine Scrn Not Detected (Not Detect) Ur Amphetamines Screen POSITIVE H (Not Detect) U Benzodiazepines Scrn Not Detected (Not Detect) Urine Cocaine Screen POSITIVE H (Not Detect) U Marijuana (THC) Screen Not Detected (Not Detect) Ethyl Alcohol < 10 mg/dL COVID-19 ([facility]) Negative (Negative) COVID-19 Clin Com See Note 10/25/24 Range/Units 05:03 WBC (4.8-10.8) X10*3/uL RBC (4.60-5.80) X10*6/uL Hgb (14.0-18.0) g/dl Hct (42.0-52.0) % MCV (80.0-98.0) fL MCH (27.0-33.0) pg MCHC (31.0-36.0) g/dl RDW (11.0-16.0) % Plt Count (160-400) X10*3/uL MPV (9.4-12.4) fL Immature Gran % (Auto) Neut % (Auto) Lymph % (Auto) [place] % (Auto) Eos % (Auto) Baso % (Auto) Lymph # (Auto) [place] # (Auto) Eos # (Auto) Baso # (Auto) Abs Immat Gran (auto) Absolute Neuts (auto) Absolute Nucleated RBC (0.0-0.012) X10*3/uL Nucleated RBC % (auto) (0.0-0.2) /100WBC Neutrophils % (Manual) (45-73) % Band Neutrophils % (3-5) % Lymphocytes % (Manual) (20-40) % Monocytes % (Manual) (2-11) % Eosinophils % (Manual) (0-4) % Abs Neuts (Manual) (2.0-8.3) X10*3/uL Lymphocytes # (Manual) (1.2-4.9) X10*3/uL Monocytes # (Manual) (0.1-1.2) X10*3/uL Eosinophils # (Manual) (0.0-0.4) X10*3/uL Toxic Vacuolation Platelet Estimate (NORMAL) Plt Morphology Comment RBC Morphology ESR (0-15) MM/HR Sodium (135-145) mmol/L Potassium (3.3-5.1) mmol/L Chloride (96-108) mmol/L Carbon Dioxide (22-29) mmol/L Anion Gap (12-20) BUN (9-16) mg/dL Creatinine (0.5-1.4) mg/dL Estim Creat Clear Calc Estimated GFR Random Glucose (60-115) mg/dL Lactic Acid (0.5-2.0) mmol/L Calcium (8.4-10.2) mg/dL Magnesium (1.6-2.6) mg/dL Total Bilirubin (0.0-1.0) mg/dL AST (5-37) U/L ALT (0-40) U/L Alkaline Phosphatase (39-117) U/L C-Reactive Protein (< or = 0.50) mg/dL Total Protein (6.5-8.0) g/dL Albumin (3.5-5.0) g/dL Urine Color Yellow Urine Appearance Clear Urine pH 5.5 (5.0-9.0) Ur Specific [place] 1.020 (1.005-1.025) Urine Protein Negative (Neg-Trace) mg/dL Urine Glucose (UA) Negative (Negative) mg/dL Urine Ketones 15 (Negative) mg/dL Urine Blood Negative (Negative) Urine Nitrite Negative (Negative) Ur Leukocyte Esterase Negative (Negative) Urine RBC 0-2 (0-2) /HPF Urine WBC 0-5 (0-5) /HPF Ur Squamous Epith Cells 3-5 (0-2) /HPF Urine Bacteria None Seen (None Seen) Hyaline Casts 0-2 (0-2) /LPF Urine Opiates Screen (Not Detect) Ur Buprenorphine Scrn (Not Detect) ng/mL Ur Oxycodone Screen (Not Detect) ng/mL Urine Methadone Screen (Not Detect) ng/mL Urine Fentanyl Screen (Not Detect) Ur Barbiturates Screen (Not Detect) Ur Phencyclidine Scrn (Not Detect) Ur Amphetamines Screen (Not Detect) U Benzodiazepines Scrn (Not Detect) Urine Cocaine Screen (Not Detect) U Marijuana (THC) Screen (Not Detect) Ethyl Alcohol mg/dL COVID-19 ([facility]) (Negative) COVID-19 Clin Com Radiology Impression Discussion of test interpretation with radiology: I have reviewed the radiologist's reading. Critical Care Time Critical Care Time Critical Care Time: Yes Total Critical Care Time: 35 Attestation: I Hermila Sánchez PA-C have personally performed 35 minutes of critical care time not including lines and procedures; sepsis, need for IV antibiotic therapy, refractory fever, IV antipyretic Discharge Plan Discharge Clinical Impression: Cellulitis of groin, left, Cocaine abuse, Sepsis Patient Disposition: Admitted As Inpatient Print Language: Kinyarwanda
[2024-10-25 04:45] LABS: Cannabinoid Screen Urine Not Detected (Not Detect)
[2024-10-25 05:10] LABS: Appearance Urine Clear; Glucose Urine UA Negative (Negative); PH 5.5 (5.0-9.0); Specific Gravity - Urine 1.020 (1.005-1.025)
--- NOTE | 2024-10-25 05:42 | P.HPHOSP_ITS ---
History of Present Illness Date of Service: 10/25/24 Attending physician on admission: Evelina Camacho Chief Complaint: Left groin pain Luis Arechiga is a 54 years old man with past medical history significant for essential hypertension presents to the ED complaining of left groin pain that started yesterday with associated redness extending to the medial aspect of his left thigh and lower abdomen. He said that he went on a walk and heard a pop in this area. He also reported fever, nausea and bilious vomiting. He denied diarrhea. Patient denied acute urinary symptoms or penile discharges. He shaved his genitals. He did not report any headache, palpitations, shortness on breath, chest pain or cough. He denied IV drug use. He uses cocaine and drinks alcohol in occasions. Denied tobacco smoking. He has a history of MRSA. In the ED, he was found to have fever of 101.4 and mild tachycardia. Blood pressure and oxygen saturation are normal. Blood workup was remarkable for leukocytosis of 14.1. There is no lactic acidosis. CRP is 7.99. Hemoglobin is 14.2 and platelets 256. Sodium is 130. There are no other electrolyte imbalances. BUN is 22 and creatinine 0.72. Total bili is 2.3. Urinalysis is normal. Urine drug screen is positive for amphetamines and cocaine. Abdominal pelvis CT scan showed fat stranding/edema identified at the left groins of tissue with extension into the left inguinal crease/medial left thigh proximally possibly consistent with cellulitis in the appropriate clinical setting without soft tissues gas or organized fluid correlation. There is a nonspecific 3.8 cm low-attenuation structure identified of the anterior aspect of the left hemiscrotum possible consistent with a cyst or hydrocele. ED tx: Acetaminophen 1 g IV, NS 2544 mL bolus, ceftriaxone 2 g, clindamycin 600 mg IV, ketorolac 50 mg IV, morphine 4 mg IV Review of Systems 2 Review of Systems: All 12 systems were reviewed and normal except as noted in HPI. [facility] Medical History (Updated 10/25/24 @ 06:23 by Evelina Camacho MD) Obesity with body mass index (BMI) of 30.0 to 39.9 Bipolar disorder, unspecified Establishing care with new doctor, encounter for Central stenosis of spinal canal Protrusion of intervertebral disc of lumbosacral region Bulging lumbar disc Degenerative disc disease, lumbar Chronic back pain Sinus infection Bleeding hemorrhoids Testicular pain, right Epididymal cyst Hydrocele Anxiety Umbilical hernia ADHD (attention deficit hyperactivity disorder) HTN (hypertension) GERD (gastroesophageal reflux disease) Hemorrhoids Family History Father Alive and well Mother Alive and well Surgical History (Updated 10/12/24 @ 14:37 by Shena Rodriguez) History of hemorrhoidectomy (~03/27/24) History of epididymectomy (04/18/23) Hx of umbilical hernia repair (07/22/21) Hx of endoscopy (06/2022) History of colonoscopy (~01/11/19) Status post total right knee replacement Social History Household Members: None Housing: Apartment Are you a primary home care manager rn to a significant other at home: No Do you presently have visiting nurse or other home services: No Alcohol intake: current Alcohol intake frequency: 3 or more drinks per day Alcohol type: beer Patient Tobacco Use Status: Former Tobacco user Smoked in Last 30 Days: No Use of substances other than those prescribed or required for medical reasons: No Substance Use Type: Marijuana Advance Directives: No service: No Current occupational status: employed Cognitive needs: No Hearing needs: No Vision needs: Yes (reading glasses/Rx glasses) Meds Allergies Allergy/AdvReac Type Severity Reaction Status Date / Time seasonal Allergy Mild Sneezing Uncoded 10/25/24 01:53 Active Medications: Current Medications Acetaminophen (Acetaminophen 325 Mg Tablet) 975 mg PO Q6H PRN PRN Reason: Pain, Mild 1-3,fever,headache Calcium Carbonate (Calcium Carbonate 750 Mg Tab.Chew) 750 mg PO Q4H PRN PRN Reason: Heartburn Enoxaparin Sodium (Enoxaparin Sodium 40 Mg/0.4 Ml Syringe) 40 mg SUBCUT Q24H REBECCA Hydromorphone HCl (Hydromorphone Hcl 1 Mg/Ml Syringe) 1 mg IVPUSH Q4H PRN; Protocol PRN Reason: Pain, Severe (Pain Scale 7-10) Magnesium Hydroxide (Milk Of Magnesia 30 Ml Oral.Susp) 30 ml PO DAILY PRN PRN Reason: Constipation Melatonin (Melatonin 3 Mg Tablet) 6 mg PO BEDTIME PRN PRN Reason: Insomnia Ondansetron HCl (Ondansetron Hcl 4 Mg/2 Ml Vial) 4 mg IVPUSH Q8H PRN PRN Reason: Nausea and Vomiting Sodium Chloride (0.9 % Sodium Chloride Flush 3 Ml Syringe) 3 ml IVFLUSH QSHIFT [facility] Home Medications ?Medication ?Instructions ?Recorded ?Confirmed ?Last Taken ?Type omeprazole 20 mg capsule,delayed 20 mg PO BID 12/17/22 09/11/24 03/27/24 History release losartan 100 mg tablet 100 mg PO DAILY 03/23/2403/27/24 History cephalexin 500 mg capsule 500 mg PO QID 09/11/2409/11 Unknown History fexofenadine 180 mg tablet mg PO 09/11/24 09/11/24 Unk nown History (Allergy Relief (fexofenadine)) Physical Exam 2 Vital Signs and Narrative: Vital Signs: Last Vital Signs Temp 100.4 F 10/25/24 04:20 Pulse 101 H 10/25/24 04:40 Resp 17 10/25/24 04:59 BP 126/76 10/25/24 04:40 Pulse Ox 99 10/25/24 04:40 O2 Del Method Room Air 10/25/24 04:40 BMI result Body Mass Index 28.4 Constitutional - Awake and Alert, looks uncomfortable due to pain. HEENT - PER, EOMI Heart - RRR, No murmurs Lungs - Normal lung expansion, Normal respiratory effort, No respiratory distress, CTA bilaterally Abdomen - NT / ND; +BS; No rebound or guarding - left groin is erythematous and tender to palpation. no scrotal edema or erythema. Extremities - left upper thigh: Erythema extending to the medial aspect. No wounds or skin lesions associated. Musculoskeletal - Normal inspection, normal ROM Skin - Warm/Dry Neurological - Alert & oriented x3, CN II-XII in tact, 5/5 strength BUE and BLE Psychological - Appropriate affect Results Labs 10/25/24 02:08 10/25/24 02:08 Labs: Laboratory Results - last 24 hr 10/25/24 10/25/24 10/25/24 02:08 03:36 04:27 MCV 89.4 MCH 32.1 MCHC 35.9 RDW 11.8 Plt Count 256 MPV 9.3 L Immature Gran % (Auto) Cancelled Neut % (Auto) Cancelled Lymph % (Auto) Cancelled [place] % (Auto) Cancelled Eos % (Auto) Cancelled Baso % (Auto) Cancelled Lymph # (Auto) Cancelled [place] # (Auto) Cancelled Eos # (Auto) Cancelled Baso # (Auto) Cancelled Abs Immat Gran (auto) Cancelled Absolute Neuts (auto) Cancelled Absolute Nucleated RBC 0.000 Nucleated RBC % (auto) 0.0 Neutrophils % (Manual) 67 Band Neutrophils % 13 H Lymphocytes % (Manual) 5 L Monocytes % (Manual) 14 H Eosinophils % (Manual) 1 Abs Neuts (Manual) 11.3 H Lymphocytes # (Manual) 0.7 L Monocytes # (Manual) 2.0 H Eosinophils # (Manual) 0.1 Toxic Vacuolation PRESENT Platelet Estimate NORMAL Plt Morphology Comment NORMAL RBC Morphology NORMAL ESR 17 H Anion Gap 14 Estim Creat Clear Calc 121.4 Estimated GFR > 60 Random Glucose 94 Lactic Acid 1.4 Calcium 9.0 Magnesium 1.9 Total Bilirubin 2.3 H AST 36 ALT 33 Alkaline Phosphatase 51 C-Reactive Protein 7.99 H Total Protein 7.3 Albumin 4.4 Urine Color Urine Appearance Urine pH Ur Specific [place] Urine Protein Urine Glucose (UA) Urine Ketones Urine Blood Urine Nitrite Ur Leukocyte Esterase Urine RBC Urine WBC Ur Squamous Epith Cells Urine Bacteria Hyaline Casts Urine Opiates Screen Not Detected Ur Buprenorphine Scrn Not Detected Ur Oxycodone Screen Not Detected Urine Methadone Screen Not Detected Urine Fentanyl Screen Not Detected Ur Barbiturates Screen Not Detected Ur Phencyclidine Scrn Not Detected Ur Amphetamines Screen POSITIVE H U Benzodiazepines Scrn Not Detected Urine Cocaine Screen POSITIVE H U Marijuana (THC) Screen Not Detected Ethyl Alcohol < 10 COVID-19 (SURESH) Negative COVID-19 Clin Com See Note 10/25/24 05:03 MCV MCH MCHC RDW Plt Count MPV Immature Gran % (Auto) Neut % (Auto) Lymph % (Auto) [place] % (Auto) Eos % (Auto) Baso % (Auto) Lymph # (Auto) [place] # (Auto) Eos # (Auto) Baso # (Auto) Abs Immat Gran (auto) Absolute Neuts (auto) Absolute Nucleated RBC Nucleated RBC % (auto) Neutrophils % (Manual) Band Neutrophils % Lymphocytes % (Manual) Monocytes % (Manual) Eosinophils % (Manual) Abs Neuts (Manual) Lymphocytes # (Manual) Monocytes # (Manual) Eosinophils # (Manual) Toxic Vacuolation Platelet Estimate Plt Morphology Comment RBC Morphology ESR Anion Gap Estim Creat Clear Calc Estimated GFR Random Glucose Lactic Acid Calcium Magnesium Total Bilirubin AST ALT Alkaline Phosphatase C-Reactive Protein Total Protein Albumin Urine Color Yellow Urine Appearance Clear Urine pH 5.5 Ur Specific [place] 1.020 Urine Protein Negative Urine Glucose (UA) Negative Urine Ketones 15 Urine Blood Negative Urine Nitrite Negative Ur Leukocyte Esterase Negative Urine RBC 0-2 Urine WBC 0-5 Ur Squamous Epith Cells 3-5 Urine Bacteria None Seen Hyaline Casts 0-2 Urine Opiates Screen Ur Buprenorphine Scrn Ur Oxycodone Screen Urine Methadone Screen Urine Fentanyl Screen Ur Barbiturates Screen Ur Phencyclidine Scrn Ur Amphetamines Screen U Benzodiazepines Scrn Urine Cocaine Screen U Marijuana (THC) Screen Ethyl Alcohol COVID-19 (SURESH) COVID-19 Clin Com Assessment and Plan (1) Cellulitis of groin, left: Status: Acute (2) Nausea and vomiting: Qualifiers: Vomiting type: unspecified Qualified Code(s): R11.2 - Nausea with vomiting, unspecified Status: Acute Plan Luis Arechiga is a 54 y/o man presents with: Left groin/left upper thigh cellulitis. SIRS/sepsis criteria, no severe sepsis. Hx of MRSA. Abdomen pelvis CT scan showed no necrotizing fascitis. Empiric IV antibiotic therapy with ceftriaxone and vancomycin. Blood cultures obtained in the ED -will follow results. Check MRSA nares. Pain control with Dilaudid IV. Patient advised to stop shaving his genital region to avoid future events of cellulitis. Nausea and vomiting, likely secondary to above. Patient received about 2.5 ml of NS in ED. Antiemetic therapy IV with Zofran as needed. Hyponatremia, likely secondary to above. Check urine and serum osmolality. Check sodium in urine and TSH. Monitor Na+ closely. Essential hypertension. Continue losartan. ADHD. Continue D-amph. Depression. Continue fluoxetine. Chronic back pain. Continue Celebrex. Code status: Full. DVT prophylaxis: Lovenox Patient will need hospitalization for at least 2 midnights for extensive cellulitis of the left groin/left thigh area treatment with IV antibiotics. Quality Stroke Does the patient have a stroke diagnosis?: No VTE Prior VTE?: No VTE Risk Level:: Medical - moderate - high VTE Device Contraindication: Treatment Not Indicated VTE Drug Contraindication: N/A - Med Ordered
[2024-10-25] MEDS: vancomycin HCL 1,000 MG, vancomycin HCL 750 MG in 0.9 % Sodium Chloride 500 ML 267.5 MG IV (06:21)
[2024-10-25 06:46] LABS: Thyroid Stimulating Hormone 0.62 uIU/mL (0.32-4.0)
[2024-10-25 07:03] LABS: Sodium 133 mmol/L (135-145)
[2024-10-25 07:12] LABS: Osmolality, Serum 277 mosm/kg (281-305)
--- NOTE | 2024-10-25 08:33 | PM.UROCN ---
History of Present Illness Consult details Consult date: 10/25/24 Narrative: CC: Left hydrocele 54-year-old male Presents through emergency room after stating that he had a groin strain whilst walking Presents with redness extending to medial aspect of left thigh and lower abdomen Does report genital grooming Found to have fever 101.4, CRP 7.99 in emergency room. Urine drug screen positive for amphetamines and cocaine Admitted for treatment of cellulitis CT scan shows left hydrocele and for bladder Follow-up outpatient urology evaluation Start tamsulosin Review of Systems Constitutional: Constitutional: Reports as per HPI and Reports no additional constitutional complaints Cardiovascular: Cardiovascular: Reports as per HPI and Reports no additional cardiovascular complaints Respiratory: Respiratory: Reports as per HPI and Reports no additional respiratory complaints Gastrointestinal: Gastrointestinal: Reports as per HPI and Reports no additional gastrointestinal complaints Genitourinary: Genitourinary: Reports as per HPI Musculoskeletal: Musculoskeletal: Reports no additional musculoskeletal complaints and Reports as per HPI Neurologic: Reports system reviewed and no additional complaints, except as documented and Reports as per HPI [facility] Past Medical History Medical History (Updated 10/25/24 @ 08:36 by Rogelio Waldrop MD) Obesity with body mass index (BMI) of 30.0 to 39.9 Bipolar disorder, unspecified Establishing care with new doctor, encounter for Central stenosis of spinal canal Protrusion of intervertebral disc of lumbosacral region Bulging lumbar disc Degenerative disc disease, lumbar Chronic back pain Sinus infection Bleeding hemorrhoids Testicular pain, right Epididymal cyst Hydrocele Anxiety Umbilical hernia ADHD (attention deficit hyperactivity disorder) HTN (hypertension) GERD (gastroesophageal reflux disease) Hemorrhoids Family History Family History Father Alive and well Mother Alive and well Surgical History Surgical History (Updated 10/12/24 @ 14:37 by Shena Rodriguez) History of hemorrhoidectomy (~03/27/24) History of epididymectomy (04/18/23) Hx of umbilical hernia repair (07/22/21) Hx of endoscopy (06/2022) History of colonoscopy (~01/11/19) Status post total right knee replacement Social History Social History Household Members: None Housing: Apartment Are you a primary health care liaison to a significant other at home: No Do you presently have visiting nurse or other home services: No 75 years or older and lives alone: No Alcohol intake: current Alcohol intake frequency: 3 or more drinks per day Alcohol type: beer Patient Tobacco Use Status: Former Tobacco user Substance Use Type: Marijuana service: No Current occupational status: employed Cognitive needs: No Hearing needs: No Vision needs: Yes (reading glasses/Rx glasses) Meds Allergies Allergy/AdvReac Type Severity Reaction Status Date / Time seasonal Allergy Mild Sneezing Uncoded 10/25/24 01:53 Active Medications: Current Medications Acetaminophen (Acetaminophen 325 Mg Tablet) 975 mg PO Q6H PRN PRN Reason: Pain, Mild 1-3,fever,headache Calcium Carbonate (Calcium Carbonate 750 Mg Tab.Chew) 750 mg PO Q4H PRN PRN Reason: Heartburn Enoxaparin Sodium (Enoxaparin Sodium 40 Mg/0.4 Ml Syringe) 40 mg SUBCUT Q24H REBECCA Hydromorphone HCl (Hydromorphone Hcl 1 Mg/Ml Syringe) 1 mg IVPUSH Q4H PRN; Protocol PRN Reason: Pain, Severe (Pain Scale 7-10) Last Admin: 10/25/24 06:21 Dose: 1 mg Piperacillin Sod/Tazobactam (Sod 3.375 gm/ Sodium Chloride) 50 mls @ 100 mls/hr IV Q6H REBECCA Magnesium Hydroxide (Milk Of Magnesia 30 Ml Oral.Susp) 30 ml PO DAILY PRN PRN Reason: Constipation Melatonin (Melatonin 3 Mg Tablet) 6 mg PO BEDTIME PRN PRN Reason: Insomnia Ondansetron HCl (Ondansetron Hcl 4 Mg/2 Ml Vial) 4 mg IVPUSH Q8H PRN PRN Reason: Nausea and Vomiting Pharmacy Consult (Consult Rx Vancomycin Dosing) 1 each MISCELLANE DAILY STA Stop: 10/25/24 05:42 Sodium Chloride (0.9 % Sodium Chloride Flush 3 Ml Syringe) 3 ml IVFLUSH [facility] Home Medications ?Medication ?Instructions ?Recorded ?Confirmed ?Last Taken ?Type omeprazole 20 mg capsule,delayed 20 mg PO BID 12/17/22 09/11/24 03/27/24 History release losartan 100 mg tablet 100 mg PO DAILY 03/23/24 09/11/24 03/27/24 History fexofenadine 180 mg tablet 180 mg PO DAILY 09/11/24 09/11/24 Unknown History (Allergy Relief (fexofenadine)) Physical Exam Vital Signs: Vital Signs: Last Vital Signs Temp 98.1 F 10/25/24 06:32 Pulse 112 H 10/25/24 06:32 Resp 18 10/25/24 06:32 BP 122/83 10/25/24 06:32 Pulse Ox 94 10/25/24 06:32 O2 Del Method Room Air 10/25/24 06:32 BMI result Body Mass Index 28.4 Const: General: cooperative, healthy appearing, comfortable and no acute distress Orientation/consciousness: patient oriented x3 HEENT: Face and sinus: Yes normal facial exam Mouth: moist mucous membranes Neck: Neck: Yes normal visual inspection, Yes full ROM and Yes trachea midline Chest: Chest palpation & inspection: normal inspection of the chest Resp: Effort & Inspection: normal respiratory effort, able to speak in complete sentences and no respiratory distress GI: Inspection: Yes normal to inspection Back/Spine/Pelvis: Cervical Spine: normal cervical lordosis Thoracic/Lumbar Spine: thoracic and lumbar spine normal to inspection Skin: General skin exam: no rashes or lesions noted Neuro: General: patient oriented x3, tone normal and moves all extremities Extrem: General: Yes normal to inspection and Yes capillary refill normal Results Labs 10/25/24 02:08 10/25/24 06:44 Labs: Abnormal lab results 10/25/24 10/25/24 10/25/24 Range/Units 02:08 04:27 06:42 WBC 14.1 H (4.8-10.8) X10*3/uL RBC 4.42 L (4.60-5.80) X10*6/uL Hct 39.5 L (42.0-52.0) % MPV 9.3 L (9.4-12.4) fL Band Neutrophils % 13 H (3-5) % Lymphocytes % (Manual) 5 L (20-40) % Monocytes % (Manual) 14 H (2-11) % Abs Neuts (Manual) 11.3 H (2.0-8.3) X10*3/uL Lymphocytes # (Manual) 0.7 L (1.2-4.9) X10*3/uL Monocytes # (Manual) 2.0 H (0.1-1.2) X10*3/uL ESR 17 H (0-15) MM/HR Sodium 130 L (135-145) mmol/L Carbon Dioxide 21 L (22-29) mmol/L BUN 22 H (9-16) mg/dL Osmolality (281-305) mosm/kg Total Bilirubin 2.3 H (0.0-1.0) mg/dL C-Reactive Protein 7.99 H (< or = 0.50) mg/dL Urine Osmolality 327 L (373-1093) mosm/kg Ur Amphetamines Screen POSITIVE H (Not Detect) Urine Cocaine Screen POSITIVE H (Not Detect) 10/25/24 Range/Units 06:44 WBC (4.8-10.8) X10*3/uL RBC (4.60-5.80) X10*6/uL Hct (42.0-52.0) % MPV (9.4-12.4) fL Band Neutrophils % (3-5) % Lymphocytes % (Manual) (20-40) % Monocytes % (Manual) (2-11) % Abs Neuts (Manual) (2.0-8.3) X10*3/uL Lymphocytes # (Manual) (1.2-4.9) X10*3/uL Monocytes # (Manual) (0.1-1.2) X10*3/uL ESR (0-15) MM/HR Sodium 133 L (135-145) mmol/L Carbon Dioxide (22-29) mmol/L BUN (9-16) mg/dL Osmolality 277 L (281-305) mosm/kg Total Bilirubin (0.0-1.0) mg/dL C-Reactive Protein (< or = 0.50) mg/dL Urine Osmolality (373-1093) mosm/kg Ur Amphetamines Screen (Not Detect) Urine Cocaine Screen (Not Detect) Short CBC 10/25/24 Range/Units 02:08 WBC 14.1 H (4.8-10.8) X10*3/uL Hgb 14.2 (14.0-18.0) g/dl Hct 39.5 L (42.0-52.0) % Plt Count 256 (160-400) X10*3/uL BMP 10/25/24 10/25/24 02:08 06:44 Sodium 130 L 133 L Potassium 3.8 Chloride 99 Carbon Dioxide 21 L BUN 22 H Creatinine 0.72 Calcium 9.0 Liver Function 10/25/24 Range/Units 02:08 Total Bilirubin 2.3 H (0.0-1.0) mg/dL AST 36 (5-37) U/L ALT 33 (0-40) U/L Alkaline Phosphatase 51 (39-117) U/L Albumin 4.4 (3.5-5.0) g/dL Urine 10/25/24 Range/Units 05:03 Urine Color Yellow Urine Appearance Clear Urine pH 5.5 (5.0-9.0) Ur Specific [place] 1.020 (1.005-1.025) Urine Protein Negative (Neg-Trace) mg/dL Urine Glucose (UA) Negative (Negative) mg/dL All other labs normal. Assessment and Plan (1) Bilateral hydrocele: Status: Acute (2) Incomplete emptying of bladder due to benign prostatic hyperplasia: Status: Acute Plan Outpatient follow-up 8-12 weeks Start alpha-mahi Procedures Date of Service Date of Service: 10/25/24
[2024-10-25 08:50] LABS: Hemoglobin A1C 132.1271 umol/L; Total Hemoglobin (HGBA1C) 3697.2777 umol/L
--- NOTE | 2024-10-25 08:57 | PHA.PROG ---
Admission Date/Time: October 25, 2024 05:24 Indication: Skin Weight in k.5 kg Adjusted body weight in Kg: [place] body weight in Kg: Obesity Dosing Indication % IBW: Serum Creatinine - Last 168 Hours 10/25/24 02:08 Creatinine 0.72 Estimated CrCl and GFR - Last 168 Hours 10/25/24 02:08 Estim Creat Clear Calc 121.4 Estimated GFR > 60 Vancomycin Loading Dose: 1750 mg Current Vancomycin Dosing Regimen: 1250 mg Q12h Vancomycin Monitoring using AUC goal of 400 - 600 range with trough as surrogate marker: Predicted AUC 498, trough 14.9 Date and Time for next Vancomycin Level to be drawn: 10/26/24 @1600 Pharmacist Comments on Vancomycin Plan: Vancomycin dosing will take advantage of [employer] as a clinical decision support tool that uses Bayesian modeling to calculate individual patient's pharmacokinetic parameters and forecast the patient's drug concentration time course with the target goal AUC 24 range of 400 - 600 mg/L/hr.
[2024-10-25] MEDS: 0.9 % Sodium Chloride Flush 3 ML SYRINGE IVFLUSH ×3 (09:13→21:16)
[2024-10-25 09:40] LABS: MRSA Nasal PCR NEGATIVE (Negative); SA Nasal PCR POSITIVE (Negative)
--- NOTE | 2024-10-25 10:23 | PHA.MEDREC ---
Addendum entered by Mary Bailey RPh 10/25/24 10:44: MED REC REVIEWED BY [facility] Original Note: Pharmacy Consult ? Medication Reconciliation Pharmacy has completed the medication reconciliation. Spoke with pt and he confirmed his medications. Pt confirmed he is taking his Celecoxib 100mg BID as needed for pain and he takes Fluoxetine 40mg in the morning and 20mg at bedtime.
--- NOTE | 2024-10-25 12:46 | MHC.RECOVRN ---
TW attempted to meet with pt in [phone] after receiving a consult to Addiction Medicine for cocaine use. Intention was to discuss recovery support and options, however, on approach, TW was stopped by primary RN who states she recently medicated pt for pain approximately 30minutes ago and reports pt is currently resting. TW to revist pt at a later date/time for support and is available for questions or concerns if needed.
--- NOTE | 2024-10-25 13:48 | P.PNIM_ITS ---
Subjective Subjective Date of Service: 10/25/24 Interval History: c/o L groin pain, swelling, redness fever resolved Review of Systems Review of Systems: Yes all other systems are reviewed and are negative Physical Exam 2 Vital Signs: Vital Signs: Last Vital Signs Temp 97.9 F 10/25/24 08:26 Pulse 94 10/25/24 08:26 Resp 16 10/25/24 08:26 BP 134/90 H 10/25/24 08:26 Pulse Ox 97 10/25/24 08:26 O2 Del Method Room Air 10/25/24 08:26 BMI result Body Mass Index 29.0 Gen: in no acute distress HEENT: sclera anicteric, moist mucus membranes Neck: supple Lungs: clear to auscultation bilaterally Heart: regular rate and rhythm, no murmurs Abd: soft, non-tender, non-distended Ext: no edema Skin: warm/well-perfused, extensive erythema L groin Neuro: alert and oriented x3, no focal findings Psych: appropriate affect Objective Data Active Medications Acetaminophen (Acetaminophen 325 Mg Tablet) 975 mg PO Q6H PRN PRN Reason: Pain, Mild 1-3,fever,headache Calcium Carbonate (Calcium Carbonate 750 Mg Tab.Chew) 750 mg PO Q4H PRN PRN Reason: Heartburn Enoxaparin Sodium (Enoxaparin Sodium 40 Mg/0.4 Ml Syringe) 40 mg SUBCUT Q24H [facility] Last Admin: 10/25/24 09:13 Dose: 40 mg Documented By: MDAHURI Hydromorphone HCl (Hydromorphone Hcl 1 Mg/Ml Syringe) 1 mg IVPUSH Q4H PRN; Protocol PRN Reason: Pain, Severe (Pain Scale 7-10) Last Admin: 10/25/24 11:39 Dose: 1 mg Documented By: ROGER Piperacillin Sod/Tazobactam (Sod 3.375 gm/ Sodium Chloride) 50 mls @ 100 mls/hr IV Q6H [facility] Last Infusion: 10/25/24 09:47 Dose: Infused Documented By: ROGER Vancomycin HCl 1,250 mg/ (Sodium Chloride) 250 mls @ 166.667 mls/hr IV Q12H [facility] Magnesium Hydroxide (Milk Of Magnesia 30 Ml Oral.Susp) 30 ml PO DAILY PRN PRN Reason: Constipation Melatonin (Melatonin 3 Mg Tablet) 6 mg PO BEDTIME PRN PRN Reason: Insomnia Ondansetron HCl (Ondansetron Hcl 4 Mg/2 Ml Vial) 4 mg IVPUSH Q8H PRN PRN Reason: Nausea and Vomiting Sodium Chloride (0.9 % Sodium Chloride Flush 3 Ml Syringe) 3 ml IVFLUSH QSHIFT [facility] Last Admin: 10/25/24 09:13 Dose: 3 ml Documented By: MADHURI Tamsulosin HCl (Tamsulosin Hcl 0.4 Mg Capsule) 0.4 mg PO BEDTIME [facility] Labs 10/25/24 02:08 10/25/24 06:44 Labs: Laboratory Results - last 24 hr 10/25/24 10/25/24 10/25/24 02:08 03:36 04:27 MCV 89.4 MCH 32.1 MCHC 35.9 RDW 11.8 Plt Count 256 MPV 9.3 L Immature Gran % (Auto) Cancelled Neut % (Auto) Cancelled Lymph % (Auto) Cancelled [place] % (Auto) Cancelled Eos % (Auto) Cancelled Baso % (Auto) Cancelled Lymph # (Auto) Cancelled [place] # (Auto) Cancelled Eos # (Auto) Cancelled Baso # (Auto) Cancelled Abs Immat Gran (auto) Cancelled Absolute Neuts (auto) Cancelled Absolute Nucleated RBC 0.000 Nucleated RBC % (auto) 0.0 Neutrophils % (Manual) 67 Band Neutrophils % 13 H Lymphocytes % (Manual) 5 L Monocytes % (Manual) 14 H Eosinophils % (Manual) 1 Abs Neuts (Manual) 11.3 H Lymphocytes # (Manual) 0.7 L Monocytes # (Manual) 2.0 H Eosinophils # (Manual) 0.1 Toxic Vacuolation PRESENT Platelet Estimate NORMAL Plt Morphology Comment NORMAL RBC Morphology NORMAL ESR 17 H Anion Gap 14 Estim Creat Clear Calc 121.4 Estimated GFR > 60 Random Glucose 94 Estimat Average Glucose 108 Hemoglobin A1c % 5.4 Osmolality Lactic Acid 1.4 Calcium 9.0 Magnesium 1.9 Total Bilirubin 2.3 H AST 36 ALT 33 Alkaline Phosphatase 51 C-Reactive Protein 7.99 H Total Protein 7.3 Albumin 4.4 TSH 0.62 Urine Color Urine Appearance Urine pH Ur Specific [place] Urine Protein Urine Glucose (UA) Urine Ketones Urine Blood Urine Nitrite Ur Leukocyte Esterase Urine RBC Urine WBC Ur Squamous Epith Cells Urine Bacteria Hyaline Casts Urine Osmolality Ur Random Sodium Nasal Screen MRSA (PCR) Nasal S. aureus Screen Nasal MRSA/S.aureus Interp Urine Opiates Screen Not Detected Ur Buprenorphine Scrn Not Detected Ur Oxycodone Screen Not Detected Urine Methadone Screen Not Detected Urine Fentanyl Screen Not Detected Ur Barbiturates Screen Not Detected Ur Phencyclidine Scrn Not Detected Ur Amphetamines Screen POSITIVE H U Benzodiazepines Scrn Not Detected Urine Cocaine Screen POSITIVE H U Marijuana (THC) Screen Not Detected Ethyl Alcohol < 10 COVID-19 ([facility]) Negative COVID-19 Clin Com See Note 10/25/24 10/25/24 10/25/24 05:03 06:42 06:44 MCV MCH MCHC RDW Plt Count MPV Immature Gran % (Auto) Neut % (Auto) Lymph % (Auto) [place] % (Auto) Eos % (Auto) Baso % (Auto) Lymph # (Auto) [place] # (Auto) Eos # (Auto) Baso # (Auto) Abs Immat Gran (auto) Absolute Neuts (auto) Absolute Nucleated RBC Nucleated RBC % (auto) Neutrophils % (Manual) Band Neutrophils % Lymphocytes % (Manual) Monocytes % (Manual) Eosinophils % (Manual) Abs Neuts (Manual) Lymphocytes # (Manual) Monocytes # (Manual) Eosinophils # (Manual) Toxic Vacuolation Platelet Estimate Plt Morphology Comment RBC Morphology ESR Anion Gap Estim Creat Clear Calc Estimated GFR Random Glucose Estimat Average Glucose Hemoglobin A1c % Osmolality 277 L Lactic Acid Calcium Magnesium Total Bilirubin AST ALT Alkaline Phosphatase C-Reactive Protein Total Protein Albumin TSH Urine Color Yellow Urine Appearance Clear Urine pH 5.5 Ur Specific [place] 1.020 Urine Protein Negative Urine Glucose (UA) Negative Urine Ketones 15 Urine Blood Negative Urine Nitrite Negative Ur Leukocyte Esterase Negative Urine RBC 0-2 Urine WBC 0-5 Ur Squamous Epith Cells 3-5 Urine Bacteria None Seen Hyaline Casts 0-2 Urine Osmolality 327 L Ur Random Sodium < 20.0 Nasal Screen MRSA (PCR) NEGATIVE Nasal S. aureus Screen POSITIVE A Nasal MRSA/S.aureus Interp SEE NOTE Urine Opiates Screen Ur Buprenorphine Scrn Ur Oxycodone Screen Urine Methadone Screen Urine Fentanyl Screen Ur Barbiturates Screen Ur Phencyclidine Scrn Ur Amphetamines Screen U Benzodiazepines Scrn Urine Cocaine Screen U Marijuana (THC) Screen Ethyl Alcohol COVID-19 ([facility]) COVID-19 Clin Com Assessment and Plan (1) Cellulitis of groin, left: Status: Acute Plan d1, 54yo M without DM2 presenting with L groin pain + redness, found to be septic from cellulitis groin cellulitis - possibly due to shaving; 10/25- vanco + piperacillin-tazobactam, follow BCx L hydrocele - outpatient Urology follow-up hypoNa - improving, likely prerenal/hypovolemia HTN - losartan ADHD - Adderall depression - fluoxetine chronic back pain - celecoxib cocaine abuse - Addiction Medicine consultation; HBV/HCV/HIV screen VTE ppx - enoxaparin dispo - eventual home In my clinical judgment, the patient requires continued inpatient hospitalization for the following reasons: IV ABX Total time managing care of this patient today: 45 minutes. Quality Stroke Does the patient have a stroke diagnosis?: No VTE Prior VTE?: No VTE Risk Level:: Medical - moderate - high VTE Device Contraindication: Treatment Not Indicated VTE Drug Contraindication: N/A - Med Ordered
--- NOTE | 2024-10-25 15:35 | HO.WOUND ---
Wound Consult: Initial 54yr old?male admitted to [facility] on 10/25/24 - See progress notes and H&P for detailed history.? Wound consult placed for Redness to groin.? Patient agreeable to assessment and photo documentation.? Patient skin assessed - penis and scrotum along with left groin are noted for red swelling with well demarcated edges. He reports pain and tenderness to touch - warmth noted to sites of redness. There is however no open wound - no topical recommendations needed. Defer to provider for systemic treatment. Re-consult wound care Nurse for wound development.
--- NOTE | 2024-10-25 16:14 | MHC.CM.PN ---
PATIENT LIVES IN A HOME ALONE. AMBULATES W/ A CANE PRN. OTHERWISE INDEPENDENT. NO SERVICES. PCP DR ORR REPORTS HE HAS AN HCP NAMING HIS SISTER, MARIAJOSE XIE, HCA. COPY REQUESTED. DP: GOAL IS HOME SELF CARE, FAMILY TRANSPORT. CM WILL CONTINUE TO FOLLOW.
--- NOTE | 2024-10-25 17:44 | MHC.RECOVRN ---
Tw attempted to wake pt for interview related to cocaine use. Pt's name was called twice, however pt remained resting with eyes closed, in no apparent distress. Respirations even and unlabored. Upon exiting, primary RN reports pt was recently medicated for continued pain. ACS will attempt to meet with pt at a later date/time to complete assessment and offer support or resources as needed.
[2024-10-26 03:20] VITALS: BP 119/69; PULSE 88; RESP 18; TEMP 36.4; O2SAT 96
[2024-10-26 06:30] LABS: MANUAL DIFF FLAG NO
[2024-10-26 06:40] LABS: Hematocrit 34.7 % (42.0-52.0); Hemoglobin 12.4 g/dl (14.0-18.0); Imm Gran Abs Auto 0.05 X10*3/uL (0.00-0.03); Imm Gran Pct Auto 0.4 % (0.0-0.4); Lymphocytes Absolute Auto 1.8 X10*3/uL (1.2-4.9); Mean Corpuscular HGB Conc 35.7 g/dl (31.0-36.0); Mean Corpuscular Hemoglobin 32.9 pg (27.0-33.0); Mean Corpuscular Volume 92.0 fL (80.0-98.0); NRBC Abs Auto 0.000 X10*3/uL (0.0-0.012); NRBC Pct Auto 0.0 /100WBC (0.0-0.2); Platelet Count 210 X10*3/uL (160-400); Red Blood Count 3.77 X10*6/uL (4.60-5.80); White Blood Count 11.8 X10*3/uL (4.8-10.8)
[2024-10-26 07:03] LABS: Alanine Aminotransferase 19 U/L (0-40); Albumin Level 3.5 g/dL (3.5-5.0); Alkaline Phosphatase 53 U/L (39-117); Aspartate Amino Transferase 19 U/L (5-37); Blood Urea Nitrogen 9 mg/dL (9-16); Calcium 8.6 mg/dL (8.4-10.2); Creatinine Clr Calc Pharmacy 147.0; Estimated Glomerular Filt Rate > 60; Total Protein 6.3 g/dL (6.5-8.0)
[2024-10-26 07:11] LABS: Anion Gap 9 (12-20); Carbon Dioxide 28 mmol/L (22-29); Chloride 102 mmol/L (96-108); Potassium 3.3 mmol/L (3.3-5.1); Sodium 136 mmol/L (135-145)
[2024-10-26 07:13] LABS: HBS Num1 38.94 mIU/mL (0-7.99); HBc Num1 0.13 S/CO (0.00-0.79); HBsAGNum1 0.39 S/CO (0.00-0.99); HIV Num 1 0.05 S/CO (0.00-0.99); Hepatitis B Surface Antigen Negative (Negative); ~HepC Num1 0.19 S/CO (0.00-0.79); ~Hepatitis B Surface Antibody REACTIVE (Nonreactive); ~Hepatitis C Antibody Nonreactive (Nonreactive)
[2024-10-26 07:38] VITALS: BP 125/74; PULSE 85; RESP 18; TEMP 36.4; O2SAT 96
[2024-10-26] MEDS: Amphetamine Mixed Salts 10 MG TABLET PO (08:16)
[2024-10-26] MEDS: 0.9 % Sodium Chloride Flush 3 ML SYRINGE IVFLUSH (08:17)
--- NOTE | 2024-10-26 10:36 | P.PNIM_ITS ---
Subjective Subjective Date of Service: 10/26/24 Interval History: afebrile; however, c/o pain/swelling/redness of groin Review of Systems Review of Systems: Yes all other systems are reviewed and are negative Physical Exam 2 Vital Signs: Vital Signs: Last Vital Signs Temp 97.5 F 10/26/24 07:38 Pulse 85 10/26/24 07:38 Resp 18 10/26/24 07:38 BP 125/74 10/26/24 07:38 Pulse Ox 96 10/26/24 07:38 O2 Del Method Room Air 10/26/24 07:38 BMI result Body Mass Index 29.0 Gen: in no acute distress HEENT: sclera anicteric, moist mucus membranes Neck: supple Lungs: clear to auscultation bilaterally Heart: regular rate and rhythm, no murmurs Abd: soft, non-tender, non-distended Ext: no edema Skin: warm/well-perfused, extensive well-demarcated erythema L groin without purulent areas Neuro: alert and oriented x3, no focal findings Psych: appropriate affect Objective Data Active Medications Acetaminophen (Acetaminophen 325 Mg Tablet) 975 mg PO Q6H PRN PRN Reason: Pain, Mild 1-3,fever,headache Amphetamine/Dextroamphetamine (Amphetamine Mixed Salts 10 Mg Tablet) 10 mg PO DAILY COUNT INCLUDES THE [facility] Last Admin: 10/26/24 08:16 Dose: 10 mg Documented By: ROGER Calcium Carbonate (Calcium Carbonate 750 Mg Tab.Chew) 750 mg PO Q4H PRN PRN Reason: Heartburn Celecoxib (Celecoxib 100 Mg Capsule) 100 mg PO BID PRN PRN Reason: Pain, Moderate(Pain Scale 4-6) Enoxaparin Sodium (Enoxaparin Sodium 40 Mg/0.4 Ml Syringe) 40 mg SUBCUT Q24H COUNT [facility]CLUDES [facility] Last Admin: 10/26/24 08:17 Dose: 40 mg Documented By: ROGER Fluoxetine HCl (Fluoxetine Hcl 20 Mg Capsule) 20 mg PO BEDTIME COUNT INCLUDES THE [facility] Last Admin: 10/25/24 21:11 Dose: 20 mg Documented By: HUGO Fluoxetine HCl (Fluoxetine Hcl 20 Mg Capsule) 40 mg PO DAILY COUNT INCLUDES THE [facility] Last Admin: 10/26/24 08:17 Dose: 40 mg Documented By: ROGER Hydromorphone HCl (Hydromorphone Hcl 1 Mg/Ml Syringe) 1 mg IVPUSH Q4H PRN; Protocol PRN Reason: Pain, Severe (Pain Scale 7-10) Last Admin: 10/26/24 06:11 Dose: 1 mg Documented By: HUGO Piperacillin Sod/Tazobactam (Sod 3.375 gm/ Sodium Chloride) 50 mls @ 100 mls/hr IV Q6H [facility] Last Infusion: 10/26/24 09:08 Dose: Infused Documented By: ROGER Vancomycin HCl 1,250 mg/ (Sodium Chloride) 250 mls @ 166.667 mls/hr IV Q12H [facility] Last Infusion: 10/26/24 07:54 Dose: Infused Documented By: ROGER Sodium Chloride (Ns) 1,000 mls @ 50 mls/hr IVCONT .Q20H [facility]CLUDES [facility] Stop: 10/27/24 06:14 Last Admin: 10/25/24 14:56 Dose: 50 mls/hr Documented By: ROGER Clindamycin Phosphate (Cleocin) 600 mg in 50 mls @ 100 mls/hr IV Q8H [facility] Stop: 10/27/24 03:14 Loratadine (Loratadine 10 Mg Tablet) 10 mg PO DAILY COUNT [facility]CLUDES [facility] Last Admin: 10/26/24 08:16 Dose: 10 mg Documented By: ROGER Losartan Potassium (Losartan Potassium 50 Mg Tablet) 100 mg PO DAILY COUNT INCLUDES THE [facility]; Protocol Last Admin: 10/26/24 08:17 Dose: 100 mg Documented By: ROGER Magnesium Hydroxide (Milk Of Magnesia 30 Ml Oral.Susp) 30 ml PO DAILY PRN PRN Reason: Constipation Melatonin (Melatonin 3 Mg Tablet) 6 mg PO BEDTIME PRN PRN Reason: Insomnia Omeprazole (Omeprazole 20 Mg Capsule.Dr) 20 mg PO DAILY@0630 COUNT INCLUDES THE [facility] Last Admin: 10/26/24 06:11 Dose: 20 mg Documented By: HUGO Ondansetron HCl (Ondansetron Hcl 4 Mg/2 Ml Vial) 4 mg IVPUSH Q8H PRN PRN Reason: Nausea and Vomiting Pharmacy Consult (Consult Rx Vancomycin Dosing) 1 each MISCELLANE DAILY PRN PRN Reason: Consult order Sodium Chloride (0.9 % Sodium Chloride Flush 3 Ml Syringe) 3 ml IVFLUSH QSHIFT COUNT [facility]CLUDES [facility] Last Admin: 10/26/24 08:17 Dose: 3 ml Documented By: ROGER Tamsulosin HCl (Tamsulosin Hcl 0.4 Mg Capsule) 0.4 mg PO BEDTIME [facility] Last Admin: 10/25/24 21:10 Dose: 0.4 mg Documented By: HUGO Labs 10/26/24 05:53 10/26/24 05:53 Labs: Laboratory Results - last 24 hr 10/26/24 05:53 MCV 92.0 MCH 32.9 MCHC 35.7 RDW 12.2 Plt Count 210 MPV 9.9 Immature Gran % (Auto) 0.4 Neut % (Auto) 75.3 H Lymph % (Auto) 14.8 L [place] % (Auto) 7.8 Eos % (Auto) 1.5 Baso % (Auto) 0.2 Lymph # (Auto) 1.8 [place] # (Auto) 0.9 Eos # (Auto) 0.2 Baso # (Auto) 0.0 Abs Immat Gran (auto) 0.05 H Absolute Neuts (auto) 8.9 H Absolute Nucleated RBC 0.000 Nucleated RBC % (auto) 0.0 Anion Gap 9 L Estim Creat Clear Calc 147.0 Estimated GFR > 60 Random Glucose 112 Calcium 8.6 Total Bilirubin 1.1 H AST 19 ALT 19 Alkaline Phosphatase 53 Total Protein 6.3 L Albumin 3.5 Hep Bs Antigen Negative Hep Bs Antibody REACTIVE Hep B Core Total Ab Nonreactive Hepatitis C Ab (EIA) Nonreactive HIV 1&2 Ab/P24 Ag 4thGn Nonreactive Microbiology Microbiology Results: Microbiology 10/25/24 02:08 Blood Culture - Preliminary Blood - Venous No growth after 24 hours. 10/25/24 02:07 Blood Culture - Preliminary Blood - Venous No growth after 24 hours. Assessment and Plan (1) Cellulitis of groin, left: Status: Acute Plan d2, 54yo M without DM2 presenting with L groin pain + redness, found to be septic from cellulitis groin cellulitis - possibly due to shaving; 10/25- vanco + piperacillin-tazobactam, follow BCx, add clindamycin x24h to shut off toxin production L hydrocele - outpatient Urology follow-up BPH - tamsulosin hypoNa - resolved; likely prerenal/hypovolemia HTN - losartan ADHD - Adderall depression - fluoxetine chronic back pain - celecoxib cocaine abuse - Addiction Medicine consultation; HBV/HCV/HIV screen negative VTE ppx - enoxaparin dispo - eventual home In my clinical judgment, the patient requires continued inpatient hospitalization for the following reasons: IV ABX Total time managing care of this patient today: 35 minutes. Quality Stroke Does the patient have a stroke diagnosis?: No VTE Prior VTE?: No VTE Risk Level:: Medical - moderate - high VTE Device Contraindication: Treatment Not Indicated VTE Drug Contraindication: N/A - Med Ordered
--- NOTE | 2024-10-26 12:39 | P.EN_ITS ---
Event Note Date of Service: 10/26/24 Event Note: Addiction consult placed for patient secondary to +UDS Seen by profile shaper operator, declined all intervention Please see profile shaper operator chemo for further details Time Spent With Patient Time: Total time managing care of this patient today ____ minutes.
--- NOTE | 2024-10-26 12:39 | PM.EVENT ---
Event Note Date of Service: 10/26/24 Event Note: Addiction consult placed for patient secondary to +UDS Seen by sales office manager, declined all intervention Please see sales office manager chemo for further details Time Spent With Patient Time: Total time managing care of this patient today ____ minutes.
--- NOTE | 2024-10-26 12:46 | MHC.CM.PN ---
PER MD ROUNDS PATIENT LIKELY d/c in 1-2 days
--- NOTE | 2024-10-26 13:00 | MHC.RECOVRN ---
Pt not interested in discussion with the addiction team. Stated I used once last week at a 30-year college reunion and now everyone's asking me about addiction . Pt no longer a candidate for [facility]ESSICA eval.
[2024-10-26 15:31] VITALS: BP 133/70; PULSE 83; RESP 18; TEMP 36.9; O2SAT 97
[2024-10-26 19:34] VITALS: BP 138/76; PULSE 89; RESP 18; TEMP 36.3; O2SAT 98
[2024-10-26 21:03] VITALS: RESP 18
[2024-10-27 02:28] VITALS: BP 131/84; PULSE 74; RESP 18; TEMP 37.2; O2SAT 96
--- NOTE | 2024-10-27 02:34 | PC.NURSE ---
Patient here with left thigh cellulitis/left groin; the redness was marked prior to change of shift at 1900, patient just called noticed the redness has gone out of the marked area and now traveling onto the right groin area, patient also reporting the pain has increased and feels more like stabbing pain now and patient noticed a lump in the left groin. Patient concerned, Dr. Bravo made aware. Per MD, expected, patient on 3 antibiotics, too soon to assess for antibiotic effectiveness and the lump feeling common thing to happen when patients have infections. Educated patient, vital signs stable at this time.
[2024-10-27 05:35] VITALS: BP 106/61; PULSE 82; RESP 18; TEMP 37; O2SAT 98
[2024-10-27 06:00] VITALS: RESP 16
[2024-10-27 06:24] LABS: Creatinine Clr Calc Pharmacy 157.5; Estimated Glomerular Filt Rate > 60
[2024-10-27 08:08] VITALS: BP 129/74; PULSE 79; RESP 20; TEMP 36.3; O2SAT 97
[2024-10-27] MEDS: 0.9 % Sodium Chloride Flush 3 ML SYRINGE IVFLUSH ×3 (10:10→20:41)
[2024-10-27] MEDS: Amphetamine Mixed Salts 10 MG TABLET PO (10:16)
[2024-10-27] MEDS: oxyCODONE HCl Immed Release 5 MG TABLET PO (11:45)
--- NOTE | 2024-10-27 12:01 | P.PNIM_ITS ---
Subjective Subjective Date of Service: 10/27/24 Interval History: redness improved, no fever c/o painful lump in L groin Review of Systems Review of Systems: Yes all other systems are reviewed and are negative Physical Exam 2 Vital Signs: Vital Signs: Last Vital Signs Temp 97.4 F 10/27/24 08:08 Pulse 79 10/27/24 08:08 Resp 20 10/27/24 08:08 BP 129/74 10/27/24 08:08 Pulse Ox 97 10/27/24 08:08 O2 Del Method Room Air 10/27/24 08:08 BMI result Body Mass Index 29.0 Gen: in no acute distress HEENT: sclera anicteric, moist mucus membranes Neck: supple Lungs: clear to auscultation bilaterally Heart: regular rate and rhythm, no murmurs Abd: soft, non-tender, non-distended Ext: no edema Skin: warm/well-perfused, well-demarcated hyperpigmentation L groin, exquisitely tender area of fullness in L inguinal fold Neuro: alert and oriented x3, no focal findings Psych: appropriate affect Objective Data Active Medications Acetaminophen (Acetaminophen 325 Mg Tablet) 975 mg PO Q6H PRN PRN Reason: Pain, Mild 1-3,fever,headache Amphetamine/Dextroamphetamine (Amphetamine Mixed Salts 10 Mg Tablet) 10 mg PO DAILY [facility] Last Admin: 10/27/24 10:16 Dose: 10 mg Documented By: AORLDO Calcium Carbonate (Calcium Carbonate 750 Mg Tab.Chew) 750 mg PO Q4H PRN PRN Reason: Heartburn Celecoxib (Celecoxib 100 Mg Capsule) 100 mg PO BID PRN PRN Reason: Pain, Moderate(Pain Scale 4-6) Enoxaparin Sodium (Enoxaparin Sodium 40 Mg/0.4 Ml Syringe) 40 mg SUBCUT Q24H [facility] Last Admin: 10/27/24 10:16 Dose: 40 mg Documented By: AROLDO Fluoxetine HCl (Fluoxetine Hcl 20 Mg Capsule) 20 mg PO BEDTIME [facility] Last Admin: 10/26/24 21:00 Dose: 20 mg Documented By: ASHLYN Fluoxetine HCl (Fluoxetine Hcl 20 Mg Capsule) 40 mg PO DAILY [facility] Last Admin: 10/27/24 10:15 Dose: 40 mg Documented By: AROLDO Hydromorphone HCl (Hydromorphone Hcl 1 Mg/Ml Syringe) 1 mg IVPUSH Q4H PRN; Protocol PRN Reason: Pain, Severe (Pain Scale 7-10) Last Admin: 10/27/24 10:19 Dose: 1 mg Documented By: AROLDO Piperacillin Sod/Tazobactam (Sod 3.375 gm/ Sodium Chloride) 50 mls @ 100 mls/hr IV Q6H [facility] Last Infusion: 10/27/24 11:06 Dose: Infused Documented By: AROLDO Vancomycin HCl 1,250 mg/ (Sodium Chloride) 250 mls @ 166.667 mls/hr IV Q8H [facility] Last Admin: 10/27/24 11:30 Dose: 166.67 mls/hr Documented By: AROLDO Loratadine (Loratadine 10 Mg Tablet) 10 mg PO DAILY [facility] Last Admin: 10/27/24 10:16 Dose: 10 mg Documented By: AROLDO Losartan Potassium (Losartan Potassium 50 Mg Tablet) 100 mg PO DAILY [facility]; Protocol Last Admin: 10/27/24 10:15 Dose: 100 mg Documented By: AROLDO Magnesium Hydroxide (Milk Of Magnesia 30 Ml Oral.Susp) 30 ml PO DAILY PRN PRN Reason: Constipation Melatonin (Melatonin 3 Mg Tablet) 6 mg PO BEDTIME PRN PRN Reason: Insomnia Omeprazole (Omeprazole 20 Mg Capsule.Dr) 20 mg PO DAILY@0630 [facility] Last Admin: 10/27/24 05:46 Dose: 20 mg Documented By: ASHLYN Ondansetron HCl (Ondansetron Hcl 4 Mg/2 Ml Vial) 4 mg IVPUSH Q8H PRN PRN Reason: Nausea and Vomiting Oxycodone HCl (Oxycodone Hcl Immed Release 5 Mg Tablet) 5 mg PO Q4H PRN PRN Reason: Pain, Moderate(Pain Scale 4-6) Last Admin: 10/27/24 11:45 Dose: 5 mg Documented By: AROLDO Pharmacy Consult (Consult Rx Vancomycin Dosing) 1 each MISCELLANE DAILY PRN PRN Reason: Consult order Sodium Chloride (0.9 % Sodium Chloride Flush 3 Ml Syringe) 3 ml IVFLUSH QSHIFT [facility] Last Admin: 10/27/24 10:10 Dose: 3 ml Documented By: AROLDO Tamsulosin HCl (Tamsulosin Hcl 0.4 Mg Capsule) 0.4 mg PO BEDTIME [facility] Last Admin: 10/26/24 20:59 Dose: 0.4 mg Documented By: ASHLYN Labs 10/26/24 05:53 10/27/24 05:33 Labs: Laboratory Results - last 24 hr 10/26/24 10/27/24 16:05 05:33 Estim Creat Clear Calc 157.5 Estimated GFR > 60 Vancomycin Trough 5.7 L Microbiology Microbiology Results: Microbiology 10/25/24 02:08 Blood Culture - Preliminary Blood - Venous No growth after 48 hours. 10/25/24 02:07 Blood Culture - Preliminary Blood - Venous No growth after 48 hours. Assessment and Plan (1) Cellulitis of groin, left: Status: Acute Plan d3, 54yo M without DM2 presenting with L groin pain + redness, found to be septic from cellulitis groin cellulitis - possibly due to shaving; 10/25- vanco + piperacillin-tazobactam, BCx negative, completed clindamycin x24h to shut off toxin production, Gen Surg consult to assess for drainable collection in groin L hydrocele - outpatient Urology follow-up BPH - tamsulosin hypoNa - resolved; likely prerenal/hypovolemia HTN - losartan ADHD - Adderall depression - fluoxetine chronic back pain - celecoxib cocaine abuse - declined recovery support; HBV/HCV/HIV screen negative VTE ppx - enoxaparin dispo - eventual home In my clinical judgment, the patient requires continued inpatient hospitalization for the following reasons: IV ABX Total time managing care of this patient today: 35 minutes. Quality Stroke Does the patient have a stroke diagnosis?: No VTE Prior VTE?: No VTE Risk Level:: Medical - moderate - high VTE Device Contraindication: Treatment Not Indicated VTE Drug Contraindication: N/A - Med Ordered
--- NOTE | 2024-10-27 13:21 | PM.CNGS ---
History of Present Illness Consult details Consult date: 10/27/24 Requesting physician: Alicia Davis Narrative: 54 year old male patient presenting with a cellulitis of the left upper thigh admitted to the hospitalist service on 10/25/2024. He was found to have a fever, tachycardia and elevated WBC. He was started on IV antibiotics. Over the last several days, he has noted increased pain in the left groin and an increase in the size of the cellulitis. A previous CT on admission was negative for inguinal hernia, although several enlarged lymph nodes were identified. Patient now has increased redness and a lump in the left groin. Surgical consultation was requested to evaluate for incision and drainage or repair of hernia. Review of Systems Review of Systems: Yes all other systems are reviewed and are negative Constitutional: Constitutional: Reports chills, Reports fever(s), Denies headache(s), Denies poor appetite and Denies weakness ENT: Denies headache(s) Cardiovascular: Cardiovascular: Denies chest pain, Denies irregular heart rhythm, Denies palpitations and Denies dyspnea Respiratory: Respiratory: Denies cough, Denies excessive phlegm production and Denies dyspnea Gastrointestinal: Gastrointestinal: Denies abdominal pain, Denies bloating, Denies change in bowel habits, Denies constipation, Denies heartburn, Denies diarrhea, Denies nausea and Denies vomiting Genitourinary: Genitourinary: Denies difficulty urinating and Denies urinary frequency Musculoskeletal: Musculoskeletal: Denies back pain, Denies muscle weakness and Denies numbness Integumentary/Breasts: Skin/Breast: Reports changing lesions, Reports erythema and Denies unusual bruising Neurologic: Denies headache(s), Denies numbness, Denies paresthesias and Denies weakness Psychiatric: Psychiatric: Denies anxiety and Denies depression Endocrine: Endocrine: Denies palpitations Hematologic/Lymphatic: Hematologic/Lymphatic: Reports lymphadenopathy PMFSH Past Medical History Medical History (Updated 10/27/24 @ 14:58 by Arthur Gonzalez MD) Obesity with body mass index (BMI) of 30.0 to 39.9 Bipolar disorder, unspecified Establishing care with new doctor, encounter for Central stenosis of spinal canal Protrusion of intervertebral disc of lumbosacral region Bulging lumbar disc Degenerative disc disease, lumbar Chronic back pain Sinus infection Bleeding hemorrhoids Testicular pain, right Epididymal cyst Hydrocele Anxiety Umbilical hernia ADHD (attention deficit hyperactivity disorder) HTN (hypertension) GERD (gastroesophageal reflux disease) Hemorrhoids Family History Family History Father Alive and well Mother Alive and well Surgical History Surgical History (Updated 10/12/24 @ 14:37 by Shnea Rodriguez) History of hemorrhoidectomy (~03/27/24) History of epididymectomy (04/18/23) Hx of umbilical hernia repair (07/22/21) Hx of endoscopy (06/2022) History of colonoscopy (~01/11/19) Status post total right knee replacement Social History Social History Household Members: None Housing: Apartment Are you a primary foster care social worker to a significant other at home: No Do you presently have visiting nurse or other home services: No 75 years or older and lives alone: No Alcohol intake: current Alcohol intake frequency: 3 or more drinks per day Alcohol type: beer Patient Tobacco Use Status: Former Tobacco user Substance Use Type: Marijuana service: No Current occupational status: employed Cognitive needs: No Hearing needs: No Vision needs: Yes (reading glasses/Rx glasses) Meds Allergies Allergy/AdvReac Type Severity Reaction Status Date / Time seasonal Allergy Mild Sneezing Uncoded 10/25/24 01:53 Active Medications: Current Medications Acetaminophen (Acetaminophen 325 Mg Tablet) 975 mg PO Q6H PRN PRN Reason: Pain, Mild 1-3,fever,headache Amphetamine/Dextroamphetamine (Amphetamine Mixed Salts 10 Mg Tablet) 10 mg PO DAILY [facility] Last Admin: 10/27/24 10:16 Dose: 10 mg Calcium Carbonate (Calcium Carbonate 750 Mg Tab.Chew) 750 mg PO Q4H PRN PRN Reason: Heartburn Celecoxib (Celecoxib 100 Mg Capsule) 100 mg PO BID PRN PRN Reason: Pain, Moderate(Pain Scale 4-6) Enoxaparin Sodium (Enoxaparin Sodium 40 Mg/0.4 Ml Syringe) 40 mg SUBCUT Q24H [facility] Last Admin: 10/27/24 10:16 Dose: 40 mg Fluoxetine HCl (Fluoxetine Hcl 20 Mg Capsule) 20 mg PO BEDTIME [facility] Last Admin: 10/26/24 21:00 Dose: 20 mg Fluoxetine HCl (Fluoxetine Hcl 20 Mg Capsule) 40 mg PO DAILY [facility] Last Admin: 10/27/24 10:15 Dose: 40 mg Hydromorphone HCl (Hydromorphone Hcl 1 Mg/Ml Syringe) 1 mg IVPUSH Q4H PRN; Protocol PRN Reason: Pain, Severe (Pain Scale 7-10) Last Admin: 10/27/24 10:19 Dose: 1 mg Piperacillin Sod/Tazobactam (Sod 3.375 gm/ Sodium Chloride) 50 mls @ 100 mls/hr IV Q6H [facility] Last Infusion: 10/27/24 11:06 Dose: Infused Vancomycin HCl 1,250 mg/ (Sodium Chloride) 250 mls @ 166.667 mls/hr IV Q8H [facility] Last Admin: 10/27/24 11:30 Dose: 166.67 mls/hr Loratadine (Loratadine 10 Mg Tablet) 10 mg PO DAILY [facility] Last Admin: 10/27/24 10:16 Dose: 10 mg Losartan Potassium (Losartan Potassium 50 Mg Tablet) 100 mg PO DAILY [facility]; Protocol Last Admin: 10/27/24 10:15 Dose: 100 mg Magnesium Hydroxide (Milk Of Magnesia 30 Ml Oral.Susp) 30 ml PO DAILY PRN PRN Reason: Constipation Melatonin (Melatonin 3 Mg Tablet) 6 mg PO BEDTIME PRN PRN Reason: Insomnia Omeprazole (Omeprazole 20 Mg Capsule.Dr) 20 mg PO DAILY@0630 [facility] Last Admin: 10/27/24 05:46 Dose: 20 mg Ondansetron HCl (Ondansetron Hcl 4 Mg/2 Ml Vial) 4 mg IVPUSH Q8H PRN PRN Reason: Nausea and Vomiting Oxycodone HCl (Oxycodone Hcl Immed Release 5 Mg Tablet) 5 mg PO Q4H PRN PRN Reason: Pain, Moderate(Pain Scale 4-6) Last Admin: 10/27/24 11:45 Dose: 5 mg Pharmacy Consult (Consult Rx Vancomycin Dosing) 1 each MISCELLANE DAILY PRN PRN Reason: Consult order Sodium Chloride (0.9 % Sodium Chloride Flush 3 Ml Syringe) 3 ml IVFLUSH QSHIFT [facility] Last Admin: 10/27/24 10:10 Dose: 3 ml Tamsulosin HCl (Tamsulosin Hcl 0.4 Mg Capsule) 0.4 mg PO BEDTIME [facility] Last Admin: 10/26/24 20:59 Dose: 0.4 mg Home Medications ?Medication ?Instructions ?Recorded ?Confirmed ?Last Taken ?Type omeprazole 20 mg capsule,delayed 20 mg PO DAILY@0630 12/17/22 10/25/24 10/23/24 History release losartan 100 mg tablet 100 mg PO DAILY 03/23/24 10/25/24 10/23/24 History fexofenadine 180 mg tablet 180 mg PO DAILY 09/11/24 10/25/24 10/23/24 History (Allergy Relief (fexofenadine)) celecoxib 100 mg capsule (Celebrex) 100 mg PO BID PRN Pain 10/25/24 10/25/24 Unknown History fluoxetine 20 mg capsule 20 mg PO BEDTIME 10/25/24 10/25/24 10/22/24 History Physical Exam Vital Signs: Vital Signs: Last Vital Signs Temp 97.4 F 10/27/24 08:08 Pulse 79 10/27/24 08:08 Resp 20 10/27/24 08:08 BP 129/74 10/27/24 08:08 Pulse Ox 97 10/27/24 08:08 O2 Del Method Room Air 10/27/24 08:08 BMI result Body Mass Index 29.0 Const: General: cooperative and no acute distress Nutritional Appearance: well nourished Orientation/consciousness: patient oriented x3 Limitations: no limitations HEENT: Head: Yes normocephalic and Yes atraumatic Ears: hearing grossly normal bilaterally Resp: Effort & Inspection: normal respiratory effort, no audible wheezes, no cough and no respiratory distress Cardio: Jugular venous distension: no JVD GI: Inspection: Yes normal to inspection Skin: Other: Warm, dry, no rash Neuro: General: patient oriented x3 Extrem: Other: Left lower extremity with an area of erythema along the medial thigh extending up into the groin. Obvious swelling is noted in the upper inner thigh and groin. The groin swelling appears consistent with lymphadenopathy and no changes are noted with Valsalva maneuvers. The site is exquisitely tender to palpation however. Upper extremity is suspicious for an abscess although no definite fluctuant areas appreciated. The site is exquisitely tender to palpation in the upper inner thigh. Upper/lower leg/hip images:  1. Area of redness and palpable tenderness Results Labs 10/26/24 05:53 10/27/24 05:33 Labs: Abnormal lab results 10/26/24 Range/Units 16:05 Vancomycin Trough 5.7 L (10.0-20.0) mcg/mL BMP 10/27/24 05:33 Creatinine 0.56 Urine 10/25/24 Range/Units 05:03 Urine Color Yellow Urine Appearance Clear Urine pH 5.5 (5.0-9.0) Ur Specific [place] 1.020 (1.005-1.025) Urine Protein Negative (Neg-Trace) mg/dL Urine Glucose (UA) Negative (Negative) mg/dL All other labs normal. Assessment and Plan (1) Cellulitis of groin, left: Status: Acute (2) Lymphadenopathy: Status: Acute Plan 54-year-old male patient presenting with pain in the left groin and upper inner thigh with surrounding cellulitis and swelling. Examination appears consistent with lymphadenitis or abscess. Ultrasound of the left groin was reviewed and several large tender lymph nodes were identified. No definite abscess appreciated, await final report. Continue antibiotics. We will continue to monitor for possible lymph node abscess. Procedures Date of Service Date of Service: 10/27/24
[2024-10-27 16:00] VITALS: BP 131/83; PULSE 73; RESP 20; TEMP 36.6; O2SAT 98
[2024-10-27 20:00] VITALS: BP 135/85; PULSE 75; RESP 16; TEMP 36.4; O2SAT 99
[2024-10-28 03:41] VITALS: BP 120/71; PULSE 98; RESP 18; TEMP 37; O2SAT 95
[2024-10-28 07:10] LABS: Creatinine Clr Calc Pharmacy 149.5; Estimated Glomerular Filt Rate > 60
[2024-10-28 07:56] VITALS: BP 128/72; PULSE 64; RESP 18; TEMP 36.8; O2SAT 97
[2024-10-28] MEDS: oxyCODONE HCl Immed Release 5 MG TABLET PO (09:12)
[2024-10-28] MEDS: Amphetamine Mixed Salts 10 MG TABLET PO (09:12)
[2024-10-28] MEDS: 0.9 % Sodium Chloride Flush 3 ML SYRINGE IVFLUSH ×2 (09:13→14:56)
--- NOTE | 2024-10-28 09:21 | PM.PNGS ---
Subjective Subjective Date of Service: 10/28/24 Interval history: Continued pain in the left groin and upper inner thigh. Review the ultrasound results with the patient. Physical Exam Vital Signs: Vital Signs: Last Vital Signs Temp 98.2 F 10/28/24 07:56 Pulse 64 10/28/24 07:56 Resp 18 10/28/24 07:56 BP 128/72 10/28/24 07:56 Pulse Ox 97 10/28/24 07:56 O2 Del Method Room Air 10/28/24 07:56 BMI result Body Mass Index 29.0 Const: General: no acute distress Nutritional Appearance: well nourished Orientation/consciousness: patient oriented x3 Resp: Effort & Inspection: normal respiratory effort Neuro: General: patient oriented x3 Extrem: Other: Right groin and upper inner thigh appears less red this morning. The remains swelling which is tender to palpation. Palpable lymphadenopathy is again noted and confirmed by the ultrasound. No fluctuance is appreciated at this time. Objective Data Active Medications Acetaminophen (Acetaminophen 325 Mg Tablet) 975 mg PO Q6H PRN PRN Reason: Pain, Mild 1-3,fever,headache Amphetamine/Dextroamphetamine (Amphetamine Mixed Salts 10 Mg Tablet) 10 mg PO DAILY [facility] Last Admin: 10/28/24 09:12 Dose: 10 mg Documented By: MANAS Calcium Carbonate (Calcium Carbonate 750 Mg Tab.Chew) 750 mg PO Q4H PRN PRN Reason: Heartburn Celecoxib (Celecoxib 100 Mg Capsule) 100 mg PO BID PRN PRN Reason: Pain, Moderate(Pain Scale 4-6) Enoxaparin Sodium (Enoxaparin Sodium 40 Mg/0.4 Ml Syringe) 40 mg SUBCUT Q24H [facility] Last Admin: 10/28/24 09:12 Dose: 40 mg Documented By: MANAS Fluoxetine HCl (Fluoxetine Hcl 20 Mg Capsule) 20 mg PO BEDTIME [facility] Last Admin: 10/27/24 20:40 Dose: 20 mg Documented By: PATRICIA Fluoxetine HCl (Fluoxetine Hcl 20 Mg Capsule) 40 mg PO DAILY [facility] Last Admin: 10/28/24 09:12 Dose: 40 mg Documented By: MANAS Hydromorphone HCl (Hydromorphone Hcl 1 Mg/Ml Syringe) 1 mg IVPUSH Q4H PRN; Protocol PRN Reason: Pain, Severe (Pain Scale 7-10) Last Admin: 10/28/24 06:28 Dose: 1 mg Documented By: PATRICIA Piperacillin Sod/Tazobactam (Sod 3.375 gm/ Sodium Chloride) 50 mls @ 100 mls/hr IV Q6H [facility] Last Admin: 10/28/24 09:13 Dose: 100 mls/hr Documented By: MANAS Vancomycin HCl 1,250 mg/ (Sodium Chloride) 250 mls @ 166.667 mls/hr IV Q8H [facility] Last Infusion: 10/28/24 03:42 Dose: Infused Documented By: PATRICIA Loratadine (Loratadine 10 Mg Tablet) 10 mg PO DAILY [facility] Last Admin: 10/28/24 09:12 Dose: 10 mg Documented By: MANAS Losartan Potassium (Losartan Potassium 50 Mg Tablet) 100 mg PO DAILY [facility]; Protocol Last Admin: 10/28/24 09:12 Dose: 100 mg Documented By: MANAS Magnesium Hydroxide (Milk Of Magnesia 30 Ml Oral.Susp) 30 ml PO DAILY PRN PRN Reason: Constipation Melatonin (Melatonin 3 Mg Tablet) 6 mg PO BEDTIME PRN PRN Reason: Insomnia Omeprazole (Omeprazole 20 Mg Capsule.Dr) 20 mg PO DAILY@0630 [facility] Last Admin: 10/28/24 06:12 Dose: 20 mg Documented By: PATRICIA Ondansetron HCl (Ondansetron Hcl 4 Mg/2 Ml Vial) 4 mg IVPUSH Q8H PRN PRN Reason: Nausea and Vomiting Oxycodone HCl (Oxycodone Hcl Immed Release 5 Mg Tablet) 5 mg PO Q4H PRN PRN Reason: Pain, Moderate(Pain Scale 4-6) Last Admin: 10/28/24 09:12 Dose: 5 mg Documented By: MANAS Pharmacy Consult (Consult Rx Vancomycin Dosing) 1 each MISCELLANE DAILY PRN PRN Reason: Consult order Sodium Chloride (0.9 % Sodium Chloride Flush 3 Ml Syringe) 3 ml IVFLUSH QSHIFT [facility] Last Admin: 10/28/24 09:13 Dose: 3 ml Documented By: MANAS Tamsulosin HCl (Tamsulosin Hcl 0.4 Mg Capsule) 0.4 mg PO BEDTIME [facility] Last Admin: 10/27/24 20:40 Dose: 0.4 mg Documented By: PATRICIA Labs 10/26/24 05:53 10/28/24 05:56 Labs: Laboratory Results - last 24 hr 10/27/24 10/28/24 15:52 05:56 Hold Purple Top SEE NOTE Estim Creat Clear Calc 149.5 Estimated GFR > 60 Random Vancomycin 10.9 L Procedures Date of Service Date of Service: 10/28/24 Progress Note: A&P Assessment and plan (1) Cellulitis of groin, left: Status: Acute (2) Lymphadenitis, acute: Status: Acute Plan Patient continues to have tenderness in the left groin and upper inner thigh however the erythema does appear to be improved today. Ultrasound indicates enlarged lymph nodes in this location. Recommend continuing antibiotics. No surgical intervention recommended. We will sign off, please reconsult for changes. Time Spent With Patient Time: Total time managing care of this patient today ____ minutes. Quality Stroke Does the patient have a stroke diagnosis?: No VTE Prior VTE?: No VTE Risk Level:: Medical - moderate - high VTE Device Contraindication: Treatment Not Indicated VTE Drug Contraindication: N/A - Med Ordered
[2024-10-28] MEDS: Milk of Magnesia 30 ML ORAL.SUSP PO (10:52)
--- NOTE | 2024-10-28 11:01 | HO.PM.IMPN ---
Subjective Subjective Date of Service: 10/28/24 Interval History: redness improved but continued L groin swelling/pain Review of Systems Review of Systems: Yes all other systems are reviewed and are negative Physical Exam Vital Signs: Vital Signs: Last Vital Signs Temp 98.2 F 10/28/24 07:56 Pulse 64 10/28/24 07:56 Resp 18 10/28/24 07:56 BP 128/72 10/28/24 07:56 Pulse Ox 97 10/28/24 07:56 O2 Del Method Room Air 10/28/24 07:56 BMI result Body Mass Index 29.0 Gen: in no acute distress HEENT: sclera anicteric, moist mucus membranes Neck: supple Lungs: clear to auscultation bilaterally Heart: regular rate and rhythm, no murmurs Abd: soft, non-tender, non-distended Ext: no edema Skin: warm/well-perfused, fading hyperpigmentation L groin, tender lymph nodes in L groin Neuro: alert and oriented x3, no focal findings Psych: appropriate affect Objective Data Active Medications Acetaminophen (Acetaminophen 325 Mg Tablet) 975 mg PO Q6H PRN PRN Reason: Pain, Mild 1-3,fever,headache Amphetamine/Dextroamphetamine (Amphetamine Mixed Salts 10 Mg Tablet) 10 mg PO DAILY [facility] Last Admin: 10/28/24 09:12 Dose: 10 mg Documented By: MANAS Calcium Carbonate (Calcium Carbonate 750 Mg Tab.Chew) 750 mg PO Q4H PRN PRN Reason: Heartburn Celecoxib (Celecoxib 100 Mg Capsule) 100 mg PO BID PRN PRN Reason: Pain, Moderate(Pain Scale 4-6) Enoxaparin Sodium (Enoxaparin Sodium 40 Mg/0.4 Ml Syringe) 40 mg SUBCUT Q24H [facility] Last Admin: 10/28/24 09:12 Dose: 40 mg Documented By: MANAS Fluoxetine HCl (Fluoxetine Hcl 20 Mg Capsule) 20 mg PO BEDTIME [facility] Last Admin: 10/27/24 20:40 Dose: 20 mg Documented By: PATRICIA Fluoxetine HCl (Fluoxetine Hcl 20 Mg Capsule) 40 mg PO DAILY [facility] Last Admin: 10/28/24 09:12 Dose: 40 mg Documented By: MANAS Hydromorphone HCl (Hydromorphone Hcl 1 Mg/Ml Syringe) 1 mg IVPUSH Q4H PRN; Protocol PRN Reason: Pain, Severe (Pain Scale 7-10) Last Admin: 10/28/24 10:52 Dose: 1 mg Documented By: MANAS Piperacillin Sod/Tazobactam (Sod 3.375 gm/ Sodium Chloride) 50 mls @ 100 mls/hr IV Q6H [facility] Last Infusion: 10/28/24 09:47 Dose: Infused Documented By: MANAS Vancomycin HCl 1,250 mg/ (Sodium Chloride) 250 mls @ 166.667 mls/hr IV Q8H [facility] Last Admin: 10/28/24 10:01 Dose: 166.67 mls/hr Documented By: MANAS Loratadine (Loratadine 10 Mg Tablet) 10 mg PO DAILY [facility] Last Admin: 10/28/24 09:12 Dose: 10 mg Documented By: MANAS Losartan Potassium (Losartan Potassium 50 Mg Tablet) 100 mg PO DAILY [facility]; Protocol Last Admin: 10/28/24 09:12 Dose: 100 mg Documented By: MANAS Magnesium Hydroxide (Milk Of Magnesia 30 Ml Oral.Susp) 30 ml PO DAILY PRN PRN Reason: Constipation Last Admin: 10/28/24 10:52 Dose: 30 ml Documented By: MANAS Melatonin (Melatonin 3 Mg Tablet) 6 mg PO BEDTIME PRN PRN Reason: Insomnia Omeprazole (Omeprazole 20 Mg Capsule.Dr) 20 mg PO DAILY@0630 [facility] Last Admin: 10/28/24 06:12 Dose: 20 mg Documented By: PATRICIA Ondansetron HCl (Ondansetron Hcl 4 Mg/2 Ml Vial) 4 mg IVPUSH Q8H PRN PRN Reason: Nausea and Vomiting Oxycodone HCl (Oxycodone Hcl Immed Release 5 Mg Tablet) 5 mg PO Q4H PRN PRN Reason: Pain, Moderate(Pain Scale 4-6) Last Admin: 10/28/24 09:12 Dose: 5 mg Documented By: MANAS Pharmacy Consult (Consult Rx Vancomycin Dosing) 1 each MISCELLANE DAILY PRN PRN Reason: Consult order Sodium Chloride (0.9 % Sodium Chloride Flush 3 Ml Syringe) 3 ml IVFLUSH QSHIFT [facility] Last Admin: 10/28/24 09:13 Dose: 3 ml Documented By: MANAS Tamsulosin HCl (Tamsulosin Hcl 0.4 Mg Capsule) 0.4 mg PO BEDTIME [facility] Last Admin: 10/27/24 20:40 Dose: 0.4 mg Documented By: PATRICIA Labs 10/26/24 05:53 10/28/24 05:56 Labs: Laboratory Results - last 24 hr 10/27/24 10/28/24 15:52 05:56 Hold Purple Top SEE NOTE Estim Creat Clear Calc 149.5 Estimated GFR > 60 Random Vancomycin 10.9 L Assessment and Plan (1) Cellulitis of groin, left: Status: Acute Plan d4, 54yo M without DM2 presenting with L groin pain + redness, found to be septic from cellulitis groin cellulitis - possibly due to shaving; 10/25- vanco + piperacillin-tazobactam, BCx negative, completed clindamycin x24h to shut off toxin production, Gen Surg consulted and no collection to drain - will give 4 doses of IV ketorolac - pain control with PO oxycodone, IV hydromorphone L hydrocele - outpatient Urology follow-up BPH - tamsulosin hypoNa - resolved; likely prerenal/hypovolemia HTN - losartan ADHD - Adderall depression - fluoxetine chronic back pain - celecoxib cocaine abuse - declined recovery support; HBV/HCV/HIV screen negative VTE ppx - enoxaparin dispo - eventual home In my clinical judgment, the patient requires continued inpatient hospitalization for the following reasons: IV ABX Total time managing care of this patient today: 35 minutes. Quality Stroke Does the patient have a stroke diagnosis?: No VTE Prior VTE?: No VTE Risk Level:: Medical - moderate - high VTE Device Contraindication: Treatment Not Indicated VTE Drug Contraindication: N/A - Med Ordered
[2024-10-28 15:33] VITALS: BP 142/84; PULSE 64; RESP 18; TEMP 36.3; O2SAT 97
[2024-10-28 19:33] VITALS: BP 139/90; PULSE 72; RESP 18; TEMP 36.2; O2SAT 98
[2024-10-28 20:34] VITALS: RESP 18
[2024-10-29] MEDS: 0.9 % Sodium Chloride Flush 3 ML SYRINGE IVFLUSH ×2 (00:05→08:39)
[2024-10-29 02:37] VITALS: RESP 18
[2024-10-29 03:19] VITALS: RESP 16
[2024-10-29 04:00] VITALS: BP 133/79; PULSE 69; RESP 18; TEMP 36.1; O2SAT 97
[2024-10-29 07:05] LABS: Hematocrit 32.9 % (42.0-52.0); Hemoglobin 11.7 g/dl (14.0-18.0); Mean Corpuscular HGB Conc 35.6 g/dl (31.0-36.0); Mean Corpuscular Hemoglobin 32.7 pg (27.0-33.0); Mean Corpuscular Volume 91.9 fL (80.0-98.0); NRBC Abs Auto 0.000 X10*3/uL (0.0-0.012); NRBC Pct Auto 0.0 /100WBC (0.0-0.2); Platelet Count 274 X10*3/uL (160-400); Red Blood Count 3.58 X10*6/uL (4.60-5.80); White Blood Count 4.5 X10*3/uL (4.8-10.8)
[2024-10-29 07:09] LABS: Creatinine Clr Calc Pharmacy 144.6; Estimated Glomerular Filt Rate > 60
[2024-10-29 07:45] VITALS: BP 115/67; PULSE 63; RESP 18; TEMP 36.4; O2SAT 98
[2024-10-29] MEDS: Amphetamine Mixed Salts 10 MG TABLET PO (08:38)
--- NOTE | 2024-10-29 11:03 | MHC.CM.PN ---
Patient medically cleared for dc home self care via private transport.
--- NOTE | 2024-10-29 11:45 | P.DS_ITS ---
DS: Providers Provider Date of Service: 10/29/24 Date of admission: 10/25/24 05:24 Date of discharge: 10/29/24 Primary care physician: Tye Jaimes MD Consults: 10/25/24 05:54 Consult to Urology Routine Consulting Provider: [facility] [place] [facility] Reason for consultation: Left hemiscrotum structure hydrocele vs cyst Has provider been notified: No 10/25/24 08:01 Addiction Medicine Provider Routine Consulting Provider: Addiction [facility] Reason for consultation: cocaine abse 10/25/24 10:08 Consult to Wound Care Routine Reason for consultation: Cellulitis to groin. 10/27/24 09:18 Consult to General Surgery Routine Consulting Provider: [facility] [place] [facility] Reason for consultation: L inguinal swelling- hernia vs abscess/ DS: Diagnosis Discharge Diagnosis (1) Cellulitis of groin, left: Status: Acute (2) Sepsis: Status: Acute (3) Lymphadenitis, acute: Status: Acute (4) Incomplete emptying of bladder due to benign prostatic hyperplasia: Status: Acute (5) Epididymal cyst: Status: Acute DS: Summary Hospital Course Hospital Course: From the history and physical by the admitting hospitalist, Evelina Fierro MD, 10/25/24: Luis Arechiga is a 54 years old man with past medical history significant for essential hypertension presents to the ED complaining of left groin pain that started yesterday with associated redness extending to the medial aspect of his left thigh and lower abdomen. He said that he went on a walk and heard a pop in this area. He also reported fever, nausea and bilious vomiting. He denied diarrhea. Patient denied acute urinary symptoms or penile discharges. He shaved his genitals. He did not report any headache, palpitations, shortness on breath, chest pain or cough. He denied IV drug use. He uses cocaine and drinks alcohol in occasions. Denied tobacco smoking. He has a history of MRSA. In the ED, he was found to have fever of 101.4 and mild tachycardia. Blood pressure and oxygen saturation are normal. Blood workup was remarkable for leukocytosis of 14.1. There is no lactic acidosis. CRP is 7.99. Hemoglobin is 14.2 and platelets 256. Sodium is 130. There are no other electrolyte imbalances. BUN is 22 and creatinine 0.72. Total bili is 2.3. Urinalysis is normal. Urine drug screen is positive for amphetamines and cocaine. Abdominal pelvis CT scan showed fat stranding/edema identified at the left groins of tissue with extension into the left inguinal crease/medial left thigh proximally possibly consistent with cellulitis in the appropriate clinical setting without soft tissues gas or organized fluid correlation. There is a nonspecific 3.8 cm low-attenuation structure identified of the anterior aspect of the left hemiscrotum possible consistent with a cyst or hydrocele. ED tx: Acetaminophen 1 g IV, NS 2544 mL bolus, ceftriaxone 2 g, clindamycin 600 mg IV, ketorolac 50 mg IV, morphine 4 mg IV 54yo M without DM2 presenting with L groin pain + redness, found to be septic from cellulitis of the left groin with significant lymphadenitis; possibly provoked by shaving pubic hair. He was treated with vancomycin, piperacillin- tazobactam, and clindamycin. Blood cultures negative. Pain treated with keto rolac, oxycodone, and IV hydromorphone. General Surgery consulted but no fluid collection to drain was identified. He was found to have L epididymal had cyst and seen by Urology with plan for outpatient follow-up; also started on tamsulosin for BPH. He improved and was discharged on doxycycline and Augmentin. He should follow up with his primary care doctor in 1 week. He did endorse 1-time cocaine abuse but declined recovery services. Time Attestation Discharge Coordination Time (in mins): 40 Quality: Safe Use of Opioids Does Pt have an Active Cancer Diagnosis on the Problem List?: No Quality: Stroke Does the patient have a stroke diagnosis?: No Physical Exam Vital Signs: Vital Signs: Last Vital Signs Temp 97.6 F 10/29/24 07:45 Pulse 63 10/29/24 07:45 Resp 18 10/29/24 07:45 BP 115/67 10/29/24 07:45 Pulse Ox 98 10/29/24 07:45 O2 Del Method Room Air 10/29/24 07:45 BMI result Body Mass Index 29.0 Gen: in no acute distress HEENT: sclera anicteric, moist mucus membranes Neck: supple Lungs: clear to auscultation bilaterally Heart: regular rate and rhythm, no murmurs Abd: soft, non-tender, non-distended Ext: no edema Skin: warm/well-perfused, fading hyperpigmentation L groin, tender firm lymph nodes in L groin without fluctuance Neuro: alert and oriented x3, no focal findings Psych: appropriate affect DS: Data Data Completed and Pending Completed studies during hospitalization [Text1]: Laboratory Results WBC 4.5 X10*3/uL (4.8-10.8) L 10/29/24 06:06 RBC 3.58 X10*6/uL (4.60-5.80) L 10/29/24 06:06 Hgb 11.7 g/dl (14.0-18.0) L 10/29/24 06:06 Hct 32.9 % (42.0-52.0) L 10/29/24 06:06 MCV 91.9 fL (80.0-98.0) 10/29/24 06:06 MCH 32.7 pg (27.0-33.0) 10/29/24 06:06 MCHC 35.6 g/dl (31.0-36.0) 10/29/24 06:06 RDW 11.8 % (11.0-16.0) 10/29/24 06:06 Plt Count 274 X10*3/uL (160-400) D 10/29/24 06:06 MPV 9.4 fL (9.4-12.4) 10/29/24 06:06 Immature Gran % (Auto) 0.4 % (0.0-0.4) 10/26/24 05:53 Neut % (Auto) 75.3 % (45-73) H 10/26/24 05:53 Lymph % (Auto) 14.8 % (20-40) L 10/26/24 05:53 [place] % (Auto) 7.8 % (2-11) 10/26/24 05:53 Eos % (Auto) 1.5 % (0-4) 10/26/24 05:53 Baso % (Auto) 0.2 % (0-2) 10/26/24 05:53 Lymph # (Auto) 1.8 X10*3/uL (1.2-4.9) 10/26/24 05:53 [place] # (Auto) 0.9 X10*3/uL (0.1-1.2) 10/26/24 05:53 Eos # (Auto) 0.2 X10*3/uL (0.0-0.4) 10/26/24 05:53 Baso # (Auto) 0.0 X10*3/uL (0.0-0.2) 10/26/24 05:53 Abs Immat Gran (auto) 0.05 X10*3/uL (0.00-0.03) H 10/26/24 05:53 Absolute Neuts (auto) 8.9 x10*3/uL (2.0-8.3) H 10/26/24 05:53 Absolute Nucleated RBC 0.000 X10*3/uL (0.0-0.012) 10/29/24 06:06 Nucleated RBC % (auto) 0.0 /100WBC (0.0-0.2) 10/29/24 06:06 Neutrophils % (Manual) 67 % (45-73) 10/25/24 02:08 Band Neutrophils % 13 % (3-5) H 10/25/24 02:08 Lymphocytes % (Manual) 5 % (20-40) L 10/25/24 02:08 Monocytes % (Manual) 14 % (2-11) H 10/25/24 02:08 Eosinophils % (Manual) 1 % (0-4) 10/25/24 02:08 Abs Neuts (Manual) 11.3 X10*3/uL (2.0-8.3) H 10/25/24 02:08 Lymphocytes # (Manual) 0.7 X10*3/uL (1.2-4.9) L 10/25/24 02:08 Monocytes # (Manual) 2.0 X10*3/uL (0.1-1.2) H 10/25/24 02:08 Eosinophils # (Manual) 0.1 X10*3/uL (0.0-0.4) 10/25/24 02:08 Toxic Vacuolation PRESENT 10/25/24 02:08 Platelet Estimate NORMAL (NORMAL) 10/25/24 02:08 Plt Morphology Comment NORMAL 10/25/24 02:08 RBC Morphology NORMAL 10/25/24 02:08 ESR 17 MM/HR (0-15) H 10/25/24 02:08 Hold Purple Top SEE NOTE 10/28/24 05:56 Sodium 136 mmol/L (135-145) 10/26/24 05:53 Potassium 3.3 mmol/L (3.3-5.1) 10/26/24 05:53 Chloride 102 mmol/L (96-108) 10/26/24 05:53 Carbon Dioxide 28 mmol/L (22-29) 10/26/24 05:53 Anion Gap 9 (12-20) L 10/26/24 05:53 BUN 9 mg/dL (9-16) 10/26/24 05:53 Creatinine 0.61 mg/dL (0.5-1.4) 10/29/24 06:06 Estim Creat Clear Calc 144.6 10/29/24 06:06 Estimated GFR > 60 10/29/24 06:06 Random Glucose 112 mg/dL (60-115) 10/26/24 05:53 Estimat Average Glucose 108 mg/dL 10/25/24 02:08 Hemoglobin A1c % 5.4 % (<6.0) 10/25/24 02:08 Osmolality 277 mosm/kg (281-305) L 10/25/24 06:44 Lactic Acid 1.4 mmol/L (0.5-2.0) 10/25/24 03:36 Calcium 8.6 mg/dL (8.4-10.2) 10/26/24 05:53 Magnesium 1.9 mg/dL (1.6-2.6) 10/25/24 02:08 Total Bilirubin 1.1 mg/dL (0.0-1.0) H 10/26/24 05:53 AST 19 U/L (5-37) 10/26/24 05:53 ALT 19 U/L (0-40) 10/26/24 05:53 Alkaline Phosphatase 53 U/L (39-117) 10/26/24 05:53 C-Reactive Protein 2.65 mg/dL (< or = 0.50) H 10/29/24 06:06 Total Protein 6.3 g/dL (6.5-8.0) L 10/26/24 05:53 Albumin 3.5 g/dL (3.5-5.0) 10/26/24 05:53 TSH 0.62 uIU/mL (0.32-4.0) 10/25/24 02:08 Urine Color Yellow 10/25/24 05:03 Urine Appearance Clear 10/25/24 05:03 Urine pH 5.5 (5.0-9.0) 10/25/24 05:03 Ur Specific [place] 1.020 (1.005-1.025) 10/25/24 05:03 Urine Protein Negative mg/dL (Neg-Trace) 10/25/24 05:03 Urine Glucose (UA) Negative mg/dL (Negative) 10/25/24 05:03 Urine Ketones 15 mg/dL (Negative) 10/25/24 05:03 Urine Blood Negative (Negative) 10/25/24 05:03 Urine Nitrite Negative (Negative) 10/25/24 05:03 Ur Leukocyte Esterase Negative (Negative) 10/25/24 05:03 Urine RBC 0-2 /HPF (0-2) 10/25/24 05:03 Urine WBC 0-5 /HPF (0-5) 10/25/24 05:03 Ur Squamous Epith Cells 3-5 /HPF (0-2) 10/25/24 05:03 Urine Bacteria None Seen (None Seen) 10/25/24 05:03 Hyaline Casts 0-2 /LPF (0-2) 10/25/24 05:03 Urine Osmolality 327 mosm/kg (373-1093) L 10/25/24 06:42 Ur Random Sodium < 20.0 mmol/L 10/25/24 06:42 Nasal Screen MRSA (PCR) NEGATIVE (Negative) 10/25/24 06:42 Nasal S. aureus Screen POSITIVE (Negative) A 10/25/24 06:42 Nasal MRSA/S.aureus Interp SEE NOTE 10/25/24 06:42 Vancomycin Trough 5.7 mcg/mL (10.0-20.0) L 10/26/24 16:05 Random Vancomycin 13.2 mcg/mL (15-20) L 10/28/24 15:48 Urine Opiates Screen Not Detected (Not Detect) 10/25/24 04:27 Ur Buprenorphine Scrn Not Detected ng/mL (Not Detect) 10/25/24 04:27 Ur Oxycodone Screen Not Detected ng/mL (Not Detect) 10/25/24 04:27 Urine Methadone Screen Not Detected ng/mL (Not Detect) 10/25/24 04:27 Urine Fentanyl Screen Not Detected (Not Detect) 10/25/24 04:27 Ur Barbiturates Screen Not Detected (Not Detect) 10/25/24 04:27 Ur Phencyclidine Scrn Not Detected (Not Detect) 10/25/24 04:27 Ur Amphetamines Screen POSITIVE (Not Detect) H 10/25/24 04:27 U Benzodiazepines Scrn Not Detected (Not Detect) 10/25/24 04:27 Urine Cocaine Screen POSITIVE (Not Detect) H 10/25/24 04:27 U Marijuana (THC) Screen Not Detected (Not Detect) 10/25/24 04:27 Ethyl Alcohol < 10 mg/dL 10/25/24 02:08 COVID-19 ([facility]URESH) Negative (Negative) 10/25/24 02:08 COVID-19 Clin Com See Note 10/25/24 02:08 Hep Bs Antigen Negative (Negative) 10/26/24 05:53 Hep Bs Antibody REACTIVE (Nonreactive) 10/26/24 05:53 Hep B Core Total Ab Nonreactive (Nonreactive) 10/26/24 05:53 Hepatitis C Ab (EIA) Nonreactive (Nonreactive) 10/26/24 05:53 HIV 1&2 Ab/P24 Ag 4thGn Nonreactive (Nonreactive) 10/26/24 05:53 Impressions Scrotum Ultrasound 10/25/24 09:57 IMPRESSION: 1. Normal testicles bilaterally. 2. There is a left epididymal head cyst measuring 2.9 x 1.8 x 3.0 cm. 3. There is no significant hydrocele or varicocele. Electronically signed by: Herson Palumbo MD 10/25/2024 10:47 AM EDT Discharge Plan Discharge Anticipated Discharge Date/Time: 10/29/24 09:52 Patient Disposition: Home, Self-Care Discharge Diagnosis: cellulitis, lymphadenitis BPH, epididymal cyst Referrals: Rogelio Waldrop MD [Physician, Urology] - 2 Months Tye Jaimes MD [Primary Care Provider, Internal Medicine] - 1 Week Discharge Medications: New tamsulosin 0.4 mg Capsule 0.4 mg PO BEDTIME Qty: 30 0RF oxycodone 5 mg Tablet 5 mg PO Q4H PRN (Reason: pain, severe) Qty: 12 0RF Rx Instructions: Partial Fill upon patient request. amoxicillin-pot clavulanate 875-125 mg tablet 1 tab PO BID Qty: 12 0RF doxycycline monohydrate 100 mg tablet 100 mg PO BID Qty: 12 0RF Continued fluoxetine 40 mg capsule 40 mg PO DAILY Qty: 90 3RF losartan 100 mg tablet 100 mg PO DAILY fluoxetine 20 mg capsule 20 mg PO BEDTIME fexofenadine [Allergy Relief (fexofenadine)] 180 mg tablet 180 mg PO DAILY dextroamphetamine-amphetamine 10 mg tablet 1 tab PO DAILY Qty: 30 0RF omeprazole 20 mg capsule,delayed release(DR/EC) 20 mg PO DAILY@0630 Changed celecoxib [Celebrex] 100 mg capsule 100 mg PO BID PRN (Reason: Pain) Qty: 30 0RF Discharge Orders: Discharge Order (Routine); Ordered 10/29/24 Ordered By: Alicia Davis Diet: Advance to usual diet Activity on Discharge: As tolerated Stand Alone Forms: Patient Portal Discharge page Print Language: Mongolian Care Plan Goals: cure of infection Health Concerns: cellulitis, lymphadenitis BPH, epididymal cyst Plan of Treatment: take doxycycline monohydrate 100 mg twice daily PLUS amoxicillin-clavulanate 875-125 mg twice daily for 6 days pain control: acetaminophen [Tylenol] for mild pain, celecoxib for moderate pain, oxycodone for severe pain tamsulosin 0.4 mg at nighttime and follow up with Urology in 1-2 months avoid cocaine completely Please follow up with your primary care doctor within 1 week. Return to the hospital if you experience recurrent or worsening symptoms. Assessment: See Discharge Summary.
[2024-10-29 12:27] VITALS: BP 164/91; PULSE 75; RESP 18; TEMP 36.4; O2SAT 98
== END 2024-10-29 12:47 | disposition home or self-care (01) | DRG 720 ==
LOC: HO.ED 04:58 → HO.EDOVER 06:01 → HO.S3 07:36
PROVIDERS: Physician Assistant Medical; Admitting Provider Internal Medicine; Emergency Provider Emergency Medicine; PCP Internal Medicine; Visit Provider Family Medicine
DX: A41.9 Sepsis, unspecified organism (principal); E87.1 Hypo-osmolality and hyponatremia; L03.314 Cellulitis of groin; F90.9 Attention-deficit hyperactivity disorder, unspecified type; M54.9 Dorsalgia, unspecified; G89.29 Other chronic pain; F32.A Depression, unspecified; F14.10 Cocaine abuse, uncomplicated; N43.3 Hydrocele, unspecified; N50.3 Cyst of epididymis; N40.1 Benign prostatic hyperplasia with lower urinary tract symptoms; L04.1 Acute lymphadenitis of trunk; R39.14 Feeling of incomplete bladder emptying; I10 Essential (primary) hypertension; Z86.14 Personal history of Methicillin resistant Staphylococcus aureus infection; Z20.822 Contact with and (suspected) exposure to COVID-19; Z87.891 Personal history of nicotine dependence; Z79.899 Other long term (current) drug therapy
CPT/HCPCS: 36415; 74177; 76870; 76882; 80053; 80202; 80307; 81001; 82565; 83036; 83605; 83735; 83930; 83935; 84295; 84300; 84443; 85007; 85025; 85027; 85652; 86140; 86704; 86706; 86803; 87040; 87340; 87389; 87635; 87640; 87641; 99285; J0131; J0696; J0736; J1171; J1650; J1885; J2270; J2543; J3374; Q9967

== ENCOUNTER → 2024-10-25 01:49 | Outpatient (BNV) | payer BC, SELFPAY | PROVIDERS: Emergency Provider Emergency Medicine; PCP Internal Medicine; Visit Provider Radiology Diagnostic Radiology | DX: L03.314 Cellulitis of groin (principal); N50.82 Scrotal pain | CPT/HCPCS: 74177; 76870 ==

== ENCOUNTER 2024-10-25 05:24 | Outpatient (BNV) | payer BC, SELFPAY | END 2024-10-27 13:19 | PROVIDERS: Admitting Provider Internal Medicine; Emergency Provider Emergency Medicine; PCP Internal Medicine; Visit Provider Radiology Diagnostic Radiology | DX: L03.116 Cellulitis of left lower limb (principal) | CPT/HCPCS: 76882 ==

== ENCOUNTER → 2024-10-25 05:24 | Outpatient (BNV) | payer BC, SELFPAY | PROVIDERS: Admitting Provider Internal Medicine; Emergency Provider Emergency Medicine; PCP Internal Medicine; Visit Provider Internal Medicine | DX: L03.314 Cellulitis of groin (principal); R11.2 Nausea with vomiting, unspecified | CPT/HCPCS: 99223; 99232; 99239; 99499 ==

== ENCOUNTER → 2024-10-25 05:24 | Outpatient (BNV) | payer BC, SELFPAY | PROVIDERS: Admitting Provider Internal Medicine; Emergency Provider Emergency Medicine; PCP Internal Medicine; Visit Provider Urology | DX: N43.3 Hydrocele, unspecified (principal); N40.1 Benign prostatic hyperplasia with lower urinary tract symptoms; R33.9 Retention of urine, unspecified | CPT/HCPCS: 99254 ==

== ENCOUNTER → 2024-10-25 05:24 | Outpatient (BNV) | payer BC, SELFPAY | PROVIDERS: Admitting Provider Internal Medicine; Emergency Provider Emergency Medicine; PCP Internal Medicine; Visit Provider Surgery | DX: L03.314 Cellulitis of groin (principal); L04.9 Acute lymphadenitis, unspecified | CPT/HCPCS: 99232; 99254 ==

== ENCOUNTER 2024-10-30 08:21 | Outpatient (AMB) | payer BC, SELFPAY ==
--- NOTE | 2024-10-30 08:22 | A.OFFPC_ITS ---
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 by: Self / Same As Patient Allergies seasonal Allergy (Mild, Uncoded 10/30/24 08:37) Sneezing Tobacco use date assessed: 09/11/24 Dental Screening Dental Screen Date: 09/11/24 [facility] Medical History (Updated 10/30/24 @ 08:57 by Tye Jaimes MD) Chronic pain syndrome Obesity with body mass index (BMI) of 30.0 to 39.9 Bipolar disorder, unspecified Establishing care with new doctor, encounter for Central stenosis of spinal canal Protrusion of intervertebral disc of lumbosacral region Bulging lumbar disc Degenerative disc disease, lumbar Chronic back pain Sinus infection Bleeding hemorrhoids Testicular pain, right Epididymal cyst Hydrocele Anxiety Umbilical hernia ADHD (attention deficit hyperactivity disorder) HTN (hypertension) GERD (gastroesophageal reflux disease) Hemorrhoids Surgical History (Updated 10/12/24 @ 14:37 by Shena Rodriguez) History of hemorrhoidectomy (~03/27/24) History of epididymectomy (04/18/23) Hx of umbilical hernia repair (07/22/21) Hx of endoscopy (06/2022) History of colonoscopy (~01/11/19) Status post total right knee replacement Family History Father Alive and well Mother Alive and well Social History Household Members: None Housing: Apartment Are you a primary after school caregiver to a significant other at home: No Do you presently have visiting nurse or other home services: No 75 years or older and lives alone: No Alcohol intake: current Alcohol intake frequency: 3 or more drinks per day Alcohol type: beer Patient Tobacco Use Status: Former Tobacco user Substance Use Type: Marijuana service: No Current occupational status: employed Cognitive needs: No Hearing needs: No Vision needs: Yes (reading glasses/Rx glasses) Questionnaire Thrive Questionnaire Date Thrive assessed: 10/25/24 Physical exam (Primary Care) Tobacco/Smoking Status: Tobacco use Status Tobacco use date assessed 09/11/24 10/30/24 08:23 Patient Tobacco Use Status Former Tobacco user 10/30/24 08:23 Thrive Assessment: Date of Thrive Assessment Date Thrive assessed 10/25/24 10/30/24 08:23 Coding Level of Care Code Est Pt Level 4 (60465) Complex EM visit Add On G2211 Diagnoses Cocaine abuse F14.10 ADHD (attention deficit hyperactivity disorder) F90.9 Chronic pain syndrome G89.4 Assessment & Plan Assessment & Plan (1) Cocaine abuse: Code(s): F14.10 - Cocaine abuse, uncomplicated Category: Medical Plan: Patient tested positive for cocaine on his drug screen. To continue on opioids and amphetamine is dangerous with his recreational use of cocaine. No further prescriptions for opioids or amphetamine from this office. Currently he is on 10 mg a day of oxycodone which will be tapered to 5 mg a day. His amphetamine dosage will be tapered and no further prescriptions effective November 21. (2) ADHD (attention deficit hyperactivity disorder): Code(s): F90.9 - Attention-deficit hyperactivity disorder, unspecified type Category: Medical Plan: An appointment with a psychiatrist has been made. (3) Chronic pain syndrome: Code(s): G89.4 - Chronic pain syndrome Category: Medical Plan: I agreed to expedite or look into his MRI that has been pending since last month. An appointment for the neurosurgeon will be made after he gets the MRI. Plan History of Present Illness - The patient is a 54-year-old male presenting with management of chronic back pain and anxiety. - The patient reports a history of anxiety, which he believes contributes to his elevated blood pressure. - He has been taking Adderall for years but feels his anxiety is not well- controlled. - The patient has a history of chronic back pain, with concerns about potential paralysis due to worsening symptoms. - He has a fractured coccyx and two chips in his spinal bone, with sciatic nerve involvement causing numbness in his right leg. - The pain has progressed significantly, and he is awaiting an MRI to further evaluate his condition. - The patient has a history of ADHD since age 11, which he manages with Adderall. 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 - The patient tested positive for cocaine, which has impacted his ability to receive prescriptions for opioids and stimulants from this office. - He denies regular use and attributes the positive test to incidental contact at a social event. - The patient is also being evaluated for gallbladder disease, with an ultrasound ordered for further assessment. Review of Systems - Psychiatric: Reports anxiety and ADHD. Denies regular substance use. - Musculoskeletal: Reports chronic back pain, numbness in right leg, and history of coccyx fracture. - Gastrointestinal: Reports evaluation for gallbladder disease. Plan Patient was informed and verbally consented to the use of an ambient scribe for clinic note documentation during this visit. 1. Anxiety - The patient is advised to follow up with a psychiatrist for management of anxiety. - Consideration of medication adjustment or initiation of therapy was discussed. 2. Chronic Back Pain - An MRI is pending to evaluate the extent of spinal issues and guide further t reatment. - The patient is advised to follow up with a neurosurgeon post-MRI for potential surgical intervention. 3. Adhd - The patient is advised to consult with a psychiatrist for continued management of ADHD. - Tapering of Adderall is planned, with no further prescriptions from this office. 4. Substance Use Disorder - The patient is informed of the discontinuation of opioid prescriptions due to a positive cocaine test. - Referral to a Suboxone clinic is offered for management of substance use disorder. 5. Gallbladder Disease - An ultrasound is scheduled to assess gallbladder disease. Discussion Notes During the visit, I discussed with the patient the need to discontinue opioid prescriptions due to a positive cocaine test, emphasizing the risks associated with continued use. We also talked about the importance of following up with a psychiatrist for anxiety and ADHD management. I agreed to expedite the pending MRI to assess his chronic back pain and advised him to consult a neurosurgeon post-MRI. Additionally, I offered a referral to a Suboxone clinic for substance use disorder management and scheduled an ultrasound for gallbladder disease evaluation. Patient Instructions - Follow up with a psychiatrist for anxiety and ADHD management. - Await MRI results and consult a neurosurgeon for back pain management. - Attend scheduled ultrasound for gallbladder evaluation. - Consider referral to a Suboxone clinic for substance use disorder management.
[2024-10-30 08:34] VITALS: BP 135/84; PULSE 102; RESP 14; TEMP 36.6; O2SAT 96; BMI 29.5
--- OUTSIDE RECORDS SUMMARY | 2024-10-30 09:19 | XMS_ITS | Clinical Summary ---
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
== END 2024-10-30 08:57 | disposition home or self-care (01) ==
LOC: HO.HMCSH 08:21
PROVIDERS: PCP Internal Medicine; Visit Provider Internal Medicine
DX: F14.10 Cocaine abuse, uncomplicated (principal); F90.9 Attention-deficit hyperactivity disorder, unspecified type; G89.4 Chronic pain syndrome

== ENCOUNTER 2024-12-27 09:55 | Outpatient (AMB) | payer BC, SELFPAY ==
[2024-12-27 09:55] VITALS: BP 123/79; PULSE 110; RESP 14; TEMP 36.8; O2SAT 97; BMI 28.7
--- NOTE | 2024-12-27 09:55 | MHC.PC.OV ---
Vital Signs 12/27/24 09:55 Height 5 ft 6.93 in Weight 183 lb BMI 28.7 BP 123/79 Blood Pressure Location Rt brachial Position Sitting Respiration 14 Pulse 110 H Pulse Source Pulse Oximeter Temp 98.2 F Temp Source Temporal Artery Scan Pulse Oximetry (%) 97 Oxygen Delivery Method Room Air Intake Visit Reasons: Follow up Research Neuropsychologist Required: No Accompanied by: Self / Same As Patient Allergies seasonal Allergy (Mild, Uncoded 12/27/24 10:34) Sneezing Medication List - Last Reconciled 12/27/24 by Eva Grace PA-C acetaminophen ER (Tylenol Arthritis Pain) 1,300 mg (2 x 650 mg) PO Q8H celecoxib (Celebrex) 100 mg PO BID PRN cyclobenzaprine 10 mg PO Q8H dextroamphetamine sulfate 10 mg PO DAILY diclofenac sodium 1% (Arthritis Pain (diclofenac)) 4 grams topical QID fexofenadine (Allergy Relief (fexofenadine)) 180 mg PO DAILY fluoxetine 20 mg PO BEDTIME fluoxetine 40 mg PO DAILY hydroxyzine HCl 50 mg PO Q8H ibuprofen 800 mg PO Q8H losartan 100 mg PO DAILY omeprazole 20 mg PO DAILY@0630 pantoprazole (Protonix) 40 mg PO DAILY tamsulosin 0.4 mg PO BEDTIME Tobacco use date assessed: 09/11/24 Dental Screening Dental Screen Date: 09/11/24 HPI Follow up HPI Details The patient is a 54-year-old male presenting for a follow-up visit for medication refills and to address severe pain. The patient reports having a massive epididymal cyst, described as the size of a softball, which was identified on a scan during a prior hospitalization for cellulitis. The cyst is causing significant pain, is pressing against his prostate, and causing difficulty with urination. He is under the care of urology, and there is a plan for surgical removal. The patient also has a history of three fractured bones in his back, causing severe pain and concerns about paralysis. For this pain, he has been taking approximately 30 Advil tablets per day, which has resulted in bleeding ulcers. He reports prior unsuccessful treatments for his back pain, including four rounds of injections. The patient has a 45-year history of taking Adderall 10 mg. He is requesting a refill, but the clinic has a policy against prescribing it. He has an upcoming appointment with a psychiatrist on the 11th of the month to manage this medication. The patient is experiencing significant emotional distress and reports anxiety following the recent of his 22-year-old son from a brain aneurysm. Scial History - Employment: Patient is employed and concerned about missing work and loss of income due to a potential six-month back surgical recovery period. - Family History: The patient recently experienced the of his 22-year-old son due to a brain aneurysm. - Substance Use: He reports taking 30 Advil tablets daily. [facility] Medical History (Updated 12/27/24 @ 10:39 by Eva Grace PA-C) Cocaine abuse Chronic pain syndrome Obesity with body mass index (BMI) of 30.0 to 39.9 Bipolar disorder, unspecified Establishing care with new doctor, encounter for Central stenosis of spinal canal Protrusion of intervertebral disc of lumbosacral region Bulging lumbar disc Degenerative disc disease, lumbar Chronic back pain Sinus infection Bleeding hemorrhoids Testicular pain, right Epididymal cyst Hydrocele Anxiety Umbilical hernia ADHD (attention deficit hyperactivity disorder) HTN (hypertension) GERD (gastroesophageal reflux disease) Hemorrhoids Surgical History History of hemorrhoidectomy (~03/27/24) History of epididymectomy (04/18/23) Hx of umbilical hernia repair (07/22/21) Hx of endoscopy (06/2022) History of colonoscopy (~01/11/19) Status post total right knee replacement Family History Father Alive and well Mother Alive and well Social History Household Members: None Housing: Apartment Are you a primary career development engineer to a significant other at home: No Do you presently have visiting nurse or other home services: No 75 years or older and lives alone: No Alcohol intake: current Alcohol intake frequency: 3 or more drinks per day Alcohol type: beer Patient Tobacco Use Status: Former Tobacco user Substance Use Type: Marijuana service: No Current occupational status: employed Cognitive needs: No Hearing needs: No Vision needs: Yes (reading glasses/Rx glasses) Questionnaire PHQ-9 Over the last 2 weeks, how often have you been bothered by any of the following problems? 1. Little interest or pleasure in doing things: not at all 2. Feeling down, depressed, or hopeless: not at all 3. Trouble falling or staying asleep, or sleeping too much: not at all 4. Feeling tired or having little energy: not at all 5. Poor appetite or overeating: not at all 6. Feeling bad about yourself - or that you are a failure or have let yourself or your family down: not at all 7. Trouble concentrating on things, such as reading the newspaper or watching television: not at all 8. Moving or speaking so slowly that other people could have noticed. Or the opposite - being so fidgety or restless that you have been moving around a lot more than usual: not at all 9. Thoughts that you would be better off or of hurting yourself in some way: not at all Total score: 0 Depression Screening Interpretation: Negative Depression Screening Done: Yes 20636 - PHQ-9 Billing: Yes Source: Developed by Drs. Nish Bertrand, Ciara Gutierrez, Jose Luis Dickens and colleagues, with an educational jemal from [employer]. Thrive Questionnaire Date Thrive assessed: 12/27/24 I am a: Patient What is your living situation today?: I have a steady place to live Within the past 12 months, did the food you bought not last and you didn't have the money to get more?: Never true Within the past 12 months, did you worry whether your food would run out before you got money to buy more?: Never true Do you have trouble paying for medicines?: No Do you have trouble getting transportation to medical appointments?: No Do you have trouble paying your heating and electricity bill?: No Do you have trouble taking care of your child, family member or friend?: No Do you have trouble with day-to-day activities such as bathing, preparing meals, shopping, managing finances, etc.?: No Are you currently unemployed and looking for a job?: No Are you interested in more education?: No Please select the resources that you would like help with: None THRIVE Score: 0 AUDIT C Alcohol Use Questionnaire (AUDIT-C) 1. How often do you have a drink containing alcohol?: 2-3 times a week 2. How many drinks containing alcohol do you have on a typical day when you are drinking?: 1 or 2 3. How often do you have six or more drinks on one occasion?: Never Total Score: 3 Score Reviewed/Action Taken: No JAC-7 AMB Questionnaire JAC-7 Date JAC - 7 assessed: 12/27/24 Feeling nervous, anxious, or on edge: 0 = Not at all Not being able to stop or control worryin = Not at all Worrying too much about different things: 0 = Not at all Trouble relaxin = Not at all Being so restless that it is hard to sit still: 0 = Not at all Becoming easily annoyed or irritable: 0 = Not at all Feeling afraid as if something awful might happen: 0 = Not at all Total JAC-7 score (0-4 normal; 5-9 mild; 10-14 moderate; 15-21 severe): 0 Source: Developed by Drs. Nish Bertrand, Ciara Gutierrez, Jose Luis Dickens and colleagues, with an educational jemal from [employer]. JAC-7 Assessment Billing JAC-7 Assessment Tool: JAC-7 Assessment 11603 Review of Systems Const Details: - Genitourinary: Reports significant pain from an epididymal cyst pressing on his prostate, causing difficulty with urination. - Musculoskeletal: Reports severe back pain related to a history of three fractures. - Gastrointestinal: Reports nausea and bleeding ulcers, which he attributes to taking 30 Advil tablets a day. - Psychiatric: Reports feeling very anxious, pissed off, and significant distress over not receiving his Adderall and the recent of his son. - Constitutional: Reports prominent lymph nodes. All systems reviewed & are unremarkable except as noted in HPI and below Physical exam (Primary Care) Vital Signs: Last Vital Signs Temp 98.2 F 12/27/24 09:55 Pulse 110 H 12/27/24 09:55 Resp 14 12/27/24 09:55 BP 123/79 12/27/24 09:55 Pulse Ox 97 12/27/24 09:55 Oxygen Delivery Method Room Air 12/27/24 09:55 Care Plan Goal for BP management: <140/90 at Goal BMI result Body Mass Index 28.7 BMI Assessment/Plan discussion: High BMI High, discussed plan: lifestyle, weight reduction, dietary, physical activity, alcohol moderation and other Tobacco/Smoking Status: Tobacco use Status Tobacco use date assessed 09/11/24 12/27/24 10:00 Patient Tobacco Use Status Former Tobacco user 12/27/24 10:00 PHQ-9: PHQ-9 Score PHQ-9: Total score 0 12/27/24 10:15 Depression Screening Interpretation: Negative Thrive Assessment: Date of Thrive Assessment Date Thrive assessed 12/27/24 12/27/24 10:15 Const Other: Appearance: Alert. Oriented X3. No acute distress. Head: Normal external exam. Normocephalic. Atraumatic. Eyes: Pupils are equal, round, and reactive to light. Extraocular movements intact. Conjunctiva and sclera normal. Eyelids normal. Throat: Pharynx normal. Uvula midline. Moist mucous membranes. Neck: Normal inspection. Neck supple. Full range of motion. Cardiovascular: Normal heart rate and rhythm. Respiratory: No respiratory distress. Painless inspiration. Back: Normal range of motion. Skin: Skin warm and dry. Normal skin color. Results Reviewed Results Reviewed: - Imaging: A prior scan revealed a large epididymal cyst, described as the size of a softball. - Labs: Patient mentions a previous positive drug test for cocaine, which he disputes as a false positive. Coding Level of Care Code Est Pt Level 4 (74839) Complex EM visit Add On G2211 Diagnoses Epididymal cyst N50.3 Degenerative disc disease, lumbar M51.36 GERD (gastroesophageal reflux disease) K21.9 ADHD (attention deficit hyperactivity disorder) F90.9 Anxiety F41.9 Additional Codes PHQ-9 - 67901 - PHQ-9 Billing: Yes ([id number]) JAC-7 Assessment Billing - JAC-7 Assessment Tool: JAC-7 Assessment 89317 ([id number]) Assessment & Plan Assessment & Plan (1) Epididymal cyst: Code(s): N50.3 - Cyst of epididymis Category: Medical Plan: The patient reports significant pain from a large epididymal cyst. He is managed by urology for this condition and surgical removal is planned. The patient was advised to contact his urologist for pain management related to this issue, as they are overseeing his care for this specific condition. (2) Degenerative disc disease, lumbar: Code(s): M51.36 - Other intervertebral disc degeneration, lumbar region Category: Medical Plan: The patient has severe back pain from three previous fractures. A referral will be made to Pain Management. Prescriptions were sent for Flexeril as a muscle relaxant, high-dose Tylenol 1300 mg, and Ibuprofen 800 mg, with instructions to alternate them and take them with food to minimize GI side effects. (3) GERD (gastroesophageal reflux disease): Code(s): K21.9 - Gastro-esophageal reflux disease without esophagitis Category: Medical Plan: The patient reports taking excessive amounts of Advil, leading to bleeding ulcers. He was previously using [id number] omeprazole due to its high cost. A prescription for Protonix 40 mg will be sent as an alternative. The patient was counseled to stop taking Motrin and similar NSAIDs to prevent further stomach damage. (4) ADHD (attention deficit hyperactivity disorder): Code(s): F90.9 - Attention-deficit hyperactivity disorder, unspecified type Category: Medical Plan: The patient has a 45-year history of Adderall use and requested a refill. The clinic policy and the primary attending's decision prevent refilling this medication, partly due to a prior positive drug screen. The patient has an upcoming appointment with a psychiatrist, who will manage this prescription going forward. A note will be sent to his primary doctor regarding the patient's strong desire to continue the medication. (5) Anxiety: Code(s): F41.9 - Anxiety disorder, unspecified Category: Medical Plan: The patient has a 45-year history of Adderall use and requested a refill. The clinic policy and the primary attending's decision prevent refilling this medication, partly due to a prior positive drug screen. The patient has an upcoming appointment with a psychiatrist, who will manage this prescription going forward if they feel like it is necessary to represcribe versus a different medication. Plan Plan Patient was informed and verbally consented to the use of an ambient scribe for clinic note documentation during this visit. 1. Epididymal Cyst The patient reports significant pain from a large epididymal cyst. He is managed by urology for this condition and surgical removal is planned. The patient was advised to contact his urologist for pain management related to this issue, as they are overseeing his care for this specific condition. 2. Chronic Back Pain The patient has severe back pain from three previous fractures. A referral will be made to Pain Management. Prescriptions were sent for Flexeril as a muscle relaxant, high-dose Tylenol 1300 mg, and Ibuprofen 800 mg, with instructions to alternate them and take them with food to minimize GI side effects. 3. Gastroesophageal Reflux Disease (Gerd) The patient reports taking excessive amounts of Advil, leading to bleeding ulcers. He was previously using [id number] omeprazole due to its high cost. A prescription for Protonix 40 mg will be sent as an alternative. The patient was counseled to stop taking Motrin and similar NSAIDs to prevent further stomach damage. 4. Attention-Deficit/Hyperactivity Disorder (Adhd) The patient has a 45-year history of Adderall use and requested a refill. The clinic policy and the primary attending's decision prevent refilling this medication, partly due to a prior positive drug screen. The patient has an upcoming appointment with a psychiatrist, who will manage this prescription going forward if they feel like it is necessary to represcribe versus a different medication. 5. Anxiety The patient reported significant anxiety and distress, related to both the medication issue and the recent of his son. A prescription for hydroxyzine was sent to help manage anxiety symptoms. I informed the patient that due to clinic policy and the decision of his PCP, we would not be able to refill his Adderall due to the positive drug screen. I advised him that his upcoming psychiatry appointment would be the appropriate venue to address this medication. We discussed his severe pain and the risks of his high NSAID use, including bleeding ulcers. I explained that pain from his epididymal cyst should be managed by his urologist. For his back pain, I recommended a pain management referral. I prescribed Protonix for GI protection, along with a multimodal non-narcotic pain regimen including a muscle relaxant (Flexeril), high-dose Tylenol, and limited Ibuprofen 800mg. I also prescribed hydroxyzine for his anxiety and warned him about the sedating effects of both the muscle relaxer and hydroxyzine, advising against driving or working while taking them. We agreed on a follow-up in three months. Orders: Referrals Pain Management Referral Eva Grace PA-C G89.29 - Other chronic pain, M54.9 - Dorsalgia, unspecified Medications: New diclofenac sodium 1% (Arthritis Pain (diclofenac)) apply to single knee, ankle, foot; for foot includes sole/toes/top of foot 4 grams topical QID 100 grams 3RF Eva Grace PA-C pantoprazole (Protonix) 40 mg PO DAILY 90 tabs 3RF Eva Grace PA-C K21.9 - Gastro-esophageal reflux disease without esophagitis ibuprofen 800 mg PO Q8H 60 tabs 3RF Eva Grcae PA-C hydroxyzine HCl 50 mg PO Q8H 60 tabs 3RF anxiety Eva Grace PA-C cyclobenzaprine 10 mg PO Q8H 60 tabs 3RF Eva Grace PA-C acetaminophen ER (Tylenol Arthritis Pain) 1,300 mg (2 x 650 mg) PO Q8H 30 tabs 3RF Eva Grace PA-C Changed From dextroamphetamine sulfate Partial Fill upon patient request. 5 mg PO DAILY 30 tabs 0RF To dextroamphetamine sulfate Partial Fill upon patient request. 10 mg PO DAILY Tye Jaimes MD Refilled tamsulosin 0.4 mg PO BEDTIME 90 caps 3RF Eva Grace PA-C Patient Instructions: - Stop taking large amounts of Advil or Motrin as it is causing stomach bleeding. - Take Protonix 40 mg daily to protect your stomach. - For pain, you can take high-dose Tylenol and Ibuprofen 800 mg, but you must alternate them and take them with food. - You have been prescribed Flexeril (a muscle relaxer) and hydroxyzine (for anxiety). - Do not drink alcohol, drive, or go to work while taking Flexeril or hydroxyzine because they can make you sleepy. - Contact your urologist to discuss pain control for your cyst before surgery. - Keep your appointment with the psychiatrist on the to discuss your Adderall prescription. - We have placed a referral for you to be seen by Pain Management for your back pain. - We can help you request your old medical records from the hospital's storage facility. - Please schedule a follow-up appointment in three months.
--- OUTSIDE RECORDS SUMMARY | 2024-12-27 11:21 | XMS_ITS | Clinical Summary ---
[facility] Address [address] [place] [address] Care Team Providers Care Home Care Attendant Name Role Phone Unavailable Primary Care Provider [...] 01/20/2018 Zoster Vaccines (1 of 2) 01/20/2018 Depression Screening 02/22/2024 COVID-19 Vaccine (1 - 2023-2 5 season) 2024 Influenza Vaccine (#1) 2024 RSV Immunization Adult Patie nts (1 - 1-dose 75+ series) 01/20/2043 HIB Vaccines Aged Out No longer eligi [...]
== END 2024-12-27 10:34 | disposition home or self-care (01) ==
LOC: HO.HMCSH 09:55
PROVIDERS: PCP Physician Assistant Medical; Visit Provider Physician Assistant Medical
DX: N50.3 Cyst of epididymis (principal); M51.369 Other intervertebral disc degeneration, lumbar region without mention of lumbar back pain or lower extremity pain; K21.9 Gastro-esophageal reflux disease without esophagitis; F90.9 Attention-deficit hyperactivity disorder, unspecified type; F41.9 Anxiety disorder, unspecified

== ENCOUNTER → 2024-12-27 09:55 | Outpatient (BNVA) | payer BC, SELFPAY | PROVIDERS: PCP Physician Assistant Medical; Visit Provider Physician Assistant Medical | DX: F90.9 Attention-deficit hyperactivity disorder, unspecified type (principal); F41.9 Anxiety disorder, unspecified; N50.3 Cyst of epididymis; M51.360 Other intervertebral disc degeneration, lumbar region with discogenic back pain only; K21.9 Gastro-esophageal reflux disease without esophagitis; Z63.4 Disappearance and death of family member | CPT/HCPCS: 96127 ==

== ENCOUNTER 2024-12-31 16:15 | Outpatient (AMB) | payer BC, SELFPAY ==
--- NOTE | 2024-12-31 16:20 | A.OFFPSYCH_ITS ---
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 Allergies seasonal Allergy (Mild, Uncoded 12/27/24 10:34) Sneezing Medication List - Last Reconciled 12/31/24 by Shani Travis APRN acetaminophen ER (Tylenol Arthritis Pain) 1,300 mg (2 x 650 mg) PO Q8H celecoxib (Celebrex) 100 mg PO BID PRN cyclobenzaprine 10 mg PO Q8H dextroamphetamine sulfate 10 mg PO DAILY diclofenac sodium 1% (Arthritis Pain (diclofenac)) 4 grams topical QID fexofenadine (Allergy Relief (fexofenadine)) 180 mg PO DAILY fluoxetine 20 mg PO BEDTIME fluoxetine 40 mg PO DAILY hydroxyzine HCl 50 mg PO Q8H ibuprofen 800 mg PO Q8H losartan 100 mg PO DAILY omeprazole 20 mg PO DAILY@0630 pantoprazole (Protonix) 40 mg PO DAILY tamsulosin 0.4 mg PO BEDTIME HPI- Psychiatric Chief Complaint: consultation HPI Narrative: Pt referred by PCP to evaluate for attention and concentration problems and the appropriateness of adderall treatment. Pt presents with high anxiety and distres s. he is hyperverbal. He rambles at times. he loses his train of thought at times. Pt struggling with transition to new care team after his PCP of many years retired. Pt states he has had a number of losses, most painful is the loss of his son from suspected overdose. Pt feels its his fault for giving him everything and spoiling him. He and were prior to the loss of their son but once his son they . He states he feels alone. He has multiple medical issues that cause him distress: he says he has a softball size cyst pushing against his prostate, he has bleeding ulcers from taking too much advil. He reports issues with his spine that require surgery but he is afraid to have surgery and also afraid to be out of work for a long recovery due to financial worries. Pt works 70+ hours a week. 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 He reports chronic pain. He reports depression symptoms; His PHQ9=12 and he rates symptoms as extremely difficult His GAD7= 21 and he rates these symptoms as extremely difficult as well. He denies SI or HI. He reports a history of ADHD for 45 years and has been on adderall 10mg daily for 6 years. he reports it helps him calm down and be less impulsive. He is also on prozac 60mg daily for depression and anxiety but says its not working. he has been on ativan in past which he said helped. he has also had trials of paxil and ritalin which he says did not help. These meds have always been prescribed by his PCP. He reports he has not seen a psychiatrist or a therapist. He says he does think he needs to see a therapist now to help him deal with the of his son a year ago. He jokingly says his friends and family have told him he has bipolar disorder. He has never been hospitalized. he reports being on prescribed opiates for pain for years. He says he took the opiates for his back because he is afraid to have surgery. When asked about his urine drug screen being positive for cocaine he says that was very upsetting for him because he does not use it on a regular basis but had gone to a school reunion and used it that one time. He does report a long history of alcohol abuse which he used 12 step meeting to establish sobriety with occasional relapses. He reports he has been dabbling wi th alcohol lately but still goes to 12 step meetings for support. 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 He reports he has good support from family and friends. He reports a difficult upbringing as he was one of 7 children and the family struggled to put food on the table. He reports he was an awful student. He was always getting in trouble. He was especially impulsive as a elementary student and a little less trouble in high school. Discussed Bipolar Disorder with patient. Given the fact that he is on 60mg of prozac and still depressed and anxious in addition to his symptoms of impulsivity, rapid speech, working many hours a week, elevated energy and mood alternating with depressed mood, poor sleep and racing thoughts that is is likely he has a Bipolar type depression in addition to ADHD. He is open to this idea and he wants help. Past Psychiatric History: oupt by PCP. No IPLOC Subjective Subjective Medication Compliance: Yes Side effects from medications: No Review of Systems Medical Review of Systems: unchanged Mental Status Exam Mental Status Exam Patient Appearance: Well Grooomed and Appropriate Patient Orientation: Person, Place, Time and Situation Level of Consciousness: Awake, Appropriate, Restless and Alert Patient Behavior: Appropriate, Talkative, Hyperactive, Cooperative, Restless, Anxious and Crying Mood Description: Depressed, Anxious, Labile and Expansive Affect Description: Depressed, Anxious and Expansive Patient Cognition Impaired: No Ability to Follow Directions: Fair Speech Pattern: Perseverating, Rambling, Excessive and Pressured Memory Description: Intact Hallucinations: None Delusions: Not Present Thought Process: Racing and Distracted Thought Content: positive for Preoccupation Judgement: Fair Assessment and Plan Assessment & Plan (1) Bipolar II disorder major depressive with melancholic features: Status: Acute Code(s): F31.81 - Bipolar II disorder (2) ADHD (attention deficit hyperactivity disorder): Status: Acute Qualifiers: Attention deficit-hyperactivity disorder type: combined inattentive- hyperactive Qualified Code(s): F90.2 - Attention-deficit hyperactivity disorder, combined type Code(s): F90.9 - Attention-deficit hyperactivity disorder, unspecified type (3) Anxiety: Status: Acute Code(s): F41.9 - Anxiety disorder, unspecified Plan start low dose zyprexa 2.5mg at bedtime with plan to increase as tolerated. Watch for urinary retention given cyst/protate inflammation; will go slow with titration due to risks continue prozac a60mg daily continue adderall xr 10mg daily lower hydroxyzine to 25mg Q8 hours prn anxiety due to risk of urinary retention and anticholinergic properties Obtain EKG in 1-2 weeks retrun in 2 weeks for follow up collaborate with SW to refer to therapist Medications: New olanzapine (Zyprexa) 2.5 mg PO BEDTIME 30 tabs 0RF dextroamphetamine-amphetamine 10 mg (Adderall) Partial Fill upon patient request. 10 mg PO DAILY 30 tabs 0RF Changed From hydroxyzine HCl 50 mg PO Q8H 60 tabs 3RF anxiety To hydroxyzine HCl 25 mg (1/2 x 50 mg) PO Q8H 30 tabs 3RF anxiety Orders: Orders ECG 12 lead EKG 12/31/24 F31.9 - Bipolar disorder, unspecified, F90.9 - Attention-deficit hyperactivity disorder, unspecified type, I10 - Essential (primary) hypertension Counseling and coordination of Care Pt. Self Management counseling: Exercise, Mod caffeine/ETOH intake, Nutrition education and improvement, Sleep hygiene, General coping skills and Problem solving Medication management counseling: Effectiveness, Side effects, Dosing range, Duration, Drug interaction and Adherence Diagnosis and Prognosis Counseling: Accuracy of diagnosis, Prognosis over time, Impact of diagnosis on life functions, Impact of family relationship, Problematic behaviors secondary to diagnosis and Adequacy of current interve ntions Details: I spent 90 minutes reviewing the record, seeing the patient and documenting in the medical record. Counseling provided to the patient/caregiver as outlined below. Addressed patient/caregiver concerns regarding current medication regime including effective adherence. Addressed patient/caregiver concerns regarding diagnosis and prognosis including accuracy of diagnosis, prognosis over time, impact of diagnosis. Addressed patient/caregiver concerns regarding impact of recent stressors. [facility] Medical History (Updated 01/01/25 @ 11:48 by Shani Travis APRN) Cocaine abuse Chronic pain syndrome Obesity with body mass index (BMI) of 30.0 to 39.9 Bipolar disorder, unspecified Establishing care with new doctor, encounter for Central stenosis of spinal canal Protrusion of intervertebral disc of lumbosacral region Bulging lumbar disc Degenerative disc disease, lumbar Chronic back pain Sinus infection Bleeding hemorrhoids Testicular pain, right Epididymal cyst Hydrocele Anxiety Umbilical hernia ADHD (attention deficit hyperactivity disorder) HTN (hypertension) GERD (gastroesophageal reflux disease) Hemorrhoids Surgical History History of hemorrhoidectomy (~03/27/24) History of epididymectomy (04/18/23) Hx of umbilical hernia repair (07/22/21) Hx of endoscopy (06/2022) History of colonoscopy (~01/11/19) Status post total right knee replacement Family History Father Alive and well Mother Alive and well Social History Household Members: None Housing: Apartment Are you a primary senior resident care director to a significant other at home: No Do you presently have visiting nurse or other home services: No 75 years or older and lives alone: No Alcohol intake: current Alcohol intake frequency: 3 or more drinks per day Alcohol type: beer Patient Tobacco Use Status: Former Tobacco user Substance Use Type: Marijuana service: No Current occupational status: employed Cognitive needs: No Hearing needs: No Vision needs: Yes (reading glasses/Rx glasses) Social History: lives alone. Coding Level of Care Code Psych Diag Eval w/Med (77231) Diagnoses Bipolar II disorder major depressive with melancholic features F31.81 Attention deficit hyperactivity disorder (ADHD), combined type F90.2 Attention deficit-hyperactivity disorder type: combined inattentive- hyperactive Anxiety F41.9
--- OUTSIDE RECORDS SUMMARY | 2024-12-31 17:58 | XMS_ITS | Clinical Summary ---
[facility] Address [address] [place] [address] Care Team Providers Care Learning Strategist Name Role Phone Unavailable Primary Care Provider [...]
== END 2024-12-31 17:25 | disposition home or self-care (01) ==
LOC: HO.HOP 16:15
PROVIDERS: PCP Physician Assistant Medical; Visit Provider Clinical Nurse Specialist Psychiatric/Mental Health
DX: F31.81 Bipolar II disorder (principal); F90.2 Attention-deficit hyperactivity disorder, combined type; F41.9 Anxiety disorder, unspecified
CPT/HCPCS: 90792

== ENCOUNTER → 2024-12-31 16:15 | Outpatient (BNVA) | payer BC, SELFPAY | PROVIDERS: PCP Physician Assistant Medical; Visit Provider Clinical Nurse Specialist Psychiatric/Mental Health | DX: F31.81 Bipolar II disorder (principal); F90.2 Attention-deficit hyperactivity disorder, combined type; F41.9 Anxiety disorder, unspecified | CPT/HCPCS: 90792 ==

== ENCOUNTER 2025-01-09 14:23 | Outpatient (AMB) | payer BC, SELFPAY ==
--- NOTE | 2025-01-09 14:26 | MHC.OFFVIS ---
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 He is a patient of Dr. Arellano. He seen for the following urologic conditions - right epididymal cyst - microscopic hematuria - lower urinary tract symptoms - right inguinal disruption Seen in his hospital consult October 2024 Left epididymal cyst noted Has incomplete bladder emptying Has been on tamsulosin Switch to terazosin Inguinal disruption Right-sided groin pain On examination pain is maximal on insertion of rectus abdominis to pelvic bone - tendinitis Local anesthetic with steroid shot given Epididymal cyst Scrotal ultrasound left 2.9 cm spermatocele [facility] Medical History Cocaine abuse Chronic pain syndrome Obesity with body mass index (BMI) of 30.0 to 39.9 Bipolar disorder, unspecified Establishing care with new doctor, encounter for Central stenosis of spinal canal Protrusion of intervertebral disc of lumbosacral region Bulging lumbar disc Degenerative disc disease, lumbar Chronic back pain Sinus infection Bleeding hemorrhoids Testicular pain, right Epididymal cyst Hydrocele Anxiety Umbilical hernia ADHD (attention deficit hyperactivity disorder) HTN (hypertension) GERD (gastroesophageal reflux disease) Hemorrhoids Surgical History History of hemorrhoidectomy (~03/27/24) History of epididymectomy (04/18/23) Hx of umbilical hernia repair (07/22/21) Hx of endoscopy (06/2022) History of colonoscopy (~01/11/19) Status post total right knee replacement Family History Father Alive and well Mother Alive and well Social History Household Members: None Housing: Apartment Are you a primary laboratory animal care veterinarian to a significant other at home: No Do you presently have visiting nurse or other home services: No 75 years or older and lives alone: No Alcohol intake: current Alcohol intake frequency: 3 or more drinks per day Alcohol type: beer Patient Tobacco Use Status: Former Tobacco user Substance Use Type: Marijuana service: No Current occupational status: employed Cognitive needs: No Hearing needs: No Vision needs: Yes (reading glasses/Rx glasses) Office Procedures Post Void Residual Post Residual Void Post Void Residual (PVR): 149 [id number] Void Residual by ultrasound AMB Tendon Injection Tendon Injection Details: Office procedure - Rectus Insertion Injection The right inguinal ring was palpated with the left hand. Pain was elicited on medial aspect of the inguinal ring at the insertion of the rectus tendon into the symphysis pubis. Alcohol prep was applied. A 22 gauge 3.5 in Chiba needle was advanced and under tactile guidance the tip was placed through rectus tendon insertion. Negative aspiration was performed. A fan-like distribution for injection of a total of 10 cc was made. The injection consisted of 5 cc of 0.5% bupivacaine, 5 cc of 1% lidocaine, and 40 mg Kenalog. The injection was well tolerated with only transient pain. CPT 56759 ICD M77.8 Enthesopathy [id number] Tendon Sheath Injection All charges added?: Procedure code (CPT) selection complete Office Meds Kenalog 40 mg/mL suspension for injection Performing Provider: Rogelio Waldrop MD [facility] Administered by: Rogelio Waldrop MD on 01/09/25 16:44 Dose Route Admin Location Dispensed Lot Number Expiration Date [facility] Pressure Washer 40 mg Tendon Sheath Inj. 1 mL Total Dispensed Waste 1 mL 0 % lidocaine (PF) 10 mg/mL (1 %) injection solution Performing Provider: Rogelio Waldrop MD Performing Location[facility] Administered by: Rogelio Waldrop MD on 01/09/25 16:44 Dose Route Admin Location Dispensed Lot Number Expiration Date [facility] Pressure Washer 10 mL Infiltration 10 mL Total Dispensed Waste 10 mL 0 % Assessment & Plan Assessment & Plan (1) Incomplete emptying of bladder due to benign prostatic hyperplasia: Code(s): N40.1 - Benign prostatic hyperplasia with lower urinary tract symptoms; R33.9 - Retention of urine, unspecified Category: Medical (2) Deep inguinal pain, left: Code(s): R10.32 - Left lower quadrant pain Category: Medical Plan Right rectus abdominis tendon injection today Nursing staff will call next week for efficacy Increase terazosin dose Orders: Orders AMB Post Void Residual by ultrasound Today N40.1 - Benign prostatic hyperplasia with lower urinary tract symptoms, R33.9 - Retention of urine, unspecified AMB Tendon Injection Today R10.32 - Left lower quadrant pain Medications: New terazosin 5 mg PO BEDTIME 30 caps 1RF 30 days N40.1 - Benign prostatic hyperplasia with lower urinary tract symptoms, R33.9 - Retention of urine, unspecified Patient Instructions: This note is constructed using voice recognition software. While every effort has been made to ensure accuracy decorating and assembly supervisor errors may have been included. Imaging studies, laboratory and physical exam results were discussed and reviewed in detail. No major barriers to patient understanding were identified. An opportunity to ask questions regarding the treatment plan was provided. All questions were answered. The patient expressed understanding and agreement with the above treatment plan. The patient is aware they should contact our office by phone for worsening of their current condition or the appearance of new urologic symptoms. Compliance is encouraged with any medications and followup testing that is ordered. It is a privilege to participate in the urologic care of your patient. If you have any questions or concerns regarding treatment for the above conditions, or other urologic issues, please do not hesitate to contact me. The office telephone contact is [phone]. Sincerely, Dr Rogelio Waldrop MD, [facility] - Urology Compassionate Specialist Care for the Genitourinary System Coding Level of Care Code Est Pt Level 4 (40795) Diagnoses Incomplete emptying of bladder due to benign prostatic hyperplasia N40.1; R33.9 Deep inguinal pain, left R10.32 CPT Codes Post Residual Void - PVR CPT Code: 46013-Nfnv Void Residual by ultrasound ([id number]) Tendon Injection - Tendon Injection 1: 99384-Jqjpan Tendon Sheath Injection ([id number])
== END 2025-01-09 15:12 | disposition home or self-care (01) ==
LOC: HO.HUSH 14:23
PROVIDERS: PCP Physician Assistant Medical; Visit Provider Urology
DX: N40.1 Benign prostatic hyperplasia with lower urinary tract symptoms (principal); R33.9 Retention of urine, unspecified; R10.32 Left lower quadrant pain; R10.31 Right lower quadrant pain
CPT/HCPCS: 20550; 99214

== ENCOUNTER → 2025-01-09 14:23 | Outpatient (BNVA) | payer BC, SELFPAY | PROVIDERS: PCP Physician Assistant Medical; Visit Provider Urology | DX: R10.32 Left lower quadrant pain (principal); N40.1 Benign prostatic hyperplasia with lower urinary tract symptoms; R33.9 Retention of urine, unspecified; M77.8 Other enthesopathies, not elsewhere classified | CPT/HCPCS: 20550; 20551; 51798; J2003; J3301 ==

== ENCOUNTER 2025-02-19 11:08 | Outpatient (AMB) | payer BC, SELFPAY ==
--- NOTE | 2025-02-19 11:45 | A.OFFPSYCH_ITS ---
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 Allergies seasonal Allergy (Mild, Uncoded 01/09/25 14:32) Sneezing Medication List - Last Reconciled 02/19/25 by Shani Travis APRN acetaminophen ER (Tylenol Arthritis Pain) 1,300 mg (2 x 650 mg) PO Q8H celecoxib (Celebrex) 100 mg PO BID PRN cyclobenzaprine 10 mg PO Q8H dextroamphetamine-amphetamine 10 mg (Adderall) 10 mg PO DAILY diclofenac sodium 1% (Arthritis Pain (diclofenac)) 4 grams topical QID fexofenadine (Allergy Relief (fexofenadine)) 180 mg PO DAILY fluoxetine 20 mg PO BEDTIME fluoxetine 40 mg PO DAILY hydroxyzine HCl 25 mg (1/2 x 50 mg) PO Q8H ibuprofen 800 mg PO Q8H losartan 100 mg PO DAILY olanzapine (Zyprexa) 2.5 mg PO BEDTIME omeprazole 20 mg PO DAILY@0630 pantoprazole (Protonix) 40 mg PO DAILY tamsulosin 0.4 mg PO BEDTIME terazosin 5 mg PO BEDTIME 30 days HPI- Psychiatric Chief Complaint: f/u consultation HPI Narrative: Pt here for follow up re: Bipolar II and ADHD. PHQ9= 14 and GAD7= 21. Pt stats he is working 80 hours a week. He reports hydoxyzine is causing sleepiness so he doesn't take during the day. He reports histroy of taking wellbutrin which caused him to feel mean. Mood is labile. He is anxious . Hes not sleeping. He reports a history of ADHD for 45 years and has been on adderall 10mg daily for 6 years. he reports it helps him calm down and be less impulsive. He is also on prozac 60mg daily for depression and anxiety but says its not working. he has been on ativan in past which he said helped. he has also had trials of paxil and ritalin which he says did not help. These meds have always been prescribed by his PCP. He reports he has not seen a psychiatrist or a therapist. He says he does think he needs to see a therapist now to help him deal with the of his son a year ago. He jokingly says his friends and family have told him he has bipolar disorder. He has never been hospitalized. he reports being on prescribed opiates for pain for years. He says he took the opiates for his back because he is afraid to have surgery. When asked about his urine drug screen being positive for cocaine he says that was very upsetting for him because he does not use it on a regular basis but had gone to a school reunion and used it that one time. He does report a long history of alcohol abuse which he used 12 step meeting to establish sobriety with occasional relapses. He reports he has been dabbling with alcohol lately but still goes to 12 step meetings for support. 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 He reports he has good support from family and friends. He reports a difficult upbringing as he was one of 7 children and the family struggled to put food on the table. He reports he was an awful student. He was always getting in trouble. He was especially impulsive as a elementary student and a little less trouble in high school. Discussed Bipolar Disorder with patient. Given the fact that he is on 60mg of prozac and still depressed and anxious in addition to his symptoms of impulsivity, rapid speech, working many hours a week, elevated energy and mood alternating with depressed mood, poor sleep and racing thoughts that is is likely he has a Bipolar type depression in addition to ADHD. He is open to this idea and he wants help. Past Psychiatric History: oupt by PCP. No IPLOC Subjective Subjective Medication Compliance: Yes Side effects from medications: Yes (possible prozac exacerbating mood symptoms) Review of Systems Medical Review of Systems: unchanged Mental Status Exam Mental Status Exam Patient Appearance: Well Grooomed and Appropriate Patient Orientation: Person, Place, Time and Situation Level of Consciousness: Awake, Appropriate, Restless and Alert Patient Behavior: Appropriate, Talkative, Hyperactive, Cooperative, Restless, Anxious and Crying Mood Description: Depressed, Anxious, Labile and Expansive Affect Description: Depressed, Anxious and Expansive Patient Cognition Impaired: No Ability to Follow Directions: Fair Speech Pattern: Perseverating, Rambling, Excessive and Pressured Memory Description: Intact Hallucinations: None Delusions: Not Present Thought Process: Racing and Distracted Thought Content: positive for Preoccupation Judgement: Fair Assessment and Plan Assessment & Plan (1) Bipolar II disorder major depressive with melancholic features: Status: Acute Code(s): F31.81 - Bipolar II disorder (2) ADHD (attention deficit hyperactivity disorder): Status: Acute Qualifiers: Attention deficit-hyperactivity disorder type: combined inattentive-hyperactive Qualified Code(s): F90.2 - Attention-deficit hyperactivity disorder, combined type Code(s): F90.9 - Attention-deficit hyperactivity disorder, unspecified type (3) Anxiety: Status: Acute Code(s): F41.9 - Anxiety disorder, unspecified Plan low dose zyprexa 2.5mg daily prn anxiety/agitation take zyprexa 10mg at bedtime REDUCE prozac to 40mg daily continue adderall xr 10mg daily HOLD hydroxyzine to 25mg Q8 hours prn anxiety due to risk of urinary retention and anticholinergic properties and PT not taking due to sleepiness Obtain EKG dilan return in 4-6 weeks for follow up collaborate with SW to refer to therapist Medications: New olanzapine 10 mg PO BEDTIME 30 tabs 0RF Changed From olanzapine 2.5 mg PO BEDTIME 30 tabs 0RF To olanzapine (Zyprexa) 2.5 mg PO DAILY PRN 30 tabs 0RF agitation Refilled dextroamphetamine-amphetamine 10 mg (Adderall) Partial Fill upon patient request. 10 mg PO DAILY 30 tabs 0RF Discontinued fluoxetine Discontinued Reason: Patient Completed Course 20 mg PO BEDTIME 90 caps 1RF On Hold hydroxyzine HCl Hold Comment: Doctor's Order 25 mg (1/2 x 50 mg) PO Q8H 30 tabs 3RF anxiety Counseling and coordination of Care Pt. Self Management counseling: Exercise, Mod caffeine/ETOH intake, Nutrition education and improvement, Sleep hygiene, General coping skills and Problem solving Medication management counseling: Effectiveness, Side effects, Dosing range, Duration, Drug interaction and Adherence Diagnosis and Prognosis Counseling: Accuracy of diagnosis, Prognosis over time, Impact of diagnosis on life functions, Impact of family relationship, Problematic behaviors secondary to diagnosis and Adequacy of current interventions Details: I spent 40 minutes reviewing the record, seeing the patient and documenting in the medical record. Counseling provided to the patient/caregiver as outlined below. Addressed patient/caregiver concerns regarding current medication regime including effective adherence. Addressed patient/caregiver concerns regarding diagnosis and prognosis including accuracy of diagnosis, prognosis over time, impact of diagnosis. Addressed patient/caregiver concerns regarding impact of recent stressors. PFSH Medical History Cocaine abuse Chronic pain syndrome Obesity with body mass index (BMI) of 30.0 to 39.9 Bipolar disorder, unspecified Establishing care with new doctor, encounter for Central stenosis of spinal canal Protrusion of intervertebral disc of lumbosacral region Bulging lumbar disc Degenerative disc disease, lumbar Chronic back pain Sinus infection Bleeding hemorrhoids Testicular pain, right Epididymal cyst Hydrocele Anxiety Umbilical hernia ADHD (attention deficit hyperactivity disorder) HTN (hypertension) GERD (gastroesophageal reflux disease) Hemorrhoids Surgical History History of hemorrhoidectomy (~03/27/24) History of epididymectomy (04/18/23) Hx of umbilical hernia repair (07/22/21) Hx of endoscopy (06/2022) History of colonoscopy (~01/11/19) Status post total right knee replacement Family History Father Alive and well Mother Alive and well Social History Household Members: None Housing: Apartment Are you a primary care companion to a significant other at home: No Do you presently have visiting nurse or other home services: No 75 years or older and lives alone: No Alcohol intake: current Alcohol intake frequency: 3 or more drinks per day Alcohol type: beer Patient Tobacco Use Status: Former Tobacco user Substance Use Type: Marijuana service: No Current occupational status: employed Cognitive needs: No Hearing needs: No Vision needs: Yes (reading glasses/Rx glasses) Social History: lives alone. Coding Level of Care Code Est Pt Level 4 (67732) Diagnoses Bipolar II disorder major depressive with melancholic features F31.81 Attention deficit hyperactivity disorder (ADHD), combined type F90.2 Attention deficit-hyperactivity disorder type: combined inattentive- hyperactive Anxiety F41.9
--- OUTSIDE RECORDS SUMMARY | 2025-02-19 15:05 | XMS_ITS | Clinical Summary ---
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
--- OUTSIDE RECORDS SUMMARY | 2025-02-19 15:05 | XMS_ITS | Clinical Summary ---
Author Organization [employer] Address [address] [facility] [place] [address] Care Team Providers Care Emergency Medicine Specialist Name Role Phone Pcp, No Primary Care Provider [phone] Allergies No known active allergies Medications losartan (COZAAR) 100 MG tablet 07/03/2024 Active FLUoxetine (PROzac) 20 MG capsule 08/06/2024 Active Allergy Relief, fexofenadine, 180 mg tablet 08/12/2024 Activ e dextroamphetamin e-amphetamine (ADDERALL) 10 mg tab 08/17/2024 Active naproxen (NAPROSYN) 500 MG tablet TAKE 1 TABLET BY MOUTH TWICE DAILY WITH FOOD 07/18/2024 Active oxyCODONE (ROXICODONE) 5 MG immediate release tablet TAKE 1 TABLET BY MOUTH FOUR TIMES DAILY 08/13/2024 Active Social History Tobacco Use Types Packs/Day Years Used Date Smoking Tobacco: Never Passive Smoke Exposure: Never Smokeless Tobacco: Never Tobacco Cessation:Counseling Given: Yes PHQ-2 Answer Date Recorded PHQ-2 Total Score 3 08/30/2024 Sex and Gender Information Value Date Recorded Sex Assigned at Not on file Legal Sex Male 11:41 AM EDT Gender Identity Not on file Sexual Orientation Not on file Last Filed Vital Signs Vital Sign Reading Time Taken Comments Blood Pressure 107/73 08/31/2024 4:58 PM EDT Pulse 100 08/31/2024 4:58 PM EDT Temperature 36.5 C (97.7 F) 08/31/2024 4:58 PM EDT Respiratory Rate 14 08/31/2024 4:58 PM EDT Oxygen Saturation 98% 08/31/2024 4:58 PM EDT Inhaled Oxygen Concentration - - Weight - - Height - - Body Mass Index - - Plan of Treatment Health Maintenance Due Date Last Done Comments Colorectal Cancer: COLONOS[place] PY Screening every 10 yrs (or Modifier) 1968 Hepatitis C Virus Infection in Adolescents and Adults: Screening (or Modifier) ([facility]) 01/20/1986 [facility] Screening Reminder: Laura yoo for all adults ([facility]) 01/20/1986 DTaP/Tdap/Td Vaccines ([facility]) (1 - Tdap) 01/20/1987 Colorectal Cancer Screening 45 -75 Yrs (or HM Modifier) 01/20/2013 Colorectal Cancer: FLEXIBLE SIGMOIDOSCOPY Screening every 5 yrs 01/20/2013 Colorectal Cancer: Fecal Imm unochemical Test (FIT) Annually [facility] 01/20/2013 Colorectal Cancer: High-sens itivity gFOBT Screening Annually [facility] 01/20/2013 Colorectal Cancer: Stool Col oguard Screening every 3 yrs 01/20/2013 Colorectal Cancer:CT Colonog arielle Screening every 5 yrs 01/20/2013 Pneumococcal Vaccination Scr eening: Patients 50+ yrs of age ([facility]) (1 of 1 - PCV) 01/20/2018 Zoster/Shingles Vaccine Seri es Screening: Adults aged 18+ yrs (or HM Modifiers)([facility]) (1 of 2) 01/20/2018 Flu Vaccination: Yearly for ages 18mos through 64 years (or Modifier)([facility]) 09/21/2024 COVID-19 Vaccine Screening: Initial Series and Booster Status ([facility]) ( - 2024- season) 2024 Depression: Screening Annual ly using PHQ-2/9 in Adults 18 yrs or above (or HM Modifier)([facility]) 08/31/2025 08/31/2024 Medical Devices Not on file Insurance [facility] Care Teams Emergency Medicine Specialist Relationship Specialty Start Date End Date Pcp, No PCP - General Family Medicine 08/31/24
== END 2025-02-19 12:38 | disposition home or self-care (01) ==
LOC: HO.HOP 11:08
PROVIDERS: PCP Physician Assistant Medical; Visit Provider Clinical Nurse Specialist Psychiatric/Mental Health
DX: F31.81 Bipolar II disorder (principal); F90.2 Attention-deficit hyperactivity disorder, combined type; F41.9 Anxiety disorder, unspecified
CPT/HCPCS: 99214